=== PATIENT | male | born 1945 | race Caucasian/White ===

== ENCOUNTER 2023-08-23 06:59 | Day surgery (SDC) | payer OTHER, SELFPAY ==
[2023-08-23 07:48] LABS: INR 1.31; PT 16.6 Sec (11.4-14.6)
== END 2023-08-23 10:01 | disposition home or self-care (01) ==
LOC: CATH 06:59
PROVIDERS: ATTENDING PHYSICIAN Internal Medicine; FAMILY PHYSICIAN Family Medicine
DX: I08.3 Combined rheumatic disorders of mitral, aortic and tricuspid valves (principal); I48.0 Paroxysmal atrial fibrillation; R06.02 Shortness of breath; I25.10 Atherosclerotic heart disease of native coronary artery without angina pectoris; Z95.1 Presence of aortocoronary bypass graft; E78.00 Pure hypercholesterolemia, unspecified; Z79.01 Long term (current) use of anticoagulants
CPT/HCPCS: 93312; 93320; 93325; 85610

== ENCOUNTER → 2023-09-27 08:59 | Outpatient (REF) | payer OTHER, SELFPAY | LOC: HWRAD 08:59 | PROVIDERS: ATTENDING PHYSICIAN Thoracic Surgery (Cardiothoracic Vascular Surgery); FAMILY PHYSICIAN Family Medicine | DX: I05.0 Rheumatic mitral stenosis (principal); I34.0 Nonrheumatic mitral (valve) insufficiency; I35.0 Nonrheumatic aortic (valve) stenosis | CPT/HCPCS: 71275; 74174; 94060; Q9967 ==

== ENCOUNTER 2023-10-04 07:54 | Inpatient (IN) | payer OTHER, SELFPAY ==
[2023-09-27 12:14] VITALS: BMI 26.8
[2023-09-27 12:58] LABS: % Basophils 0.6 % (0-2); % Eosinophils 1.7 % (0-6); % Immature Granulocytes 0.3 % (0-0.5); % Lymphocytes 14.1 % (20.5-51.1); % Monocytes 8.3 % (1.7-9.3); Absolute Eosinophils 0.1 10^3/uL (0-0.7); Absolute Monocytes 0.6 10^3/uL (0.1-0.6); Absolute Neutrophils 5.2 10^3/uL (1.4-6.5); Hematocrit 32.4 % (39.0-52.0); Hemoglobin 10.9 g/dL (13.0-18.0); Mean Corp Hgb Conc. 33.6 g/dL (33.0-37.0); Mean Corpuscular Hgb 30.9 pg (27.0-31.0); Mean Corpuscular Volume 91.8 fL (80.0-94.0); Mean Platelet Volume 10.1 fL (7.4-10.4); Nucleated Red Blood Cells % 0 % (-); Platelet Count 184 10^3/uL (130-400); Red Blood Cell Count 3.53 10^6/uL (4.70-6.10); Red Cell Dist. Width 15.1 % (11.5-14.5); White Blood Cell Count 6.9 10^3/uL (4.8-10.8)
[2023-09-27 13:16] LABS: ALT (SGPT) 19 U/L (0-50); AST (SGOT) 33 U/L (17-59); Albumin 4.1 g/dl (3.5-5.0); Alkaline Phosphatase 121 U/L (38-126); Blood Urea Nitrogen 38 mg/dl (9-20); Calcium 8.9 mg/dl (8.4-10.2); Carbon Dioxide 22 mmol/L (22-30); Chloride 112 mmol/L (98-107); Direct Bilirubin 0.1 mg/dl (0.0-0.4); Estimated Creatinine Clearance 37 ml/min; Glucose 91 mg/dl (70-99); Potassium 4.4 mmol/L (3.5-5.1); Sodium 137 mmol/L (135-145); Total Bilirubin 0.8 mg/dl (0.2-1.3); Total Protein 6.9 g/dl (6.3-8.2); eGFR 47.06
[2023-09-27 13:20] LABS: INR 1.46; PT 17.8 Sec (11.4-14.6)
[2023-09-27 14:09] LABS: Urine Albumin Negative (Neg - Trace); Urine Bilirubin Negative (Negative); Urine Character Clear (Clear); Urine Color Yellow; Urine Glucose Negative (Negative); Urine Ketone Negative (Negative); Urine Leukocyte Negative (Negative); Urine Nitrite Negative (Negative); Urine Occult Blood Negative (Negative); Urine Specific Gravity 1.015 (<1.030); Urine Urobilinogen Negative (Neg - 1+)
--- NOTE | 2023-09-27 14:36 | CM ---
Chart reviewed. Met with the patient in PAT. Patient is coming in for on 10/03 for Heparin Bridge with AVR/MVR on 10/07. Patient is independent of ADLS, lives with his in a 2 STH, 8 VIRI, 0 DME. Reviewed preoperative and postoperative
instructions, along with showering guidelines. Gave patient 2 soaps, although the prep will be done here in the hospital. Patient is agreeable to a home visit by CT Transitional RN. Plan is for the patient to return home with CT Transitional RN.
[2023-09-28 11:15] LABS: Glycohemoglobin (HgbA1c) 5.8 % (4.0-5.6)
[2023-10-04] VITALS (17 sets, daily range): BP systolic 102–137; BP diastolic 51–76; BMI 23.7
--- NOTE | 2023-10-04 08:30 | PTCARENOTE ---
Pt admitted into 2267 @ 0800; Pt AAOx3 and resting comfortably in bed; A-fib on monitor and VSS; murmur; Lungs diminished throughout; positive bowel sounds; voiding clear yellow urine; weak lower extremities pulses; no edema noted; all admission
questions answered.
[2023-10-04 08:46] LABS: Hematocrit 31.7 % (39.0-52.0); Hemoglobin 11.1 g/dL (13.0-18.0); Mean Corpuscular Hgb 31.7 pg (27.0-31.0); Mean Corpuscular Volume 90.6 fL (80.0-94.0); Mean Platelet Volume 9.8 fL (7.4-10.4); Platelet Count 202 10^3/uL (130-400); Red Cell Dist. Width 14.5 % (11.5-14.5)
[2023-10-04 08:58] LABS: APTT 38.2 Sec (23.4-35.0); INR 1.42; PT 17.5 Sec (11.4-14.6)
[2023-10-04 09:08] LABS: NT-proBNP 3960 pg/ml
[2023-10-04 09:11] LABS: Blood Urea Nitrogen 35 mg/dl (9-20); Calcium 8.9 mg/dl (8.4-10.2); Carbon Dioxide 22 mmol/L (22-30); Chloride 110 mmol/L (98-107); Estimated Creatinine Clearance 40 ml/min; Glucose 96 mg/dl (70-99); Potassium 4.3 mmol/L (3.5-5.1); Sodium 138 mmol/L (135-145); eGFR 47.06
[2023-10-04] MEDS: LIPITOR 40 MG PO (09:39)
[2023-10-04] MEDS: SYNTHROID 50 MCG PO (09:39)
[2023-10-04] MEDS: TOPROL XL 50 MG PO (09:39)
[2023-10-04] MEDS: TIKOSYN 125 MCG PO ×2 (09:39→20:46)
[2023-10-04 10:24] LABS: HDL Cholesterol 42 mg/dl; LDL Cholesterol, Calculated 234 mg/dl; Total Cholesterol 312 mg/dl (50-199); Triglyceride 183 mg/dl (10-149); Very Low Density Lipoprotein 36 mg/dl (0-30)
--- NOTE | 2023-10-04 11:05 | CON.CAR ---
Addendum entered and electronically signed by Adelita Lundberg MD 10/04/23 13:43:
I saw and examined the patient.
The LIGHT RAIL TRANSIT OPERATOR's note was reviewed and I agree with the note.
Comment: 77 y/o male with CAD s/p CABG, bio AVR, severe MR s/p MitraClip 09/2020 (redo procedure 11/2020 [facility]), HFrEF EF 35-40%, PAF on warfarin and Tikosyn, hypertension, thyroid disease, and EDA who is here for optimization pre-operatively for
AVR/MVR Sunday. He is feeling well at rest. On exam, lungs cta, rrr, s1 s2, systolic murmur in all areas, jvp flat, extremitites warm. TTE today largely unchanged. Recently RHC was done at 71kg with relatively good filling pressures, svr was up
and CI low. Difficult to know how much he will be able to be optimized medically given multiple valvulopathies present and is the indication of surgery. We will attempt diuresis and further optimization cautiously with the aid of a [place]. Will need
medication compliance and OMT resumed post op to deal will CAD.
Will follow
Original Note:
Consultation
Consultation Request
Date/Time Consultation Requested: 10/04/23 0915
Date/Time Consultation Performed: 10/04/23 1050
Requesting Provider: Vidhya Araya
Performing Provider: Toshia MONTES DE OCA for Dr. Lundberg
Reason for Consultation: Pre-op AVR/MVR
Medical History
-
Chief Complaint: valvular heart disease
History of Present Illness:
77 y/o male with CAD s/p CABG, bio AVR, severe MR s/p MitraClip 09/2020 ([facility] HFrEF EF 35-40%, PAF on warfarin and Tikosyn, hypertension, thyroid disease, and EDA who is here for optimization pre-operatively for AVR/MVR
Sunday. I discussed with CT surgery team and he is having a swan placed to eval volume status and diuresis and valve surgery on Sunday.
Past Medical History
Past Medical History: Arrhythmias, CAD, CHF and Valvular Disease
Social History
Personal:
Living: With Family
Family History
Family History: Reviewed & Not Pertinent
Allergies / Home Medications
Allergy/AdvReac Type Severity Reaction Status Date / Time
No Known Drug Allergies Allergy Unknown Verified 09/25/23 11:43
Medication Instructions Recorded Confirmed Type
levothyroxine 50 mcg tablet 50 mcg PO DAILY Thyroid 05/05/23 10/04/23 History
torsemide 20 mg tablet 20 mg PO .M/W/F Fluid 05/05/23 10/04/23 History
Retention/Swelling
dofetilide 125 mcg capsule 125 mcg PO BID anti arrhythimia 08/06/23 10/04/23 History
atorvastatin 40 mg tablet 40 mg PO DAILY High Cholesterol 08/23/23 10/04/23 History
metoprolol succinate 50 mg 50 mg PO DAILY Blood Pressure 08/23/23 10/04/23 History
tablet,extended release 24 hr
warfarin 2 mg tablet 2 mg PO DAILY blood thinner 08/23/23 10/04/23 History
sacubitril 49 mg-valsartan 51 mg 2 tab PO BID Heart Failure 10/04/23 10/04/23 History
tablet (Entresto)
Review of Systems
-
History Source: Patient
All other systems: Negative unless noted
Constitutional: Fatigue
Respiratory: Trouble Breathing
Physical Exam
Vital Signs
Temp Pulse Resp BP Pulse Ox
97.9 F 55 20 122/64 95
10/04/23 10:00 10/04/23 11:00 10/04/23 11:00 10/04/23 11:00 10/04/23 10:00
Lab Results
10/04/23 08:35
10/04/23 08:35
Rqs-X-Qxivzvmnuuw Pept 3960 pg/ml 10/04/23 08:35
Impression / Plan
-
Valvular heart disease:
-YUNIEL 08/23/23: EF 35-40%.�s/p MitraClip x2. Appear well seated. Mild/moderate mitral valve stenosis. Mean gradient is 7 mmHg. MVA by planimetry 1.8 cm2. Moderate/severe eccentric mitral valve regurgitation. 2 jets visualized. s/p bio-AVR. The ADELINA by
planimetry is 1.2 cm2. Gradients were not measured on current study, but prior AV gradients on TTE 05/2023 were 48/27 mmHg. 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 ASD with left to right flow visualized. (Likely post procedural s/p
MitraClip.)�Area by planimetry 0.12-0.18 cm2.
-plan is for AVR/MVR Sunday (per OP notes +/- MAZE, LAAE/ascending aorta replacement/impella). Surgery considered very high risk and he is admitted for optimization prior. Patient to get swan today for further info with plans for diuresis per CT
surgery.
PAF:
-stable in SR
-On Tikosyn with stable QTc-he reports compliance- monitor tele/EKG's
-on warfarin for OAC
HFrEF: chronic
-volume management pending as above. Patient dry weight seems to be around 156 lbs. He is 160 lbs.
-patient was apparently extra Entresto by accident as OP- should go back on his typical dosing
-updated echo is pending
-continue metoprolol
-on torsemide as OP
CAD with history of stenting and CABG:
-recent cath as below
-on warfarin/atorvastatin as OP
-stable without CP
HTN:
-stable
-follow
Dyslipidemia:
-LDL 234
-increase atorvastatin, though not clear that he has been compliant with it
Thyroid disease:
-follows with endocrine as OP
Data:
-Echo 06/04/23:�EF 35-40% Dilated right ventricle with reduced systolic function. Severe left atrial dilation. s/p MitraClip x 2. The mean gradient across the valve is elevated at 8 mmHg. Moderate, eccentric mitral regurgitation (2 jets are
seen).�Bioprosthetic aortic valve replacement. The peak/mean gradients across the valve are 48/27 mmHg. No aortic regurgitation is seen. Mild to moderate tricuspid regurgitation. Estimated pulmonary artery pressure of 50 mmHg. Mildly dilated
ascending aorta (3.8 cm).
Cath 08/06/23: 1.�Right dominant circulation with a 60% proximal RCA lesion, patent mid RCA stent with 10% ISR and a diffusely diseased distal RCA with a APPLICATIONS PROGRAMMER of the RPDA, severely diseased left main coronary artery with a 60-70% stenosis of the entire
shaft with a 70-80% lesion at the distal margin leading into the left circumflex, a 60-70% lesion at the origin of the first obtuse marginal and a chronic total occlusion of the ostial LAD, status post bypass (patent SMITH to LAD, patent SVG to RPDA
to RPL).�The coronary anatomy is essentially unchanged from prior cardiac catheterization in 2020. Moderately elevated filling pressures (LVEDP = 20 mmHg, PCWP = 20 mmHg at 71.0 kg). Depressed systolic function (cardiac index 1.69 L/min/m�, AV O2
difference 6.93 volume%). Significant residual intra-atrial shunt (likely due to persistent atrial septostomy from AIDAN), Qp/Qs = 1.58. Status post bioprosthetic aortic valve replacement with probably moderate stenosis (mean gradient 15 mmHg on
cath, 27 mmHg on echocardiogram). Status post AIDAN.�There are total of 3 Mitra[address] devices in place.�There is equalization of PCWP and LVEDP pressures.
Data Reviewed
-
EKG: Tracing Personally Visualized and interpreted
Radiology: Report Reviewed by me (CXR: Pulmonary vascularity at least top normal)
Medical Tests (Nuc Med, Echo etc): Report Reviewed by me (as noted above)
Labs: Labs Reviewed by me
[2023-10-04 11:32] LABS: TSH 5.07 uIU/ml (0.47-4.68)
--- NOTE | 2023-10-04 11:34 | PTCARENOTE ---
Assessment unchanged; NSR with PACs on monitor and VSS; family at bedside and awaiting anesthesia for [place] Yolanda placement.
--- NOTE | 2023-10-04 11:59 | CM ---
CM following for DC planning needs.
Met w/ patient and spouse, Beverly at bedside.
Plan for CT Surgery on 10/07.
Reviewed CM role and anticipated DC plan.
Will remain available.
[2023-10-04] MEDS: VERSED 2 MG IV (12:40)
--- NOTE | 2023-10-04 13:10 | W.PN.UPDATE ---
Update Note
Progress Note Update
I had a edmar discussion with Mr. Bentley, he understands that his surgery is considered to be very high risk given his previous reoperative status as well as multiple clips and patent SMITH graft. We discussed the potential complications and setbacks
associate with reoperation in his particular case double valve replacement. Plan is to medically optimize him prior to surgery and possibly use Impella support postoperatively to bridge him and decompress his left ventricle. I quoted him a
estimated mortality risk of approximately 20 to 30%, however this is not based on any sort of calculator as it was not designed to consider his current situation. He understands and wishes to move forward. Tentative plan is for continued medical
optimization and surgery on Sunday. Will have a small insert in order to obtain cardiac output and index, and also plan to hold his Entresto (which she was taking double doses), until the day of surgery.
Thank you for involving me in the care of this patient. Please feel free to contact me with any questions or concerns.
Freeman Barlow MD, MS
Cardiothoracic Surgeon
[facility]
This dictation was created using the WIDIP dictation system. Please excuse any grammatical, typographical, or 'sound alike' errors.
[2023-10-04 13:13] LABS: Mixed Venous O2 Saturation 82.9 %
--- NOTE | 2023-10-04 13:18 | W.PN.UPDATE ---
Update Note
Progress Note Update
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 Please see scanned H&P
from 09/20/23. Pharmacist noted patient was inadvertently taking double his Entresto prior to admission.
PMH: s/p AVR #21mm Trifecta (tissue) and CABG x 3 SMITH-LAD; SVG- RPD & RPL 02/18/13; moderate MS/severe MR 2017 s/p Veronica Clip x 2 09/2020; AFib; hypothyroidism
NEURO: AAO x 3. KUMAR +5/5 B/L. PERRLA. Speech clear and appropriate
LUNGS: clear B/L. Prior median sternotomy well healed
CV: RRR S1, S2, III/ HSM LSB 5th ICS>radiates to axillae
GI: abdomen soft, round, nontender, normal active bowel sounds, no abdominal bruit
: voids without difficulty
EXT: no lower extremity edema, +2/4 DP pulses B/L
Assessment/Plan:
prosthetic aortic stenosis, moderate mitral stenosis and severe mitral regurgitation, ASD with left to right shunt
RIJ cordis and [place] placed by anesthesia: PA 38/18; CVP 6; CI 3.2
TTE: EF 35-40%. Aortic stenosis with gradients 40/20mmHg, trace AI.Moderate to severe MR with moderate MS. Moderate TR. 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
Dental clearance form scanned in chart
Currently SR>Warfarin and Entresto on hold for surgery. Continue Dofetilide and Metoprolol
--- NOTE | 2023-10-04 13:31 | PTCARENOTE ---
Dr Duvall at bedside; RIGian Ramos and Manish floated to 45 per anesthesia; CI 3.6, CO 6.7 and SVR 918; SVO2 78 on Hemosphere monitor.
--- NOTE | 2023-10-04 14:06 | PTCARENOTE ---
SVO2 79 on Hemosphere.
--- NOTE | 2023-10-04 16:11 | PTCARENOTE ---
SVO2 81 on Hemosphere.
--- NOTE | 2023-10-04 17:11 | W.PN.UPDATE ---
Update Note
Progress Note Update
T&S from with AntiFyA antibody. Spoke with Ana from Blood bank>recommends repeat T&S on 10/05 (ordered) to allow time to obtain blood (5PRBC & 4PPlts). Impella cordage sales representative notified of request for Impella 5.5 on 10/[address] Barlow
--- NOTE | 2023-10-04 18:26 | PTCARENOTE ---
SVO2 83 on Hemosphere monitor.
--- NOTE | 2023-10-04 20:00 | PTCARENOTE ---
Assumed care of patient. NSR. VSS. RA. MARY reyes and annette locked @48. Assessment per nursing flowsheet. SVO2 83. CO/CI 5.5/2.9 SVR 1126. Pt resting in bed, denies any complaints.
[2023-10-04 20:59] LABS: Urine Albumin Negative (Neg - Trace); Urine Bilirubin Negative (Negative); Urine Character Clear (Clear); Urine Color Yellow; Urine Glucose Negative (Negative); Urine Ketone Negative (Negative); Urine Leukocyte Negative (Negative); Urine Nitrite Negative (Negative); Urine Occult Blood Negative (Negative); Urine Urobilinogen Negative (Neg - 1+)
--- NOTE | 2023-10-04 21:10 | PTCARENOTE ---
Addendum entered by Faye Jessica RN 10/04/23 22:59:
Loyal leveled/zeroed/flushed prior to calibration. Loyal remains at 48cm
Original Note:
Pt oob to BS for BM. Upon returning to bed SVO2 90-91. DAMIEN Wright notified. Hemosphere device recalibrated. MV per lab is 75.2.
[2023-10-04 21:40] LABS: Mixed Venous O2 Saturation 75.4 %
--- NOTE | 2023-10-04 22:00 | PTCARENOTE ---
SVO2 74% on hemosphere monitor.
[2023-10-05] VITALS (25 sets, daily range): BP systolic 84–125; BP diastolic 32–89; BMI 23.8
--- NOTE | 2023-10-05 00:05 | PTCARENOTE ---
NSR with PACs. VSS remains on RA. Assessment unchanged. Pt resting at this time. SVO2 78%.
--- NOTE | 2023-10-05 02:13 | PTCARENOTE ---
SVO2 79 per hemosphere monitor
--- NOTE | 2023-10-05 03:00 | W.PN.CT ---
Today's Communication / Plan
-
-no issues overnight
-hemodynamically stable. No drips
-s/p swan placement on 10/03. CI 2.6, CO 4.8, SVR 1273
-remains in nsr with PACs
Assessment / Plan
-
Impression:
-admitted 10/03 for hemodynamic optimization prior to scheduled AVR/MVR, Maze/LAAE/ ASD closure with possible Impella support on 10/07
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
-RIJ cordis and [place] placed by anesthesia on 10/03: PA 38/18; CVP 6; CI 3.2
-TTE: EF 35-40%. Aortic stenosis with gradients 40/20mmHg, trace AI.Moderate to severe MR with moderate MS. Moderate TR. 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
-s/p AVR, CABG x3
-Paroxysmal a-fib - currently in SR>Warfarin and Entresto on hold for surgery. Continue Dofetilide and Metoprolol
-HTN/HLD
-CAD- hx stents
-MV clips 2020
-CKD 3
-Pulmonary HTN
-Anemia
-Mediastinal adenopathy
-Chronic systolic CHF
-Hx bronchitis
-Gastritis
-hx neck tingling
-Thyroid dz
-R TKR
�Echo 10/04/23:
�-Moderately reduced left ventricular systolic function. � LV ejection fraction�is 35-40% by visual assessment.
�-Dilated right ventricle with preserved function. Stage II diastolic dysfunction suggestive of increased filling pressures.
-Status post mitral valve clipping x 2 with moderate to severe mitral regurgitation� (may be underestimated due to acoustic shadowing).� Moderate mitral stenosis.
-Well-seated bioprosthetic aortic valve with significant stenosis.
�-Moderate tricuspid regurgitation with moderate pulmonary hypertension.
�-Color flow pattern suggestive of ASD with evidence of left to right shunting on color flow Doppler.
�-Compared to TTE from 06/04/2023, right ventricular systolic function appears preserved on today's study and was mildly reduced on the prior.� The mitral regurgitation is slightly increased and from moderate on the prior study
Discussed patient care with: Nursing and Care Team
Subjective
-
Date of Service: October 05, 2023
Objective Data
-
Lab Results
10/04/23 08:35
PT 17.5 Sec (11.4-14.6) H 10/04/23 08:35
INR 1.42 10/04/23 08:35
APTT 38.2 Sec (23.4-35.0) H 10/04/23 08:35
Vital Signs
Vital Signs
Temp Pulse Resp BP Pulse Ox
98.5 F 73 23 120/65 95
10/05/23 02:00 10/05/23 02:00 10/05/23 02:00 10/05/23 02:00 10/05/23 02:00
CT Intake/Output/Weight
10/04/23 10/04/23 10/05/23
06:59 18:59 06:59
Intake Total 600 / 760 160 / 760
Output Total 300 / 500 200 / 500
Balance 300 / 260 -40 / 260
SaO2: 95
Physical Exam
-
General: Awake and AOx3
Cardiovascular: Regular rate & rhythm, Murmur (2/6 systolic @ lsb) and No Rub
Respiratory: Decreased Breath Sounds
Extremities: No Edema (2+ DP b/l)
Abdomen: soft, nondistended, + bowel sounds
Data Reviewed
-
Lab Results: Results Reviewed
Medications: Active Meds Reviewed
Chest X-Ray: Report Reviewed and Image Reviewed
ECG: Report Reviewed and Image Reviewed
--- NOTE | 2023-10-05 04:01 | PTCARENOTE ---
NSR with PACs. SVO2 77% on hemosphere. Pt resting. Labs obtained from cordis, blood return was sluggish. Pt repositioned himself, educated on restrictions with swan in place.
[2023-10-05 04:27] LABS: Blood Urea Nitrogen 28 mg/dl (9-20); Calcium 8.5 mg/dl (8.4-10.2); Carbon Dioxide 24 mmol/L (22-30); Chloride 110 mmol/L (98-107); Estimated Creatinine Clearance 50 ml/min; Glucose 80 mg/dl (70-99); Potassium 4.5 mmol/L (3.5-5.1); Sodium 136 mmol/L (135-145); eGFR > 60.00
--- NOTE | 2023-10-05 04:31 | PTCARENOTE ---
Addendum entered by Faye Jessica RN 10/05/23 04:33:
PA notified at 0130
Original Note:
[place] remains at 48 cm, Reported to be at 45mm from previous nurse. DAMIEN Eaton aware. CXR ordered for AM for baseline per Angelito PA
[2023-10-05] MEDS: SYNTHROID 50 MCG PO (06:16)
[2023-10-05 08:14] LABS: Free T4 1.05 ng/dl (0.78-2.19)
--- NOTE | 2023-10-05 08:50 | W.PN.CD ---
Today's Communication / Plan
-
resume entresto
cvp 6 will hold torsemide
heparin gtt while await surgery
Impression / Plan
-
Valvular heart disease:
-YUNIEL 08/23/23: EF 35-40%.�s/p MitraClip x2. Appear well seated. Mild/moderate mitral valve stenosis. Mean gradient is 7 mmHg. MVA by planimetry 1.8 cm2. Moderate/severe eccentric mitral valve regurgitation. 2 jets visualized. s/p bio-AVR. The ADELINA by
planimetry is 1.2 cm2. Gradients were not measured on current study, but prior AV gradients on TTE 05/2023 were 48/27 mmHg. 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 ASD with left to right flow visualized. (Likely post procedural s/p
MitraClip.)�Area by planimetry 0.12-0.18 cm2.
-plan is for AVR/MVR Sunday (per OP notes +/- MAZE, LAAE/ascending aorta replacement/impella). Surgery considered very high risk and he is admitted for optimization prior. Patient to get annette today for further info with plans for diuresis per CT
surgery.
PAF:
-stable in SR
-On Tikosyn with stable QTc-he reports compliance- monitor tele/EKG's
-on warfarin for OAC--on hold for surgery
-will start heparin gtt with intensive monitoring of lab
HFrEF: chronic
--MARY Velez placed by anesthesia on 10/03: PA 38/18; CVP 6; CI 3.2
-Will give torsemide prn
-presents compensated, would not Hold Entresto, would resume until surgery
-continue metoprolol
-on torsemide as OP
CAD with history of stenting and CABG:
-recent cath as below
-on warfarin/atorvastatin as OP
-stable without CP
HTN:
-stable
-follow
Dyslipidemia:
-LDL 234
-increase atorvastatin, though not clear that he has been compliant with it
Thyroid disease:
-follows with endocrine as OP
Subjective:
-he is feeling well, no complaints of cp or sob.
Data:
-TTE 10/04/23
CONCLUSIONS
�Moderately reduced left ventricular systolic function. � LV ejection fraction
�is 35-40% by visual assessment.
�Dilated right ventricle with preserved function.
�Stage II diastolic dysfunction suggestive of increased filling pressures.
�Status post mitral valve clipping x 2 with moderate to severe mitral
�regurgitation� (may be underestimated due to acoustic shadowing).� Moderate
�mitral stenosis.
�Well-seated bioprosthetic aortic valve with significant stenosis.
�Moderate tricuspid regurgitation with moderate pulmonary hypertension.
�Color flow pattern suggestive of ASD with evidence of left to right shunting on
�color flow Doppler.
�Compared to TTE from 06/04/2023, right ventricular systolic function appears
�preserved on today's study and was mildly reduced on the prior.� The mitral
�regurgitation is slightly increased and from moderate on the prior study.
-Echo 06/04/23:�EF 35-40% Dilated right ventricle with reduced systolic function. Severe left atrial dilation. s/p MitraClip x 2. The mean gradient across the valve is elevated at 8 mmHg. Moderate, eccentric mitral regurgitation (2 jets are
seen).�Bioprosthetic aortic valve replacement. The peak/mean gradients across the valve are 48/27 mmHg. No aortic regurgitation is seen. Mild to moderate tricuspid regurgitation. Estimated pulmonary artery pressure of 50 mmHg. Mildly dilated
ascending aorta (3.8 cm).
Cath 08/06/23: 1.�Right dominant circulation with a 60% proximal RCA lesion, patent mid RCA stent with 10% ISR and a diffusely diseased distal RCA with a GLOBAL SALES EXECUTIVE of the RPDA, severely diseased left main coronary artery with a 60-70% stenosis of the entire
shaft with a 70-80% lesion at the distal margin leading into the left circumflex, a 60-70% lesion at the origin of the first obtuse marginal and a chronic total occlusion of the ostial LAD, status post bypass (patent SMITH to LAD, patent SVG to RPDA
to RPL).�The coronary anatomy is essentially unchanged from prior cardiac catheterization in 2020. Moderately elevated filling pressures (LVEDP = 20 mmHg, PCWP = 20 mmHg at 71.0 kg). Depressed systolic function (cardiac index 1.69 L/min/m�, AV O2
difference 6.93 volume%). Significant residual intra-atrial shunt (likely due to persistent atrial septostomy from AIDAN), Qp/Qs = 1.58. Status post bioprosthetic aortic valve replacement with probably moderate stenosis (mean gradient 15 mmHg on
cath, 27 mmHg on echocardiogram). Status post AIDAN.�There are total of 3 MitraClip devices in place.�There is equalization of PCWP and LVEDP pressures.
Physical Exam
Vital Signs/Labs
Vital Signs
Temp Pulse Resp BP Pulse Ox
98.4 F 80 16 125/78 92
10/05/23 06:00 10/05/23 06:00 10/05/23 06:00 10/05/23 06:00 10/05/23 06:00
10/04/23 10/05/23 10/06/23
06:59 06:59 06:59
Actual Weight 73.1 kg
10/04/23 08:35
10/05/23 03:56
PT 17.5 Sec (11.4-14.6) H 10/04/23 08:35
INR 1.42 10/04/23 08:35
APTT 38.2 Sec (23.4-35.0) H 10/04/23 08:35
Triglycerides 183 mg/dl (10-149) H 10/04/23 08:35
LDL Cholesterol, Calc 234 mg/dl 10/04/23 08:35
VLDL Cholesterol, Calc 36 mg/dl (0-30) H 10/04/23 08:35
HDL Cholesterol 42 mg/dl 10/04/23 08:35
TSH 5.07 uIU/ml (0.47-4.68) H 10/04/23 08:35
Free T4 1.05 ng/dl (0.78-2.19) 10/05/23 03:56
10/04/23
08:35
Djw-B-Tgjodhdpxyn Pept 3960
Physical Exam
Constitutional: No acute distress
Cardiovascular: Rhythm & rate is regular, Pedal edema is absent and Systolic murmur present
Respiratory: Respiratory effort normal, Lungs clear to auscul., Wheeze Absent, Crackles Absent and Rhonchi Absent
Neuro/Psych: AO x 3
Data Reviewed
-
Date of Service: October 05, 2023
EKG: Other (tele sinus)
--- NOTE | 2023-10-05 09:18 | W.PN.UPDATE ---
Update Note
Progress Note Update
Radial arterial line placement
A time-out was completed verifying correct patient, procedure, site, patient positioning, and special equipment. Patient was monitored with continuous bedside EKG, blood pressure, pulse ox readings.
Tyrone's test was performed to ensure adequate perfusion. The patient's left wrist was prepped and draped in sterile fashion.
1% Lidocaine was used to anesthetize the area. Ultrasound was used in real time to localize the radial artery and guide introducer needle into the arterial lumen. The catheter was threaded over the guide wire and the needle was removed with
appropriate pulsatile blood return. The catheter was then secured in place to the skin and a biopatch and sterile dressing applied.
Perfusion to the extremity distal to the point of catheter insertion was checked and found to be unchanged.
Estimated Blood Loss: 0 mL
The patient tolerated the procedure well and there were no complications.
[2023-10-05] MEDS: LIPITOR 80 MG PO (09:47)
[2023-10-05] MEDS: PEPCID 20 MG PO (09:47)
[2023-10-05] MEDS: TOPROL XL 50 MG PO (09:47)
[2023-10-05] MEDS: ENTRESTO 49 MG/51 MG 1 TAB PO (09:47)
[2023-10-05] MEDS: TIKOSYN 125 MCG PO ×2 (09:48→21:43)
[2023-10-05] MEDS: HEPARIN 25000 UNITS/250 ML IV (09:55)
[2023-10-05] MEDS: DEMADEX 20 MG PO (09:55)
[2023-10-05 09:59] LABS: Hemoglobin 10.7 g/dL (13.0-18.0); Mean Corp Hgb Conc. 35.7 g/dL (33.0-37.0); Mean Corpuscular Hgb 31.9 pg (27.0-31.0); Mean Corpuscular Volume 89.6 fL (80.0-94.0); Mean Platelet Volume 10.4 fL (7.4-10.4); Platelet Count 192 10^3/uL (130-400); Red Blood Cell Count 3.35 10^6/uL (4.70-6.10); Red Cell Dist. Width 14.5 % (11.5-14.5); White Blood Cell Count 5.2 10^3/uL (4.8-10.8)
--- NOTE | 2023-10-05 10:12 | PTCARENOTE ---
assumed care of pt from previous shift RN, sinus rhythm on tele w occasional sinus arrhythmia w HR 50-60. BP 108-112/50-60 via left arterial line, Right IJ swan leveled and zeroed, CVP 3-8, PAP 35/20, hemosphere monitor in use CO 3.6/ CI 1.9-2.5,
SVR 1400, SV 70. +peripheral pulses, trace edema to bilateral lower extremities. Lungs diminished, pox 97% on RA. +bs, tolerating PO intake, voids spontaneously. PIV flush easily. plan of care reviewed w the pt and CV team, questions encouraged.
DRIPS:
Heparin 900 units/hr initiated at 10am as ordered.
[2023-10-05 10:13] LABS: APTT 35.4 Sec (23.4-35.0)
--- NOTE | 2023-10-05 11:45 | PTCARENOTE ---
assisted OOB to chair, VSS, sinus rhythm maintained on tele. pt without complaint.
--- NOTE | 2023-10-05 15:46 | CM ---
CM following for DC planning needs.
Met w/ patient at bedside. He feels well, is prepared for surgery next week. Emotional support offered.
Plan for CT Surgery 10/07.
DC plan anticipated for home w/ CT Transitional Care RN.
Cm to cont. to follow.
--- NOTE | 2023-10-05 17:00 | PTCARENOTE ---
PTT 76, heparin gtt remains at 900 units/hr. Repeat PTT ordered for 22:00.
--- NOTE | 2023-10-05 20:00 | PTCARENOTE ---
Assumed care of patient. NSR with PACs infrequent PVCs. VSS. Room air. No complaints of pain. [place] @ 48cm with RIJ cordis. Left radial ramone. Assessment per nursing flowsheet. OOB to BSC x1 d/t lines.
--- NOTE | 2023-10-05 20:40 | PTCARENOTE ---
SBP 80-90 correlating both ramone and cuff pressure. Angelito QUEZADA aware - per conversation hold entresto tonight and give tikosyn as ordered.
[2023-10-05] MEDS: ENTRESTO 49 MG/51 MG PO (21:38)
[2023-10-05 22:08] LABS: APTT 80.4 Sec (23.4-35.0)
--- NOTE | 2023-10-05 22:22 | PTCARENOTE ---
BP consistently 70-80s/40s. MAP 50. DAMIEN Eaton aware - 250 ml NSS bolus ordered.
[2023-10-05] MEDS: NSS 250 IV (22:39)
[2023-10-06] VITALS (18 sets, daily range): BP systolic 96–128; BP diastolic 54–94; BMI 23.7
--- NOTE | 2023-10-06 00:12 | PTCARENOTE ---
HR fluctuating 40s-70s. SB, NSR with PACs and PVCs. BP labile with fluctuating HR. Pt asymptomatic. BP slightly increased after bolus completed. CO/CI stable 4/2.1. DAMIEN Eaton aware - no new orders at this time.
Assessment unchanged. Denies pain. Pt resting
--- NOTE | 2023-10-06 04:31 | W.PN.CT ---
Addendum entered and electronically signed by Rosales Durham MD 10/06/23 09:26:
I saw and examined the patient.
The PA's note was reviewed and I agree with the note.
Comment:
PREOP for OR Sunday
Original Note:
Today's Communication / Plan
-
-denies any complaints
-hypotensive overnight with sbp high 80s-low 90s (asymptomatic) - improved with 250 nss bolus, held Entresto
-in nsr with frequent PACs, occasional PVCs
-follow Cr (BMP pending)
-on iv Heparin for PAF (renewed)
Assessment / Plan
-
Impression:
-admitted 10/03 for hemodynamic optimization prior to scheduled AVR/MVR, Maze/LAAE/ ASD closure with possible Impella support on 10/07
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
-RIJ cordis and [place] placed by anesthesia on 10/03: PA 38/18; CVP 6; CI 3.2
-TTE: EF 35-40%. Aortic stenosis with gradients 40/20mmHg, trace AI.Moderate to severe MR with moderate MS. Moderate TR. 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
-s/p AVR, CABG x3
-Paroxysmal a-fib - currently in SR>Warfarin and Entresto on hold for surgery. Continue Dofetilide and Metoprolol
-HTN/HLD
-CAD- hx stents
-MV clips 2020
-CKD 3
-Pulmonary HTN
-Anemia
-Mediastinal adenopathy
-Chronic systolic CHF
-Hx bronchitis
-Gastritis
-hx neck tingling
-Thyroid dz
-R TKR
�Echo 10/04/23:
�-Moderately reduced left ventricular systolic function. � LV ejection fraction�is 35-40% by visual assessment.
�-Dilated right ventricle with preserved function. Stage II diastolic dysfunction suggestive of increased filling pressures.
-Status post mitral valve clipping x 2 with moderate to severe mitral regurgitation� (may be underestimated due to acoustic shadowing).� Moderate mitral stenosis.
-Well-seated bioprosthetic aortic valve with significant stenosis.
�-Moderate tricuspid regurgitation with moderate pulmonary hypertension.
�-Color flow pattern suggestive of ASD with evidence of left to right shunting on color flow Doppler.
�-Compared to TTE from 06/04/2023, right ventricular systolic function appears preserved on today's study and was mildly reduced on the prior.� The mitral regurgitation is slightly increased and from moderate on the prior study
Discussed patient care with: Nursing and Care Team
Subjective
-
Date of Service: October 06, 2023
Objective Data
-
Lab Results
10/05/23 09:46
PT 17.5 Sec (11.4-14.6) H 10/04/23 08:35
INR 1.42 10/04/23 08:35
APTT 80.4 Sec (23.4-35.0) H 10/05/23 21:50
Vital Signs
Vital Signs
Temp Pulse Resp BP Pulse Ox
97.9 F 75 20 126/81 97
10/06/23 02:00 10/06/23 02:00 10/06/23 02:00 10/06/23 02:00 10/06/23 02:00
CT Intake/Output/Weight
10/05/23 10/05/23 10/06/23
06:59 18:59 06:59
Intake Total 240 / 860 563 / 1035 472 / 1035
Output Total 200 / 500 1500 / 1600 100 / 1600
Balance 40 / 360 -937 / -565 372 / -565
SaO2: 97
Physical Exam
-
General: Awake and AOx3
Cardiovascular: Regular rate & rhythm, Murmur (2/6 systolic @ lsb) and No Rub
Respiratory: Decreased Breath Sounds
Abdomen: soft, nondistended, + bowel sounds
Extremities: No Edema (2+ DP b/l)
Data Reviewed
-
Lab Results: Results Reviewed
Medications: Active Meds Reviewed
Chest X-Ray: Report Reviewed and Image Reviewed
ECG: Report Reviewed and Image Reviewed
--- NOTE | 2023-10-06 04:56 | PTCARENOTE ---
NSR/SB with PACs/PVCs. SBP >90 after IVF bolus. Heparin gtt remains per protocol. Labs obtained. CO/CI 4.4/2.36. Assessment unchanged. Pt resting.
[2023-10-06 05:09] LABS: APTT 111.3 Sec (23.4-35.0)
[2023-10-06 05:23] LABS: Blood Urea Nitrogen 28 mg/dl (9-20); Calcium 8.4 mg/dl (8.4-10.2); Carbon Dioxide 23 mmol/L (22-30); Chloride 109 mmol/L (98-107); Estimated Creatinine Clearance 40 ml/min; Glucose 87 mg/dl (70-99); Sodium 136 mmol/L (135-145); eGFR 47.06
[2023-10-06] MEDS: SYNTHROID 75 MCG PO (06:28)
[2023-10-06] MEDS: LIPITOR 80 MG PO (07:54)
[2023-10-06] MEDS: PEPCID 20 MG PO (07:54)
[2023-10-06] MEDS: TOPROL XL 50 MG PO (07:54)
[2023-10-06] MEDS: TIKOSYN 125 MCG PO ×2 (07:54→20:09)
--- NOTE | 2023-10-06 10:26 | PTCARENOTE ---
assumed care of pt from previous shift RN, sinus rhythm on tele, VSS, + peripheral pulses, no edema. Lungs diminished, pox 97% on RA. Right IJ cordis w swan floated to 48, left radial ramone leveled and zeroed. PIV flush easily. +bs, tolerating PO
intake, voids spontaneously. plan of care reviewed w pt and questions encouraged.
DRIPS:
Heparin 800 units/hr
--- NOTE | 2023-10-06 11:49 | W.PN.CD ---
Today's Communication / Plan
-
- plan for mitral valve surgery with AVR/MVR, Maze/LAAE/ ASD closure with possible Impella support on 10/07
Impression / Plan
-
Valvular heart disease:
-YUNIEL 08/23/23: EF 35-40%.�s/p MitraClip x2. Appear well seated. Mild/moderate mitral valve stenosis. Mean gradient is 7 mmHg. MVA by planimetry 1.8 cm2. Moderate/severe eccentric mitral valve regurgitation. 2 jets visualized. s/p bio-AVR. The ADELINA by
planimetry is 1.2 cm2. Gradients were not measured on current study, but prior AV gradients on TTE 05/2023 were 48/27 mmHg. 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 ASD with left to right flow visualized. (Likely post procedural s/p
MitraClip.)�Area by planimetry 0.12-0.18 cm2.
-plan is for AVR/MVR Sunday (per OP notes +/- MAZE, LAAE/ascending aorta replacement/impella). Surgery considered very high risk and he is admitted for optimization prior. Patient to get manish today for further info with plans for diuresis per CT
surgery.
-Arterial line placement - LiDCO - similar with manish.
PAF:
-stable in SR
-On Tikosyn with stable QTc-he reports compliance- monitor tele/EKG's
-on warfarin for OAC--on hold for surgery
-On heparin gtt with intensive monitoring of lab
HFrEF: chronic
-MARY reyes and [place] placed by anesthesia on 10/03: PA 38/18; CVP 6; CI 3.2
-Will give torsemide prn
-presents compensated, would not Hold Entresto, would resume until surgery
-continue metoprolol
-on torsemide as OP
CAD with history of stenting and CABG:
-recent cath as below
-on warfarin/atorvastatin as OP
-stable without CP
HTN:
-stable
-follow
Dyslipidemia:
-LDL 234
-increase atorvastatin, though not clear that he has been compliant with it
Thyroid disease:
-follows with endocrine as OP
Subjective:
-he is feeling well, no complaints of cp or sob.
Data:
-TTE 10/04/23
CONCLUSIONS
�Moderately reduced left ventricular systolic function. � LV ejection fraction
�is 35-40% by visual assessment.
�Dilated right ventricle with preserved function.
�Stage II diastolic dysfunction suggestive of increased filling pressures.
�Status post mitral valve clipping x 2 with moderate to severe mitral
�regurgitation� (may be underestimated due to acoustic shadowing).� Moderate
�mitral stenosis.
�Well-seated bioprosthetic aortic valve with significant stenosis.
�Moderate tricuspid regurgitation with moderate pulmonary hypertension.
�Color flow pattern suggestive of ASD with evidence of left to right shunting on
�color flow Doppler.
�Compared to TTE from 06/04/2023, right ventricular systolic function appears
�preserved on today's study and was mildly reduced on the prior.� The mitral
�regurgitation is slightly increased and from moderate on the prior study.
-Echo 06/04/23:�EF 35-40% Dilated right ventricle with reduced systolic function. Severe left atrial dilation. s/p MitraClip x 2. The mean gradient across the valve is elevated at 8 mmHg. Moderate, eccentric mitral regurgitation (2 jets are
seen).�Bioprosthetic aortic valve replacement. The peak/mean gradients across the valve are 48/27 mmHg. No aortic regurgitation is seen. Mild to moderate tricuspid regurgitation. Estimated pulmonary artery pressure of 50 mmHg. Mildly dilated
ascending aorta (3.8 cm).
Cath 08/06/23: 1.�Right dominant circulation with a 60% proximal RCA lesion, patent mid RCA stent with 10% ISR and a diffusely diseased distal RCA with a [employer] DISP[employer]ER of the RPDA, severely diseased left main coronary artery with a 60-70% stenosis of the entire
shaft with a 70-80% lesion at the distal margin leading into the left circumflex, a 60-70% lesion at the origin of the first obtuse marginal and a chronic total occlusion of the ostial LAD, status post bypass (patent SMITH to LAD, patent SVG to RPDA
to RPL).�The coronary anatomy is essentially unchanged from prior cardiac catheterization in 2020. Moderately elevated filling pressures (LVEDP = 20 mmHg, PCWP = 20 mmHg at 71.0 kg). Depressed systolic function (cardiac index 1.69 L/min/m�, AV O2
difference 6.93 volume%). Significant residual intra-atrial shunt (likely due to persistent atrial septostomy from AIDAN), Qp/Qs = 1.58. Status post bioprosthetic aortic valve replacement with probably moderate stenosis (mean gradient 15 mmHg on
cath, 27 mmHg on echocardiogram). Status post AIDAN.�There are total of 3 Mit[address] devices in [address].�There is equalization of PCWP and LVEDP pressures.
Physical Exam
Vital Signs/Labs
Vital Signs
Temp Pulse Resp BP Pulse Ox
98.2 F 68 26 106/68 98
10/06/23 10:00 10/06/23 11:00 10/06/23 11:00 10/06/23 11:00 10/06/23 11:00
10/05/23 10/06/23 10/07/23
06:59 06:59 07:59
Actual Weight 73.1 kg 72.6 kg
10/05/23 09:46
10/06/23 04:41
PT 17.5 Sec (11.4-14.6) H 10/04/23 08:35
INR 1.42 10/04/23 08:35
APTT 111.3 Sec (23.4-35.0) H 10/06/23 04:41
Magnesium 2.0 mg/dl (1.6-2.3) 10/06/23 04:41
Triglycerides 183 mg/dl (10-149) H 10/04/23 08:35
LDL Cholesterol, Calc 234 mg/dl 10/04/23 08:35
VLDL Cholesterol, Calc 36 mg/dl (0-30) H 10/04/23 08:35
HDL Cholesterol 42 mg/dl 10/04/23 08:35
TSH 5.07 uIU/ml (0.47-4.68) H 10/04/23 08:35
Free T4 1.05 ng/dl (0.78-2.19) 10/05/23 03:56
10/04/23
08:35
Qtn-O-Dhbdeesgace Pept 3960
Physical Exam
Constitutional: No acute distress and Comfortable
EENT: Anicteric and Moist mucous membranes
Cardiovascular: Rhythm & rate is regular and JVD pressure is normal
Respiratory: Respiratory effort normal, Lungs clear to auscul. and Crackles Absent
GI: Soft, Distention absent and Non tender
Neuro/Psych: Alert, Oriented, AO x 3 and Motor deficits absent
Data Reviewed
-
Date of Service: October 06, 2023
Medical Decision Making: Reviewed Test Results, Independent Historian Assessment and Test Interpretation
EKG: Tracing Personally Visualized and interpreted
Echo: Report Reviewed by me
Labs: Labs Reviewed by me
Old Records: Reviewed
Critical Care Time (in minutes): 31
--- NOTE | 2023-10-06 12:30 | PTCARENOTE ---
ptt within therapeutic parameters. heparin gtt to remain at 800 units/hr.
[2023-10-06 12:32] LABS: APTT 76.2 Sec (23.4-35.0)
[2023-10-06] MEDS: HEPARIN 25000 UNITS/250 ML IV (13:30)
[2023-10-06 18:06] LABS: APTT 83.9 Sec (23.4-35.0)
--- NOTE | 2023-10-06 20:00 | PTCARENOTE ---
Assumed care of patient. SB/NSR with PACs/PVCs. VSS. Room air. Heparin gtt per protocol. [place] intact locked @48. Leveled and zeroed. Assessment per nursing flowsheet. Encouraged IS use. Denies pain. OOB to BSC.
[2023-10-07] VITALS (21 sets, daily range): BP systolic 102–132; BP diastolic 44–91; BMI 24.0
--- NOTE | 2023-10-07 00:07 | PTCARENOTE ---
SB/NSR with PACs/PVCS. VSS. Room air. Assessment unchanged.
[2023-10-07 05:00] LABS: Hemoglobin 10.2 g/dL (13.0-18.0); Mean Corp Hgb Conc. 35.2 g/dL (33.0-37.0); Mean Corpuscular Hgb 31.1 pg (27.0-31.0); Mean Corpuscular Volume 88.4 fL (80.0-94.0); Mean Platelet Volume 9.8 fL (7.4-10.4); Platelet Count 158 10^3/uL (130-400); Red Blood Cell Count 3.28 10^6/uL (4.70-6.10); Red Cell Dist. Width 14.3 % (11.5-14.5)
[2023-10-07 05:22] LABS: Blood Urea Nitrogen 24 mg/dl (9-20); Calcium 8.4 mg/dl (8.4-10.2); Carbon Dioxide 22 mmol/L (22-30); Chloride 109 mmol/L (98-107); Estimated Creatinine Clearance 46 ml/min; Glucose 86 mg/dl (70-99); Sodium 135 mmol/L (135-145); eGFR 55.88
[2023-10-07 05:26] LABS: APTT 92.5 Sec (23.4-35.0)
--- NOTE | 2023-10-07 05:26 | W.PN.CT ---
Addendum entered and electronically signed by Rosales Durham MD 10/07/23 10:34:
I saw and examined the patient.
The PA's note was reviewed and I agree with the note.
Comment:
OR tomorrow
Heparin OFF OCT
T&C 5U PRBC/4pk PLTs
Original Note:
Today's Communication / Plan
-
-Preop planning, tentative plan for OR on Sunday
-denies any complaints
-in and out NSR/afib, controlled rate. Dofetilide and Metoprolol per cardiology.
-on iv Heparin for PAF
Assessment / Plan
-
Impression:
-admitted 10/03 for hemodynamic optimization prior to scheduled AVR/MVR, Maze/LAAE/ ASD closure with possible Impella support on 10/07
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
-RIJ cordis and [place] placed by anesthesia on 10/03: PA 38/18; CVP 6; CI 3.2
-TTE: EF 35-40%. Aortic stenosis with gradients 40/20mmHg, trace AI.Moderate to severe MR with moderate MS. Moderate TR. 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
-s/p AVR, CABG x3
-Paroxysmal a-fib - currently in SR>Warfarin and Entresto on hold for surgery. Continue Dofetilide and Metoprolol
-HTN/HLD
-CAD- hx stents
-MV clips 2020
-CKD 3
-Pulmonary HTN
-Anemia
-Mediastinal adenopathy
-Chronic systolic CHF
-Hx bronchitis
-Gastritis
-hx neck tingling
-Thyroid dz
-R TKR
�Echo 10/04/23:
�-Moderately reduced left ventricular systolic function. � LV ejection fraction�is 35-40% by visual assessment.
�-Dilated right ventricle with preserved function. Stage II diastolic dysfunction suggestive of increased filling pressures.
-Status post mitral valve clipping x 2 with moderate to severe mitral regurgitation� (may be underestimated due to acoustic shadowing).� Moderate mitral stenosis.
-Well-seated bioprosthetic aortic valve with significant stenosis.
�-Moderate tricuspid regurgitation with moderate pulmonary hypertension.
�-Color flow pattern suggestive of ASD with evidence of left to right shunting on color flow Doppler.
�-Compared to TTE from 06/04/2023, right ventricular systolic function appears preserved on today's study and was mildly reduced on the prior.� The mitral regurgitation is slightly increased and from moderate on the prior study
Subjective
-
Date of Service: October 07, 2023
No overnight events. Hr 60, SR/afib. BP 110/58 (76) PA 28/18 RAP 7. Last CO 5.11 CI 2.72 SVR 1174.
Objective Data
-
Lab Results
10/07/23 04:44
10/07/23 04:44
PT 17.5 Sec (11.4-14.6) H 10/04/23 08:35
INR 1.42 10/04/23 08:35
APTT 83.9 Sec (23.4-35.0) H 10/06/23 17:49
Vital Signs
Vital Signs
Temp Pulse Resp BP Pulse Ox
97.7 F 73 17 119/61 96
10/07/23 04:00 10/07/23 04:30 10/07/23 04:30 10/07/23 04:00 10/07/23 04:30
CT Intake/Output/Weight
10/06/23 10/06/23 10/07/23
06:59 18:59 07:59
Intake Total 587 / 1150 296 / 548 252 / 548
Output Total 100 / 1600 400 / 400
Balance 487 / -450 -104 / 148 252 / 148
SaO2: 96
Physical Exam
-
General: Awake, Oriented and AOx3
Cardiovascular: Regular rate & rhythm and Murmur
Respiratory: Clear and Decreased Breath Sounds
Extremities: Edema +2
Data Reviewed
-
Lab Results: Results Reviewed
Medications: Active Meds Reviewed
Chest X-Ray: Report Reviewed
ECG: Report Reviewed
--- NOTE | 2023-10-07 05:49 | PTCARENOTE ---
Ptt within therapeutic range. Heparin gtt to remain at 800 units/hr.
[2023-10-07] MEDS: SYNTHROID 75 MCG PO (06:13)
--- NOTE | 2023-10-07 07:25 | PTCARENOTE ---
Pt received from outgoing RN, pt oob in a chair, aaox4, VSS, [place]/Rt IJ swan/cordis, continous monitoring, heparin gtt @ 800 units/hr, NSR, RA, no c/o pain, [place] locked at 48, Lt radial [place], continue to have loose stools, holding senna and
colace.
[2023-10-07] MEDS: TOPROL XL 50 MG PO (08:34)
[2023-10-07] MEDS: PEPCID 20 MG PO (08:34)
[2023-10-07] MEDS: LIPITOR 80 MG PO (08:34)
[2023-10-07] MEDS: TIKOSYN 125 MCG PO ×2 (08:35→21:31)
--- NOTE | 2023-10-07 09:53 | W.PN.CD ---
Today's Communication / Plan
-
- AVR/MVR Sunday
- NPO after midnight.
Impression / Plan
-
Valvular heart disease:
-YUNIEL 08/23/23: EF 35-40%.�s/p MitraClip x2. Appear well seated. Mild/moderate mitral valve stenosis. Mean gradient is 7 mmHg. MVA by planimetry 1.8 cm2. Moderate/severe eccentric mitral valve regurgitation. 2 jets visualized. s/p bio-AVR. The ADELINA by
planimetry is 1.2 cm2. Gradients were not measured on current study, but prior AV gradients on TTE 05/2023 were 48/27 mmHg. 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 ASD with left to right flow visualized. (Likely post procedural s/p
MitraClip.)�Area by planimetry 0.12-0.18 cm2.
-plan is for AVR/MVR Sunday (per OP notes +/- MAZE, LAAE/ascending aorta replacement/impella). Surgery considered very high risk and he is admitted for optimization prior. Patient to get annette today for further info with plans for diuresis per CT
surgery.
-Arterial line placement - LiDCO - similar with annette.
PAF:
-stable in SR
-On Tikosyn with stable QTc-he reports compliance- monitor tele/EKG's
-on warfarin for OAC--on hold for surgery
-On heparin gtt with intensive monitoring of lab
HFrEF: chronic
-MARY Velez placed by anesthesia on 10/03: PA 38/18; CVP 6; CI 3.2
-Will give torsemide prn
-presents compensated, would not Hold Entresto, would resume until surgery
-continue metoprolol
-on torsemide as OP
CAD with history of stenting and CABG:
-recent cath as below
-on warfarin/atorvastatin as OP
-stable without CP
HTN:
-stable
-follow
Dyslipidemia:
-LDL 234
-increase atorvastatin, though not clear that he has been compliant with it
Thyroid disease:
-follows with endocrine as OP
Subjective:
-he is feeling well, no complaints of cp or sob.
Data:
-TTE 10/04/23
CONCLUSIONS
�Moderately reduced left ventricular systolic function. � LV ejection fraction
�is 35-40% by visual assessment.
�Dilated right ventricle with preserved function.
�Stage II diastolic dysfunction suggestive of increased filling pressures.
�Status post mitral valve clipping x 2 with moderate to severe mitral
�regurgitation� (may be underestimated due to acoustic shadowing).� Moderate
�mitral stenosis.
�Well-seated bioprosthetic aortic valve with significant stenosis.
�Moderate tricuspid regurgitation with moderate pulmonary hypertension.
�Color flow pattern suggestive of ASD with evidence of left to right shunting on
�color flow Doppler.
�Compared to TTE from 06/04/2023, right ventricular systolic function appears
�preserved on today's study and was mildly reduced on the prior.� The mitral
�regurgitation is slightly increased and from moderate on the prior study.
-Echo 06/04/23:�EF 35-40% Dilated right ventricle with reduced systolic function. Severe left atrial dilation. s/p MitraClip x 2. The mean gradient across the valve is elevated at 8 mmHg. Moderate, eccentric mitral regurgitation (2 jets are
seen).�Bioprosthetic aortic valve replacement. The peak/mean gradients across the valve are 48/27 mmHg. No aortic regurgitation is seen. Mild to moderate tricuspid regurgitation. Estimated pulmonary artery pressure of 50 mmHg. Mildly dilated
ascending aorta (3.8 cm).
Cath 08/06/23: 1.�Right dominant circulation with a 60% proximal RCA lesion, patent mid RCA stent with 10% ISR and a diffusely diseased distal RCA with a PANTS MAKER of the RPDA, severely diseased left main coronary artery with a 60-70% stenosis of the entire
shaft with a 70-80% lesion at the distal margin leading into the left circumflex, a 60-70% lesion at the origin of the first obtuse marginal and a chronic total occlusion of the ostial LAD, status post bypass (patent SMITH to LAD, patent SVG to RPDA
to RPL).�The coronary anatomy is essentially unchanged from prior cardiac catheterization in 2020. Moderately elevated filling pressures (LVEDP = 20 mmHg, PCWP = 20 mmHg at 71.0 kg). Depressed systolic function (cardiac index 1.69 L/min/m�, AV O2
difference 6.93 volume%). Significant residual intra-atrial shunt (likely due to persistent atrial septostomy from AIDAN), Qp/Qs = 1.58. Status post bioprosthetic aortic valve replacement with probably moderate stenosis (mean gradient 15 mmHg on
cath, 27 mmHg on echocardiogram). Status post AIDAN.�There are total of 3 Mitra[address] devices in place.�There is equalization of PCWP and LVEDP pressures.
Physical Exam
Vital Signs/Labs
Vital Signs
Temp Pulse Resp BP Pulse Ox
98.2 F 78 27 102/44 94
10/07/23 07:00 10/07/23 09:30 10/07/23 09:30 10/07/23 09:00 10/07/23 09:30
10/06/23 10/07/23 10/08/23
05:59 06:59 06:59
Actual Weight
10/07/23 04:44
10/07/23 04:44
PT 17.5 Sec (11.4-14.6) H 10/04/23 08:35
INR 1.42 10/04/23 08:35
APTT 92.5 Sec (23.4-35.0) H 10/07/23 04:44
Magnesium 2.0 mg/dl (1.6-2.3) 10/06/23 04:41
Triglycerides 183 mg/dl (10-149) H 10/04/23 08:35
LDL Cholesterol, Calc 234 mg/dl 10/04/23 08:35
VLDL Cholesterol, Calc 36 mg/dl (0-30) H 10/04/23 08:35
HDL Cholesterol 42 mg/dl 10/04/23 08:35
TSH 5.07 uIU/ml (0.47-4.68) H 10/04/23 08:35
Free T4 1.05 ng/dl (0.78-2.19) 10/05/23 03:56
10/04/23
08:35
Lyg-Q-Jsetvvyadao Pept 3960
Physical Exam
Constitutional: No acute distress and Comfortable
EENT: Anicteric and Moist mucous membranes
Cardiovascular: Rhythm & rate is regular, Pedal edema is absent and JVD pressure is normal
Respiratory: Respiratory effort normal, Lungs clear to auscul., Wheeze Absent and Crackles Absent
GI: Soft, Non tender and Normal bowel sounds
Neuro/Psych: Alert, Oriented, AO x 3 and Motor deficits absent
Data Reviewed
-
Date of Service: October 07, 2023
Medical Decision Making: Reviewed Test Results, Independent Historian Assessment, Test Interpretation and Review of Case with other Provider
EKG: Tracing Personally Visualized and interpreted
Echo: Report Reviewed by me
Labs: Labs Reviewed by me
Old Records: Reviewed
--- NOTE | 2023-10-07 12:00 | PTCARENOTE ---
reassessment unchanged from previous, few episode of bradycardia in the 40's, vss otherwise, Rt IJ swan/cordis, lt radial ramone, heparin gtt, RA, stable, no c/o pain, planned for CVOR tomorrow morning.
--- NOTE | 2023-10-07 16:00 | PTCARENOTE ---
pt reassessment unchanged from previous, vss, nsr, RA, heparin gtt 800units/hr, In and out of bed, rt IJ cordis/swan @ 48, lt radial ramone, no c/o sob, cp. Pt will be npo at midnight and prep for surgery for tomorrow morning, heparin will be on hold
prior to going into OR.
--- NOTE | 2023-10-07 18:43 | PTCARENOTE ---
ramone dced, occluded,
[2023-10-08] VITALS (21 sets, daily range): BP systolic 88–137; BP diastolic 55–99; BMI 24.1
--- NOTE | 2023-10-08 02:26 | W.PN.CT ---
Today's Communication / Plan
-
OR for today (AVR/MVR, Maze/LAAE/ ASD closure) �
Denies any complaints�
[place] DC, poor reading�
NSR/afib (controlled rate). Period of Bradycardia on dayshift (Metoprolol placed on hold)�
IV Heparin for PAF; off OCTOR�
5 of RBC and 4 PLT ordered for OR�
Assessment / Plan
-
Impression:
-admitted 10/03 for hemodynamic optimization prior to scheduled AVR/MVR, Maze/LAAE/ ASD closure with possible Impella support on 10/07
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
-RIJ cordis and [place] placed by anesthesia on 10/03: PA 38/18; CVP 6; CI 3.2
-TTE: EF 35-40%. Aortic stenosis with gradients 40/20mmHg, trace AI.Moderate to severe MR with moderate MS. Moderate TR. 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
-s/p AVR, CABG x3
-Paroxysmal a-fib - currently in SR>Warfarin and Entresto on hold for surgery. Continue Dofetilide and Metoprolol
-HTN/HLD
-CAD- hx stents
-MV clips 2020
-CKD 3
-Pulmonary HTN
-Anemia
-Mediastinal adenopathy
-Chronic systolic CHF
-Hx bronchitis
-Gastritis
-hx neck tingling
-Thyroid dz
-R TKR
�Echo 10/04/23:
�-Moderately reduced left ventricular systolic function. � LV ejection fraction�is 35-40% by visual assessment.
�-Dilated right ventricle with preserved function. Stage II diastolic dysfunction suggestive of increased filling pressures.
-Status post mitral valve clipping x 2 with moderate to severe mitral regurgitation� (may be underestimated due to acoustic shadowing).� Moderate mitral stenosis.
-Well-seated bioprosthetic aortic valve with significant stenosis.
�-Moderate tricuspid regurgitation with moderate pulmonary hypertension.
�-Color flow pattern suggestive of ASD with evidence of left to right shunting on color flow Doppler.
�-Compared to TTE from 06/04/2023, right ventricular systolic function appears preserved on today's study and was mildly reduced on the prior.� The mitral regurgitation is slightly increased and from moderate on the prior study
Subjective
-
Date of Service: October 08, 2023
Objective Data
-
Lab Results
10/07/23 04:44
PT 17.5 Sec (11.4-14.6) H 10/04/23 08:35
INR 1.42 10/04/23 08:35
APTT 92.5 Sec (23.4-35.0) H 10/07/23 04:44
Vital Signs
Vital Signs
Temp Pulse Resp BP Pulse Ox
98 F 71 12 127/71 98
10/07/23 23:00 10/08/23 01:00 10/08/23 01:00 10/08/23 01:00 10/08/23 01:00
CT Intake/Output/Weight
10/07/23 10/07/23 10/08/23
06:59 18:59 06:59
Intake Total 696 / 1492 796 / 1492
Output Total 300 / 1100 800 / 1100
Balance 396 / 392 -4 / 392
SaO2: 98
[2023-10-08] MEDS: BACTROBAN 2% OINTMENT 1 APPLIC NASAL ×2 (05:54→19:52)
[2023-10-08] MEDS: LOPRESSOR 25 MG PO (05:55)
[2023-10-08] MEDS: MAGNESIUM OXIDE 500 MG PO (05:55)
[2023-10-08] MEDS: PROTONIX 40 MG PO (05:57)
--- NOTE | 2023-10-08 06:00 | W.CVOR.SURPR ---
CVOR Surgeon Immed Pre Op
-
I have examined this patient prior to performance of the scheduled procedure.
The patient's condition is unchanged from the time of the dictated/written History and
Physical and the patient is able to undergo the scheduled procedure.
High risk Redo sternotomy AVR/MVR/+/- MAZE BRANDON E
--- NOTE | 2023-10-08 06:42 | PTCARENOTE ---
PT prepped & shaved for surgery, all meds taken and bed bath x2. CVOR rn at bedside for help with transfer
[2023-10-08 06:47] LABS: Blood Urea Nitrogen 22 mg/dl (9-20); Calcium 8.6 mg/dl (8.4-10.2); Carbon Dioxide 23 mmol/L (22-30); Chloride 110 mmol/L (98-107); Estimated Creatinine Clearance 46 ml/min; Glucose 83 mg/dl (70-99); Sodium 136 mmol/L (135-145); eGFR 55.88
[2023-10-08 07:23] LABS: ACT+ - POC 90 Seconds (82-134)
[2023-10-08 07:25] LABS: B.E. - POC -4.6 mmol/L; Glucose - POC 81 mg/dl (65-99); HCO3 - POC 21 mmol/L (21-29); Hematocrit - POC 30 % PCV (42-52); Hemodilution- POC Yes; Hemoglobin Calculated - POC 10.2; Ionized Calcium - POC 1.24 mmol/L (1.12-1.27); O2 Saturation %Calculated-POC 99.9 5 (92-96); PCO2 - POC 40 mmHg (35-45); PO2 - POC 352 mmHg (80-100); Potassium - POC 3.8 mmol/L (3.6-5.0); Sodium - POC 140 mmol/L (135-145); pH - POC 7.33 (7.35-7.45)
[2023-10-08 07:26] LABS: Urine Albumin Negative (Neg - Trace); Urine Bilirubin Negative (Negative); Urine Character Clear (Clear); Urine Color Yellow; Urine Glucose Negative (Negative); Urine Ketone Negative (Negative); Urine Leukocyte Negative (Negative); Urine Nitrite Negative (Negative); Urine Occult Blood 3+ (Negative); Urine Specific Gravity 1.015 (<1.030); Urine Urobilinogen Negative (Neg - 1+)
[2023-10-08 07:32] LABS: Urine Squamous Cell 0-2 /LPF (Few)
[2023-10-08 07:33] LABS: Urine Bacteria Few (Negative); Urine Red Blood Cell 21-25 /HPF (0-2); Urine White Cell 0-2 /HPF (0-5)
[2023-10-08] MEDS: STERILE WATER FOR INJECTION 16 ML IV ×2 (07:39→13:24)
[2023-10-08] MEDS: ZINACEF 1500 MG IV ×2 (07:39→13:24)
[2023-10-08 09:22] LABS: ACT+ - POC 675 Seconds (82-134)
[2023-10-08 10:03] LABS: Glucose - POC 117 mg/dl (65-99); HCO3 - POC 23 mmol/L (21-29); Hematocrit - POC 20 % PCV (42-52); Hemodilution- POC Yes; Hemoglobin Calculated - POC 6.8; Ionized Calcium - POC 0.96 mmol/L (1.12-1.27); PCO2 - POC 31 mmHg (35-45); PO2 - POC 365 mmHg (80-100); Potassium - POC 7.3 mmol/L (3.6-5.0); Sodium - POC 136 mmol/L (135-145); pH - POC 7.46 (7.35-7.45)
[2023-10-08 10:11] LABS: ACT+ - POC 746 Seconds (82-134)
[2023-10-08 10:37] LABS: B.E. - POC -3.1 mmol/L; Glucose - POC 171 mg/dl (65-99); HCO3 - POC 24 mmol/L (21-29); Hematocrit - POC 27 % PCV (42-52); Hemodilution- POC Yes; Hemoglobin Calculated - POC 9.1; Ionized Calcium - POC 1.08 mmol/L (1.12-1.27); O2 Saturation %Calculated-POC 99.7 5 (92-96); PCO2 - POC 51 mmHg (35-45); PO2 - POC 224 mmHg (80-100); Potassium - POC 6.4 mmol/L (3.6-5.0); Sodium - POC 136 mmol/L (135-145); pH - POC 7.28 (7.35-7.45)
[2023-10-08 10:41] LABS: ACT+ - POC 631 Seconds (82-134)
[2023-10-08 11:11] LABS: B.E. - POC -5.1 mmol/L; Glucose - POC 158 mg/dl (65-99); HCO3 - POC 21 mmol/L (21-29); Hematocrit - POC 28 % PCV (42-52); Hemodilution- POC Yes; Hemoglobin Calculated - POC 9.6; Ionized Calcium - POC 1.02 mmol/L (1.12-1.27); O2 Saturation %Calculated-POC 99.6 5 (92-96); PCO2 - POC 41 mmHg (35-45); PO2 - POC 196 mmHg (80-100); Potassium - POC 6.9 mmol/L (3.6-5.0); Sodium - POC 136 mmol/L (135-145); pH - POC 7.32 (7.35-7.45)
[2023-10-08 11:13] LABS: ACT+ - POC 603 Seconds (82-134)
[2023-10-08 11:36] LABS: B.E. - POC -1.8 mmol/L; Glucose - POC 128 mg/dl (65-99); HCO3 - POC 24 mmol/L (21-29); Hematocrit - POC 25 % PCV (42-52); Hemodilution- POC Yes; Hemoglobin Calculated - POC 8.6; Ionized Calcium - POC 1.01 mmol/L (1.12-1.27); O2 Saturation %Calculated-POC 99.9 5 (92-96); PCO2 - POC 47 mmHg (35-45); PO2 - POC 338 mmHg (80-100); Potassium - POC 7.6 mmol/L (3.6-5.0); Sodium - POC 139 mmol/L (135-145); pH - POC 7.32 (7.35-7.45)
[2023-10-08 11:40] LABS: ACT+ - POC 666 Seconds (82-134)
--- NOTE | 2023-10-08 12:04 | CM ---
pt in OR today, cm to follow.
[2023-10-08 12:11] LABS: B.E. - POC -2.1 mmol/L; Glucose - POC 104 mg/dl (65-99); HCO3 - POC 23 mmol/L (21-29); Hematocrit - POC 23 % PCV (42-52); Hemodilution- POC Yes; Hemoglobin Calculated - POC 7.9; Ionized Calcium - POC 0.98 mmol/L (1.12-1.27); PCO2 - POC 37 mmHg (35-45); PO2 - POC 388 mmHg (80-100); Potassium - POC 8.7 mmol/L (3.6-5.0); Sodium - POC 139 mmol/L (135-145)
[2023-10-08 12:14] LABS: ACT+ - POC 611 Seconds (82-134)
[2023-10-08 12:30] LABS: B.E. - POC -2.7 mmol/L; Glucose - POC 96 mg/dl (65-99); HCO3 - POC 22 mmol/L (21-29); Hematocrit - POC 24 % PCV (42-52); Hemodilution- POC Yes; Hemoglobin Calculated - POC 8.2; Ionized Calcium - POC 1.01 mmol/L (1.12-1.27); PCO2 - POC 36 mmHg (35-45); PO2 - POC 387 mmHg (80-100); Potassium - POC 6.1 mmol/L (3.6-5.0); Sodium - POC 143 mmol/L (135-145); pH - POC 7.39 (7.35-7.45)
[2023-10-08 12:34] LABS: ACT+ - POC 563 Seconds (82-134)
[2023-10-08 12:55] LABS: B.E. - POC -1.8 mmol/L; Glucose - POC 119 mg/dl (65-99); HCO3 - POC 24 mmol/L (21-29); Hematocrit - POC 29 % PCV (42-52); Hemodilution- POC Yes; Hemoglobin Calculated - POC 9.9; PCO2 - POC 47 mmHg (35-45); PO2 - POC 403 mmHg (80-100); Potassium - POC 6.3 mmol/L (3.6-5.0); Sodium - POC 144 mmol/L (135-145); pH - POC 7.32 (7.35-7.45)
[2023-10-08 12:57] LABS: ACT+ - POC 539 Seconds (82-134)
[2023-10-08 13:28] LABS: ACT+ - POC 156 Seconds (82-134)
[2023-10-08 13:29] LABS: Glucose - POC 107 mg/dl (65-99); HCO3 - POC 21 mmol/L (21-29); Hematocrit - POC 29 % PCV (42-52); Hemodilution- POC Yes; Ionized Calcium - POC 1.25 mmol/L (1.12-1.27); O2 Saturation %Calculated-POC 99.3 5 (92-96); PCO2 - POC 40 mmHg (35-45); PO2 - POC 160 mmHg (80-100); Potassium - POC 4.4 mmol/L (3.6-5.0); Sodium - POC 146 mmol/L (135-145); pH - POC 7.32 (7.35-7.45)
--- NOTE | 2023-10-08 14:43 | CON.INTV ---
Consultation
Consultation Request
Date/Time Consultation Requested: 10/08/2023
Date/Time Consultation Performed: 10/08/2023
Requesting Provider: Dr. Barlow
Performing Provider: Dr. Vicente Tristan
Reason for Consultation: Postoperative ICU care
Medical History
-
History of Present Illness:
This is a 77-year-old man with history of coronary Tory disease status post coronary artery bypass, bioprosthetic AVR, severe MR status post MitraClip 09/2020, redo procedure again in 11/2020, heart failure with reduced ejection fraction 35 to 40%,
atrial fibrillation on anticoagulation, Tikosyn, hypertension, admitted for medical optimization prior redo AVR/MVR. High risk procedure per cardio thoracic nodes.
Patient was taken to the operating room 10/08/2023.
Patient to critical care unit, intubated on mechanical ventilation.
On multiple vasoactive drugs. Impella in place.
Chest tube in place without significant drainage or air leak.
Past Medical History
Past Medical History: Other (See assessment and plan section)
Social History
Personal:
Living: With Family
Family History
Family History: Unable to Obtain
Allergies / Home Medications
Allergies
Allergy/AdvReac Type Severity Reaction Status Date / Time
No Known Drug Allergies Allergy Unknown Verified 09/25/23 11:43
Home Medications
Medication Instructions Recorded Confirmed Last Taken Type
levothyroxine 50 mcg tablet 50 mcg PO DAILY Thyroid 05/05/23 10/04/23 10/03/23 07:00 History
torsemide 20 mg tablet 20 mg PO .M/W/F Fluid 05/05/23 10/04/23 10/03/23 08:00 History
Retention/Swelling
dofetilide 125 mcg capsule 125 mcg PO BID anti arrhythimia 08/06/23 10/04/23 10/03/23 20:00 History
atorvastatin 40 mg tablet 40 mg PO DAILY High Cholesterol 08/23/23 10/04/23 10/01/23 20:00 History
metoprolol succinate 50 mg 50 mg PO DAILY Blood Pressure 08/23/23 10/04/23 10/03/23 08:00 History
tablet,extended release 24 hr
warfarin 2 mg tablet 2 mg PO DAILY blood thinner 08/23/23 10/04/23 10/03/23 20:00 History
sacubitril 49 mg-valsartan 51 mg 2 tab PO BID Heart Failure 10/04/23 10/04/23 10/03/23 20:00 History
tablet (Entresto)
Review of Systems
-
Unable to Obtain full review of systems at this time due to: Acuity and Patient Intubation
Vitals / Labs / Diagnostic Testing
Vital Signs
Temp Pulse Resp BP Pulse Ox
98.7 F 75 18 134/81 96
10/08/23 06:00 10/08/23 06:04 10/08/23 06:04 10/08/23 06:04 10/08/23 06:04
Diagnostic Testing:
Physical Exam
-
HEENT: Normocephalic
Cardiovascular: Murmur
Respiratory: Clear, Non-Labored Respirations and Other (Chest tube in place. No air leak. No excessive drainage.)
GI: Soft and Non Distended
Neurology: Other (Sedated, on mechanical ventilation.)
Skin: Warm
General: Comfortable (sedated.)
Assessment
-
Status post High risk redo sternotomy AVR/MVR 10/08/2023-Dr. Barlow
Postoperative mechanical ventilation
Postoperative anemia
Condition present prior admission:
Paroxysmal atrial fibrillation on anticoagulation
Heart failure with reduced ejection fraction
History of MitraClip X2 in 2020
Moderate to severe eccentric mitral valve regurgitation, moderate/severe prosthetic valve stenosis.
Coronary artery disease with prior stents and coronary artery bypass
Hypertension
Dyslipidemia
Thyroid disease
Prior right total knee replacement
Chronic kidney disease
Assessment and plan:
Postoperative day 0
Mechanical ventilation, appears comfortable. Sedated.
ABG reviewed: Mild mixed acidosis.
Continue SIMV mode with no change
Spontaneous breathing trial per protocol once sedation wears off.
Anemia noted-no evidence of acute bleeding
Status post transfusion of 2 units of packed RBCs/2 units of fresh frozen plasma
Follow H&H serially
Hemodynamics -on multiple vasopressors
Impella device in place
Cardiology following the patient
Arterial line and PA catheter in place. Will follow hemodynamics closely and titrate vasopressors as necessary.
Chest tube with no excessive drainage-no air leak.
Chest x-ray reviewed: With no pneumothorax or fluid collections.
Remain nothing by mouth
Head of the bed elevation
Glycemic control per protocol-insulin drip
DVT prophylaxis when safe from the surgical perspective.
Critical care statement: A total of 32 minutes of critical care time was provided for this patient today. This includes management of unstable vital signs, evaluation of the patient at bedside, reviewing the patient's pertinent medical records
including ventilator settings, arterial blood gases, radiographs, microbiology, laboratory evaluations and discussion with primary team, critical care nursing, and respiratory therapy.
[2023-10-08] MEDS: SYNTHROID PO (14:44)
[2023-10-08] MEDS: LIPITOR PO (14:44)
[2023-10-08] MEDS: TYLENOL PO ×3 (14:45→19:54)
[2023-10-08] MEDS: TIKOSYN PO (14:45)
--- NOTE | 2023-10-08 15:01 | W.PN.CT.SURG ---
CT Surgery Operative Note
-
CARDIAC SURGERY OPERATIVE REPORT
Preoperative Diagnosis: Acute on chronic congestive heart failure secondary to mitral valve stenosis/mitral valve insufficiency, bioprosthetic aortic valve stenosis
Postoperative Diagnosis: Same
Procedure(s) Performed:
1. Ultrasound-guided Seldinger access to the right common femoral artery and vein
2. Redo sternotomy with central mid arch cannulation, SVC cannulation and right common femoral vein cannulation
3. Explant of prior bioprosthetic aortic valve and implant of a 21 mm Alan Inspiris biological valve
4. Chordal sparing mitral valve replacement with explant of previous 3 mitral clips, resuspension of papillary muscle heads with CV 4 [place]Micheal
5. Left atrial maze using cryo
6. Left atrial appendage ligation
7. ASD closure
8. Placement of temporary atrial ventricular pacing wires
9. Extensive adhesiolysis
10. 5.5 ventricular assist device support [Impella] via direct aortic 10 mm graft (CPT 36592)
11. Transesophageal echocardiography
12. Management and positioning of Impella (CPT 96183)
Date of Surgery: 10/08/2023
Comorbidities:
1. Acute on chronic congestive heart failure with preoperative cardiac index diagnosis in Sea Shell Gatherer at 1.6, depressed left ventricular ejection fraction approximately 35 to 40% biatrial dilatation, evidence of endorgan malperfusion with elevated
creatinine preoperatively
2. Severe bioprosthetic aortic valve stenosis
3. Moderately severe mitral valve stenosis secondary to multiple TEERs
4. Severe mitral valve insufficiency
5. Hypertension
6. Hyperlipidemia
7. Paroxysmal atrial fibrillation
8. Coronary artery disease status post CABG x 3 with significant chitina vessel disease
9. Chronic anemia
10. Prior open heart cardiac surgery with patent grafts
Attending Surgeon: Freeman Barlow MD, MS
Assistants: Freeman Mansfield PA-C (present and necessary to rehabilitation assistant, retraction, suction, exposure, suture management, and wound closure under my direction)
Anesthesiology: Surjit Wiseman MD and Nii Klesch, LEGAL MEDIATOR
Scrub and Circulating RNs: Arun Bryan, RN, Linda Powell/Christin Stauffer RN
Fishing Worker: Kiana Landeros CCP
Anesthesia: GETA
EBL: per perfusion records
Products: 3 prbcs and 2 plts (more to be given in unit)
CPB Time: 225 minutes
Aortic Cross Clamp Time: 182 minutes
Indication(s) for Procedures: This is a 77-year-old male who had previous aortic valve and CABG x 3 back in 2013. He did relatively well following that surgery then developed degenerative mitral valve insufficiency and was deemed to be inoperable
given the level of calcification of his root and prior heart surgeons evaluation. He was subsequently sent to an outside facility in 2020/2021 where he had MitraClip x 3. Since those procedures, he has had significant quality of life limiting
shortness of breath and inability to perform even light activity such as walking to his mailbox. He has severe mitral valve insufficiency as well as moderate degree of stenosis from the [id number] procedure. He came to my office with severe
shortness of breath and inability to perform simple activities. After much deliberation we went over the risks associated reoperative surgery given his relatively poor cardiac function. He understood the risks and accepted them and so we proceeded
with preoperative optimization prior to surgery and plan for double valve replacement. Preoperatively, he had evidence of end-organ malperfusion in the form of MARTHA. His [place] Gatherer index was poor approximately 1.6 with elevation of his LVEDP. There
is also evidence of dilation of his IVC without respiratory variation secondary to significant left to right atrial shunt from the previous procedure and mild RV dysfunction. His left ventricular ejection fraction was approximate 35 to 40% with
biatrial dilatation.
Aortic Valve Description: Heavily calcified trifecta valve and heavily calcified root. Calcified ostium of both left and right coronary arteries. A total of 17 Ethibond sutures with core knots were removed.
Mitral Valve Description: Abnormally thickened with pannus overgrowth of 3 mitral clips, access via transseptal approach
Tricuspid Valve Description: Normal with minimal annular dilatation and mild insufficiency.
Findings: His left ventricular ejection fraction preoperatively was approximately 35 to 40%. His cardiac index starting off was approximately 1.8-1.9 and PA pressures were in the 50s to 60s. Following surgery had no new regional wall motion
abnormalities and his EF was approximate 25 to 30%. A 5.5 Impella was implanted via a direct aortic approach through a 10 mm graft across the aortic valve and directed towards the apex. Overall support was set at P7. He was pulsatile above the
Impella support with an index of 1.9 and PA pressures in the 40s, CVP in the 9-10 range. He did receive a bolus of normal but did not have any other inotropic support and was coming off of Levophed. RV function appeared to be normal although
mildly dilated. There is no obvious paravalvular leak and both his bioprosthetic aortic and mitral valves and the Impella was well-positioned in the root. Of note, his aortic root was heavily calcified as specified by the previous surgeon. His
aortic valve was replaced with a 21 mm bioprosthesis similar to his previous bioprosthetic valve and secured to place with 13 nonpledgeted 2 Ethibond sutures secured with core knots. His mitral valve was accessed through the anteroseptal approach
using the ASD as a guide for longitudinal septotomy. His mitral valve was replaced with pledgeted 2-0 Ethibond sutures in an inverted fashion from LV through annulus through sewing cuff. A total of 14 sutures were placed and secured with core
knots. I also placed 2 pairs of CV 4 [place]al along the anterior lateral and posterior medial papillary muscle heads to support the ventricle as most of the chordae had to be resected as it was not scarred in with the mitral clips. Before closing
the aortotomy and after implanting the aortic valve, a 10 mm graft was sewn onto the distal ascending aorta and tunneled out towards the right supraclavicular fossa. A 5.5 Impella device was then inserted across the graft and positioned directly
across the aortic valve towards the apex. Following removal of the cross-clamp, the Impella device was turned on at a low setting and slowly ramped up. The graft was used as a de-airing conduit. Upon closure of the chest the first time, there was
an unsatisfactory amount of oozing from the chest tubes and so I opted to reopen his chest tube, there was some sternal wire site bleeding was ligated. A total of 3 units of blood were given and 2 platelets were given.
Ablation Lines:
1. Box lesion to posterior LA wall
2. BRANDON lesion + BRANDON Exclusion
3. Coronary sinus lesion
4. Posterior mitral annular line toward P2/P3
Specimen(s): Bioprosthetic aortic valve / Mitral valve leaflets.
Prosthesis:
1. 31mm ALAN Mitris MVR, SN [id number]
2. 21mm ALAN Inspiris AVR, SN [id number]
3. 10mm Hemashield [place] Tube Graft, SN [id number]
4. 5.5 Impella VAD, SN [id number]
Description of Procedure: The patient was taken to the operating room. Their identity and procedure to be performed were verified and they were positioned supine on the operating table. Induction via general anesthesia with endotracheal intubation
was performed and central venous access and arterial monitoring were inserted. A preoperative transesophageal echocardiogram was performed to assess cardiac function and valvular function. The patient was then prepped and draped from chin to feet in
a sterile fashion. A preoperative time-out was performed with all members of the team present. Ultrasound was used to access his right common femoral artery and vein using Seldinger technique with micropuncture. A 5 [place] sheath was inserted into
each 1 and had saline was used to flush the lines. A midline chest incision was performed along with redo median sternotomy using an oscillating saw after extracting 8 sternal wires. The left hemisternum was then elevated and care was taken to
mobilize the heart off of the posterior table and to avoid injury to the patent SMITH graft. The right hemisternum was then elevated and the same was performed in order to free the heart. Sternal retractor was then placed and I started off by
dissecting the base of the heart of the diaphragm. I then traced the saphenous vein graft does feeding his RPL and R PDA branches back towards the ascending aorta. The pericardium was then identified and from the right atrium and aorta.
At this point I traced leftward towards his pulmonary artery and was able to identify his patent NATALIO graft using a Doppler. The innominate vein was isolated. Full heparinization was given (a total of 42,000 units units). The aortic cannulation site
was chosen where it was soft, pliable, and free of calcium at the level of the mid arch after the innominate artery. Cannulation was performed with an arterial cannula in the mid arch, angled metal tip cannular in the superior vena cava and a 24 mm
percutaneous right common femoral vein into inferior vena cava cannula was placed under YUNIEL guidance and Seldinger technique. The arterial cannula line had an appropriate bounce and correlating pressures. Next a retrograde coronary sinus catheter
was placed via the right atrium into the coronary sinus verified by transesophageal echocardiography. The ACT was confirmed to be over 400 before commencing cardiopulmonary bypass. The pulmonary artery was away from the aorta to facilitate
a clamp site. Additional adhesiolysis was performed and the heart was decompressed. The aortic cross-clamp was placed after decreasing the flow on the bypass and mean arterial pressure followed by 2 bulldogs on the left internal mammary artery
graft. A total of 1.5L initial dose of antegrade/retrograde Del-Nido cardioplegia solution was given and planned for re-dosing every 25 minutes as necessary via retrograde if evidence of ventricular activity was seen. There was electro-mechanical
arrest of the heart at 800 cc of cardioplegia. Cold slush was placed into a lap on the RV and we systemically cooled to 32 degrees centigrade. The aortotomy was performed above the prior vein vein.
Carbon dioxide was used to flood the field. The location of both left and right coronary vessels were visualized in the root and found to be heavily calcified.using patient clamp, the trifecta valve was then grasped and sequentially the core knots
were grafts and a 15 blade was used to cut the stitch and remove it from the field. Once all core knots were removed, a freer elevator was used to elevate the bioprosthetic sewing cuff freeing the annulus. A significant amount of pannus was
excised. The annulus was debrided of any calcium being mindful of the annulus and membranous septum. The root and left ventricular outflow tract were thoroughly irrigated to remove any debris. Next, the mitral valve was accessed via the right
atrium via transseptal approach after scaring the SVC and IVC with Vesseloops. Identified the atrial septal defect from the previous mitral clips and used this before my longitudinal septotomy. Using cryo, I performed a posterior wall ablation
encompassing the pulmonary veins and left atrial posterior wall. I then performed a coronary sinus lesion followed by a mitral annular line followed by a left atrial appendage lesion set. The mitral valve was replaced as described above. Left
atrial appendage was then sewn shut in 2 layers. I used 3-0 Prolene with an SH needle in order to close the septotomy.
I turned my attention back toward the root. A total of 13 Non-pledgeted 2-0 ethibond inverted annular sutures were placed [id number] circumferentially. These were brought through the sewing cuff of the prosthetic valve which as then parachuted
into place. The left and right coronary ostia were visualized and were unobstructed by the valve. A Cor-Knot device was used to secure the annular sutures. The valve was inspected and was well seated. Next I reposition my cross-clamp more distally
onto the proximal arch. 11 blade was used to create aortotomy followed by a 5.0 mm punch to enlarge the aortotomy. A 10 mm graft was then beveled and sewn onto the distal ascending aorta with 5-0 Prolene. This was then tunneled out to the right
supraclavicular fossa. A 5.5 Impella ventricular assist device was inserted under direct vision and placed across the aortic valve into the apex. The aortotomy was approximated with 4-0 prolene in two layers.
Flows in the pump were lowered the head was then dropped. De-airing maneuvers were performed with the patient in Trendelenburg position and an 18-gauge needle was used to de-air the 10 mm graft. I then manually replaced the [place] into the RV and
remove the cross-clamp. The RA suture line was closed in two layers with 5-0 prolene in a running fashion while the heart was being reperfused. Once close, remove the snares allowed to de-air the right side.
Additional de-airing maneuvers were performed and temporary atrial and ventricular pacing wires were placed at the SVC/RA junction and base of the right ventricle, respectively. Transesophageal echocardiography revealed no evidence of systolic
anterior motion and ventricular function was normal. The AV prosthesis was well seated without PVL or AI. After verifying acceptable parameters, we initiated weaning from cardiopulmonary bypass while increasing Impella support. Once we were off
cardiopulmonary bypass, the venous cannulas was clamped and removed sequentially. A test dose of protamine was administered and the patient was monitored for any adverse reaction before resuming protamine. Once half of the protamine dose was
delivered, pump suckers were turned off and the systolic blood pressure was lowered for aortic decannulation. The aortic cannula was removed and purse strings were tied down. All cannulation sites were oversewn with a 4-0 prolene. The left atrial
suture line was inspected and hemostasis was confirmed. Mediastinal hemostasis was obtained. Two #24 Aleksey drains were placed within the pericardium. The sternum was approximated stainless steel wires. There was a notable amount of dark venous
oozing in the chest drains after initial chest closure. I opted to reopen the chest in search of any bleeding. Several sites along the pacing wire internal table were identified and ligated. I closed sternum with 4 #7 single stainless steel wires
and 3 #8 double. Fascia was approximated with #1 vicryl suture. The subcutaneous, dermis and epidermis were closed in layers in a running fashion. The skin wound was cleansed and dressed. A Biopatch was placed around the exposed graft at the right
supraclavicular fossa and multiple sutures were used to secure the Impella device to the anterior chest wall.
All instrument, sponge, and needle counts were confirmed to be correct x 2 at the end of the operation. The patient was transferred to the cardiac intensive care unit in critical but stable condition.
I, Dr. Freeman Barlow, was present, scrubbed for, and performed all critical elements of this procedure.
Freeman Barlow MD, MS
Cardiothoracic Surgeon
[facility]
This dictation was created using the [employer] dictation system. Please excuse any grammatical, typographical, or 'sound alike' errors
--- NOTE | 2023-10-08 15:12 | W.PN.CD ---
Addendum entered and electronically signed by Wicho Sierra MD 10/08/23 16:41:
I saw and examined the patient.
The DIETITIAN ASSISTANT's note was reviewed and I agree with the note.
Comment: 77M with CAD s/p CABG, bio AVR, severe MR s/p MitraClip 09/2020 (redo procedure 11/2020 [place]), HFrEF EF 35-40%, PAF on warfarin and Tikosyn, hypertension, thyroid disease, and EDA who is here for optimization pre-operatively for AVR/MVR;
he is now s/p AVR MVR and 10mm Hemashield tube graft
- monitor hemodynamics
- hopefully wean Impella and d/c in next day or two
- currently in sinus
Original Note:
Today's Communication / Plan
-
Follow telemetry
Impression / Plan
-
Background: 77M with CAD s/p CABG, bio AVR, severe MR s/p MitraClip 09/2020 (redo procedure 11/2020 [place]), HFrEF EF 35-40%, PAF on warfarin and Tikosyn, hypertension, thyroid disease, and EDA who is here for optimization pre-operatively for AVR/MVR
Valvular heart disease S/P AVR (Alan 21mm), MVR (Alan 31mm), & 10mm Hemashield [place] tube graft on 10/08/[address] Barlow
-Impella in place (P7)
-Pre LVEF 35 to 40%, post 25-30%
-EKG in sinus with prolonged QTc, EKG in am
-Follow telemetry
Paroxysmal atrial fibrillation
-Stable in SR
-BRANDON clip
-On Tikosyn with stable QTc, continue
-Pre-op on warfarin for OAC, now on hold
HFrEF: chronic
-Entresto on hold
-Resume metoprolol when able
-On torsemide as OP
CAD with history of stenting and CABG, stable
-Recent cath as below
-on warfarin/atorvastatin as OP
HTN, stable
Dyslipidemia:
-LDL 234
-Increase atorvastatin, though not clear that he has been compliant with it
Thyroid disease, follows with endocrine
Subjective:
Intubated and sedated on mechanical ventilation.
Data:
TTE 10/04/23:
CONCLUSIONS
�Moderately reduced left ventricular systolic function. � LV ejection fraction
�is 35-40% by visual assessment.
�Dilated right ventricle with preserved function.
�Stage II diastolic dysfunction suggestive of increased filling pressures.
�Status post mitral valve clipping x 2 with moderate to severe mitral
�regurgitation� (may be underestimated due to acoustic shadowing).� Moderate
�mitral stenosis.
�Well-seated bioprosthetic aortic valve with significant stenosis.
�Moderate tricuspid regurgitation with moderate pulmonary hypertension.
�Color flow pattern suggestive of ASD with evidence of left to right shunting on
�color flow Doppler.
�Compared to TTE from 06/04/2023, right ventricular systolic function appears
�preserved on today's study and was mildly reduced on the prior.� The mitral
�regurgitation is slightly increased and from moderate on the prior study.
-Echo 06/04/23:�EF 35-40% Dilated right ventricle with reduced systolic function. Severe left atrial dilation. s/p MitraClip x 2. The mean gradient across the valve is elevated at 8 mmHg. Moderate, eccentric mitral regurgitation (2 jets are
seen).�Bioprosthetic aortic valve replacement. The peak/mean gradients across the valve are 48/27 mmHg. No aortic regurgitation is seen. Mild to moderate tricuspid regurgitation. Estimated pulmonary artery pressure of 50 mmHg. Mildly dilated
ascending aorta (3.8 cm).
Cath 08/06/23: 1.�Right dominant circulation with a 60% proximal RCA lesion, patent mid RCA stent with 10% ISR and a diffusely diseased distal RCA with a [employer]ILDR[employer]'S ENTER[employer] of the RPDA, severely diseased left main coronary artery with a 60-70% stenosis of the entire
shaft with a 70-80% lesion at the distal margin leading into the left circumflex, a 60-70% lesion at the origin of the first obtuse marginal and a chronic total occlusion of the ostial LAD, status post bypass (patent SMITH to LAD, patent SVG to RPDA
to RPL).�The coronary anatomy is essentially unchanged from prior cardiac catheterization in 2020. Moderately elevated filling pressures (LVEDP = 20 mmHg, PCWP = 20 mmHg at 71.0 kg). Depressed systolic function (cardiac index 1.69 L/min/m�, AV O2
difference 6.93 volume%). Significant residual intra-atrial shunt (likely due to persistent atrial septostomy from AIDAN), Qp/Qs = 1.58. Status post bioprosthetic aortic valve replacement with probably moderate stenosis (mean gradient 15 mmHg on
cath, 27 mmHg on echocardiogram). Status post AIDAN.�There are total of [address] in [address].�There is equalization of PCWP and LVEDP pressures.
Physical Exam
Vital Signs/Labs
Vital Signs
Temp Pulse Resp BP Pulse Ox
98.7 F 75 18 134/81 96
10/08/23 06:00 10/08/23 06:04 10/08/23 06:04 10/08/23 06:04 10/08/23 06:04
10/07/23 10/08/23 10/09/23
06:59 06:59 06:59
Actual Weight 74 kg
PT 17.5 Sec (11.4-14.6) H 10/04/23 08:35
INR 1.42 10/04/23 08:35
APTT 92.5 Sec (23.4-35.0) H 10/07/23 04:44
Magnesium 2.0 mg/dl (1.6-2.3) 10/06/23 04:41
Triglycerides 183 mg/dl (10-149) H 10/04/23 08:35
LDL Cholesterol, Calc 234 mg/dl 10/04/23 08:35
VLDL Cholesterol, Calc 36 mg/dl (0-30) H 10/04/23 08:35
HDL Cholesterol 42 mg/dl 10/04/23 08:35
TSH 5.07 uIU/ml (0.47-4.68) H 10/04/23 08:35
Free T4 1.05 ng/dl (0.78-2.19) 10/05/23 03:56
10/04/23
08:35
Cqj-T-Tffzufcrfin Pept 3960
Physical Exam
Constitutional: No acute distress and Comfortable
EENT: Anicteric and Moist mucous membranes
Cardiovascular: Rhythm & rate is regular, S1S2 is normal and Murmur/rub/gallop absent
Respiratory: Lungs clear to auscul.
GI: Soft, Distention absent, Flat, Non tender and Normal bowel sounds
Neuro/Psych: Other (sedated)
Other: Skin (warm and dry)
Data Reviewed
-
Date of Service: October 08, 2023
Labs: Labs Reviewed by me
Old Records: Reviewed
[2023-10-08 15:21] LABS: Glucose - Point of Care 136 mg/dl (70-99)
[2023-10-08 15:23] LABS: Mixed Venous O2 Saturation 75.7 %
[2023-10-08 15:24] LABS: Hematocrit 28.6 % (39.0-52.0); Hemoglobin 9.9 g/dL (13.0-18.0); Platelet Count 155 10^3/uL (130-400)
[2023-10-08 15:26] LABS: B.E. -6.8 mmol/L; HCO3 19.7 mmol/L (21-28); Ionized Calcium 1.07 mMOL/L (1.15-1.33); O2 Saturation % 99.1 % (94-98); PCO2 43 mmHg (35-48); PO2 196 mmHg (83-108); Potassium 4.2 mMOL/L (3.5-5.1); Sodium 143 mMOL/L (136-145); pH 7.27 (7.35-7.45)
[2023-10-08 15:32] LABS: INR 2.16; PT 23.9 Sec (11.4-14.6)
[2023-10-08 15:33] LABS: APTT 43.5 Sec (23.4-35.0)
[2023-10-08] MEDS: NSS 500 IV (15:35)
--- NOTE | 2023-10-08 15:36 | W.PN.UPDATE ---
Update Note
Progress Note Update
77M with CAD s/p CABG, bio AVR, severe MR s/p MitraClip 09/2020 ([place]o procedure 11/2020 [place]), HFrEF EF 35-40%, PAF on warfarin and Tikosyn, hypertension, thyroid disease, and EDA who is here for optimization pre-operatively for AVR/MVR
IV fluids: 2100
U.O.:� 500
UF:� 6500
Blood:� 3PRUBCS, 2plts, 2FFP
Wires:� A+V
Inotropes:� Epi
Pressors:� Levophed
Sedatives:� Precedex
�
NEURO: sedated on Precedex, pupils +1mm B/L
RESP: #8OT @22cm> 16/500/60/5 Lungs clear B/L. 2 mediastinal chest tubes to -20cm suction. Sanguineous drainage
CV: RRR +S1, S2, no S3, no�rub, no murmur. Dermabond to median sternotomy. Impella 5.5 locked at 35cm, RIJ w/[place] locked @ 48cm. PA 44/19; CVP 9; C.O 4.6/ C.I 2.5
ABD: round, soft, no BS
EXT: no edema, +2/4 DP pulses B/L, no femoral bruit, left radial A-line intact
: Velazquez with clear yellow urine
�
A/P: POD #0 s/p redo-sternotomy Avr with #21mm Implant of eugene inspiris valve, MVR with #31mm Mitris with explant of mitral clips, MAZE, BRANDON Clip, and Impella 5.5 placement
YUNIEL: EF�20% with moderate global hypokinesis.�The MVR and AVR are well seated with normal leaflet motion.
- wean and extubate as able
- Currently on Epi infusion; CI 2.6 and SVR 1300; would transition to milrinone infusion
- Continue levophed for MAPs >65
- Monitor CVP and PA pressures
>>Miguel 2.55
- Monitor CT output; if no significant bleeding will start ASA pod #0
- Monitor EKG
- Cardiology consulted
- will need instruction regarding antibiotic prophylaxis for dental and invasive procedures
�
#cardiogenic shock
#Acute on chronic CHF
- Continue impella 5.5 support; start Sodium bicarb thru purge; no heparin solution thru purge for now
>>monitor UOP; if urine becomes hemolyzed would check impella placement via TTE and urinalysis
>>plan for explant on
# acute surgical blood loss anemia-expected
- trend CBC
- s/p 3PRUBCS, 2plts, 2FFP
#hx of Atrial Fibrillation s/p MAZE
- Previously on Tikosyn; continue to monitor QTC with EKG
- he received a dose of Amio 150mg in the OR, so will continue Amio post-op
- post-op EKG now shows patient in SR
�
# Hyperglycemia
- insulin infusion x 24h
�
# Hyperlipidemia
- resume�lipitor when tolerating PO
#Hypothyroidism
- Continue Synthroid when tolerating PO
[2023-10-08 15:42] LABS: Blood Urea Nitrogen 19 mg/dl (9-20); Estimated Creatinine Clearance 50 ml/min; Glucose 125 mg/dl (70-99); Magnesium 3.3 mg/dl (1.6-2.3)
[2023-10-08 15:45] LABS: Fibrinogen 265 MG/DL (199-459)
[2023-10-08 15:49] LABS: ALT (SGPT) 17 U/L (0-50); AST (SGOT) 101 U/L (17-59); Albumin 3.2 g/dl (3.5-5.0); Alkaline Phosphatase 71 U/L (38-126); Direct Bilirubin 0.6 mg/dl (0.0-0.4); Total Bilirubin 1.6 mg/dl (0.2-1.3); Total Protein 5.1 g/dl (6.3-8.2)
[2023-10-08 16:03] LABS: Glucose - Point of Care 171 mg/dl (70-99)
--- NOTE | 2023-10-08 16:36 | PTCARENOTE ---
Patient received from CVOR. Patient is unresponsive s/p anesthesia. Unable to assess orientation and muscle strength grading. RASS -4. Pupils 2mm sluggish bilaterally. NSR with prolonged QT, EKG confirmed. HR 70s. A & V wires maintained. Checked for
thresholds - A wire has a hard time sensing the p wave, it seems. Wires connected to pacer box with the settings: VVI. HR 40, mA 10, sensitivity 2. Audible heart tones, hum from Impella 5.5 auscultated. L radial a-line maintained with BP
110s-120s/70s and MAPs 80s-90s. RIJ cordis and swan maintained at 45cm. PA pressures 40s/10s. CVP 8-10. CO 5.06, CI 2.69, SVR 1312. Lines leveled/zeroed. Levo gtt received at 6mcgs/min. Epi gtt received at 3mcgs/min. Precedex gtt received at
0.5mcgs/kg/hr. Insulin gtt received at 0.5 units/hr. Nitro gtt received on standby. VIP and Cordis KVOs adjusted. PIV maintained. 8.0 ETT, 23 at the lip. Ventilator settings: SIMV. RR 14, TV 500, PEEP 5, FiO2 60%. Oxygen saturation 95%. Upon
auscultation, bilateral anterior breath sounds are diminished. Mouth care provided. MS CTx2 maintained to -20cm wall suction. No air leak noted. Scant red drainage noted. Abdomen round. Hypoactive BS. Velazquez maintained with adequate yellow UOP. Velazquez
care provided. Complete bedrest s/p CVOR. Assist x2 to turn/reposition. Sternal aquacell is clean, dry, intact. CT dressing clean, dry, intact. RFA sheath site is clean, dry, intact. Will continue to monitor.
[2023-10-08] MEDS: CALCIUM CHLORIDE 10% SYRINGE 50 MG IV (16:37)
[2023-10-08] MEDS: CALCIUM CHLORIDE 10% SYRINGE 50 ML IV (16:37)
[2023-10-08] MEDS: PEPCID PO (16:41)
[2023-10-08] MEDS: PRIMACOR 20 MG 100 IV (17:01)
[2023-10-08] MEDS: PROTONIX IV 40 MG IV (17:05)
[2023-10-08] MEDS: NSS (PRESERVATIVE FREE) 10 ML IV (17:05)
[2023-10-08 17:21] LABS: Glucose - Point of Care 197 mg/dl (70-99)
[2023-10-08 17:50] LABS: HCO3 17.7 mmol/L (21-28); Ionized Calcium 1.29 mMOL/L (1.15-1.33); O2 Saturation % 96.6 % (94-98); PCO2 36 mmHg (35-48); PO2 73 mmHg (83-108); Potassium 4.4 mMOL/L (3.5-5.1); Sodium 143 mMOL/L (136-145)
[2023-10-08] MEDS: VALIUM INJECTION 2 MG IV (17:51)
[2023-10-08] MEDS: SODIUM BICARBONATE 50 MEQ IV (17:59)
[2023-10-08] MEDS: VENTOLIN NEBULES 2.5 MG INH (18:05)
[2023-10-08 18:07] LABS: Glucose - Point of Care 173 mg/dl (70-99)
--- NOTE | 2023-10-08 18:09 | PTCARENOTE ---
Dr. Barlow wanted to assess the patient's neuro status so precedex gtt turned off. IV Valium administered for pectoralis muscle spasms. Patient woke up. He was able to follow commands and move all extremities - wiggle toes bilaterally and squeeze
hands bilaterally. Meño his son called and RN updated him.
[2023-10-08 18:58] LABS: Glucose - Point of Care 199 mg/dl (70-99)
[2023-10-08 19:08] LABS: ACT-LR - POC 136 Seconds (116-155)
[2023-10-08] MEDS: LEVOPHED 250 IV (19:52)
[2023-10-08] MEDS: ASPIRIN 300 MG RECTAL (19:52)
[2023-10-08] MEDS: SENOKOT-S PO (19:54)
[2023-10-08 20:00] LABS: Glucose - Point of Care 191 mg/dl (70-99)
[2023-10-08] MEDS: ALBUMIN 5% 250 IV (20:00)
[2023-10-08 20:04] LABS: B.E. -5.5 mmol/L; HCO3 19.1 mmol/L (21-28); Ionized Calcium 1.22 mMOL/L (1.15-1.33); O2 Saturation % 98.1 % (94-98); PCO2 33 mmHg (35-48); PO2 94 mmHg (83-108); Potassium 4.7 mMOL/L (3.5-5.1); Sodium 143 mMOL/L (136-145); pH 7.37 (7.35-7.45)
[2023-10-08 20:05] LABS: Hematocrit 23.7 % (39.0-52.0); Hemoglobin 8.2 g/dL (13.0-18.0); O2 Therapy Air vent
--- NOTE | 2023-10-08 21:00 | PTCARENOTE ---
Patient received Intubated/Ventilator. Dr. Barlow initially at bedside with PA and SLATE ROOFER HELPER. #8.0 ETT 23cm Right lip. SIMV Ventilator Setting: Rate 16 TV 500 PS 5 PEEP 5 FiO2 40%. Rate decreased to 14. No s/s of respiratory distress. Patient drowsy.
Patient will open eyes to verbal commands and follow simple verbal commends. Pupils size 2 with sluggish reaction. Patient able to move all extremities. Chest tube dressing intact. Two mediastinal chest tubes - Intact and patent - 25 ml red
drainage - No air leak, tidaling or crepitus. Sinus Rhythm. Heart rate 80's. AV Wires. VVI Rate 40, Output 10, Sensitivity 2.0. Impella 5.5 - Centrally placed in Aorta in CVOR by Dr. Barlow - Dressing intact. q1hr hemodynamics. C.O. 4.28 C.I.
2.28. CVP 8. SVR 1270. 5% Albumin x1 administered per Dr. Barlow. Patient continues on Epi gtt, Levophed gtt, Milrinone gtt and Insulin gtt. Patient with no c/o chest pain, pressure or discomfort. Hypoactive bowel sounds. No BM. No c/o
nausea. No vomiting. Velazquez catheter - Temperature sensing - Intact and patent - Hourly output recorded. Trace generalized edema. Positive, palpable pulses. Right and Left Anterior Chest Wall with minimal swelling noted - Areas marked. Sternal
incision with surgical adhesive - Intact and open to air. Right groin with Femoral Arterial line - Intact. Patient with Right [place] Cordis/[place] Yolanda catheter. A-Line, PAP, CVP to pressure bag/saline flush - Flush without difficulty - Zeroed and
calibrated - Waveforms within normal limits. Assessment as documented.
[2023-10-08] MEDS: SODIUM BICARBONATE 100 MEQ IV (21:10)
[2023-10-08 21:18] LABS: Glucose - Point of Care 172 mg/dl (70-99)
[2023-10-08 21:25] LABS: B.E. -4.5 mmol/L; HCO3 20.1 mmol/L (21-28); O2 Saturation % 98.4 % (94-98); PCO2 34 mmHg (35-48); PO2 91 mmHg (83-108); pH 7.38 (7.35-7.45)
[2023-10-08 21:34] LABS: INR 1.65; PT 19.3 Sec (11.4-14.6)
[2023-10-08 21:35] LABS: APTT 37.4 Sec (23.4-35.0)
[2023-10-08] MEDS: PACERONE PO (22:00)
[2023-10-08] MEDS: STERILE WATER FOR INJECTION 8.30000000000000071 ML IV (22:04)
[2023-10-08] MEDS: ZINACEF 750 MG IV (22:04)
[2023-10-08 22:23] LABS: B.E. -1.4 mmol/L; HCO3 22.6 mmol/L (21-28); O2 Saturation % 98.1 % (94-98); PCO2 34 mmHg (35-48); PO2 93 mmHg (83-108); pH 7.43 (7.35-7.45)
--- NOTE | 2023-10-08 22:52 | W.PN.CARD.SR ---
Sheath/IABP Sheath Removal
Sheath Removal
Right Arterial Femoral:
Site appearance prior to sheath removal: Intact
Size of hematoma in cm: 0
Sheath removed by:: Physician housekeeper/laundry assistant
Name of associate removing sheath: Norman Eaton
Time of sheath removal: 22:20
Time hemostasis achieved: 22:40
Site appearance post sheath removal: Intact
Size of hematoma in cm: 0
Method of Hemostasis Post Sheath Removal: Manual Pressure
Dressing dry and intact?: Yes
Comments: incision is soft, dry, intact, no hematoma. Innoseal pad placed and dressed with gauze and tegaderm.
[2023-10-08 23:11] LABS: Glucose - Point of Care 175 mg/dl (70-99)
--- NOTE | 2023-10-08 23:15 | PTCARENOTE ---
Patient given 2 AMP Bicarb for base excess -5.5. Hgb 8.2 One unit PRBC's infused without difficulty - No transfusional reaction noted. CPAP Wean started. Patient extubated at 2255 without difficulty. O2 6L via NC with humidification. Mouth
care provided. Patient A+A+Ox3. No neurological deficits noted. Patient able to talk without difficulty. C.O. 5.73 C.I. 3.05 CVP 9 SVR 1061. Impella functioning without difficulty. Right femoral arterial line removed by PA - Manual pressure
applied - Dressing intact. Palpable pulses. Patient able to move extremities without difficulty. No c/o pain or discomfort. Assessment as documented.
[2023-10-08 23:33] LABS: Hematocrit 23.2 % (39.0-52.0); Hemoglobin 8.3 g/dL (13.0-18.0)
[2023-10-08 23:47] LABS: Estimated Creatinine Clearance 43 ml/min; LDH 496 U/L (120-246); Magnesium 2.7 mg/dl (1.6-2.3); Potassium 4.4 mmol/L (3.5-5.1)
[2023-10-09] VITALS (23 sets, daily range): BP systolic 100–129; BP diastolic 51–91; BMI 25.4
[2023-10-09] MEDS: OFIRMEV 100 IV (00:20)
[2023-10-09] MEDS: TYLENOL PO ×4 (00:20→12:38)
[2023-10-09 00:31] LABS: Lactic Acid 5.6 mmol/L (0.7-2.0)
[2023-10-09] MEDS: CALCIUM CHLORIDE 10% SYRINGE 50 ML IV (00:35)
[2023-10-09] MEDS: CALCIUM CHLORIDE 10% SYRINGE 50 MG IV (00:35)
[2023-10-09 00:50] LABS: B.E. -2.1 mmol/L; HCO3 21.9 mmol/L (21-28); O2 Saturation % 98.7 % (94-98); PCO2 33 mmHg (35-48); PO2 116 mmHg (83-108); pH 7.43 (7.35-7.45)
[2023-10-09] MEDS: ALBUMIN 5% 250 IV (01:05)
[2023-10-09 01:22] LABS: Glucose - Point of Care 196 mg/dl (70-99)
--- NOTE | 2023-10-09 01:45 | PTCARENOTE ---
IV Ofirmev 1000mg/100ml administered for pain management. Ionized Calcium 1.10. Calcium chloride 1000mg/60ml over 1hr administered. C.O. 5.73 C.I. 3.05 CVP 7 SVR 1005. 5% Albumin 250 ml x1 administered per PA. Patient continues on Milrinone,
Epi, Levophed and Insulin. Assessment/Interventions as documented.
[2023-10-09 02:04] LABS: Glucose - Point of Care 174 mg/dl (70-99)
[2023-10-09 03:03] LABS: Glucose - Point of Care 169 mg/dl (70-99)
[2023-10-09] MEDS: NOVOLIN R INSULIN INFUSION 100 IV (03:15)
[2023-10-09 04:17] LABS: Glucose - Point of Care 152 mg/dl (70-99)
[2023-10-09 04:24] LABS: Mixed Venous O2 Saturation 72.6 %
[2023-10-09 04:28] LABS: Ionized Calcium 1.25 mMOL/L (1.15-1.33)
[2023-10-09 04:31] LABS: Hematocrit 21.8 % (39.0-52.0); Hemoglobin 7.7 g/dL (13.0-18.0); Mean Corp Hgb Conc. 35.3 g/dL (33.0-37.0); Mean Corpuscular Hgb 29.7 pg (27.0-31.0); Mean Corpuscular Volume 84.2 fL (80.0-94.0); Mean Platelet Volume 11.1 fL (7.4-10.4); Platelet Count 107 10^3/uL (130-400); Red Blood Cell Count 2.59 10^6/uL (4.70-6.10); Red Cell Dist. Width 16.7 % (11.5-14.5); White Blood Cell Count 8.5 10^3/uL (4.8-10.8)
[2023-10-09] MEDS: STERILE WATER FOR INJECTION 8.30000000000000071 ML IV ×3 (04:36→21:21)
[2023-10-09] MEDS: ZINACEF 750 MG IV ×3 (04:36→21:21)
[2023-10-09] MEDS: ADRENALIN 250 IV (04:37)
[2023-10-09 04:49] LABS: Lactic Acid 4.9 mmol/L (0.7-2.0)
[2023-10-09 04:52] LABS: ALT (SGPT) 20 U/L (0-50); AST (SGOT) 134 U/L (17-59); Alkaline Phosphatase 59 U/L (38-126); Blood Urea Nitrogen 24 mg/dl (9-20); Calcium 9.1 mg/dl (8.4-10.2); Carbon Dioxide 24 mmol/L (22-30); Chloride 113 mmol/L (98-107); Direct Bilirubin 0.3 mg/dl (0.0-0.4); Estimated Creatinine Clearance 37 ml/min; Glucose 135 mg/dl (70-99); LDH 502 U/L (120-246); Magnesium 2.7 mg/dl (1.6-2.3); Potassium 4.5 mmol/L (3.5-5.1); Sodium 143 mmol/L (135-145); Total Bilirubin 1.1 mg/dl (0.2-1.3); Total Protein 4.9 g/dl (6.3-8.2); eGFR 43.56
[2023-10-09 05:05] LABS: D-Dimer 1.52 ug/mlFEU (0.00-0.50)
[2023-10-09 05:20] LABS: Glucose - Point of Care 145 mg/dl (70-99)
[2023-10-09 05:34] LABS: Fibrinogen 288 MG/DL (199-459)
--- NOTE | 2023-10-09 06:15 | W.PN.CT ---
Today's Communication / Plan
-
-pod #1
-no significant issues overnight
-dcd R femoral arterial sheat @ 10:20 pm, extubated uneventfully @ 10:55pm
-tele: nsr with occasional PVCs, 15 beat SVT
-discussed with Dr. Barlow and decreased Impella flow to P3 this am
-gave 1 pRBC last night for Hg 8.2 and another 1 pRBC this am for Hg 7.7 (total blood products 5 pRBCs, 2 FFPs, 2 platelets)
-per Dr Barlow, asked blood bank to hold another 4 antibody-specific pRBCs and 2 platelets (will order from [facility])
-CI 2.97, CO 5.58, sVO2 72.6. Drips: Epi 2, Milrinone 0.25, Levo 3, Insulin 5
-LA 4.9 (5.6) and LDH 502(496)
-Cr 1.6 (1.3-1.5 preop)
-CT output: 2 meds 105/160
-wean drips as tolerated
-maintain Velazquez for critical I&O
-maintain swan/Cordis, pw
-encourage IS
Assessment / Plan
-
Impression:
-S/p Explant of prior bioprosthetic aortic valve and implant of a 21 mm Alan Inspiris biological valve; Chordal sparing mitral valve replacement with 31mm ALAN Mitris MVR with explant of previous 3 mitral clips, resuspension of papillary
muscle heads with CV 4 Bennet-Micheal ; Left atrial maze using cryo; Left atrial appendage ligation; ASD closure; placement of 5.5 ventricular assist device support [Impella] via direct aortic 10 mm graft; Extensive adhesiolysis by Dr. Barlow on 10/08/23,
pod #1
-Intraop YUNIEL: His left ventricular ejection fraction preoperatively was approximately 35 to 40%.� His cardiac index starting off was approximately 1.8-1.9 and PA pressures were in the 50s to 60s.� Following surgery had no new regional wall motion
abnormalities and his EF was approximate 25 to 30%. RV function appeared to be normal although mildly dilated.� There is no obvious paravalvular leak and both his bioprosthetic aortic and mitral valves and the Impella was well-positioned in the root.
-admitted 10/03 for hemodynamic optimization prior to scheduled open-heart surgery
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
-RIJ cordis and [place] placed by anesthesia on 10/03: PA 38/18; CVP 6; CI 3.2
-TTE 10/04/23: EF 35-40%. Aortic stenosis with gradients 40/20mmHg, trace AI.Moderate to severe MR with moderate MS. Moderate TR. 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
-s/p bio AVR, CABG x3 with patent grafts
-s/p MV clips 09/2020(redo procedure 11/2020 [place])
-Paroxysmal a-fib - currently in SR>Warfarin and Tikosyn preop
-HTN/HLD
-CAD- hx stents
-CKD 3
-Pulmonary HTN
-Anemia
-Mediastinal adenopathy
-Chronic systolic CHF
-Hx bronchitis
-Gastritis
-hx neck tingling
-Hypothyroidism
-R TKR
-Cardiogenic shock- requires Impella 5.5 support and pressors/inotrops
-Acute postop blood loss on chronic anemia- s/p 5 pRBCs
-Acute postop thrombocytopenia/ coagulopathy - s/p 2 unit platelets and 2 FFPs
-Acute postop metabolic acidosis
-Acute postop atelectasis
-MARTHA on CKD
�
Discussed patient care with: Nursing and Care Team
Subjective
-
Date of Service: October 08, 2023
Objective Data
-
PT 19.3 Sec (11.4-14.6) H 10/08/23 21:14
INR 1.65 10/08/23 21:14
APTT 37.4 Sec (23.4-35.0) H 10/08/23 21:14
Vital Signs
Vital Signs
Temp Pulse Resp BP Pulse Ox
98.2 F 68 12 119/82 97
10/08/23 23:00 10/08/23 23:01 10/08/23 23:00 10/08/23 23:00 10/08/23 23:01
CT Intake/Output/Weight
10/08/23 10/08/23 10/09/23
06:59 18:59 06:59
Intake Total 1036 / 1732 817.9 / 1615.7 797.8 / 1615.7
Output Total 1300 / 1600 465 / 860 395 / 860
Balance -264 / 132 352.9 / 755.7 402.8 / 755.7
SaO2: 97
Physical Exam
-
General: Awake and AOx3
Cardiovascular: Regular rate & rhythm, No Murmurs and No Rub
Respiratory: Decreased Breath Sounds
Sternum: Stable
Incision: Clean, Dry and Dressing Intact
Extremities: No Edema
Abdome: soft, nondistended, nontender, decreased bowel sounds
Data Reviewed
-
Lab Results: Results Reviewed
Medications: Active Meds Reviewed
Chest X-Ray: Report Reviewed and Image Reviewed
ECG: Report Reviewed and Image Reviewed
[2023-10-09] MEDS: PRIMACOR 20 MG 100 IV (06:45)
[2023-10-09] MEDS: SYNTHROID PO (06:52)
[2023-10-09] MEDS: FERRLECIT 110 MG IV (07:30)
--- NOTE | 2023-10-09 07:34 | W.PN.CD ---
Today's Communication / Plan
-
Agree with removing Impella JANESSA due to low level hemolysis, possible emboli (unexplained, disproportionate lactic acidosis).
Favor gentle diuresis (bumetanide 0.5).
Hold further transfusion until we assess hemodilution.
Trend LDH, lactate.
Impression / Plan
-
Impression/Plan: 77M with CAD s/p CABG, bio AVR, severe MR s/p MitraClip 09/2020 (redo procedure 11/2020 at [facility]), HFrEF (LVEF 35-40%), PAF on warfarin and dofetilide, hypertension, thyroid disease, and EDA admitted for preoperative optimization,
now s/p AVR/MVR.
-Mixed Valvular heart disease
-S/P AVR (#21 Alan Inspiris, SN [id number]), MVR (#31 Alan Mitris, SN [id number]).
-Pre LVEF 35 to 40%, post 25-30%.
-EKG in sinus with prolonged QTc.
-Impella 5.[address] subclavian tube graft (P4). D-Dimer = 1.52 (how do we interpret this in the context of surgery?). Renal function stable, UA shows some RBC's but clear on gross inspection. No obvious hemolysis.
-Current gtts:
-Milrinone:
-Epinephrine:
-Norepinephrine:
-Insulin:
-Check LDH and continue to trend lactate.
-Would favor removing Impella today, starting gentle diuresis (bumetanide 0.5 x1).
#Anemia
-Acute, post op.
-Hbg down to 7.7. EKG is accelerated junctional, T wave abnormality in the high lateral leads.
-Transfusions:
-PRBC's: 5
-Platelets: 2
-FFP: 2
-There may be a dilutional component given volume overload.
-Not currently ischemic, would favor monitoring with diuresis.
#Lactic acidosis
-Acute.
-CI and MAP are WNL, suggesting this is not a global perfusion issue.
-Minor evidence of hemolysis (impella?) but lactate is out of proportion.
-Embolic? Abdomen is soft.
-Continue to trend and remove Impella when prudent (but JANESSA).
#Paroxysmal atrial fibrillation
-Currently in NSR.
-S/P MAZE during surgery, incomplete LAAL.
-Rate/Rhythm control with amiodarone/dofetilide.
-Monitor QTc given use of class III anti-arrhythmics.
-CHADS2-Vasc = 5 (CHF, HTN, Age x2, Vascular Disease).
-Anticoagulation with warfarin when he is ready.
#HFrEF
-Chronic.
-Restart home medications as hemodynamics will permit.
-Given his rise in weight, filling pressures, he may be ready for some gentle diuresis.
-Consider bumetanide gtt at 0.5 x1. If more is needed, would consider gtt to avoid peaks/valleys.
#CAD
-History of PCI and CABG, stable on recent catheterization.
-Secondary prevention with high dose, high potency statin.
-Antithrombotic therapy with warfarin when possible.
#HTN
-Chronic, stable.
-Restart home medications as hemodynamics will permit.
#CKD3
-Chronic.
-BUN/Cr 24/1.6 (within range - baseline 1.4-1.5).
#Dyslipidemia:
-LDL 234
-Increase atorvastatin, though not clear that he has been compliant with it
#Thyroid disease, follows with endocrine
Critical Care Time = 42 minutes.
Subjective/Interval History:
Surgery yesterday.
LVEF dropped to 20% post op, prompting placement of an Impella 5.5 via aortotomy tube graft to right supraclavicular fossa.
Several suction events with Impella.
Impella turned down to P4.
Weight is up 5.1 kg from admission.
MAP consistently > 75 mmHg.
CI > 2.2 since yesterday.
SVR 900-1100.
CVP 7-12.
Hbg down to 7.7 <-- 8.3 <-- 8.2 <-- 9.9.
S/P PRBC x5, Platelets x2, FFP x 2.
Data:
Intraprocedural YUNIEL, 10/08/2023:
CONCLUSIONS
�Overall LVEF is 30-35% with moderate global hypokinesis.
�Mild concentric left ventricular hypertrophy.
�Stage III Diastolic dysfunction.
�Mildly dilated left atrium.
�A large (0.9 cm) iatrogenic mid septal ASD noted with left to right flow.
�Moderate pulmonary hypertension (PAs=53 mmHg).
�Mild tricuspid regurgitation.
�Severe aortic stenosis.
�ADELINA calculates to 0.6 cm2 by continuity equation.
�Mild mitral stenosis.
�Severe mitral regurgitation.
�MVA calculates to 1.2 cm2.
�The MV is a double barrel valve with mitral clips fixing A2 to P2.
�Mild sessile atheroma seen in the descending aorta and distal arch.
�Proximal ascending aorta is calcified from the AV to above the ST junction.
POST OPERATIVE FINDINGS
�The patient underwent a redo sternotomy, AVR with a size 21 bioprosthetic
�valve, MVR with a size 31 bioprosthetic valve,� LA appendage internal ligation,
�MAZE, closure of an ASD, and placement of an Impella device.� Mild RV
�dysfunction noted.� Overall LVEF is now 20% with moderate global hypokinesis.
�The MVR and AVR are well seated with normal leaflet motion.� No AI or
�perivalvular leaks noted.� No MR or perivalvular leaks.� Max MV gradient
�measures 3 mmHg, mean is 1 mmHg.� Max AV gradient measures 12 mmHg, mean is 6
�mmHg.� Trace TR.� PV appears normal.� The LA appendage is not totally occluded
�with a very small orifice with flow seen on color flow Doppler.� The Impella is
�in good position aimed at the LV apex.� The ASD is now closed with no color
�flow seen across the septum.� No change in the aortic scan noted.
TTE 10/04/23:
CONCLUSIONS
�Moderately reduced left ventricular systolic function. � LV ejection fraction
�is 35-40% by visual assessment.
�Dilated right ventricle with preserved function.
�Stage II diastolic dysfunction suggestive of increased filling pressures.
�Status post mitral valve clipping x 2 with moderate to severe mitral
�regurgitation� (may be underestimated due to acoustic shadowing).� Moderate
�mitral stenosis.
�Well-seated bioprosthetic aortic valve with significant stenosis.
�Moderate tricuspid regurgitation with moderate pulmonary hypertension.
�Color flow pattern suggestive of ASD with evidence of left to right shunting on
�color flow Doppler.
�Compared to TTE from 06/04/2023, right ventricular systolic function appears
�preserved on today's study and was mildly reduced on the prior.� The mitral
�regurgitation is slightly increased and from moderate on the prior study.
YUNIEL, 08/23/2023:
CONCLUSIONS
�Moderately reduced left ventricular systolic function. Left ventricular
�ejection fraction is 35-40%.
�s/p MitraClip x2. Appear well seated. Mild/moderate mitral valve stenosis. Mean
�gradient is 7 mmHg. MVA by planimetry 1.8 cm2. Moderate/severe eccentric mitral
�valve regurgitation. 2 jets visualized.
�s/p bio-AVR. The ADELINA by planimetry is 1.2 cm2. Gradients were not measured on
�current study, but prior AV gradients on TTE 05/2023 were 48/27 mmHg. Likely
�moderate prosthetic valve stenosis. Trace aortic regurgitation.
�ASD with left to right flow visualized. (Likely post procedural s/p MitraClip.)�
�Area by planimetry 0.12-0.18 cm2.
�
�Compared to TTE 06/04/23: MR looks moderate/severe compared to moderate on
�prior.� Other findings similar.
TTE, 06/04/23:
CONCLUSIONS
�Normal LV size with moderately reduced left ventricular systolic function.
�Global hypokinesis.
�Estimated left ventricular ejection fraction is 35-40% by Urban's method of
�discs.
�No LVH.
�Dilated right ventricle with reduced systolic function.
�Severe left atrial dilation.
�s/p MitraClip x 2. The mean gradient across the valve is elevated at 8 mmHg.
�Moderate, eccentric mitral regurgitation (2 jets are seen).
�Bioprosthetic aortic valve replacement. The peak/mean gradients across the
�valve are 48/27 mmHg. No aortic regurgitation is seen.
�Mild to moderate tricuspid regurgitation.
�Estimated pulmonary artery pressure of 50 mmHg assuming a right atrial pressure
�of 3 mmHg.
�Mildly dilated ascending aorta (3.8 cm).
�Compared to report from January 23, 2023, LV ejection fraction is moderately
�reduced at 35-40%, mean gradient across MV is now 8 mmHg from 4 mmHg, gradients
�through the bioprosthetic AV have increased from 14 mmHg, to 27 mmHg, and there
�is mild to moderate TR with estimated PASP of 51 mmHg.
Cath 08/06/23:
CONCLUSIONS:
1.� Right dominant circulation with a 60% proximal RCA lesion, patent mid RCA stent with 10% ISR and a diffusely diseased distal RCA with a FRENCH POLISHER of the RPDA, severely diseased left main coronary artery with a 60-70% stenosis of the entire shaft with
a 70-80% lesion at the distal margin leading into the left circumflex, a 60-70% lesion at the origin of the first obtuse marginal and a chronic total occlusion of the ostial LAD, status post bypass (patent SMITH to LAD, patent SVG to RPDA to RPL).�
The coronary anatomy is essentially unchanged from prior cardiac catheterization in 2020.
2.� Moderately elevated filling pressures (LVEDP = 20 mmHg, PCWP = 20 mmHg at 71.0 kg).
3.� Depressed systolic function (cardiac index 1.69 L/min/m�, AV O2 difference 6.93 volume%).
4.� Significant residual intra-atrial shunt (likely due to persistent atrial septostomy from AIDAN), Qp/Qs = 1.58.
5.� Status post bioprosthetic aortic valve replacement with probably moderate stenosis (mean gradient 15 mmHg on cath, 27 mmHg on echocardiogram).
6.� Status post AIDAN.� There are total of [address]� There is equalization of PCWP and LVEDP pressures.
Physical Exam
Vital Signs/Labs
Vital Signs
Temp Pulse Resp BP Pulse Ox
36.2 C 73 0 129/63 97
10/09/23 07:00 10/09/23 07:15 10/09/23 07:15 10/09/23 07:00 10/09/23 07:15
10/07/23 10/08/23 10/09/23
11:59 11:59 11:59
Actual Weight 74 kg 77.9 kg
10/09/23 04:12
PT 19.3 Sec (11.4-14.6) H 10/08/23 21:14
INR 1.65 10/08/23 21:14
APTT 37.4 Sec (23.4-35.0) H 10/08/23 21:14
Magnesium 2.7 mg/dl (1.6-2.3) H 10/09/23 04:12
Triglycerides 183 mg/dl (10-149) H 10/04/23 08:35
LDL Cholesterol, Calc 234 mg/dl 10/04/23 08:35
VLDL Cholesterol, Calc 36 mg/dl (0-30) H 10/04/23 08:35
HDL Cholesterol 42 mg/dl 10/04/23 08:35
TSH 5.07 uIU/ml (0.47-4.68) H 10/04/23 08:35
Free T4 1.05 ng/dl (0.78-2.19) 10/05/23 03:56
10/04/23
08:35
Sla-O-Ajznewfnzqe Pept 3960
Physical Exam
Constitutional: No acute distress
EENT: Anicteric and Moist mucous membranes
Cardiovascular: Rhythm & rate is regular, S1S2 is normal and Murmur/rub/gallop absent
Respiratory: Respiratory effort normal
GI: Soft, Distention absent, Flat, Non tender and Normal bowel sounds
Other: Other (Impella in place at the upper sternum.)
Data Reviewed
-
Date of Service: October 09, 2023
Medical Decision Making: Reviewed Test Results, Test Interpretation and Review of Case with other Provider
EKG: Tracing Personally Visualized and interpreted and Report Reviewed by me
Echo: Tracing Personally Visualized and interpreted and Report Reviewed by me
X-Ray/CT/US/MRI/NUC/PET: Image Personally Visualized and interpreted and Report Reviewed by me
Medical Tests (PFT, Pathology etc): Image Personally Visualized and interpreted and Report Reviewed by me
Labs: Labs Reviewed by me
Old Records: Reviewed
[2023-10-09] MEDS: MAGNESIUM OXIDE PO ×2 (07:38→21:21)
[2023-10-09] MEDS: LIPITOR PO (07:38)
[2023-10-09] MEDS: PACERONE PO (07:38)
[2023-10-09] MEDS: SENOKOT-S PO (07:39)
[2023-10-09] MEDS: BACTROBAN 2% OINTMENT 1 APPLIC NASAL ×2 (07:40→21:21)
--- NOTE | 2023-10-09 07:42 | PTCARENOTE ---
Received pt from account underwriter RN; pt AAOX3 and resting comfortably in bed; NSR on monitor and VSS; Epicardial A/V wires set to back up VVI 40/10/2 and no pacing noted; Impella 5.5 Centrally placed in Aorta in CVOR by Dr Barlow dressing C/D/I; Q1H
Hemodynamics CO 5.40, CI 2.87, CVP 10, SVR 933; RIJ Cordis, [place] floated to 45, Right A-line and PIV x1, all lines leveled and zeroed; Levo, Epi, Insulin and Milrinone infusing see flow sheet for details; Lungs diminished; IS to 750; CT x2 to -20
wall suction, no air leak and no crepitus noted; hypoactive bowel sounds; Velazquez Catheter draining clear yellow urine; palpable radial pulses and weak lower extremity pulses; no edema noted; surgical sites C/D/I; Right and Left Anterior Chest Wall
with minimal swelling noted- Areas marked; Dr Barlow in to see pt, pt made NPO for possible Impella removal today; Awaiting bedside echo; see nursing documentation for further details.
--- NOTE | 2023-10-09 07:47 | W.PN.ANS.POP ---
Anesthesia Post Operative
- Anesthesia Post Op Note
Vital Signs Stable-See Nursing Note: Yes
Airway Patent: Yes
Adequate Pain Control: Yes
Change in Mental Status: No
Current Postoperative Nausea & Vomiting: No
Anesthesia Complications: No
General Anesthetic Recall: No
Unplanned Admission: No
Post Op Hydration Adequate: Yes
[2023-10-09 08:00] LABS: Glucose - Point of Care 133 mg/dl (70-99)
[2023-10-09 08:00] LABS: Glucose - Point of Care 129 mg/dl (70-99)
[2023-10-09 08:14] LABS: Lactic Acid 3.6 mmol/L (0.7-2.0)
[2023-10-09 08:45] LABS: LDH 504 U/L (120-246)
[2023-10-09] MEDS: LOW STRENGTH ASPIRIN PO (08:46)
--- NOTE | 2023-10-09 09:19 | PTCARENOTE ---
Echo team at bedside with pt, CV METAL FURNITURE REPAIRER and RN.
[2023-10-09] MEDS: VITAMIN C PO (09:46)
[2023-10-09] MEDS: PROTONIX IV 40 MG IV (09:49)
[2023-10-09] MEDS: NSS (PRESERVATIVE FREE) 10 ML IV (09:49)
[2023-10-09 10:09] LABS: Glucose - Point of Care 111 mg/dl (70-99)
--- NOTE | 2023-10-09 10:31 | PTCARENOTE ---
Pt prepped with CHG wipes for COVR and brushed teeth.
[2023-10-09 10:34] LABS: Hematocrit 22.2 % (39.0-52.0); Hemoglobin 8.1 g/dL (13.0-18.0); Mean Corp Hgb Conc. 36.5 g/dL (33.0-37.0); Mean Corpuscular Hgb 30.6 pg (27.0-31.0); Mean Corpuscular Volume 83.8 fL (80.0-94.0); Mean Platelet Volume 11.3 fL (7.4-10.4); Platelet Count 91 10^3/uL (130-400); Red Blood Cell Count 2.65 10^6/uL (4.70-6.10); Red Cell Dist. Width 16.7 % (11.5-14.5); White Blood Cell Count 7.4 10^3/uL (4.8-10.8)
[2023-10-09] MEDS: DILAUDID 0.25 MG IV (10:34)
[2023-10-09 10:46] LABS: Lactic Acid 2.5 mmol/L (0.7-2.0)
[2023-10-09 11:02] LABS: Glucose - Point of Care 119 mg/dl (70-99)
--- NOTE | 2023-10-09 11:04 | W.PN.INTV ---
Today's Communication / Plan
Recommendations
Continue hemodynamic support, wean down vasoactive drugs as able
Impella device in place, to be discontinued later today.
Follow H&H, continue to transfuse as able
Follow-up thrombocytopenia and renal function.
Assessment
-
Status post High risk redo sternotomy AVR/MVR/MAZE/LAAE� 10/08/2023-Dr. Barlow
Postoperative mechanical ventilation
Postoperative anemia
Condition present prior admission:
Paroxysmal atrial fibrillation on anticoagulation
Heart failure with reduced ejection fraction
History of MitraClip X2 in 2020
Moderate to severe eccentric mitral valve regurgitation, moderate/severe prosthetic valve stenosis.
Coronary artery disease with prior stents and coronary artery bypass
Hypertension
Dyslipidemia
Thyroid disease
Prior right total knee replacement
Chronic kidney disease
Assessment and plan:
Postoperative day 1
Extubated, on low rate supplemental oxygen.
Incentive spirometry as able
Currently mostly bedrest due to Impella in place.
Patient feels uncomfortable due to position.
Analgesia with narcotics, follow respiratory status closely.
Anemia noted-no evidence of acute bleeding
Status post transfusion of 5 units of packed RBCs/2 units of fresh frozen plasma/2 units of platelets
Thrombocytopenia noted. Doubt DIC.
D-dimer increased. LDH trending lower.
Follow serial CBC.
If platelet count continues to decrease out of proportion of other counts will need to consider HIT.(Less likely)
Hemodynamics -
Impella device to be discontinued later today.
Currently on low-dose epinephrine/milrinone and Levophed. Being titrated based on hemodynamics.
Arterial line and PA catheter in place. Will follow hemodynamics closely and titrate vasopressors as necessary.
Acute kidney injury noted, continue hemodynamic support.
Lactic acidosis improving.
Chest tube with no excessive drainage-no air leak.
Chest x-ray reviewed: With no pneumothorax or fluid collections.
Remain nothing by mouth
Head of the bed elevation
Glycemic control per protocol-insulin drip
DVT prophylaxis when safe from the surgical perspective.
Critical care statement: A total of 31 minutes of critical care time was provided for this patient today. This includes management of unstable vital signs, evaluation of the patient at bedside, reviewing the patient's pertinent medical records
including ventilator settings, arterial blood gases, radiographs, microbiology, laboratory evaluations and discussion with primary team, critical care nursing, and respiratory therapy.
Subjective Dataa
Subjective Data
Date of Service:
Date of Service: October 09, 2023
Chief Complaint: Veneer Jointer Helper Follow Up (Status post redo sternotomy with valve replacement.)
Subjective:
Patient extubated
Impella device is in place, mostly in the supine position.
Reports some discomfort on incision
Denies any significant cough or phlegm production.
Review of Systems
General: Fever (n)
Cardiopulmonary: Dyspnea (none at rest)
GI: Abdominal Pain (n) and Nausea (n)
Objective Data
Data Reviewed
Vital Signs / I&O / Oxygen:
Vital Signs
Temp Pulse Resp BP Pulse Ox
97.5 F 69 18 106/66 95
10/09/23 11:00 10/09/23 10:00 10/09/23 11:00 10/09/23 10:00 10/09/23 11:00
Intake and Output
10/08/23 10/09/23 10/10/23
06:59 06:59 06:59
Intake Total 1732 / 1732 2708.1 / 2782.6 445.8 / 445.8
Output Total 1600 / 1600 1215 / 1250 190 / 190
Balance 132 / 132 1493.1 / 1532.6 255.8 / 255.8
SaO2 [CPAP] 98
SaO2 [SIMV] 95
SaO2 95
Nasal Cannula flow liters per 3
minute
Physical Exam
General: Respiratory Distress (n) and Comfortable
HEENT: Normocephalic
Cardiovascular: S1-S2
Respiratory: Clear, Non-Labored Respirations and Chest Tube (No excessive drainage or air leak)
GI: Soft and Non Distended
Neurology: Awake
Labs/Micro/Reports
Lab Data
10/09/23 10:18
10/09/23 04:12
Laboratory Results
10/08/23 10/08/23 10/08/23
15:11 17:42 19:57
PT 23.9 H
INR 2.16
APTT 43.5 H
pH 7.27 L 7.30 L 7.37
pCO2 43 36 33 L
pO2 196 H 73 L 94
HCO3 19.7 L 17.7 L 19.1 L
O2 Delivery Level Not Reportable Air vent
10/08/23 10/08/23 10/09/23
21:14 22:20 00:44
PT 19.3 H
INR 1.65
APTT 37.4 H
pH 7.38 7.43 7.43
pCO2 34 L 34 L 33 L
pO2 91 93 116 H
HCO3 20.1 L 22.6 21.9
O2 Delivery Level
[2023-10-09] MEDS: LASIX 20 MG IV ×2 (11:51→18:17)
[2023-10-09 11:55] LABS: Glucose - Point of Care 128 mg/dl (70-99)
--- NOTE | 2023-10-09 12:25 | PTCARENOTE ---
Pt sent to CVOR with team.
[2023-10-09] MEDS: ZINACEF IV (12:35)
[2023-10-09] MEDS: STERILE WATER FOR INJECTION IV (12:35)
[2023-10-09] MEDS: NSS IV (12:39)
--- NOTE | 2023-10-09 13:37 | W.PN.CT.SURG ---
CT Surgery Operative Note
-
CARDIAC SURGERY OPERATIVE REPORT
Preoperative Diagnosis: 5.5 Impella Ventricular Assist Device Explant
Postoperative Diagnosis: Same
Procedure(s) Performed:
1. Monitoring / Management / Interrogation of Impella (CPT 89522 and 55717)
2. Surgical Impella Removal / Explant CPT (02754)
3. Transthoracic Echocardiogram
Date of Surgery: 10/09/2023
Comorbidities:
1.� Acute on chronic congestive heart failure with preoperative cardiac index diagnosis in Magento Developer at 1.6, depressed left ventricular ejection fraction approximately 35 to 40% biatrial dilatation, evidence of endorgan malperfusion with elevated
creatinine preoperatively
2.� Severe bioprosthetic aortic valve stenosis
3.� Moderately severe mitral valve stenosis secondary to multiple TEERs
4.� Severe mitral valve insufficiency
5.� Hypertension
6.� Hyperlipidemia
7.� Paroxysmal atrial fibrillation
8.� Coronary artery disease status post CABG x 3 with significant [place] vessel disease
9.� Chronic anemia
10.� Prior open heart cardiac surgery with patent grafts
Attending Surgeon: Freeman Barlow MD, MS
Assistants: Deanne Erwin PA-C (present and necessary to home health assistant, retraction, suction, exposure, suture management, and wound closure under my direction)
Anesthesiology: Surjit Wiseman MD and Stephanie Navas CRNA
Scrub and Circulating RNs: Arun Bryan RN, Christin Stauffer RN
Education Trainer: Kiana Landeros CCP
Anesthesia: Moderate sedation with local anesthetic
EBL: 50cc
Products: None
Indication(s) for Procedures: This is a 77-year-old male who had an Impella/ventricular assist device placement intraoperatively following a double valve replacement/redo sternotomy yesterday. Plan today was to wean his Impella support and for or
removal as he was found to have some evidence of hemolysis and his heart function has improved significantly overnight no longer requiring significant support.
Findings: The 5.5 Impella support was then weaned down from P3 to P2, then P1 and P0 and a cardiac index was shot with a limited transthoracic echocardiogram was performed intraoperatively. His cardiac index was noted to be above 2 he had no
significant change in hemodynamics or increasing pressor/inotropic support. Impella device was then retracted back into the graft and the retention sutures were cut at the level of the cuff. The Impella was removed and the graft was clamped. The
graft was allowed to bleed back and then reclamped after being gently pulled outward on tension. The Impella was inspected and found to be intact. The graft was then clipped x 4 with large orange clips and a gold load staple fired across it
allowing it to retract back into the supraclavicular fossa through the small 1.5cm skin incision. The wound was closed in layers approximating the strap muscles with the superficial layer being closed with 4-0 Prolene in a vertical mattress stitch.
Specimen(s): None
Description of Procedure: The patient was taken to the operating room. Their identity and procedure to be performed were verified and they were positioned supine on the operating table. Induction via general anesthesia with endotracheal intubation
was performed and central venous access and arterial monitoring were inserted. A preoperative transesophageal echocardiogram was performed to assess cardiac function and valvular function. The patient was then prepped and draped from chin to feet in
a sterile fashion. A preoperative time-out was performed with all members of the team present. The Impella support was then weaned down until it was off and a cardiac index was shot to interrogate hemodynamics. A limited trans thoracic
echocardiogram was performed by nd with Dr. Bowen key. The Impella was removed as described above and the graft was allowed to backbleed before formally ligating it. The wound was closed as Above and the skin wound was cleansed and dressed.
Additional local was injected into the wound.
All instrument, sponge, and needle counts were confirmed to be correct x 2 at the end of the operation. The patient was transferred to the cardiac intensive care unit in critical but stable condition.
I, Dr. Freeman Barlow, was present, scrubbed for, and performed all critical elements of this procedure.
Freeman Barlow MD, MS
Cardiothoracic Surgeon
[facility]
This operative dictation was created using the [employer] dictation system. Please excuse any grammatical, typographical, or 'sound alike' errors
--- NOTE | 2023-10-09 14:00 | PTCARENOTE ---
Pt returned from CVOR; Impella removed in OR by Dr Barlow; Pt AAOx3 and drowsy; NSR on monitor and VSS; Levo, Epi, Milrinone and Insulin all infusing see flow sheet for details; Dr Barlow at bedside new CI 2.67, CO 5.02 and SVR 956, Per Dr Barlow Epi drip
turned off and Levo at 1mcg/min; RIJ Cordis, [place] floated to 45, right A-line and PIV x1 all leveled and zeroed; Right Anterior neck dressing C/D/I; see nursing documentation for further details.
--- NOTE | 2023-10-09 14:08 | W.PN.UPDATE ---
Update Note
Progress Note Update
Patient is now s/p Impella 5.5 explant. He returns to the CVICU levophed @2, Milrinone @ 0.25, and Epi @ 1. CI was 2.6 and patient was weaned off epi. Per Dr. amin maintain inotropes until later this week.
Plan:
- Continue Milrinone at 0.25mcg/kg/min
- Monitor post-op labs
- OOB later today
- Advance diet as tolerated
- Will start ASA/Plavix tomorrow
- Will c/s case management about pricing of Eliquis; if patient is not amendable to costs will resume coumadin
- Monitor UOP
[2023-10-09 14:11] LABS: Glucose - Point of Care 94 mg/dl (70-99)
[2023-10-09 14:19] LABS: B.E. 1.8 mmol/L; HCO3 26.6 mmol/L (21-28); Ionized Calcium 1.23 mMOL/L (1.15-1.33); O2 Saturation % 97.7 % (94-98); PCO2 42 mmHg (35-48); PO2 82 mmHg (83-108); Potassium 4.8 mMOL/L (3.5-5.1); Sodium 144 mMOL/L (136-145); pH 7.41 (7.35-7.45)
[2023-10-09 14:20] LABS: Hematocrit 22.4 % (39.0-52.0); Hemoglobin 8.1 g/dL (13.0-18.0); Mean Corp Hgb Conc. 36.2 g/dL (33.0-37.0); Mean Corpuscular Hgb 30.7 pg (27.0-31.0); Mean Corpuscular Volume 84.8 fL (80.0-94.0); Mean Platelet Volume 10.7 fL (7.4-10.4); O2 Therapy nasal cannula; Platelet Count 84 10^3/uL (130-400); Red Blood Cell Count 2.64 10^6/uL (4.70-6.10); Red Cell Dist. Width 17.1 % (11.5-14.5); White Blood Cell Count 6.9 10^3/uL (4.8-10.8)
[2023-10-09 14:28] LABS: Mixed Venous O2 Saturation 67.2 %; PT 19.8 Sec (11.4-14.6)
[2023-10-09 14:30] LABS: APTT 41.9 Sec (23.4-35.0)
[2023-10-09 14:31] LABS: Lactic Acid 1.7 mmol/L (0.7-2.0)
[2023-10-09 14:32] LABS: Blood Urea Nitrogen 24 mg/dl (9-20); Calcium 8.4 mg/dl (8.4-10.2); Carbon Dioxide 28 mmol/L (22-30); Chloride 111 mmol/L (98-107); Estimated Creatinine Clearance 37 ml/min; Glucose 88 mg/dl (70-99); Potassium 4.5 mmol/L (3.5-5.1); Sodium 141 mmol/L (135-145); eGFR 43.56
[2023-10-09 14:33] LABS: Magnesium 2.4 mg/dl (1.6-2.3)
[2023-10-09] MEDS: DEXTROSE 50% SYRINGE 12.5 GRAMS IV (15:06)
[2023-10-09 15:08] LABS: Glucose - Point of Care 69 mg/dl (70-99)
[2023-10-09 15:25] LABS: Glucose - Point of Care 115 mg/dl (70-99)
[2023-10-09] MEDS: FLEXERIL 5 MG PO ×2 (15:36→21:19)
[2023-10-09] MEDS: NEURONTIN 100 MG PO ×2 (15:36→21:20)
[2023-10-09] MEDS: PACERONE 200 MG PO ×2 (15:36→21:20)
[2023-10-09] MEDS: TYLENOL 650 MG PO ×2 (15:36→21:19)
[2023-10-09] MEDS: LOW STRENGTH ASPIRIN 81 MG PO (16:00)
[2023-10-09 16:03] LABS: Glucose - Point of Care 99 mg/dl (70-99)
--- NOTE | 2023-10-09 16:38 | PTCARENOTE ---
Assessment unchanged; NSR on monitor and VSS; pt OOB to chair with 2 RNs; family at bedside and pt having clear liquids.
[2023-10-09 17:12] LABS: Glucose - Point of Care 125 mg/dl (70-99)
--- NOTE | 2023-10-09 19:00 | PTCARENOTE ---
assumed care of patient @ 1900. recieved pt laying in bed, AOx3. NSR on monitor, ocasional pac and PVC. AV wires insulated. + radials weak pedals, trace anasarca noted. Impella out, site is WNL. BP 120s/50s map 70s on A line, cuff corelating. Lungs
diminished on 4L satting mid 90s. non productive moist cough present, mucinex ordered by ctpa. 2 mediastinal chest tubes with very scant amount of dark red drainage, tubes stripped by CTPA. Belly hypoactive, round, tolerated CLD earlier. Velazquez
present draining clear yellow urine. 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 [place] @ 45 with R IJ cordis, R radial arterial line and L wrist PIV. central lines zeroed and
flushed. milronone at .25. pt resting comfortably with call zapien within reach
[2023-10-09] MEDS: MUCINEX 600 MG PO (21:19)
[2023-10-09] MEDS: SENOKOT-S 1 TABLET PO (21:20)
--- NOTE | 2023-10-09 23:00 | PTCARENOTE ---
no change in assessment, pt resting comfortably with call zapien within reach.
[2023-10-09 23:50] LABS: Glucose - Point of Care 129 mg/dl (70-99)
[2023-10-10] VITALS (40 sets, daily range): BP systolic 91–140; BP diastolic 39–91; PULSE 72; O2SAT 91–100; BMI 25.8
[2023-10-10] MEDS: TYLENOL PO
[2023-10-10] MEDS: PRIMACOR 20 MG 100 IV (00:30)
[2023-10-10 03:50] LABS: Blood Urea Nitrogen 29 mg/dl (9-20); Calcium 8.2 mg/dl (8.4-10.2); Carbon Dioxide 27 mmol/L (22-30); Chloride 109 mmol/L (98-107); Estimated Creatinine Clearance 33 ml/min; Glucose 112 mg/dl (70-99); Magnesium 2.3 mg/dl (1.6-2.3); Sodium 139 mmol/L (135-145); eGFR 37.82
[2023-10-10 03:52] LABS: Hemoglobin 7.7 g/dL (13.0-18.0); Mean Corpuscular Hgb 30.2 pg (27.0-31.0); Mean Corpuscular Volume 86.3 fL (80.0-94.0); Mean Platelet Volume 12.8 fL (7.4-10.4); Platelet Count 69 10^3/uL (130-400); Red Blood Cell Count 2.55 10^6/uL (4.70-6.10); Red Cell Dist. Width 17.3 % (11.5-14.5); White Blood Cell Count 6.4 10^3/uL (4.8-10.8)
[2023-10-10] MEDS: SYNTHROID 75 MCG PO (04:29)
[2023-10-10] MEDS: TYLENOL 650 MG PO ×5 (04:29→20:26)
[2023-10-10] MEDS: ZINACEF 750 MG IV ×2 (04:30→12:32)
[2023-10-10] MEDS: STERILE WATER FOR INJECTION 8.30000000000000071 ML IV ×2 (04:30→12:32)
--- NOTE | 2023-10-10 05:31 | W.PN.CT ---
Today's Communication / Plan
-
-pod #2
-drips: Milrinone decreased to 0.125 mcg/kg/min last night per AT- continue till
-Levo and Epi were weaned off and Impella explanted 10/08
-holding BB while on Milrinone. Currently, on Amio (preop on Tikosyn) for paf
-Echo 10/08: EF 35-40% (same as preop)
-s/p multiple blood products
-wt is up 8 lbs from preop - diuresed well with Lasix 20 iv bid on 10/08- continue
-Cr trending up - 1.8 today (1.6 on 10/08, 1.3-1.5 preop)
-med CT output: 0/50 in 12/24 hrs- consider d/c
-h/h 7.7/22.0 today
-platelets are trending down - 69K today (84-107 on 10/08 and 155 preop). Ordered HIT and CK per AT
-follow CXR
-current meds (iv Milrinone, ASA, Lipitor, Amio, Lasix, Gabapentin, Flexeril, Protonix, Mucinex, vit C, iv iron)
-consider continuing Velazquez another 24 hrs for critical I/O
-encourage IS, OOB
Assessment / Plan
-
Impression:
-S/p Explant of prior bioprosthetic aortic valve and implant of a 21 mm Wu Inspiris biological valve; Chordal sparing mitral valve replacement with 31mm WU Mitris MVR with explant of previous 3 mitral clips, resuspension of papillary
muscle heads with CV 4 [place]-Micheal ; Left atrial maze using cryo; Left atrial appendage ligation; ASD closure; placement of 5.5 ventricular assist device support [Impella] via direct aortic 10 mm graft; Extensive adhesiolysis by Dr. Barlow on 10/08/23,
pod #2
-s/p explant of Impella on 10/09/23
-admitted 10/03 for hemodynamic optimization prior to scheduled open-heart surgery
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
-RIGian cordis and [place] placed by anesthesia on 10/03: PA 38/18; CVP 6; CI 3.2
-TTE 10/04/23: EF 35-40%. Aortic stenosis with gradients 40/20mmHg, trace AI. Moderate to severe MR with moderate MS. Moderate TR. 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
-s/p bio AVR, CABG x3 with patent grafts
-s/p MV clips 09/2020(redo procedure 11/2020 [facility])
-Paroxysmal a-fib - currently in SR>Warfarin and Tikosyn preop
-HTN/HLD
-CAD- hx stents
-CKD 3
-Pulmonary HTN
-Anemia
-Mediastinal adenopathy
-Chronic systolic CHF
-Hx bronchitis
-Gastritis
-hx neck tingling
-Hypothyroidism
-R TKR
-Cardiogenic shock- requires Impella 5.5 support and pressors/inotrops
-Acute postop blood loss on chronic anemia- s/p 5 pRBCs
-Acute postop thrombocytopenia/ coagulopathy - s/p 2 unit platelets and 2 FFPs
-Acute postop metabolic acidosis
-Acute postop atelectasis
-MARTHA on CKD
-15 beat SVT on 10/07 (asymptomatic)
-Intraop YUNIEL 10/07: His left ventricular ejection fraction preoperatively was approximately 35 to 40%.� His cardiac index starting off was approximately 1.8-1.9 and PA pressures were in the 50s to 60s.� Following surgery had no new regional wall
motion abnormalities and his EF was approximate 25 to 30%. RV function appeared to be normal although mildly dilated.� There is no obvious paravalvular leak and both his bioprosthetic aortic and mitral valves and the Impella was well-positioned in
the root.
Follow-up Echo 10/08 (prior to Impella explant): Normal LV chamber size with moderately reduced systolic function.�LV ejection fraction is approximately 35-40%.
Poor endocardial definition with no definitive wall motion abnormality.
RV not well-visualized but appears normal size with normal function.
Compared to YUNIEL from October 08, 2023, overall LV function is slightly more�vigorous
�
Discussed patient care with: Nursing and Care Team
Subjective
-
Date of Service: October 10, 2023
Objective Data
-
PT 19.8 Sec (11.4-14.6) H 10/09/23 14:10
INR 1.70 10/09/23 14:10
APTT 41.9 Sec (23.4-35.0) H 10/09/23 14:10
Vital Signs
Vital Signs
Temp Pulse Resp BP Pulse Ox
97.5 F 80 16 117/60 96
10/10/23 00:00 10/10/23 00:00 10/10/23 00:00 10/10/23 00:00 10/10/23 00:00
CT Intake/Output/Weight
10/09/23 10/09/23 10/10/23
06:59 18:59 06:59
Intake Total 1890.2 / 2782.6 753.7 / 976.3 222.6 / 976.3
Output Total 750 / 1250 985 / 1735 750 / 1735
Balance 1140.2 / 1532.6 -231.3 / -758.7 -527.4 / -758.7
SaO2: 96
Physical Exam
-
General: Awake and AOx3, pleasant, conversant, no neuro deficits
Cardiovascular: Regular rate & rhythm, No Murmurs and No Rub
Respiratory: Decreased Breath Sounds
Sternum: Stable
Incision: Clean, Dry and Dressing IntactAbdomen: soft, nondistended, nontender, decreased bowel sounds
Extremities: No Edema
Data Reviewed
-
Lab Results: Results Reviewed
Medications: Active Meds Reviewed
Chest X-Ray: Report Reviewed and Image Reviewed
ECG: Report Reviewed and Image Reviewed
[2023-10-10 06:09] LABS: Creatine Phosphokinase 1008 U/L (55-170)
--- NOTE | 2023-10-10 07:45 | PTCARENOTE ---
Patient received from nightshift nurse. Patient is drowsy, very fatigued and sleepy. Oriented x4, easily arousable to verbal stimulation. NSR with first degree heart block. HR 70s-80s. Audible heart tones. A&V wires insulated. R radial a-line
maintained with BP 122/49. RIJ cordis and swan maintained at 45cm. PA pressures 40s/10s. CVP 4-6. CO 4.92, CI 2.62, SVR 1056. Lines leveled/zeroed. Milrinone gtt received at 0.125 mcgs/kg/hr. Cordis and VIP KVOs maintained. PIV maintained. Palpable
pulses, weakly palpable dorsalis pedal pulses. Trace LE edema. 4L NC maintained. Oxygen saturation 96%. Upon auscultation, lung sounds diminished throughout. MS CT x2 maintained to -20cm wall suction with minimal serosanguineous drainage. No air
leaks noted. Abdomen round, distended. Patient unsure if he has been passing gas. Velazquez maintained with adequate dark yellow UOP. Sternal aquacell is clean, dry, intact. CT dressing is clean, dry, intact. R groin puncture site dressing is clean,
dry, intact. Assist x2 OOB into the chair with all the lines. Patient turns/repositions self. Will continue to monitor.
[2023-10-10] MEDS: NEURONTIN 100 MG PO ×3 (07:58→22:29)
[2023-10-10] MEDS: LASIX 20 MG IV (07:58)
[2023-10-10] MEDS: LIPITOR 80 MG PO (07:58)
[2023-10-10] MEDS: PACERONE 200 MG PO ×3 (07:59→22:30)
[2023-10-10] MEDS: SENOKOT-S 1 TABLET PO ×2 (07:59→20:26)
[2023-10-10] MEDS: PROTONIX IV 40 MG IV (07:59)
[2023-10-10] MEDS: FLEXERIL 5 MG PO ×3 (07:59→22:30)
[2023-10-10] MEDS: LOW STRENGTH ASPIRIN 81 MG PO (07:59)
[2023-10-10] MEDS: MUCINEX 600 MG PO ×2 (07:59→20:26)
[2023-10-10] MEDS: VITAMIN C 1000 MG PO (07:59)
[2023-10-10] MEDS: NSS (PRESERVATIVE FREE) 10 ML IV (07:59)
[2023-10-10] MEDS: BACTROBAN 2% OINTMENT 1 APPLIC NASAL ×2 (08:00→20:26)
[2023-10-10] MEDS: FERRLECIT 110 MG IV (08:28)
[2023-10-10 08:39] LABS: Mixed Venous O2 Saturation 65.1 %
[2023-10-10] MEDS: LIDOCAINE 4% PATCH TOPICAL (08:49)
--- NOTE | 2023-10-10 08:57 | W.PN.CD ---
Today's Communication / Plan
-
Inadequate diuresis with furosemide.
Bumetanide gtt at 0.5-1 mg/hour.
Monitor H/H with diuresis.
HIT panel pending.
Maintain milrinone.
Impression / Plan
-
Impression/Plan: 77M with CAD s/p CABG, bio AVR, severe MR s/p MitraClip 09/2020 (redo procedure 11/2020 at [facility]), HFrEF (LVEF 35-40%), PAF on warfarin and dofetilide, hypertension, thyroid disease, and EDA admitted for preoperative optimization,
now s/p AVR/MVR.
-Mixed Valvular heart disease
-S/P AVR (#21 Alan Inspiris, SN [id number]), MVR (#31 Alan Mitris, SN [id number]).
-Pre LVEF 35 to 40%, post 25-30%.
-EKG in sinus with prolonged QTc.
-Impella 5.5 explanted yesterday.
-Current gtts:
-Milrinone: 0.125
-Epinephrine: off
-Norepinephrine: off
-Insulin: off
-Check LDH and continue to trend lactate.
-Diuresis inadequate with furosemide 20 mg IV. Start bumetanide gtt at 0.5-1 mg/hour.
#Anemia/Thrombocytopenia
-Acute, post op.
-Hbg down to 7.7.
-Transfusions:
-PRBC's: 5
-Platelets: 2
-FFP: 2
-HIT panel ordered.
-Monitor H/H with diuresis.
#Lactic acidosis
-Acute.
-CI and MAP are WNL, suggesting this is not a global perfusion issue.
-Minor evidence of hemolysis (impella?) but lactate is out of proportion.
-Embolic? Abdomen is soft.
-Continue to trend and remove Impella when prudent (but JANESSA).
#Paroxysmal atrial fibrillation
-Currently in NSR.
-S/P MAZE during surgery, incomplete LAAL.
-Rate/Rhythm control with amiodarone/dofetilide.
-Monitor QTc given use of class III anti-arrhythmics.
-CHADS2-Vasc = 5 (CHF, HTN, Age x2, Vascular Disease).
-Anticoagulation with warfarin when he is ready.
#HFrEF
-Chronic.
-Restart home medications as hemodynamics will permit.
-He needs diuresis. Bumex gtt as above.
#CAD
-History of PCI and CABG, stable on recent catheterization.
-Secondary prevention with high dose, high potency statin.
-Antithrombotic therapy with warfarin when possible.
#HTN
-Chronic, stable.
-Restart home medications as hemodynamics will permit.
#CKD3
-Chronic.
-BUN/Cr 24/1.6 (within range - baseline 1.4-1.5).
#Dyslipidemia:
-LDL 234
-Increase atorvastatin, though not clear that he has been compliant with it
#Thyroid disease, follows with endocrine
Critical Care Time = 40 minutes.
Subjective/Interval History:
Impella explanted yesterday after bedside echo showed stable LV function.
Epinephrine weaned.
Remains on milrinone at 0.125.
Weight up an additional 1.3 kg. (79.3 kg <-- 77.9 kg, 72.6 kg after optimization).
BP stable.
CI consistently > 2.2.
Remains on 4LNC.
Given low dose furosemide with minimal effect.
Hbg down to 7.7, platelets 69k. HIT panel ordered.
Creatinine up to 1.8.
Lactate has normalized.
PRBC's ordered.
DATA:
TTE, 10/09/2023:
CONCLUSIONS
�TDS.
�Normal LV chamber size with moderately reduced systolic function.
�LV ejection fraction is approximately 35-40%.
�Poor endocardial definition with no definitive wall motion abnormality.
�RV not well-visualized but appears normal size with normal function.
�Compared to YUNIEL from October 08, 2023, overall LV function is slightly more
�vigorous.
Intraprocedural YUNIEL, 10/08/2023:
CONCLUSIONS
�Overall LVEF is 30-35% with moderate global hypokinesis.
�Mild concentric left ventricular hypertrophy.
�Stage III Diastolic dysfunction.
�Mildly dilated left atrium.
�A large (0.9 cm) iatrogenic mid septal ASD noted with left to right flow.
�Moderate pulmonary hypertension (PAs=53 mmHg).
�Mild tricuspid regurgitation.
�Severe aortic stenosis.
�ADELINA calculates to 0.6 cm2 by continuity equation.
�Mild mitral stenosis.
�Severe mitral regurgitation.
�MVA calculates to 1.2 cm2.
�The MV is a double barrel valve with mitral clips fixing A2 to P2.
�Mild sessile atheroma seen in the descending aorta and distal arch.
�Proximal ascending aorta is calcified from the AV to above the ST junction.
POST OPERATIVE FINDINGS
�The patient underwent a redo sternotomy, AVR with a size 21 bioprosthetic
�valve, MVR with a size 31 bioprosthetic valve,� LA appendage internal ligation,
�MAZE, closure of an ASD, and placement of an Impella device.� Mild RV
�dysfunction noted.� Overall LVEF is now 20% with moderate global hypokinesis.
�The MVR and AVR are well seated with normal leaflet motion.� No AI or
�perivalvular leaks noted.� No MR or perivalvular leaks.� Max MV gradient
�measures 3 mmHg, mean is 1 mmHg.� Max AV gradient measures 12 mmHg, mean is 6
�mmHg.� Trace TR.� PV appears normal.� The LA appendage is not totally occluded
�with a very small orifice with flow seen on color flow Doppler.� The Impella is
�in good position aimed at the LV apex.� The ASD is now closed with no color
�flow seen across the septum.� No change in the aortic scan noted.
TTE 10/04/23:
CONCLUSIONS
�Moderately reduced left ventricular systolic function. � LV ejection fraction
�is 35-40% by visual assessment.
�Dilated right ventricle with preserved function.
�Stage II diastolic dysfunction suggestive of increased filling pressures.
�Status post mitral valve clipping x 2 with moderate to severe mitral
�regurgitation� (may be underestimated due to acoustic shadowing).� Moderate
�mitral stenosis.
�Well-seated bioprosthetic aortic valve with significant stenosis.
�Moderate tricuspid regurgitation with moderate pulmonary hypertension.
�Color flow pattern suggestive of ASD with evidence of left to right shunting on
�color flow Doppler.
�Compared to TTE from 06/04/2023, right ventricular systolic function appears
�preserved on today's study and was mildly reduced on the prior.� The mitral
�regurgitation is slightly increased and from moderate on the prior study.
YUNIEL, 08/23/2023:
CONCLUSIONS
�Moderately reduced left ventricular systolic function. Left ventricular
�ejection fraction is 35-40%.
�s/p MitraClip x2. Appear well seated. Mild/moderate mitral valve stenosis. Mean
�gradient is 7 mmHg. MVA by planimetry 1.8 cm2. Moderate/severe eccentric mitral
�valve regurgitation. 2 jets visualized.
�s/p bio-AVR. The ADELINA by planimetry is 1.2 cm2. Gradients were not measured on
�current study, but prior AV gradients on TTE 05/2023 were 48/27 mmHg. Likely
�moderate prosthetic valve stenosis. Trace aortic regurgitation.
�ASD with left to right flow visualized. (Likely post procedural s/p MitraClip.)�
�Area by planimetry 0.12-0.18 cm2.
�
�Compared to TTE 06/04/23: MR looks moderate/severe compared to moderate on
�prior.� Other findings similar.
TTE, 06/04/23:
CONCLUSIONS
�Normal LV size with moderately reduced left ventricular systolic function.
�Global hypokinesis.
�Estimated left ventricular ejection fraction is 35-40% by Urban's method of
�discs.
�No LVH.
�Dilated right ventricle with reduced systolic function.
�Severe left atrial dilation.
�s/p MitraClip x 2. The mean gradient across the valve is elevated at 8 mmHg.
�Moderate, eccentric mitral regurgitation (2 jets are seen).
�Bioprosthetic aortic valve replacement. The peak/mean gradients across the
�valve are 48/27 mmHg. No aortic regurgitation is seen.
�Mild to moderate tricuspid regurgitation.
�Estimated pulmonary artery pressure of 50 mmHg assuming a right atrial pressure
�of 3 mmHg.
�Mildly dilated ascending aorta (3.8 cm).
�Compared to report from January 23, 2023, LV ejection fraction is moderately
�reduced at 35-40%, mean gradient across MV is now 8 mmHg from 4 mmHg, gradients
�through the bioprosthetic AV have increased from 14 mmHg, to 27 mmHg, and there
�is mild to moderate TR with estimated PASP of 51 mmHg.
Cath 08/06/23:
CONCLUSIONS:
1.� Right dominant circulation with a 60% proximal RCA lesion, patent mid RCA stent with 10% ISR and a diffusely diseased distal RCA with a MAINTENANCE REPAIRMAN of the RPDA, severely diseased left main coronary artery with a 60-70% stenosis of the entire shaft with
a 70-80% lesion at the distal margin leading into the left circumflex, a 60-70% lesion at the origin of the first obtuse marginal and a chronic total occlusion of the ostial LAD, status post bypass (patent SMITH to LAD, patent SVG to RPDA to RPL).�
The coronary anatomy is essentially unchanged from prior cardiac catheterization in 2020.
2.� Moderately elevated filling pressures (LVEDP = 20 mmHg, PCWP = 20 mmHg at 71.0 kg).
3.� Depressed systolic function (cardiac index 1.69 L/min/m�, AV O2 difference 6.93 volume%).
4.� Significant residual intra-atrial shunt (likely due to persistent atrial septostomy from AIDAN), Qp/Qs = 1.58.
5.� Status post bioprosthetic aortic valve replacement with probably moderate stenosis (mean gradient 15 mmHg on cath, 27 mmHg on echocardiogram).
6.� Status post AIDAN.� There are total of [address]� There is equalization of PCWP and LVEDP pressures.
Physical Exam
Vital Signs/Labs
Vital Signs
Temp Pulse Resp BP Pulse Ox
36.8 C 80 18 116/58 96
10/10/23 08:00 10/10/23 08:44 10/10/23 08:00 10/10/23 08:00 10/10/23 08:00
10/08/23 10/09/23 10/10/23
11:59 11:59 11:59
Actual Weight 74 kg 77.9 kg 79.3 kg
10/10/23 03:08
PT 19.8 Sec (11.4-14.6) H 10/09/23 14:10
INR 1.70 10/09/23 14:10
APTT 41.9 Sec (23.4-35.0) H 10/09/23 14:10
Magnesium 2.3 mg/dl (1.6-2.3) 10/10/23 03:08
Triglycerides 183 mg/dl (10-149) H 10/04/23 08:35
LDL Cholesterol, Calc 234 mg/dl 10/04/23 08:35
VLDL Cholesterol, Calc 36 mg/dl (0-30) H 10/04/23 08:35
HDL Cholesterol 42 mg/dl 10/04/23 08:35
TSH 5.07 uIU/ml (0.47-4.68) H 10/04/23 08:35
Free T4 1.05 ng/dl (0.78-2.19) 10/05/23 03:56
10/04/23
08:35
[id number] Pept 3960
Physical Exam
Constitutional: No acute distress and Comfortable
EENT: Anicteric and Moist mucous membranes
Cardiovascular: Rhythm & rate is regular, Pedal edema is absent, S1S2 is normal and Murmur/rub/gallop absent
Respiratory: Respiratory effort normal and Other (Decreased throughout.)
GI: Soft, Distention absent, Flat, Non tender and Normal bowel sounds
Neuro/Psych: AO x 3
Data Reviewed
-
Date of Service: October 10, 2023
Medical Decision Making: Reviewed Test Results, Independent Historian Assessment and Test Interpretation
EKG: Tracing Personally Visualized and interpreted and Report Reviewed by me
Echo: Tracing Personally Visualized and interpreted and Report Reviewed by me
X-Ray/CT/US/MRI/NUC/PET: Image Personally Visualized and interpreted and Report Reviewed by me
Medical Tests (PFT, Pathology etc): Image Personally Visualized and interpreted and Report Reviewed by me
Old Records: Reviewed
--- NOTE | 2023-10-10 09:17 | PTCARENOTE ---
Placed patient back into bed with assist x2 for the lines. SVO2 65.1. CO 4.26, CI 2.27, SVR 1183. CT TELEPHONE SUPERVISOR notified. Patient de-lined per order and per protocol. Patient tolerated. New dressing applied to RIJ cordis. New dressing placed on R radial
a-line site.
--- NOTE | 2023-10-10 10:44 | W.PN.INTV ---
Today's Communication / Plan
Recommendations
Continue postoperative care
Follow chest tube output.
Lines been discontinued
Milrinone being weaned off, this could cause thrombocytopenia as well.
Follow daily CBC
Transfusion today
Sign off
Assessment
-
Status post High risk redo sternotomy AVR/MVR/MAZE/LAAE� 10/08/2023-Dr. Barlow
Postoperative mechanical ventilation
Postoperative anemia/thrombocytopenia
acute kidney injury
Condition present prior admission:
Paroxysmal atrial fibrillation on anticoagulation
Heart failure with reduced ejection fraction
History of MitraClip X2 in 2020
Moderate to severe eccentric mitral valve regurgitation, moderate/severe prosthetic valve stenosis.
Coronary artery disease with prior stents and coronary artery bypass
Hypertension
Dyslipidemia
Thyroid disease
Prior right total knee replacement
Chronic kidney disease
Assessment and plan:
Postoperative day 2-doing well, as suspected.
Not requiring supplemental oxygen
Lungs are relatively clear
Continue to increase activity as able.
Incentive spirometry encourage.
-
Analgesia with narcotics, follow respiratory status closely.
Anemia/thrombocytopenia noted-no evidence of acute bleeding
Status post transfusion of 5 units of packed RBCs/2 units of fresh frozen plasma/2 units of platelets.
Additional unit of packed red blood cells will give be given today.
Thrombocytopenia noted. Doubt DIC.
D-dimer increased. LDH trending lower.
HIT has been obtained.
Total CK slightly elevated. Suspected postsurgically.
Hemodynamics -
Impella device has been discontinued 10/09/2023. Tolerating well.
Only on low-dose milrinone. To be weaned off later today.
Lines have been discontinued.
Lactic acidosis has cleared.
Acute kidney injury noted, continue hemodynamic support.
Monitor daily BMPs.
Chest tube with no excessive drainage-no air leak.
Chest x-ray reviewed: With no pneumothorax or fluid collections.
Advance diet as tolerated
Head of the bed elevation
Glycemic control per protocol-insulin drip
DVT prophylaxis when safe from the surgical perspective.
No additional recommendations from the critical care perspective. At this point I will sign off.
Subjective Dataa
Subjective Data
Date of Service:
Date of Service: October 10, 2023
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
Subjective:
Denies any new complaints
His pain is relatively controlled
Denies shortness of breath at rest
Denies any cough or phlegm production
Review of Systems
General: Fever (n)
Cardiopulmonary: Dyspnea (none at rest)
GI: Abdominal Pain (n) and Vomiting (n)
Neuro: Headache (n)
Objective Data
Data Reviewed
Vital Signs / I&O / Oxygen:
Vital Signs
Temp Pulse Resp BP Pulse Ox
98.2 F 76 16 91/52 100
10/10/23 08:00 10/10/23 10:00 10/10/23 10:00 10/10/23 10:00 10/10/23 10:00
Intake and Output
10/09/23 10/10/23 10/11/23
06:59 06:59 06:59
Intake Total 2708.1 / 2782.6 1193.7 / 1216.6 581.6 / 581.6
Output Total 1215 / 1250 2034 / 2069 185 / 185
Balance 1493.1 / 1532.6 -841.3 / -853.4 396.6 / 396.6
SaO2 [CPAP] 98
SaO2 [SIMV] 95
SaO2 100
Nasal Cannula flow liters per 2
minute
Physical Exam
General: Respiratory Distress (n) and Comfortable
HEENT: Normocephalic
Cardiovascular: S1-S2
Respiratory: Clear, Non-Labored Respirations and Chest Tube (No excessive drainage or air leak)
GI: Soft and Non Distended
Neurology: Awake
Labs/Micro/Reports
Lab Data
10/10/23 03:08
Laboratory Results
10/09/23
14:10
PT 19.8 H
INR 1.70
APTT 41.9 H
pH 7.41
pCO2 42
pO2 82 L
HCO3 26.6
O2 Delivery Level nasal cannula
--- NOTE | 2023-10-10 11:07 | PTCARENOTE ---
Awaiting blood bank to cross match the blood since the patient has antibodies. Called to check on the status of the blood and they said it will take another hour or two - was ordered around 0740. CT DIRECTOR ERP notified.
[2023-10-10] MEDS: NSS 500 IV (12:33)
--- NOTE | 2023-10-10 13:16 | PTCARENOTE ---
Dr. Barlow on the floor and wanted CT BRAND LEAD to call the blood bank for the blood. Finally received 1 unit PRBCs @1306. Utilized the TAR with another RN. Patient tolerating.
[2023-10-10] MEDS: BUMEX 1 MG IV (15:23)
--- NOTE | 2023-10-10 15:28 | PTCARENOTE ---
Vital signs stable. NSR with first degree heart block. A&V wires insulated. HR 70s. BP 107/47. 2L NC maintained. Oxygen saturation 93%. RIJ cordis maintained. PIV maintained. Milrinone gtt maintained at 0.125mcgs/kg/hr. Patient ambulated with
rolling walker and 2 RNs to the BR - had a BM. An additional dose of IV Bumex administered. BMP drawn. Will continue to monitor.
--- NOTE | 2023-10-10 15:45 | CM ---
CM following for DC planning needs.
Attempted to meet w/ patient at bedside. Patient sleeping soundly. Patient POD#2 from re-do AVR/MVR/Impella.
DC plan is anticipated for home w/ CT Transitional Care RN.
CM to cont. to follow.
[2023-10-10 16:13] LABS: Blood Urea Nitrogen 33 mg/dl (9-20); Calcium 7.9 mg/dl (8.4-10.2); Carbon Dioxide 26 mmol/L (22-30); Chloride 106 mmol/L (98-107); Estimated Creatinine Clearance 32 ml/min; Glucose 192 mg/dl (70-99); Potassium 4.7 mmol/L (3.5-5.1); Sodium 136 mmol/L (135-145); eGFR 35.44
[2023-10-10 16:24] LABS: Hematocrit 24.9 % (39.0-52.0); Hemoglobin 8.7 g/dL (13.0-18.0); Mean Corp Hgb Conc. 34.9 g/dL (33.0-37.0); Mean Corpuscular Hgb 30.2 pg (27.0-31.0); Mean Corpuscular Volume 86.5 fL (80.0-94.0); Mean Platelet Volume 11.9 fL (7.4-10.4); Platelet Count 70 10^3/uL (130-400); Red Blood Cell Count 2.88 10^6/uL (4.70-6.10); Red Cell Dist. Width 17.1 % (11.5-14.5); White Blood Cell Count 6.8 10^3/uL (4.8-10.8)
--- NOTE | 2023-10-10 20:00 | PTCARENOTE ---
Received Pt from [facility]; Pt resting comfortable in chair; pt is AAOx3, denies pains; VSS, NSR on monitor; heart sounds audible, radial and DP pulses palpable, no edema noted, temp epicardial AV wire insulated; lung sounds diminished at b/l bases,
productive cough, spo2 93% on 2 LNC; hypoactive BS x4 quadrants, abdomen soft non tender; pt due to void since rodriguez catheter removal, on going bladder scans, see worklist; right IJ cordis and left PIV maintained; milrinone gtt infusing. surgical
sites and dressings maintained; pt assisted to restroom with walker and then assisted back to bed; call zapien within reach; will continue to monitor.
[2023-10-11] VITALS (19 sets, daily range): BP systolic 98–127; BP diastolic 51–87; BMI 26.2
--- NOTE | 2023-10-11 | PTCARENOTE ---
Pt assessment unchanged; VSS, NSR on monitor; Pt's first void after d/c of rodriguez catheter was 350ml of dark yellow urine @ 2300, see worklist for details; call zapien within reach; will continue to monitor.
[2023-10-11] MEDS: TYLENOL 650 MG PO ×3 (00:08→20:23)
[2023-10-11] MEDS: TYLENOL PO (04:00)
--- NOTE | 2023-10-11 04:00 | PTCARENOTE ---
Pt assessment unchanged; Pt resting comfortably in bed; NSR on monitor, VSS; Labs drawn and sent; Milrinone gtt placed on stand by @ 0400 per CVPA; call zapien within reach; will continue to monitor.
--- NOTE | 2023-10-11 04:08 | W.PN.CT ---
Today's Communication / Plan
-
-pod #3
-no issues overnight
-drips: none. Milrinone stopped at 4 am 10/10 per AT
-s/p 1 pRBC on 10/09 for symptomatic anemia, Hg 7.7
-got 20 iv Lasix without significant response, followed by 1 mg Bumex on 10/09 (UO 350/775 in 12/24 hrs)
-follow platelets, HIT pending
-follow h/h- 7.9/23.2 today
-follow Cr- 1.8 (1.9 on 10/09)
-follow CXR- increasing R pleural effusion - will ask IR to eval for thoracentesis
-Laura Velazquez, annette dcd 10/09
-encourage IS, OOB
-appreciate everyone's input
Assessment / Plan
-
Impression:
-S/p Explant of prior bioprosthetic aortic valve and implant of a 21 mm Alan Inspiris biological valve; Chordal sparing mitral valve replacement with 31mm ALAN Mitris MVR with explant of previous 3 mitral clips, resuspension of papillary
muscle heads with CV 4 [place]-M[place]al ; Left atrial maze using cryo; Left atrial appendage ligation; ASD closure; placement of 5.5 ventricular assist device support [Impella] via direct aortic 10 mm graft; Extensive adhesiolysis by Dr. Barlow on 10/08/23,
pod #3
-s/p explant of Impella on 10/09/23
-admitted 10/03 for hemodynamic optimization prior to scheduled open-heart surgery
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
-MARY Velez placed by anesthesia on 10/03: PA 38/18; CVP 6; CI 3.2
-TTE 10/04/23: EF 35-40%. Aortic stenosis with gradients 40/20mmHg, trace AI. Moderate to severe MR with moderate MS. Moderate TR. 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
-s/p bio AVR, CABG x3 with patent grafts
-s/p MV clips 09/2020(redo procedure 11/2020 [facility])
-Paroxysmal a-fib - currently in SR>Warfarin and Tikosyn preop
-HTN/HLD
-CAD- hx stents
-CKD 3
-Pulmonary HTN
-Anemia
-Mediastinal adenopathy
-Chronic systolic CHF
-Hx bronchitis
-Gastritis
-hx neck tingling
-Hypothyroidism
-R TKR
-Cardiogenic shock- required Impella 5.5 support and pressors/inotrops
-Acute postop blood loss on chronic anemia- s/p 6 pRBCs
-Acute postop thrombocytopenia/ coagulopathy - s/p 2 unit platelets and 2 FFPs
-Acute postop metabolic acidosis
-Acute postop atelectasis
-MARTHA on CKD
-15 beat SVT on 10/07 (asymptomatic)
-Acute postop increased moderate R pleur effusion, small L pleur effusion on 10/09
-Intraop YUNIEL 10/07: His left ventricular ejection fraction preoperatively was approximately 35 to 40%.� His cardiac index starting off was approximately 1.8-1.9 and PA pressures were in the 50s to 60s.� Following surgery had no new regional wall
motion abnormalities and his EF was approximate 25 to 30%. RV function appeared to be normal although mildly dilated.� There is no obvious paravalvular leak and both his bioprosthetic aortic and mitral valves and the Impella was well-positioned in
the root.
Follow-up Echo 10/08 (prior to Impella explant): Normal LV chamber size with moderately reduced systolic function.�LV ejection fraction is approximately 35-40%.
Poor endocardial definition with no definitive wall motion abnormality.
RV not well-visualized but appears normal size with normal function.
Compared to YUNIEL from October 08, 2023, overall LV function is slightly more�vigorous
�
Discussed patient care with: Nursing and Care Team
Subjective
-
Date of Service: October 11, 2023
Objective Data
-
PT 19.8 Sec (11.4-14.6) H 10/09/23 14:10
INR 1.70 10/09/23 14:10
APTT 41.9 Sec (23.4-35.0) H 10/09/23 14:10
Vital Signs
Vital Signs
Temp Pulse Resp BP Pulse Ox
97.8 F 73 18 102/53 91
10/11/23 04:00 10/11/23 04:01 10/10/23 15:28 10/11/23 04:01 10/11/23 04:01
CT Intake/Output/Weight
10/10/23 10/10/23 10/11/23
06:59 18:59 06:59
Intake Total 440.0 / 1216.6 1904.8 / 2384.8 480 / 2384.8
Output Total 1050 / 2070 435 / 785 350 / 785
Balance -610.0 / -853.4 1469.8 / 1599.8 130 / 1599.8
SaO2: 91
Physical Exam
-
General: Awake and AOx3, pleasant, conversant, no neuro deficits
Cardiovascular: Regular rate & rhythm, No Murmurs and No Rub
Respiratory: Decreased Breath Sounds
Sternum: Stable
Incision: Clean, Dry and Dressing IntactAbdomen: soft, mildly distended, nontender, increased bowel sounds, had BM, denies pain
Extremities: trace Edema b/l lower extremities. No edema of upper extremities b/l, both arms warm with intact sensation and equal 2+ radial pulses. R hand fingers slightly cooler than L with brisk capil. refill and intact sensation b/l. No
paresthesia b/l.
Data Reviewed
-
Lab Results: Results Reviewed
Medications: Active Meds Reviewed
Chest X-Ray: Report Reviewed and Image Reviewed
ECG: Report Reviewed and Image Reviewed
[2023-10-11 04:27] LABS: Hematocrit 23.2 % (39.0-52.0); Hemoglobin 7.9 g/dL (13.0-18.0); Mean Corp Hgb Conc. 34.1 g/dL (33.0-37.0); Mean Corpuscular Hgb 29.7 pg (27.0-31.0); Mean Corpuscular Volume 87.2 fL (80.0-94.0); Mean Platelet Volume 11.2 fL (7.4-10.4); Platelet Count 76 10^3/uL (130-400); Red Blood Cell Count 2.66 10^6/uL (4.70-6.10); White Blood Cell Count 6.9 10^3/uL (4.8-10.8)
[2023-10-11 04:50] LABS: ALT (SGPT) 24 U/L (0-50); AST (SGOT) 73 U/L (17-59); Albumin 2.7 g/dl (3.5-5.0); Alkaline Phosphatase 97 U/L (38-126); Blood Urea Nitrogen 39 mg/dl (9-20); Calcium 7.9 mg/dl (8.4-10.2); Carbon Dioxide 28 mmol/L (22-30); Chloride 103 mmol/L (98-107); Estimated Creatinine Clearance 33 ml/min; Glucose 96 mg/dl (70-99); Potassium 4.2 mmol/L (3.5-5.1); Sodium 136 mmol/L (135-145); Total Bilirubin 1.1 mg/dl (0.2-1.3); Total Protein 4.8 g/dl (6.3-8.2); eGFR 37.82
[2023-10-11] MEDS: SYNTHROID 75 MCG PO (06:37)
[2023-10-11] MEDS: FERRLECIT 110 MG IV (07:49)
[2023-10-11] MEDS: LOW STRENGTH ASPIRIN 81 MG PO (07:50)
[2023-10-11] MEDS: FLEXERIL 5 MG PO ×3 (07:50→22:52)
[2023-10-11] MEDS: MUCINEX 600 MG PO ×2 (07:50→20:23)
[2023-10-11] MEDS: NEURONTIN 100 MG PO ×3 (07:50→22:53)
[2023-10-11] MEDS: LIPITOR 80 MG PO (07:50)
[2023-10-11] MEDS: SENOKOT-S 1 TABLET PO ×2 (07:50→20:23)
[2023-10-11] MEDS: VITAMIN C 1000 MG PO (07:50)
[2023-10-11] MEDS: PACERONE 200 MG PO ×3 (07:50→22:52)
[2023-10-11] MEDS: BACTROBAN 2% OINTMENT 1 APPLIC NASAL ×2 (07:51→20:22)
[2023-10-11] MEDS: PROTONIX 40 MG PO (07:51)
[2023-10-11] MEDS: LIDOCAINE 4% PATCH TOPICAL (07:51)
--- NOTE | 2023-10-11 08:01 | PTCARENOTE ---
Received pt from night clerk auditor RN; NSR on monitor and VSS; Epicardial A/V wires insulated; RIJ Cordis and PIV x1 patent; Lungs diminished throughout; 2L NC 93%; positive bowel sounds; pt voiding clear yellow urine; weak pulses; trace generalized
edema; surgical sites C/D/I; see nursing documentation for further details.
[2023-10-11] MEDS: XYLOCAINE 2% MDV 20 ML INFIL (09:16)
--- NOTE | 2023-10-11 09:46 | W.PN.UPDATE ---
Update Note
Progress Note Update
Cardiothoracic Surgery Procedure Note:
Pre Procedure Diagnosis:
Right pleural effusion s/p redo sternotomy, aortic valve replacement, mitral valve replacement, modified cryo maze, left atrial appendage oversew, atrial septal defect closure, and Impella placement followed by subsequent removal
Post Procedure Diagnosis:
Same as above
Procedure:
Right thoracentesis
Supervising Physician:
Dr. Freeman Barlow MD.
Shingle Packer/Assistants:
Guadalupe Anguiano PA-C
TAVON Cervantes
Deanne Erwin PA-C
Anesthesia:
10 cc local lidocaine
Specimen:
None
Indication:
Patient is postoperative day #3 from the surgery described above. Patient is recovering well. Morning chest x-ray was obtained revealing an increasing right pleural effusion. Patient was seen by attending physician and case discussed on morning
rounds. Decision was made to undergo bedside thoracentesis to drain right-sided pleural effusion.
Description of Procedure:
Consent was obtained with the patient at the bedside. Patient was prepped and draped in sterile fashion. Proper timeout was performed. Using ultrasound guidance, landmarks via the diaphragm, lung, and pleural effusion were visualized. 10 cc of
local lidocaine was drawn up via syringe. Next using a 25-gauge needle, small wheal was made in the patient's subcutaneous skin. Again under ultrasound guidance thoracentesis catheter was advanced forward into the right pleural space until
serosanguineous fluid was visualized. Catheter was advanced and needle was removed. Catheter was connected to three-way stopcock as well as a 60 mL syringe. 1300 cc of serosanguineous pleural fluid was withdrawn from the patient's right pleural
space. Catheter was left in place for preparation to undergo chest tube insertion. This will be described in additional procedure note. All sharps were disposed of in the proper container.
Estimated blood loss:
5 cc
Complications:
None, post procedure chest x-ray to my interpretation reveals no pneumothorax.
--- NOTE | 2023-10-11 09:51 | PTCARENOTE ---
Dr Barlow at bedside with CVPAs and CV GRINDER SET UP OPERATOR EXTERNAL; bedside right thoracentesis preformed by Dr Barlow; 1300mls of bloody drainage removed; Right Pleural Chest tube placed at bedside by Dr Barlow; 315mls of bloody drainage drained into pleura-vac; NSR on monitor
and VSS; 2L NC 98% sat; pt states 'My breathing feels much better'; PT/OT consulted.
--- NOTE | 2023-10-11 10:13 | W.PN.UPDATE ---
Update Note
Progress Note Update
Cardiothoracic Surgery Procedure Note:
Pre Procedure Diagnosis:
1.Right pleural effusion s/p redo sternotomy, aortic valve replacement, mitral valve replacement, modified cryo maze, left atrial appendage oversew, atrial septal defect closure, and Impella placement followed by subsequent removal
Post Procedure Diagnosis:
1. Right pleural effusion s/p redo sternotomy, aortic valve replacement, mitral valve replacement, modified cryo maze, left atrial appendage oversew, atrial septal defect closure, and Impella placement followed by subsequent removal
2. S/p right thoracentesis
Procedure:
Right Enoch Pneumothorax Pigtail Chest Tube Insertion
Supervising Physician:
Dr. Freeman Barlow MD.
[employer] Chair/Assistants:
Guadalupe Anguiaon PA-C
TAVON Cervantes
Deanne Erwin PA-C
Anesthesia:
10 cc local lidocaine
Specimen:
None
Indication:
Patient is postoperative day #3 from the surgery described above.� Patient is recovering well.� Morning chest x-ray was obtained revealing an increasing right pleural effusion.� Patient was seen by attending physician and case discussed on morning
rounds.� Decision was made to undergo bedside thoracentesis to drain right-sided pleural effusion. In order to completely drain the patient's right-sided pleural effusion and to prevent reaccumulation decision was made to place a right pigtail
chest tube at the bedside.
Description of Procedure:
As discussed in prior note patient underwent right-sided thoracentesis. Catheter was left in place. A Enoch pneumothorax pigtail chest tube kit was obtained and opened. Three-way stopcock on catheter was opened, and needle guidewire was advanced
forward. Next using a scalpel, small incision was made in the patient's subcuticular skin. Catheter and three-way stopcock were then removed. Next dilator was advanced over needle guidewire, dilator was then removed. A 14 [place] Enoch pigtail
catheter chest tube was advanced over needle guidewire. Needle guidewire and obturator were then removed. Catheter was hooked up to chest tube tubing and connected to -20 cm of low wall suction. Tube was opened and serosanguineous pleural fluid
was withdrawn. Chest tube was secured in place using a 2-0 silk suture. Site was then cleaned, proper dressing was applied, all sharps were disposed in the proper container.
Estimated blood loss:
5 mL.
Complications:
None, post procedure chest x-ray to my interpretation reveals no pneumothorax
--- NOTE | 2023-10-11 10:16 | W.PN.CD ---
Today's Communication / Plan
-
- Diuresis
- Thoracentesis
- Check Hgb this afternoon
Impression / Plan
-
Impression/Plan: 77M with CAD s/p CABG, bio AVR, severe MR s/p MitraClip 09/2020 (redo procedure 11/2020 at [facility]), HFrEF (LVEF 35-40%), PAF on warfarin and dofetilide, hypertension, thyroid disease, and EDA admitted for preoperative optimization,
now s/p AVR/MVR.
-Mixed Valvular heart disease
-S/P AVR (#21 Alan Inspiris, SN [id number]), MVR (#31 Alan Mitris, SN [id number]).
-Pre LVEF 35 to 40%, post 25-30%.
-EKG in sinus with prolonged QTc.
-Impella 5.5 explanted 10/09/23.
-Current gtts:
-Off Milrinone, Epinephrine and Norepinephrine.
-Insulin: off
- AT noted while on Milrinne and stopped.
-Diuresis with IV lasix
-Thoracentesis today with increase R pleural effusion.
#Anemia/Thrombocytopenia
-Acute, post op.
- s/p Transfusions. went upt o 8.7 and 7.9 today
- trend.
-Hbg down to 7.7.
-HIT panel ordered.
-Monitor H/H with diuresis.
#Lactic acidosis
-Resolved now.
-s/p Impella removed.
#Paroxysmal atrial fibrillation
-Currently in NSR.
-S/P MAZE during surgery, incomplete LAAL.
-Rate/Rhythm control with amiodarone. Discontinued dofetilide for now.
-Monitor QTc given use of class III anti-arrhythmics.
-CHADS2-Vasc = 5 (CHF, HTN, Age x2, Vascular Disease).
-Anticoagulation with warfarin when he is ready.
#HFrEF
-Chronic.
-Restart home medications as hemodynamics will permit.
-He needs diuresis. Bumex gtt as above.
#CAD
-History of PCI and CABG, stable on recent catheterization.
-Secondary prevention with high dose, high potency statin.
-Antithrombotic therapy with warfarin when possible.
#HTN
-Chronic, stable.
-Restart home medications as hemodynamics will permit.
#CKD3
-Chronic.
-BUN/Cr 39/1.8 (within range - baseline 1.4-1.5).
#Dyslipidemia:
-LDL 234
-Increase atorvastatin, though not clear that he has been compliant with it
#Thyroid disease, follows with endocrine
Critical Care Time = 35 minutes.
Subjective/Interval History:
s/p transfusion, Impella removed, R Pleural effusion - going for thoracetesis.
DATA:
TTE, 10/09/2023:
CONCLUSIONS
�TDS.
�Normal LV chamber size with moderately reduced systolic function.
�LV ejection fraction is approximately 35-40%.
�Poor endocardial definition with no definitive wall motion abnormality.
�RV not well-visualized but appears normal size with normal function.
�Compared to YUNIEL from October 08, 2023, overall LV function is slightly more
�vigorous.
Intraprocedural YUNIEL, 10/08/2023:
CONCLUSIONS
�Overall LVEF is 30-35% with moderate global hypokinesis.
�Mild concentric left ventricular hypertrophy.
�Stage III Diastolic dysfunction.
�Mildly dilated left atrium.
�A large (0.9 cm) iatrogenic mid septal ASD noted with left to right flow.
�Moderate pulmonary hypertension (PAs=53 mmHg).
�Mild tricuspid regurgitation.
�Severe aortic stenosis.
�ADELINA calculates to 0.6 cm2 by continuity equation.
�Mild mitral stenosis.
�Severe mitral regurgitation.
�MVA calculates to 1.2 cm2.
�The MV is a double barrel valve with mitral clips fixing A2 to P2.
�Mild sessile atheroma seen in the descending aorta and distal arch.
�Proximal ascending aorta is calcified from the AV to above the ST junction.
POST OPERATIVE FINDINGS
�The patient underwent a redo sternotomy, AVR with a size 21 bioprosthetic
�valve, MVR with a size 31 bioprosthetic valve,� LA appendage internal ligation,
�MAZE, closure of an ASD, and placement of an Impella device.� Mild RV
�dysfunction noted.� Overall LVEF is now 20% with moderate global hypokinesis.
�The MVR and AVR are well seated with normal leaflet motion.� No AI or
�perivalvular leaks noted.� No MR or perivalvular leaks.� Max MV gradient
�measures 3 mmHg, mean is 1 mmHg.� Max AV gradient measures 12 mmHg, mean is 6
�mmHg.� Trace TR.� PV appears normal.� The LA appendage is not totally occluded
�with a very small orifice with flow seen on color flow Doppler.� The Impella is
�in good position aimed at the LV apex.� The ASD is now closed with no color
�flow seen across the septum.� No change in the aortic scan noted.
TTE 10/04/23:
CONCLUSIONS
�Moderately reduced left ventricular systolic function. � LV ejection fraction
�is 35-40% by visual assessment.
�Dilated right ventricle with preserved function.
�Stage II diastolic dysfunction suggestive of increased filling pressures.
�Status post mitral valve clipping x 2 with moderate to severe mitral
�regurgitation� (may be underestimated due to acoustic shadowing).� Moderate
�mitral stenosis.
�Well-seated bioprosthetic aortic valve with significant stenosis.
�Moderate tricuspid regurgitation with moderate pulmonary hypertension.
�Color flow pattern suggestive of ASD with evidence of left to right shunting on
�color flow Doppler.
�Compared to TTE from 06/04/2023, right ventricular systolic function appears
�preserved on today's study and was mildly reduced on the prior.� The mitral
�regurgitation is slightly increased and from moderate on the prior study.
YUNIEL, 08/23/2023:
CONCLUSIONS
�Moderately reduced left ventricular systolic function. Left ventricular
�ejection fraction is 35-40%.
�s/p MitraClip x2. Appear well seated. Mild/moderate mitral valve stenosis. Mean
�gradient is 7 mmHg. MVA by planimetry 1.8 cm2. Moderate/severe eccentric mitral
�valve regurgitation. 2 jets visualized.
�s/p bio-AVR. The ADELINA by planimetry is 1.2 cm2. Gradients were not measured on
�current study, but prior AV gradients on TTE 05/2023 were 48/27 mmHg. Likely
�moderate prosthetic valve stenosis. Trace aortic regurgitation.
�ASD with left to right flow visualized. (Likely post procedural s/p MitraClip.)�
�Area by planimetry 0.12-0.18 cm2.
�
�Compared to TTE 06/04/23: MR looks moderate/severe compared to moderate on
�prior.� Other findings similar.
TTE, 06/04/23:
CONCLUSIONS
�Normal LV size with moderately reduced left ventricular systolic function.
�Global hypokinesis.
�Estimated left ventricular ejection fraction is 35-40% by Urban's method of
�discs.
�No LVH.
�Dilated right ventricle with reduced systolic function.
�Severe left atrial dilation.
�s/p MitraClip x 2. The mean gradient across the valve is elevated at 8 mmHg.
�Moderate, eccentric mitral regurgitation (2 jets are seen).
�Bioprosthetic aortic valve replacement. The peak/mean gradients across the
�valve are 48/27 mmHg. No aortic regurgitation is seen.
�Mild to moderate tricuspid regurgitation.
�Estimated pulmonary artery pressure of 50 mmHg assuming a right atrial pressure
�of 3 mmHg.
�Mildly dilated ascending aorta (3.8 cm).
�Compared to report from January 23, 2023, LV ejection fraction is moderately
�reduced at 35-40%, mean gradient across MV is now 8 mmHg from 4 mmHg, gradients
�through the bioprosthetic AV have increased from 14 mmHg, to 27 mmHg, and there
�is mild to moderate TR with estimated PASP of 51 mmHg.
Cath 08/06/23:
CONCLUSIONS:
1.� Right dominant circulation with a 60% proximal RCA lesion, patent mid RCA stent with 10% ISR and a diffusely diseased distal RCA with a POOL LIFEGUARD of the RPDA, severely diseased left main coronary artery with a 60-70% stenosis of the entire shaft with
a 70-80% lesion at the distal margin leading into the left circumflex, a 60-70% lesion at the origin of the first obtuse marginal and a chronic total occlusion of the ostial LAD, status post bypass (patent SMITH to LAD, patent SVG to RPDA to RPL).�
The coronary anatomy is essentially unchanged from prior cardiac catheterization in 2020.
2.� Moderately elevated filling pressures (LVEDP = 20 mmHg, PCWP = 20 mmHg at 71.0 kg).
3.� Depressed systolic function (cardiac index 1.69 L/min/m�, AV O2 difference 6.93 volume%).
4.� Significant residual intra-atrial shunt (likely due to persistent atrial septostomy from AIDAN), Qp/Qs = 1.58.
5.� Status post bioprosthetic aortic valve replacement with probably moderate stenosis (mean gradient 15 mmHg on cath, 27 mmHg on echocardiogram).
6.� Status post AIDAN.� There are total of [address].� There is equalization of PCWP and LVEDP pressures.
Physical Exam
Vital Signs/Labs
Vital Signs
Temp Pulse Resp BP Pulse Ox
98.0 F 75 18 99/54 98
10/11/23 08:00 10/11/23 10:00 10/11/23 08:00 10/11/23 09:36 10/11/23 09:19
10/10/23 10/11/23 10/12/23
06:59 06:59 06:59
Actual Weight 79.3 kg 80.5 kg
10/11/23 03:57
10/11/23 03:57
PT 19.8 Sec (11.4-14.6) H 10/09/23 14:10
INR 1.70 10/09/23 14:10
APTT 41.9 Sec (23.4-35.0) H 10/09/23 14:10
Magnesium 2.3 mg/dl (1.6-2.3) 10/10/23 03:08
Triglycerides 183 mg/dl (10-149) H 10/04/23 08:35
LDL Cholesterol, Calc 234 mg/dl 10/04/23 08:35
VLDL Cholesterol, Calc 36 mg/dl (0-30) H 10/04/23 08:35
HDL Cholesterol 42 mg/dl 10/04/23 08:35
TSH 5.07 uIU/ml (0.47-4.68) H 10/04/23 08:35
Free T4 1.05 ng/dl (0.78-2.19) 10/05/23 03:56
10/04/23
08:35
Fef-W-[id number] Pept 3960
Physical Exam
Constitutional: No acute distress and Comfortable
EENT: Anicteric and Moist mucous membranes
Cardiovascular: Rhythm & rate is regular, Systolic murmur absent and JVD present
Respiratory: Rhonchi Present and Other (basal cracakles and decreased breaths)
GI: Soft and Normal bowel sounds
Neuro/Psych: Alert and Oriented
Data Reviewed
-
Date of Service: October 11, 2023
Medical Decision Making: Reviewed Test Results, Independent Historian Assessment and Test Interpretation
EKG: Tracing Personally Visualized and interpreted
Echo: Report Reviewed by me
X-Ray/CT/US/MRI/NUC/PET: Image Personally Visualized and interpreted
Labs: Labs Reviewed by me
Old Records: Reviewed
Critical Care Time (in minutes): 35
--- NOTE | 2023-10-11 12:41 | PTCARENOTE ---
1 units of Platelets infusing per order.
[2023-10-11] MEDS: NSS IV (12:58)
--- NOTE | 2023-10-11 13:53 | CON.MD ---
Consultation - Medical
-
patient seen chart reviewed. spoke with several nursing staff members. the patient is a 77 year old male who has undergone several serious cardiac surgeries. most recently this past sunday he underwent surgery to repair damaged aortic and mitral
valve not for the first time. it is described in the record that this was a procedure w not insignificant risk. nursing reports that the procedure went well and he is doing well in the post op period but they have seen him become quieter and more
withdrawn. the patient has NO hx of depression,anxiety or any psych illness. he sees himself as more frustrated than anything else given how sick he has been and now many procedures he has had to endure. he is tired of being in a bed or chair unable
to do the things he used to do. he has no suicidal thoughts. sleep is not great given hospitalized; appetite is also so/so. he is not enjoying much at this point. he has NO suicidal thoughts. he opted for the surgery bc he wanted to continue with
his life.
past psych hx none
medical hx multiple cardiac valvulopathies for which he has had several surgeries most recently sunday. patient w hx cabg, htn hypothryoid a fib hld ckd stage three anemia noted tsh borderline at 5.07 hgb 7.8 qtc 470
substance abuse occasional beer or wine when out w
fh 'i don't know'
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 supportive one son two grandsons patient liked doing projects around his house. he and his son put a new roof on his house!
mse alert but rather tired appearing man speech and though process nl patient was cooperative no psychosis mood is tired and unhappy affect constricted no si aver intelligence insght judgment ok
dx adjustment disorder
recommendations patient struck me as very tired and lacking in energy. this could of course be depression but it could also be related to anemia which is significant and thyroid dysfunction. It is of course also part and parcel of what he has been
through in the last few days. tsh is borderline. would recheck tsh w reflex to t4 . He does say he is tired of sitting around but has not much energy to do more. ?transfuse? i would not treat him with antidepressants at this stage nor does he
want 'more medicine'. in any case, antidep take weeks to be effective and would not help in the short term. mood should continue to be monitored . he is only three days post op and i don't find his demeanor to be that unexpected given what he
has been through. i did discuss w him whether anxiety was an issue but he said no and declined a prn of ativan. psych will sign off. please call us if you need us to return.
--- NOTE | 2023-10-11 14:02 | PTCARENOTE ---
Assessment unchanged; NSR with 1st AVB on monitor and VSS; pt ambulated to bathroom with 2 RNs.
[2023-10-11] MEDS: BUMEX 1 MG IV (15:03)
--- NOTE | 2023-10-11 15:12 | CM ---
CM following for DC planning needs.
Attempted x2 to meet w/ patient on this date. Pt. was sleeping soundly. I did not disturb as I am aware that patient has had little sleep.
Per RN, patient has required much assistance w/ getting OOB. PT/OT has been consulted and recommendation is for Acute Rehab (v SNF). PMR also consulted.
Did initiate prelim. referral to [facility] for consideration. Awaiting response.
Will need to see how patient progress in therapy.
Will need PMR consult.
Will need to review with patient/ spouse.
Will need insurance authorization for rehab placement.
Will follow.
--- NOTE | 2023-10-11 16:35 | CM ---
Priced Eliquis thru [facility]- [phone].
Estimated cost of Eliquis is 47/mo.
TT to [facility] to update.
Can provide a coupon for a free 30 d supply.
[2023-10-11] MEDS: ELIQUIS 5 MG PO (20:23)
--- NOTE | 2023-10-11 21:00 | PTCARENOTE ---
Patient received OOB in chair watching television. Patient A+A+Ox3. No neurological deficits noted. Patient assisted x2 with use of rolling walker to bathroom. Patient voided. CHILDS. Patient then assisted to bed. O2 at 2L via NC. SaO2 98%.
Right Pleural chest tube intact and patent - No air leak, tidaling or crepitus noted - Dressing intact. Chest tube dressing s/p Mediastinal CT x2 intact. Sinus Rhythm. Heart rate 60-70's. AV Wires insulated. No c/o chest pain, pressure or
discomfort. Normoactive bowel sounds. No BM. Positive flatus. No c/o nausea. No vomiting. Post-Void residual - Bladder scan 257 ml. Right I.J. Cordis - Saline flush 10 ml/hr. Sternal incision - Surgical adhesive - Intact and open to air.
Right groin dressing intact. Generalized edema/Pedal edema. Positive, palpable pulses. Assessment as documented.
[2023-10-12] VITALS (20 sets, daily range): BP systolic 90–132; BP diastolic 37–74; PULSE 68–69; O2SAT 98; BMI 25.9
--- NOTE | 2023-10-12 00:30 | PTCARENOTE ---
Patient sleeping without difficulty. Assessment as documented.
[2023-10-12] MEDS: NSS 500 IV (04:30)
[2023-10-12 04:47] LABS: Hematocrit 23.6 % (39.0-52.0); Hemoglobin 7.9 g/dL (13.0-18.0); Mean Corp Hgb Conc. 33.5 g/dL (33.0-37.0); Mean Corpuscular Hgb 29.7 pg (27.0-31.0); Mean Corpuscular Volume 88.7 fL (80.0-94.0); Mean Platelet Volume 11.5 fL (7.4-10.4); Platelet Count 98 10^3/uL (130-400); Red Blood Cell Count 2.66 10^6/uL (4.70-6.10); Red Cell Dist. Width 17.1 % (11.5-14.5); White Blood Cell Count 5.4 10^3/uL (4.8-10.8)
--- NOTE | 2023-10-12 04:49 | W.PN.CT ---
Today's Communication / Plan
-
-pod #4
-no issues overnight
-s/p 1 pRBC on 10/09 for symptomatic anemia, Hg 7.7
-follow platelets (up to 98k today), HIT 0.065 (negative)
-follow h/h - stable
-follow Cr- 1.5 this AM (1.9 on 10/09)
-s/p R thoracentesis/CT placement 10/10, 150/820 out in 07/22 hrs, 1300 cc out initially
-encourage IS, OOB
-appreciate everyone's input
Assessment / Plan
-
Impression:
-S/p Explant of prior bioprosthetic aortic valve and implant of a 21 mm Wu Inspiris biological valve; Chordal sparing mitral valve replacement with 31mm WU Mitris MVR with explant of previous 3 mitral clips, resuspension of papillary
muscle heads with CV 4 Glennallen-Micheal ; Left atrial maze using cryo; Left atrial appendage ligation; ASD closure; placement of 5.5 ventricular assist device support [Impella] via direct aortic 10 mm graft; Extensive adhesiolysis by Dr. Barlow on 10/08/23,
pod #4
-s/p explant of Impella on 10/09/23
-admitted 10/03 for hemodynamic optimization prior to scheduled open-heart surgery
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
-RIGian cordoliver and Cuddy placed by anesthesia on 10/03: PA 38/18; CVP 6; CI 3.2
-TTE 10/04/23: EF 35-40%. Aortic stenosis with gradients 40/20mmHg, trace AI. Moderate to severe MR with moderate MS. Moderate TR. 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
-s/p bio AVR, CABG x3 with patent grafts
-s/p MV clips 09/2020(redo procedure 11/2020 [facility])
-Paroxysmal a-fib - currently in SR>Warfarin and Tikosyn preop
-HTN/HLD
-CAD- hx stents
-CKD 3
-Pulmonary HTN
-Anemia
-Mediastinal adenopathy
-Chronic systolic CHF
-Hx bronchitis
-Gastritis
-hx neck tingling
-Hypothyroidism
-R TKR
-Cardiogenic shock- required Impella 5.5 support and pressors/inotrops
-Acute postop blood loss on chronic anemia- s/p 6 pRBCs
-Acute postop thrombocytopenia/ coagulopathy - s/p 2 unit platelets and 2 FFPs
-Acute postop metabolic acidosis
-Acute postop atelectasis
-MARTHA on CKD
-15 beat SVT on 10/07 (asymptomatic)
-Acute postop increased moderate R pleur effusion, small L pleur effusion on 10/09
-Intraop YUNIEL 10/07: His left ventricular ejection fraction preoperatively was approximately 35 to 40%.� His cardiac index starting off was approximately 1.8-1.9 and PA pressures were in the 50s to 60s.� Following surgery had no new regional wall
motion abnormalities and his EF was approximate 25 to 30%. RV function appeared to be normal although mildly dilated.� There is no obvious paravalvular leak and both his bioprosthetic aortic and mitral valves and the Impella was well-positioned in
the root.
Follow-up Echo 10/08 (prior to Impella explant): Normal LV chamber size with moderately reduced systolic function.�LV ejection fraction is approximately 35-40%.
Poor endocardial definition with no definitive wall motion abnormality.
RV not well-visualized but appears normal size with normal function.
Compared to YUNIEL from October 08, 2023, overall LV function is slightly more�vigorous
�
Subjective
-
Date of Service: October 12, 2023
No overnight events. Unsteady with ambulation, 2 person assist
Objective Data
-
PT 19.8 Sec (11.4-14.6) H 10/09/23 14:10
INR 1.70 10/09/23 14:10
APTT 41.9 Sec (23.4-35.0) H 10/09/23 14:10
Vital Signs
Vital Signs
Temp Pulse Resp BP Pulse Ox
98.5 F 72 18 104/51 97
10/11/23 22:50 10/12/23 04:19 10/11/23 22:50 10/12/23 04:19 10/11/23 22:50
CT Intake/Output/Weight
10/11/23 10/11/23 10/12/23
06:59 18:59 06:59
Intake Total 506.1 / 2410.9 789 / 989 200 / 989
Output Total 350 / 785 1970 / 2345 375 / 2345
Balance 156.1 / 1625.9 -1181 / -1356 -175 / -1356
SaO2: 97
Physical Exam
-
General: Awake and Oriented
Cardiovascular: Regular rate & rhythm, No Murmurs and No Rub
Respiratory: Clear and Equal
Sternum: Stable
Incision: Clean, Dry and Intact
Extremities: No Edema
Data Reviewed
-
Lab Results: Results Reviewed
Medications: Active Meds Reviewed
Chest X-Ray: Report Reviewed
ECG: Report Reviewed
[2023-10-12 05:16] LABS: Blood Urea Nitrogen 43 mg/dl (9-20); Calcium 7.8 mg/dl (8.4-10.2); Carbon Dioxide 29 mmol/L (22-30); Chloride 101 mmol/L (98-107); Estimated Creatinine Clearance 40 ml/min; Glucose 92 mg/dl (70-99); Potassium 4.1 mmol/L (3.5-5.1); Sodium 135 mmol/L (135-145); eGFR 47.06
[2023-10-12 05:46] LABS: TSH Reflex To Free T4 4.07 uIU/ml (0.47-4.68)
--- NOTE | 2023-10-12 06:30 | PTCARENOTE ---
Patient A+A+Ox3. No neurological deficits noted. Patient given CHG bath, linens changed and chest tube dressing changed. OOB to chair in AM. Assessment/Interventions as documented.
[2023-10-12] MEDS: SYNTHROID 75 MCG PO (06:52)
--- NOTE | 2023-10-12 08:31 | PTCARENOTE ---
assumed care of pt from previous shift RN, pt is AOOX4, KUMAR, pupils equally reactive to light. sinus rhythm on tele, + peripheral pulses, denies CP or SOB, epicardial pacing wires insulated, lungs diminished. POX 84% on RA, pt placed on 2l nc w POX
improved to 95%. Coughing and deep breathing encouraged. +bs, tolerating PO intake, voiding spontaneously. post op sites are stable, cordis w kvo infusing, piv flushing easily. plan of care reviewed w the pt and questions encouraged.
[2023-10-12] MEDS: SENOKOT-S 1 TABLET PO ×2 (08:48→20:25)
[2023-10-12] MEDS: MUCINEX 600 MG PO ×2 (08:48→20:25)
[2023-10-12] MEDS: LIPITOR 80 MG PO (08:48)
[2023-10-12] MEDS: ELIQUIS 5 MG PO ×2 (08:49→20:25)
[2023-10-12] MEDS: BACTROBAN 2% OINTMENT 1 APPLIC NASAL (08:49)
[2023-10-12] MEDS: PROTONIX 40 MG PO (08:49)
[2023-10-12] MEDS: LASIX 40 MG IV ×2 (08:49→16:18)
[2023-10-12] MEDS: LOW STRENGTH ASPIRIN 81 MG PO (08:49)
[2023-10-12] MEDS: PACERONE 200 MG PO ×2 (08:49→16:18)
[2023-10-12] MEDS: NEURONTIN 100 MG PO (08:49)
[2023-10-12] MEDS: VITAMIN C 500 MG PO (08:49)
[2023-10-12] MEDS: LIDOCAINE 4% PATCH 1 PATCH TOPICAL (08:50)
--- NOTE | 2023-10-12 09:18 | PTCARENOTE ---
pt assisted back to bed for echo
--- NOTE | 2023-10-12 09:44 | W.PN.CD ---
Today's Communication / Plan
-
OOB as able, continue supportive care, IS
Impression / Plan
-
Impression/Plan: 77M with CAD s/p CABG, bio AVR, severe MR s/p MitraClip 09/2020 (redo procedure 11/2020 at [facility]), HFrEF (LVEF 35-40%), PAF on warfarin and dofetilide, hypertension, thyroid disease, and EDA admitted for preoperative optimization,
now s/p AVR/MVR.
-Mixed Valvular heart disease
-S/P AVR (#21 Alan Inspiris, SN [id number]), MVR (#31 Alan Mitris, SN [id number]).
-Pre LVEF 35 to 40%, post 25-30%.
-EKG in sinus with prolonged QTc.
-Impella 5.5 explanted 10/09/23.
-Current gtts:
-Off Milrinone, Epinephrine and Norepinephrine.
-Insulin: off
- AT noted while on Milrinone and stopped.
- appears relatively euvolemic
-s/p Thoracentesis 10/10
#Anemia/Thrombocytopenia
-Acute, post op.
- s/p Transfusions. stable
- trend.
-Hbg down to 7.9
-HIT panel ordered.
-Monitor H/H with diuresis.
#Lactic acidosis
-Resolved now.
-s/p Impella removed.
#Paroxysmal atrial fibrillation
-Currently in NSR.
-S/P MAZE during surgery, incomplete LAAL.
-Rate/Rhythm control with amiodarone. Discontinued dofetilide for now.
-Monitor QTc given use of class III anti-arrhythmics.
-CHADS2-Vasc = 5 (CHF, HTN, Age x2, Vascular Disease).
-Anticoagulation with warfarin when he is ready.
#HFrEF
-Chronic.
-Restart home medications as hemodynamics will permit.
-He needs diuresis. Bumex gtt as above.
#CAD
-History of PCI and CABG, stable on recent catheterization.
-Secondary prevention with high dose, high potency statin.
-Antithrombotic therapy with warfarin when possible.
#HTN
-Chronic, stable.
-Restart home medications as hemodynamics will permit.
#CKD3
-Chronic.
-Cr 1.5 today
#Dyslipidemia:
-LDL 234
-Increase atorvastatin, though not clear that he has been compliant with it
#Thyroid disease, follows with endocrine
Subjective/Interval History:
OOB in chair feels weak
DATA:
TTE, 10/09/2023:
CONCLUSIONS
�TDS.
�Normal LV chamber size with moderately reduced systolic function.
�LV ejection fraction is approximately 35-40%.
�Poor endocardial definition with no definitive wall motion abnormality.
�RV not well-visualized but appears normal size with normal function.
�Compared to YUNIEL from October 08, 2023, overall LV function is slightly more
�vigorous.
Intraprocedural YUNIEL, 10/08/2023:
CONCLUSIONS
�Overall LVEF is 30-35% with moderate global hypokinesis.
�Mild concentric left ventricular hypertrophy.
�Stage III Diastolic dysfunction.
�Mildly dilated left atrium.
�A large (0.9 cm) iatrogenic mid septal ASD noted with left to right flow.
�Moderate pulmonary hypertension (PAs=53 mmHg).
�Mild tricuspid regurgitation.
�Severe aortic stenosis.
�ADELINA calculates to 0.6 cm2 by continuity equation.
�Mild mitral stenosis.
�Severe mitral regurgitation.
�MVA calculates to 1.2 cm2.
�The MV is a double barrel valve with mitral clips fixing A2 to P2.
�Mild sessile atheroma seen in the descending aorta and distal arch.
�Proximal ascending aorta is calcified from the AV to above the ST junction.
POST OPERATIVE FINDINGS
�The patient underwent a redo sternotomy, AVR with a size 21 bioprosthetic
�valve, MVR with a size 31 bioprosthetic valve,� LA appendage internal ligation,
�MAZE, closure of an ASD, and placement of an Impella device.� Mild RV
�dysfunction noted.� Overall LVEF is now 20% with moderate global hypokinesis.
�The MVR and AVR are well seated with normal leaflet motion.� No AI or
�perivalvular leaks noted.� No MR or perivalvular leaks.� Max MV gradient
�measures 3 mmHg, mean is 1 mmHg.� Max AV gradient measures 12 mmHg, mean is 6
�mmHg.� Trace TR.� PV appears normal.� The LA appendage is not totally occluded
�with a very small orifice with flow seen on color flow Doppler.� The Impella is
�in good position aimed at the LV apex.� The ASD is now closed with no color
�flow seen across the septum.� No change in the aortic scan noted.
TTE 10/04/23:
CONCLUSIONS
�Moderately reduced left ventricular systolic function. � LV ejection fraction
�is 35-40% by visual assessment.
�Dilated right ventricle with preserved function.
�Stage II diastolic dysfunction suggestive of increased filling pressures.
�Status post mitral valve clipping x 2 with moderate to severe mitral
�regurgitation� (may be underestimated due to acoustic shadowing).� Moderate
�mitral stenosis.
�Well-seated bioprosthetic aortic valve with significant stenosis.
�Moderate tricuspid regurgitation with moderate pulmonary hypertension.
�Color flow pattern suggestive of ASD with evidence of left to right shunting on
�color flow Doppler.
�Compared to TTE from 06/04/2023, right ventricular systolic function appears
�preserved on today's study and was mildly reduced on the prior.� The mitral
�regurgitation is slightly increased and from moderate on the prior study.
YUNIEL, 08/23/2023:
CONCLUSIONS
�Moderately reduced left ventricular systolic function. Left ventricular
�ejection fraction is 35-40%.
�s/p MitraClip x2. Appear well seated. Mild/moderate mitral valve stenosis. Mean
�gradient is 7 mmHg. MVA by planimetry 1.8 cm2. Moderate/severe eccentric mitral
�valve regurgitation. 2 jets visualized.
�s/p bio-AVR. The ADELINA by planimetry is 1.2 cm2. Gradients were not measured on
�current study, but prior AV gradients on TTE 05/2023 were 48/27 mmHg. Likely
�moderate prosthetic valve stenosis. Trace aortic regurgitation.
�ASD with left to right flow visualized. (Likely post procedural s/p MitraClip.)�
�Area by planimetry 0.12-0.18 cm2.
�
�Compared to TTE 06/04/23: MR looks moderate/severe compared to moderate on
�prior.� Other findings similar.
TTE, 06/04/23:
CONCLUSIONS
�Normal LV size with moderately reduced left ventricular systolic function.
�Global hypokinesis.
�Estimated left ventricular ejection fraction is 35-40% by Urban's method of
�discs.
�No LVH.
�Dilated right ventricle with reduced systolic function.
�Severe left atrial dilation.
�s/p MitraClip x 2. The mean gradient across the valve is elevated at 8 mmHg.
�Moderate, eccentric mitral regurgitation (2 jets are seen).
�Bioprosthetic aortic valve replacement. The peak/mean gradients across the
�valve are 48/27 mmHg. No aortic regurgitation is seen.
�Mild to moderate tricuspid regurgitation.
�Estimated pulmonary artery pressure of 50 mmHg assuming a right atrial pressure
�of 3 mmHg.
�Mildly dilated ascending aorta (3.8 cm).
�Compared to report from January 23, 2023, LV ejection fraction is moderately
�reduced at 35-40%, mean gradient across MV is now 8 mmHg from 4 mmHg, gradients
�through the bioprosthetic AV have increased from 14 mmHg, to 27 mmHg, and there
�is mild to moderate TR with estimated PASP of 51 mmHg.
Cath 08/06/23:
CONCLUSIONS:
1.� Right dominant circulation with a 60% proximal RCA lesion, patent mid RCA stent with 10% ISR and a diffusely diseased distal RCA with a INSTALL TECHNICIAN of the RPDA, severely diseased left main coronary artery with a 60-70% stenosis of the entire shaft with
a 70-80% lesion at the distal margin leading into the left circumflex, a 60-70% lesion at the origin of the first obtuse marginal and a chronic total occlusion of the ostial LAD, status post bypass (patent SMITH to LAD, patent SVG to RPDA to RPL).�
The coronary anatomy is essentially unchanged from prior cardiac catheterization in 2020.
2.� Moderately elevated filling pressures (LVEDP = 20 mmHg, PCWP = 20 mmHg at 71.0 kg).
3.� Depressed systolic function (cardiac index 1.69 L/min/m�, AV O2 difference 6.93 volume%).
4.� Significant residual intra-atrial shunt (likely due to persistent atrial septostomy from AIDAN), Qp/Qs = 1.58.
5.� Status post bioprosthetic aortic valve replacement with probably moderate stenosis (mean gradient 15 mmHg on cath, 27 mmHg on echocardiogram).
6.� Status post AIDAN.� There are total of [address]� There is equalization of PCWP and LVEDP pressures.
Physical Exam
Vital Signs/Labs
Vital Signs
Temp Pulse Resp BP Pulse Ox
97.8 F 75 16 112/66 99
10/12/23 08:00 10/12/23 08:00 10/12/23 08:00 10/12/23 08:00 10/12/23 09:33
10/11/23 10/12/23 10/13/23
06:59 06:59 06:59
Actual Weight 177 lb 7.554 oz 175 lb 4.28 oz
10/12/23 04:27
10/12/23 04:27
PT 19.8 Sec (11.4-14.6) H 10/09/23 14:10
INR 1.70 10/09/23 14:10
APTT 41.9 Sec (23.4-35.0) H 10/09/23 14:10
Magnesium 2.3 mg/dl (1.6-2.3) 10/10/23 03:08
Triglycerides 183 mg/dl (10-149) H 10/04/23 08:35
LDL Cholesterol, Calc 234 mg/dl 10/04/23 08:35
VLDL Cholesterol, Calc 36 mg/dl (0-30) H 10/04/23 08:35
HDL Cholesterol 42 mg/dl 10/04/23 08:35
TSH 5.07 uIU/ml (0.47-4.68) H 10/04/23 08:35
Free T4 1.05 ng/dl (0.78-2.19) 10/05/23 03:56
10/04/23
08:35
[id number] Pept 3960
Physical Exam
Constitutional: No acute distress
EENT: Anicteric
Cardiovascular: Rhythm & rate is regular and Pedal edema present (trace)
Respiratory: Respiratory effort normal and Lungs clear to auscul.
GI: Soft
Neuro/Psych: Alert and Oriented
Data Reviewed
-
Date of Service: October 12, 2023
EKG: Tracing Personally Visualized and interpreted
Labs: Labs Reviewed by me
[2023-10-12] MEDS: FLEXERIL PO (10:10)
--- NOTE | 2023-10-12 12:09 | PTCARENOTE ---
pt worked w PT/OT, tolerated well. VSS, sinus rhythm maintained on tele, CT remains to suction
--- NOTE | 2023-10-12 14:27 | CON.MD ---
Addendum entered and electronically signed by Irvin Singh MD 10/15/23 14:54:
Correction.
Memory: Intact for immediate medical concerns. <del>Can</del> <del>ask</del> <del>for</del> <del>tomorrow</del>
<del>That</del> <del>is</del> <del>good</del> <del>to</del> <del>go</del> <del>play</del> <del>for</del> <del>the</del> <del>daughter</del> <del>to</del> <del>set</del> <del>a</del> <del>goal</del> <del>to</del> <del>get</del> <del>off</del>
<del>of</del> <del>the</del> <del>sling</del> <del>at</del> <del>the</del> <del>doctors</del> <del>yet</del> <del>he</del> <del>saw</del> <del>the</del> <del>a</del> <del>tiny</del> <del>alexis</del> <del>morning</del> <del>this</del>
<del>is</del> <del>why</del> <del>he</del> <del>should</del> <del>not</del> <del>be</del> <del>the</del> <del>consensus</del> <del>#1</del> <del>we</del> <del>will</del> <del>have</del> <del>this</del> <del>kind</del> <del>of</del>
<del>baggage</del> <del>no</del> <del>use</del> <del>at</del> <del>the</del> <del>baggage</del> <del>blank</del> <del>due</del> <del>to</del> <del>competition</del> <del>because</del> <del>her</del> <del>conference</del> <del>next</del>
<del>stable</del> <del>it</del> <del>was</del> <del>good</del> <del>while</del> <del>I</del> <del>get</del> <del>to</del> <del>people</del> <del>not</del> <del>realize</del> <del>the</del> <del>leak</del> <del>is</del> <del>trending</del>
<del>toward</del> <del>my</del> <del>placed</del> <del>I</del> <del>will</del> <del>be</del> <del>replaced</del> <del>I</del> <del>will</del> <del>be</del> <del>taken</del> <del>to</del> <del>snaps</del> <del>out</del> <del>of</del> <del>the</del>
<del>hospital</del> <del>because</del> <del>gaultherin</del> <del>Gary</del> <del>regarding</del> <del>Freeman</del> <del>Caba</del> <del>but</del> <del>that</del> <del>works</del> <del>to</del> <del>get</del> <del>her</del>
<del>and</del> <del>everyone</del> <del>says</del> <del>that</del> <del>until</del> <del>I</del> <del>get</del> <del>her</del> <del>you</del> <del>are</del> <del>on</del> <del>the</del> <del>recklessly</del> <del>then</del> <del>out</del>
<del>of</del> <del>the</del> <del>room</del> <del>Flovent</del> <del>HFA</del> <del>you</del> <del>guys</del> <del>I</del> <del>got</del> <del>ago</del> <del>I</del> <del>did</del> <del>just</del> <del>the</del> <del>best</del> <del>of</del>
<del>my</del> <del>entire</del> <del>repeat</del> <del>salary</del> <del>discomfort</del> <del>does</del> <del>sound</del> <del>like</del> <del>a</del> <del>real</del> <del>problem</del> <del>overall</del> <del>works</del> <del>out</del>
<del>clearly</del> <del>blame</del> <del>together</del> <del>living</del> <del>what</del> <del>would</del> <del>you</del> <del>for</del> <del>all</del> <del>your</del> <del>money</del> <del>to</del> <del>something</del> <del>of</del>
<del>promising</del> <del>is</del> <del>JJ</del> <del>going</del> <del>to</del> <del>with</del> <del>your</del> <del>KryptoScan</del> <del>he</del> <del>was</del> <del>using</del> <del>Narcanh</del>
Extremities:�Edema: bilaterally, cool to touch, hammertoes�Cyanosis: None�Trophic�changes: None
Original Note:
Documented by User: Jennifer Dominguez PA-C 10/12/23 16:20
Consultation - Medical
-
Referring Provider: Freeman amin
Chief Complaint: Debility
History of Present Illness: 77 y/o male with CAD s/p CABG, bio AVR, severe MR s/p MitraClip 09/2020 ([facility] procedure 11/2020 [facility]), HFrEF EF 35-40%, PAF on warfarin and Tikosyn, hypertension, thyroid disease, and EDA who is here for optimization
pre-operatively for AVR/MVR Sunday. He is -S/P AVR and MVR on 10/07/2023.-Pre LVEF 35 to 40%, post 25-30%. -Impella 5.5 explanted 10/09/23.-s/p Thoracentesis 10/10. -EKG in sinus with prolonged QTc.
Past Medical History: CAD s/p CABG, bio AVR, severe MR s/p MitraClip 09/2020 ([facility] procedure 11/2020 [facility]), HFrEF EF 35-40%, PAF on warfarin and Tikosyn, hypertension, thyroid disease,
Procedure History: PCI and CABG,S/P MAZE during surgery, incomplete LAAL.
Family History:
Social History:
Functional Level Premorbidly: Independent with all activities
Functional Level Currently:�transfer-Max assist, sit to supine�max assist, 45 feet with rolling walker, Grooming min assist, lower extremity self-care�dependent, toileting transfer�moderate assistance, bed mobility�max assist.
Tobacco: Denies
Alcohol: Denies
Drug use: Denies
Lives with: Spouse
24-hour assistance available:
Number of floors: 2
# steps to enter: 8
# steps to second floor: FF
Potential First floor set up: couch, bathroom
Driving: yes
Occupation: retired
�
Allergies:
Allergy/AdvReac Type Severity Reaction Status Date / Time
No Known Drug Allergies Allergy Unknown Verified 09/25/23 11:43
Review of Systems:
Constitutional: (x) tired
Eye: (x) Normal _
Ear/Nose/Throat: (x) Normal _
Respiratory: (x) Normal _
Cardiovascular: (x AVR, MVR
Gastrointestinal: (x) Normal _
Genitourinary: (x) Normal _
Musculoskeletal: (x) Normal _
Integumentary: (x) Normal _
Neurologic: (x) Normal _
Psychiatric: (x) Normal _
Endocrine: (x) Normal _
Hematologic/Lymphatic: (x) Normal _
Allergic/Immunologic: (x) Normal _
Medications:
Active Current Visit Medication List
Category Date Time Status
0.9% Sodium Chloride 500 ml [Nss] 500 ml Med 10/08/23 13:56 Active
IV CORDIS
0.9% Sodium Chloride 500 ml [Nss] 500 ml Med 10/08/23 16:00 Active
IV [id number]
Acetaminophen [Tylenol] Med 10/08/23 13:56 Active
650 mg PO Q4HPRN PRN
Albumin Human 5% 250 ml [Albumin 5%] Med 10/08/23 15:10 Active
12.5 grams in 250 ml IV [id number]
Albuterol Nebs [Ventolin Nebules] Med 10/08/23 13:56 Active
2.5 mg INH R Q4HPRN PRN
Albuterol [ProAIR HFA INHALER] Med 10/08/23 13:56 Active
2 puff INH R Q4HPRN PRN
Amiodarone [Pacerone] Med 10/08/23 22:00 Active
200 mg PO TID
Apixaban [Eliquis] Med 10/11/23 20:00 Active
5 mg PO BID
Ascorbic Acid [Vitamin C] Med 10/12/23 08:00 Active
500 mg PO DAILY
Aspirin Chewable [Low Strength Aspirin] Med 10/09/23 08:00 Active
81 mg PO DAILY
Atorvastatin [Lipitor] Med 10/05/23 08:00 Active
80 mg PO DAILY
Bisacodyl [Dulcolax] Med 10/08/23 13:56 Active
10 mg RECTAL DAILYPRN PRN
Cyclobenzaprine HCl [Flexeril] Med 10/12/23 09:53 Active
5 mg PO TIDPRN PRN
Docusate W/Senna [Senokot-S] Med 10/08/23 20:00 Active
1 tablet PO Q12
Flush (0.9% Sodium Chloride) [Flush (Nss)] Med 10/08/23 16:00 Active
See Dose Instructions IV PER PROTOCOL
Gabapentin [Neurontin] Med 10/09/23 16:00 Active
100 mg PO TID
Guaifenesin [Mucinex] Med 10/10/23 08:00 Active
600 mg PO Q12
HYDROmorphone [Dilaudid] Med 10/09/23 10:17 Active
0.25 mg IV Q4HPRN PRN
HYDROmorphone [Dilaudid] Med 10/09/23 10:17 Active
0.5 mg IV Q4HPRN PRN
Levothyroxine [Synthroid] Med 10/06/23 07:00 Active
75 mcg PO DAILY@0700
Lidocaine [Lidocaine 4% Patch] Med 10/10/23 08:00 Active
1 patch TOPICAL DAILY
Magnesium Hydroxide [Milk of Magnesia] Med 10/08/23 13:56 Active
30 ml PO BIDPRN PRN
Magnesium Oxide Med 10/09/23 08:00 Hold
500 mg PO BID
Metoprolol [Lopressor] Med 10/08/23 20:00 Hold
12.5 mg PO Q12
Ondansetron Injectable [Zofran] Med 10/08/23 13:56 Active
4 mg IV Q8HPRN PRN
Oxycodone [Roxicodone] Med 10/08/23 13:56 Active
10 mg PO Q4HPRN PRN
Oxycodone [Roxicodone] Med 10/08/23 13:56 Active
5 mg PO Q4HPRN PRN
Pantoprazole [Protonix] Med 10/11/23 08:00 Active
40 mg PO DAILY
Remove Patch [Remove Lidocaine Patch] Med 10/10/23 20:00 Active
See Dose Instructions REMOVE DAILY@1999
Vitals:
Temp Pulse Resp BP Pulse Ox
98.1 F 66 16 109/60 97
10/12/23 12:08 10/12/23 14:00 10/12/23 12:08 10/12/23 14:00 10/12/23 14:00
Height 5 ft 9 in
Actual Weight 79.5 kg
Body Mass Index (BMI) 25.9
Physical Exam:
General Appearance/Observation: Well-developed, well-nourished individual in no apparent distress.
Pain/Comfort Assessment: Denies
Mood/Affect: tired, flat
Integumentary/Operative Site:
�� Pressure Ulcer Evaluation: absent over heels.
��
�� Other Type of Wound: sternum
��
��
Eyes: Conjunctiva/Lids: normal ��� Pupils: pupils equal round
Ears/Nose/Throat: oral mucosa moist,� throat clear.������������ Lips/Teeth/Gums: normal
Neck: No muscle spasm or tenderness
Cardiovascular: Heart: regular, no murmur
Pulses: dorsalis pedis:
Respiratory: Respiratory Effort/Chest Expansion: normal ������ Auscultation: Clear to auscultation bilaterally
Gastrointestinal: abdomen not tender, no distension, normal abdominal bowel sounds
Genitourinary: No Velazquez
Extremities: Edema: bilaterally, cool to touch, hammertoes Cyanosis: None Trophic changes: None
Neurology Exam:
Orientation: Alert, Oriented to self, Time, Place
Memory: Intact for immediate medical concerns
Higher cortical function
Comprehension: Intact
Two step command: Intact
Naming: Intact
Cranial Nerves:
�� CNII: Pupillary light reflex: Intact��� Visual Field: Intact
�� CN III, IV, : Extraocular muscles: Intact
�� CN V: Facial Sensation at Forehead: Intact, Maxilla: Intact, Mandible: Intact
�� CN VII: Facial movement: Symmetric
�� CN VIII: Hearing: Normal
�� CN IX/X: Speech & swallow: Normal, Position of Uvula: Midline
�� CN XI: Shoulder shrug: Symmetric
�� CN XII: Tongue protrusion: Midline
Sensory:
�� Light touch: Intact in bilateral upper and lower extremities
��
�� Clonus: None
�� Leticia: Negative bilaterally
Musculoskeletal:
Motor: (Manual muscle scale 0-5)
Muscle SA EF WE EE FF FA HF KE DF EHL PF
Right� 4 4 5 5 5 5 5
Left 4 4 5 5 5 5 5
Tone: Normal in all extremities
Range of Motion: deferred
Lab Results
Labs
WBC 5.4 10^3/uL (4.8-10.8) 10/12/23 04:27
RBC 2.66 10^6/uL (4.70-6.10) L 10/12/23 04:27
Hgb 7.9 g/dL (13.0-18.0) L 10/12/23 04:27
Hct 23.6 % (39.0-52.0) L 10/12/23 04:27
MCV 88.7 fL (80.0-94.0) 10/12/23 04:27
MCH 29.7 pg (27.0-31.0) 10/12/23 04:27
MCHC 33.5 g/dL (33.0-37.0) 10/12/23 04:27
RDW 17.1 % (11.5-14.5) H 10/12/23 04:27
Plt Count 98 10^3/uL (130-400) L D 10/12/23 04:27
MPV 11.5 fL (7.4-10.4) H 10/12/23 04:27
Abs Immat Gran (auto) 0.0 10^3/uL (0-0.05) 09/27/23 12:43
Absolute Neuts (auto) 5.2 10^3/uL (1.4-6.5) 09/27/23 12:43
Absolute Lymphs (auto) 1.0 10^3/uL (1.2-3.4) L 09/27/23 12:43
Absolute Monos (auto) 0.6 10^3/uL (0.1-0.6) 09/27/23 12:43
Absolute Eos (auto) 0.1 10^3/uL (0-0.7) 09/27/23 12:43
Absolute Basos (auto) 0.0 10^3/uL (0-0.2) 09/27/23 12:43
CBC Comment Cancelled 10/10/23 11:00
Immature Gran % 0.3 % (0-0.5) 09/27/23 12:43
Neutrophils % 75.0 % (42.2-75.2) 09/27/23 12:43
Lymphocytes % 14.1 % (20.5-51.1) L 09/27/23 12:43
Monocytes % 8.3 % (1.7-9.3) 09/27/23 12:43
Eosinophils % 1.7 % (0-6) 09/27/23 12:43
Basophils % 0.6 % (0-2) 09/27/23 12:43
Nucleated RBC % 0 % (-) 09/27/23 12:43
PT 19.8 Sec (11.4-14.6) H 10/09/23 14:10
INR 1.70 10/09/23 14:10
APTT 41.9 Sec (23.4-35.0) H 10/09/23 14:10
Fibrinogen 288 MG/DL (199-459) 10/09/23 04:12
D-Dimer 1.52 ug/mlFEU (0.00-0.50) H 10/09/23 04:12
pH 7.41 (7.35-7.45) 10/09/23 14:10
pCO2 42 mmHg (35-48) 10/09/23 14:10
pO2 82 mmHg (83-108) L 10/09/23 14:10
HCO3 26.6 mmol/L (21-28) 10/09/23 14:10
Base Excess 1.8 mmol/L 10/09/23 14:10
ABG O2 Sat (Measured) 97.7 % (94-98) 10/09/23 14:10
POC ABG O2 Sat (Calc) 99.3 5 (92-96) H 10/08/23 13:26
Mixed VBG O2 Saturation 65.1 % 10/10/23 08:20
Sodium 144 mMOL/L (136-145) 10/09/23 14:10
Potassium 4.8 mMOL/L (3.5-5.1) 10/09/23 14:10
O2 Delivery Level nasal cannula 10/09/23 14:10
Sodium 135 mmol/L (135-145) 10/12/23 04:27
Potassium 4.1 mmol/L (3.5-5.1) 10/12/23 04:27
Chloride 101 mmol/L (98-107) 10/12/23 04:27
Carbon Dioxide 29 mmol/L (22-30) 10/12/23 04:27
BUN 43 mg/dl (9-20) H 10/12/23 04:27
Creatinine 1.5 mg/dL (0.7-1.3) H 10/12/23 04:27
Estimated Creat Clear 40 ml/min 10/12/23 04:27
eGFR 47.06 10/12/23 04:27
Glucose 92 mg/dl (70-99) 10/12/23 04:27
Hemoglobin A1c 5.8 % (4.0-5.6) H 09/27/23 12:43
Lactic Acid Cancelled 10/09/23 15:30
Calcium 7.8 mg/dl (8.4-10.2) L 10/12/23 04:27
Ionized Calcium 1.23 mMOL/L (1.15-1.33) 10/09/23 14:10
Magnesium 2.3 mg/dl (1.6-2.3) 10/10/23 03:08
Total Bilirubin 1.1 mg/dl (0.2-1.3) 10/11/23 03:57
Direct Bilirubin 0.3 mg/dl (0.0-0.4) 10/09/23 04:12
AST 73 U/L (17-59) H 10/11/23 03:57
ALT 24 U/L (0-50) 10/11/23 03:57
Alkaline Phosphatase 97 U/L (38-126) 10/11/23 03:57
Lactate Dehydrogenase Cancelled 10/09/23 15:30
Creatine Kinase 1008 U/L (55-170) H 10/10/23 05:48
Pws-R-Dsrjsycmzos Pept 3960 pg/ml 10/04/23 08:35
Total Protein 4.8 g/dl (6.3-8.2) L 10/11/23 03:57
Albumin 2.7 g/dl (3.5-5.0) L 10/11/23 03:57
Triglycerides 183 mg/dl (10-149) H 10/04/23 08:35
Total Cholesterol 312 mg/dl (50-199) H 10/04/23 08:35
LDL Cholesterol, Calc 234 mg/dl 10/04/23 08:35
VLDL Cholesterol, Calc 36 mg/dl (0-30) H 10/04/23 08:35
HDL Cholesterol 42 mg/dl 10/04/23 08:35
TSH 5.07 uIU/ml (0.47-4.68) H 10/04/23 08:35
TSH (Reflex) 4.07 uIU/ml (0.47-4.68) 10/12/23 04:27
Free T4 1.05 ng/dl (0.78-2.19) 10/05/23 03:56
Urine Color Yellow 10/08/23 07:15
Urine Clarity Clear (Clear) 10/08/23 07:15
Urine pH 5.0 (5.0-9.0) 10/08/23 07:15
Ur Specific [place] 1.015 (<1.030) 10/08/23 07:15
Urine Ketones Negative (Negative) 10/08/23 07:15
Urine Occult Blood Negative (Negative) 10/04/23 20:47
Ur Occult Blood Reflex 3+ (Negative) A 10/08/23 07:15
Urine Nitrite Negative (Negative) 10/04/23 20:47
Urine Nitrite (Reflex) Negative (Negative) 10/08/23 07:15
Urine Bilirubin Negative (Negative) 10/08/23 07:15
Urine Urobilinogen Negative (Neg - 1+) 10/08/23 07:15
Ur Leukocyte Esterase Negative (Negative) 10/04/23 20:47
Leukocyte Esterase Rfl Negative (Negative) 10/08/23 07:15
Urine RBC 21-25 /HPF (0-2) A 10/08/23 07:15
Urine WBC (Reflex) 0-2 /HPF (0-5) 10/08/23 07:15
Ur Squamous Epith Cells 0-2 /LPF (Few) 10/08/23 07:15
Urine Bacteria (Reflex) Few (Negative) A 10/08/23 07:15
Urine Glucose Negative (Negative) 10/08/23 07:15
Urine Albumin Negative (Neg - Trace) 10/04/23 20:47
Urine Albumin (Reflex) Negative (Neg - Trace) 10/08/23 07:15
Hep-Induced Plt Ab Ignacia 10/10/23 05:48
POC pH 7.32 (7.35-7.45) L 10/08/23 13:26
POC Base Excess -5.0 mmol/L 10/08/23 13:26
POC pO2 160 mmHg (80-100) H 10/08/23 13:26
POC pCO2 40 mmHg (35-45) 10/08/23 13:26
POC HCO3 21 mmol/L (21-29) 10/08/23 13:26
POC Glucose 129 mg/dl (70-99) H 10/09/23 23:48
POC Glucose 107 mg/dl (65-99) H 10/08/23 13:26
POC Sodium 146 mmol/L (135-145) H 10/08/23 13:26
POC Potassium 4.4 mmol/L (3.6-5.0) 10/08/23 13:26
POC Ionized Calcium 1.25 mmol/L (1.12-1.27) 10/08/23 13:26
POC ACT+ 156 Seconds (82-134) H 10/08/23 13:23
POC ACT Low Range 136 Seconds (116-155) 10/08/23 19:02
POC Hemoglobin Calc 10.0 10/08/23 13:26
POC Hematocrit 29 % PCV (42-52) L 10/08/23 13:26
POC Hemodilution Yes 10/08/23 13:26
Blood Type B POS 10/10/23 08:20
Antibody Screen Positive (Negative) A 10/10/23 08:20
Antibody Identification See Comments 10/10/23 08:20
Antigen Identification FyA(GREGORY A) - NEGATIVE 09/27/23 12:43
Crossmatch IS Only See Detail 10/10/23 08:20
MTS Gel Crossmatch See Detail 10/10/23 08:20
�
Diagnostic Results: as per HPI
Assessment 77 y/o male with CAD s/p CABG, bio AVR, severe MR s/p MitraClip 09/2020 ([facility] procedure 11/2020 [facility]), HFrEF EF 35-40%, PAF on warfarin and Tikosyn, hypertension, thyroid disease, and EDA who is here for optimization pre-operatively
for AVR/MVR on 10/08/23. He is -S/P AVR and MVR on 10/08/2023.-Pre LVEF 35 to 40%, post 25-30%. -Impella 5.5 explanted 10/09/23.-s/p Thoracentesis 10/10. -EKG in sinus with prolonged QTc.
Plan
PT/OT to increase independence with ADLs, improve balance, coordination, endurance, strength, mobility, community reintegration, decreased burden of care on others and family education.
Mixed Valvular heart disease:AVR (#21 Alan Inspiris, SN [id number]), MVR (#31 Alan Mitris, SN [id number]).
HTN: continue medications, monitor closely
HLD: Statin
Coronary artery disease : Aspirin, statin, beta-nelida
Paroxismal Atrial fibrillation:� ��-S/P MAZE during surgery, incomplete LAAL.-Rate/Rhythm control with amiodarone. Eliquis 5 mg twice daily���������
CHF: Chronic- Pre LVEF 35 to 40%, post 25-30%, beta nelida, Bumex, monitor fluid status
Mixed Valvular heart disease:AVR (#21 Alan Inspiris, SN [id number]), MVR (#31 Alan Mitris, SN [id number]).
HTN: continue medications, monitor closely
HLD: Statin
Coronary artery disease : Aspirin, statin, beta-nelida
Paroxismal Atrial fibrillation:� ��-S/P MAZE during surgery, incomplete LAAL.-Rate/Rhythm control with amiodarone. Eliquis 5 mg twice daily���������
CHF: Chronic- Pre LVEF 35 to 40%, post 25-30%, beta nelida, Bumex, monitor fluid status
Hypothyroidism: levothyroxine 75mcg
Bilateral lower extremity edema: Consider TEDS as able. Increased fluid will cause more force requirement to move lower extremities which requires more strength and increases fatigue.
Anemia: Likely multifactorial.� -s/p 1 pRBC on 10/09 for symptomatic anemia, Hg 7.7. follow platelets (up to 98k today)
Thrombocytopenia: Continue to monitor. With platelets less than 50,000 recommend keeping therapies to bedside. If platelets less than 20,000 will use further caution with activity levels and hold therapy for platelets less than 10,000.
Psych: Psychology consult.� Monitor mood, adjust medications as needed.
Skin: monitor for pressure sores/rashes/lesions.
Pain: acetaminophen or oxycodone as needed.
Bowel: Colace and Senna, PRN bisacodyl.
Bladder: Time void, PVRs, PRN straight cath.
GI Prophylaxis: Pantoprazole
DVT Prophylaxis: Eliquis 5 twice daily
Pulmonary: Incentive spirometry
Safety: Continue to reinforce assistance with all transfers.
Code Status:� Full code
Dispo (date/plan/equipment needs): Home with family care.� Social history reviewed.
Functional and Medical Goals: Modified Independent with ADL�s, ambulation, transfers
Summary of recommendations:
- Discharge Destination: Patient would benefit from inpatient acute rehabilitation once medically ready for PT/OT to increase independence with ADLs, improve balance, coordination, endurance, strength, mobility as he is currently with transfer-Max
assist, sit to supine�max assist, 45 feet with rolling walker, Grooming min assist, lower extremity self-care�dependent, toileting transfer�moderate assistance, bed mobility�max assist.
Debility/Ambulatory Dysfunction: s/P AVR/MVR
Mixed Valvular heart disease:AVR (#21 Alan Inspiris, SN [id number]), MVR (#31 Alan Mitris, SN [id number]).
HTN: continue medications, monitor closely
HLD: Statin
Coronary artery disease : Aspirin, statin, beta-nelida
Paroxismal Atrial fibrillation:� ��-S/P MAZE during surgery, incomplete LAAL.-Rate/Rhythm control with amiodarone. Eliquis 5 mg twice daily���������
CHF: Chronic- Pre LVEF 35 to 40%, post 25-30%, beta nelida, Bumex, monitor fluid status
Anemia: Likely multifactorial.� -s/p 1 pRBC on 10/09 for symptomatic anemia, Hg 7.7. follow platelets (up to 98k today)
Pain: acetaminophen or oxycodone as needed.
Bowel: Colace and Senna, PRN bisacodyl.
Bladder: Time void, PVRs, PRN straight cath.
GI Prophylaxis: Pantoprazole
DVT Prophylaxis: Eliquis 5 twice daily
Pulmonary: Incentive spirometry
Safety: Continue to reinforce assistance with all transfers.
Thank you for allowing me to care for your patient. Please contact me with any questions or concerns.
This note was dictated using a voice recognition system. Please excuse any typographical errors from dial equipment engineer. If you believe there are any discrepancies, please notify our office.

Documented by User: Irvin Singh MD 10/12/23 17:36
Consultation - Medical
-
Referring Provider: Freeman amin
Chief Complaint: Debility
History of Present Illness: 77 y/o male with CAD s/p CABG, bio AVR, severe MR s/p MitraClip 09/2020 (redo procedure 11/2020 [facility]), HFrEF EF 35-40%, PAF on warfarin and Tikosyn, hypertension, thyroid disease, and EDA who is here for optimization
pre-operatively for AVR/MVR Sunday. He is -S/P AVR and MVR on 10/07/2023.-Pre LVEF 35 to 40%, post 25-30%. -Impella 5.5 explanted 10/09/23.-s/p Thoracentesis 10/10. -EKG in sinus with prolonged QTc.
Past Medical History: CAD s/p CABG, bio AVR, severe MR s/p MitraClip 09/2020 ([facility]o procedure 11/2020 [facility]), HFrEF EF 35-40%, PAF on warfarin and Tikosyn, hypertension, thyroid disease,
Procedure History: PCI and CABG,S/P MAZE during surgery, incomplete LAAL.
Family History: Sister with CAD, brother with heart problems.
Social History:
Functional Level Premorbidly: Independent with all activities
Functional Level Currently:�transfer-Max assist, sit to supine�max assist, 45 feet with rolling walker, Grooming min assist, lower extremity self-care�dependent, toileting transfer�moderate assistance, bed mobility�max assist.
Tobacco: Denies
Alcohol: Denies
Drug use: Denies
Lives with: Spouse
24-hour assistance available: Possibly
Number of floors: 2
# steps to enter: 8
# steps to second floor: FF
Potential First floor set up: couch, bathroom
Driving: yes
Occupation: retired
�
Allergies:
Allergy/AdvReac Type Severity Reaction Status Date / Time
No Known Drug Allergies Allergy Unknown Verified 09/25/23 11:43
Review of Systems:
Constitutional: (x) tired
Eye: (x) Normal _
Ear/Nose/Throat: (x) Normal _
Respiratory: (x) Normal _
Cardiovascular: (x AVR, MVR
Gastrointestinal: (x) Normal _
Genitourinary: (x) Normal _
Musculoskeletal: (x) Normal _
Integumentary: (x) Normal _
Neurologic: (x) Normal _
Psychiatric: (x) Normal _
Endocrine: (x) Normal _
Hematologic/Lymphatic: (x) Normal _
Allergic/Immunologic: (x) Normal _
Medications:
Active Current Visit Medication List
Category Date Time Status
0.9% Sodium Chloride 500 ml [Nss] 500 ml Med 10/08/23 13:56 Active
IV CORDIS
0.9% Sodium Chloride 500 ml [Nss] 500 ml Med 10/08/23 16:00 Active
IV [id number]
Acetaminophen [Tylenol] Med 10/08/23 13:56 Active
650 mg PO Q4HPRN PRN
Albumin Human 5% 250 ml [Albumin 5%] Med 10/08/23 15:10 Active
12.5 grams in 250 ml IV [id number]
Albuterol Nebs [Ventolin Nebules] Med 10/08/23 13:56 Active
2.5 mg INH R Q4HPRN PRN
Albuterol [ProAIR HFA INHALER] Med 10/08/23 13:56 Active
2 puff INH R Q4HPRN PRN
Amiodarone [Pacerone] Med 10/08/23 22:00 Active
200 mg PO TID
Apixaban [Eliquis] Med 10/11/23 20:00 Active
5 mg PO BID
Ascorbic Acid [Vitamin C] Med 10/12/23 08:00 Active
500 mg PO DAILY
Aspirin Chewable [Low Strength Aspirin] Med 10/09/23 08:00 Active
81 mg PO DAILY
Atorvastatin [Lipitor] Med 10/05/23 08:00 Active
80 mg PO DAILY
Bisacodyl [Dulcolax] Med 10/08/23 13:56 Active
10 mg RECTAL DAILYPRN PRN
Cyclobenzaprine HCl [Flexeril] Med 10/12/23 09:53 Active
5 mg PO TIDPRN PRN
Docusate W/Senna [Senokot-S] Med 10/08/23 20:00 Active
1 tablet PO Q12
Flush (0.9% Sodium Chloride) [Flush (Nss)] Med 10/08/23 16:00 Active
See Dose Instructions IV PER PROTOCOL
Gabapentin [Neurontin] Med 10/09/23 16:00 Active
100 mg PO TID
Guaifenesin [Mucinex] Med 10/10/23 08:00 Active
600 mg PO Q12
HYDROmorphone [Dilaudid] Med 10/09/23 10:17 Active
0.25 mg IV Q4HPRN PRN
HYDROmorphone [Dilaudid] Med 10/09/23 10:17 Active
0.5 mg IV Q4HPRN PRN
Levothyroxine [Synthroid] Med 10/06/23 07:00 Active
75 mcg PO DAILY@0700
Lidocaine [Lidocaine 4% Patch] Med 10/10/23 08:00 Active
1 patch TOPICAL DAILY
Magnesium Hydroxide [Milk of Magnesia] Med 10/08/23 13:56 Active
30 ml PO BIDPRN PRN
Magnesium Oxide Med 10/09/23 08:00 Hold
500 mg PO BID
Metoprolol [Lopressor] Med 10/08/23 20:00 Hold
12.5 mg PO Q12
Ondansetron Injectable [Zofran] Med 10/08/23 13:56 Active
4 mg IV Q8HPRN PRN
Oxycodone [Roxicodone] Med 10/08/23 13:56 Active
10 mg PO Q4HPRN PRN
Oxycodone [Roxicodone] Med 10/08/23 13:56 Active
5 mg PO Q4HPRN PRN
Pantoprazole [Protonix] Med 10/11/23 08:00 Active
40 mg PO DAILY
Remove Patch [Remove Lidocaine Patch] Med 10/10/23 20:00 Active
See Dose Instructions REMOVE DAILY@1999
Vitals:
Temp Pulse Resp BP Pulse Ox
98.1 F 66 16 109/60 97
10/12/23 12:08 10/12/23 14:00 10/12/23 12:08 10/12/23 14:00 10/12/23 14:00
Height 5 ft 9 in
Actual Weight 79.5 kg
Body Mass Index (BMI) 25.9
Physical Exam:
General Appearance/Observation: Well-developed, well-nourished male in no apparent distress.
Pain/Comfort Assessment: Denies
Mood/Affect: tired, flat
Integumentary/Operative Site: Sternal incision healing well, drain sites healing.
- Left chest tube with serosanguineous drainage.
�� Pressure Ulcer Evaluation: absent over heels.
Eyes: Conjunctiva/Lids: normal ��� Pupils: pupils equal round
Ears/Nose/Throat: oral mucosa moist,� throat clear.������������ Lips/Teeth/Gums: normal
Neck: No muscle spasm or tenderness
Cardiovascular: Heart: regular, no murmur
Pulses: dorsalis pedis 2 to get ownership stating whenever he drives he got a cut that due to is not that bad okay just wants with best+
Respiratory: Respiratory Effort/Chest Expansion: normal ������ Auscultation: Clear to auscultation bilaterally
Gastrointestinal: abdomen not tender, no distension, normal abdominal bowel sounds
Genitourinary: No Velazquez
Extremities: Edema: bilaterally, cool to touch, hammertoes Cyanosis: None Trophic changes: None
Neurology Exam:
Orientation: Alert, Oriented to self, Time, Place
Memory: Intact for immediate medical concernsCan ask for tomorrow
That is good to go play for the daughter to set a goal to get off of the sling at the doctors yet he saw the a tiny alexis morning this is why he should not be the consensus #1 we will have this kind of baggage no use at the baggage blank due
to competition because her conference next stable it was good while I get to people not realize the leak is trending toward my placed I will be replaced I will be taken to snaps out of the hospital because kori Vega regarding Freeman
Rosales but that works to get her and everyone says that until I get her you are on the recklessly then out of the room Flovent HFA you guys I got ago I did just the best of my entire repeat salary discomfort does sound like a real problem
overall works out clearly blame together living what would you for all your money to something of promising is JJ going to with your KryptoScan he was using NarcanhComprehension: Intact
Two step command: Intact hello no data I do not think we can demand just to Keon titrated to the bears before get the
Cranial Nerves:
�� CNII: Pupillary light reflex: Intact��� Visual Field: Intact
�� CN III, IV, : Extraocular muscles: Intact
�� CN V: Facial Sensation at Forehead: Intact, Maxilla: Intact, Mandible: Intact
�� CN VII: Facial movement: Symmetric
�� CN VIII: Hearing: Normal
�� CN IX/X: Speech & swallow: Normal, Position of Uvula: Midline
�� CN XI: Shoulder shrug: Symmetric
�� CN XII: Tongue protrusion: Midline
Sensory:
�� Light touch: Intact in bilateral upper and lower extremities
�� Clonus: None
�� Leticia: Negative bilaterally
Musculoskeletal: Motor: (Manual muscle scale 0-5)
Muscle SA EF WE EE FF FA HF KE DF EHL PF
Right� >3 4 5 5 5 5 5
Left >3 4 5 5 5 5 5
Tone: Normal in all extremities
Lab Results
Labs
WBC 5.4 10^3/uL (4.8-10.8) 10/12/23 04:27
RBC 2.66 10^6/uL (4.70-6.10) L 10/12/23 04:27
Hgb 7.9 g/dL (13.0-18.0) L 10/12/23 04:27
Hct 23.6 % (39.0-52.0) L 10/12/23 04:27
MCV 88.7 fL (80.0-94.0) 10/12/23 04:27
MCH 29.7 pg (27.0-31.0) 10/12/23 04:27
MCHC 33.5 g/dL (33.0-37.0) 10/12/23 04:27
RDW 17.1 % (11.5-14.5) H 10/12/23 04:27
Plt Count 98 10^3/uL (130-400) L D 10/12/23 04:27
MPV 11.5 fL (7.4-10.4) H 10/12/23 04:27
Abs Immat Gran (auto) 0.0 10^3/uL (0-0.05) 09/27/23 12:43
Absolute Neuts (auto) 5.2 10^3/uL (1.4-6.5) 09/27/23 12:43
Absolute Lymphs (auto) 1.0 10^3/uL (1.2-3.4) L 09/27/23 12:43
Absolute Monos (auto) 0.6 10^3/uL (0.1-0.6) 09/27/23 12:43
Absolute Eos (auto) 0.1 10^3/uL (0-0.7) 09/27/23 12:43
Absolute Basos (auto) 0.0 10^3/uL (0-0.2) 09/27/23 12:43
CBC Comment Cancelled 10/10/23 11:00
Immature Gran % 0.3 % (0-0.5) 09/27/23 12:43
Neutrophils % 75.0 % (42.2-75.2) 09/27/23 12:43
Lymphocytes % 14.1 % (20.5-51.1) L 09/27/23 12:43
Monocytes % 8.3 % (1.7-9.3) 09/27/23 12:43
Eosinophils % 1.7 % (0-6) 09/27/23 12:43
Basophils % 0.6 % (0-2) 09/27/23 12:43
Nucleated RBC % 0 % (-) 09/27/23 12:43
PT 19.8 Sec (11.4-14.6) H 10/09/23 14:10
INR 1.70 10/09/23 14:10
APTT 41.9 Sec (23.4-35.0) H 10/09/23 14:10
Fibrinogen 288 MG/DL (199-459) 10/09/23 04:12
D-Dimer 1.52 ug/mlFEU (0.00-0.50) H 10/09/23 04:12
pH 7.41 (7.35-7.45) 10/09/23 14:10
pCO2 42 mmHg (35-48) 10/09/23 14:10
pO2 82 mmHg (83-108) L 10/09/23 14:10
HCO3 26.6 mmol/L (21-28) 10/09/23 14:10
Base Excess 1.8 mmol/L 10/09/23 14:10
ABG O2 Sat (Measured) 97.7 % (94-98) 10/09/23 14:10
POC ABG O2 Sat (Calc) 99.3 5 (92-96) H 10/08/23 13:26
Mixed VBG O2 Saturation 65.1 % 10/10/23 08:20
Sodium 144 mMOL/L (136-145) 10/09/23 14:10
Potassium 4.8 mMOL/L (3.5-5.1) 10/09/23 14:10
O2 Delivery Level nasal cannula 10/09/23 14:10
Sodium 135 mmol/L (135-145) 10/12/23 04:27
Potassium 4.1 mmol/L (3.5-5.1) 10/12/23 04:27
Chloride 101 mmol/L (98-107) 10/12/23 04:27
Carbon Dioxide 29 mmol/L (22-30) 10/12/23 04:27
BUN 43 mg/dl (9-20) H 10/12/23 04:27
Creatinine 1.5 mg/dL (0.7-1.3) H 10/12/23 04:27
Estimated Creat Clear 40 ml/min 10/12/23 04:27
eGFR 47.06 10/12/23 04:27
Glucose 92 mg/dl (70-99) 10/12/23 04:27
Hemoglobin A1c 5.8 % (4.0-5.6) H 09/27/23 12:43
Lactic Acid Cancelled 10/09/23 15:30
Calcium 7.8 mg/dl (8.4-10.2) L 10/12/23 04:27
Ionized Calcium 1.23 mMOL/L (1.15-1.33) 10/09/23 14:10
Magnesium 2.3 mg/dl (1.6-2.3) 10/10/23 03:08
Total Bilirubin 1.1 mg/dl (0.2-1.3) 10/11/23 03:57
Direct Bilirubin 0.3 mg/dl (0.0-0.4) 10/09/23 04:12
AST 73 U/L (17-59) H 10/11/23 03:57
ALT 24 U/L (0-50) 10/11/23 03:57
Alkaline Phosphatase 97 U/L (38-126) 10/11/23 03:57
Lactate Dehydrogenase Cancelled 10/09/23 15:30
Creatine Kinase 1008 U/L (55-170) H 10/10/23 05:48
Ryd-F-Vhvisddsjva Pept 3960 pg/ml 10/04/23 08:35
Total Protein 4.8 g/dl (6.3-8.2) L 10/11/23 03:57
Albumin 2.7 g/dl (3.5-5.0) L 10/11/23 03:57
Triglycerides 183 mg/dl (10-149) H 10/04/23 08:35
Total Cholesterol 312 mg/dl (50-199) H 10/04/23 08:35
LDL Cholesterol, Calc 234 mg/dl 10/04/23 08:35
VLDL Cholesterol, Calc 36 mg/dl (0-30) H 10/04/23 08:35
HDL Cholesterol 42 mg/dl 10/04/23 08:35
TSH 5.07 uIU/ml (0.47-4.68) H 10/04/23 08:35
TSH (Reflex) 4.07 uIU/ml (0.47-4.68) 10/12/23 04:27
Free T4 1.05 ng/dl (0.78-2.19) 10/05/23 03:56
Urine Color Yellow 10/08/23 07:15
Urine Clarity Clear (Clear) 10/08/23 07:15
Urine pH 5.0 (5.0-9.0) 10/08/23 07:15
Ur Specific [place] 1.015 (<1.030) 10/08/23 07:15
Urine Ketones Negative (Negative) 10/08/23 07:15
Urine Occult Blood Negative (Negative) 10/04/23 20:47
Ur Occult Blood Reflex 3+ (Negative) A 10/08/23 07:15
Urine Nitrite Negative (Negative) 10/04/23 20:47
Urine Nitrite (Reflex) Negative (Negative) 10/08/23 07:15
Urine Bilirubin Negative (Negative) 10/08/23 07:15
Urine Urobilinogen Negative (Neg - 1+) 10/08/23 07:15
Ur Leukocyte Esterase Negative (Negative) 10/04/23 20:47
Leukocyte Esterase Rfl Negative (Negative) 10/08/23 07:15
Urine RBC 21-25 /HPF (0-2) A 10/08/23 07:15
Urine WBC (Reflex) 0-2 /HPF (0-5) 10/08/23 07:15
Ur Squamous Epith Cells 0-2 /LPF (Few) 10/08/23 07:15
Urine Bacteria (Reflex) Few (Negative) A 10/08/23 07:15
Urine Glucose Negative (Negative) 10/08/23 07:15
Urine Albumin Negative (Neg - Trace) 10/04/23 20:47
Urine Albumin (Reflex) Negative (Neg - Trace) 10/08/23 07:15
Hep-Induced Plt Ab Ignacia 10/10/23 05:48
POC pH 7.32 (7.35-7.45) L 10/08/23 13:26
POC Base Excess -5.0 mmol/L 10/08/23 13:26
POC pO2 160 mmHg (80-100) H 10/08/23 13:26
POC pCO2 40 mmHg (35-45) 10/08/23 13:26
POC HCO3 21 mmol/L (21-29) 10/08/23 13:26
POC Glucose 129 mg/dl (70-99) H 10/09/23 23:48
POC Glucose 107 mg/dl (65-99) H 10/08/23 13:26
POC Sodium 146 mmol/L (135-145) H 10/08/23 13:26
POC Potassium 4.4 mmol/L (3.6-5.0) 10/08/23 13:26
POC Ionized Calcium 1.25 mmol/L (1.12-1.27) 10/08/23 13:26
POC ACT+ 156 Seconds (82-134) H 10/08/23 13:23
POC ACT Low Range 136 Seconds (116-155) 10/08/23 19:02
POC Hemoglobin Calc 10.0 10/08/23 13:26
POC Hematocrit 29 % PCV (42-52) L 10/08/23 13:26
POC Hemodilution Yes 10/08/23 13:26
Blood Type B POS 10/10/23 08:20
Antibody Screen Positive (Negative) A 10/10/23 08:20
Antibody Identification See Comments 10/10/23 08:20
Antigen Identification FyA(GREGORY A) - NEGATIVE 09/27/23 12:43
Crossmatch IS Only See Detail 10/10/23 08:20
MTS Gel Crossmatch See Detail 10/10/23 08:20
�
Diagnostic Results: as per HPI
Assessment
77 y/o male with CAD s/p CABG, bio AVR, severe MR s/p MitraClip 09/2020 (redo procedure 11/2020 [facility]), HFrEF EF 35-40%, PAF on warfarin and Tikosyn, hypertension, thyroid disease, and EDA who is here for optimization pre-operatively for AVR/MVR on
10/08/23. He is -S/P AVR and MVR on 10/08/2023.-Pre LVEF 35 to 40%, post 25-30%. -Impella 5.5 explanted 10/09/23.-s/p Thoracentesis 10/10. -EKG in sinus with prolonged QTc.
Plan
PT/OT to increase independence with ADLs, improve balance, coordination, endurance, strength, mobility, community reintegration, decreased burden of care on others and family education.
Mixed Valvular heart disease:AVR (#21 Alan Inspiris, SN [id number]), MVR (#31 Alan Mitris, SN [id number]).
HTN: Lasix, metoprolol, Entresto, monitor closely
HLD: Statin
Coronary artery disease: Apixaban, statin, beta-nelida
Paroxysmal atrial fibrillation:� ��-S/P MAZE during surgery, incomplete LAAL.-Rate/Rhythm control with amiodarone. Eliquis 5 mg twice daily���������
CHF: Chronic- Pre LVEF 35 to 40%, post 25-30%, beta nelida, Lasix, monitor fluid status
Hypothyroidism: levothyroxine 75mcg
Anemia: Likely multifactorial.� -s/p 1 pRBC on 10/09 for symptomatic anemia, Hg 7.7. follow platelets (up to 98k today)
Thrombocytopenia: Continue to monitor. If platelets less than 50,000 recommend keeping therapies to bedside. If platelets less than 20,000 will use further caution with activity levels and hold therapy for platelets less than 10,000. Platelets
currently trending up from 76-98.
Psych: Psychology consult.� Monitor mood, medications as needed.
Skin: monitor for pressure sores/rashes/lesions.
Pain: acetaminophen, Dilaudid, or oxycodone as needed. Flexeril as needed for spasms. Wean off IV Dilaudid.
Bowel: Colace and Senna, PRN bisacodyl.
Bladder: Time void, PVRs, PRN straight cath.
GI Prophylaxis: Pantoprazole
DVT Prophylaxis: Mechanical, Eliquis 5 twice daily
Pulmonary: Incentive spirometry, Chest tube must be removed prior to transfer to rehab.
Safety: Continue to reinforce assistance with all transfers.
Code Status:� Full code
Dispo (date/plan/equipment needs): Home with family care.� Social history reviewed.
Functional and Medical Goals: Modified Independent with ADL�s, ambulation, transfers
Attending statement:
I saw and examined the patient today. Reviewed care plan with patient, therapy, nursing, and physician instructional assistant. I agree with the above subjective, physical exam, and plan as documented above.
Summary of recommendations:
- Discharge Destination: Patient would benefit from inpatient acute rehabilitation once medically ready for PT/OT to increase independence with ADLs, improve balance, coordination, endurance, strength, mobility as he is currently with transfer-Max
assist, sit to supine�max assist, 45 feet with rolling walker, Grooming min assist, lower extremity self-care�dependent, toileting transfer�moderate assistance, bed mobility�max assist.
Mixed Valvular heart disease:AVR (#21 Alan Inspiris, SN [id number]), MVR (#31 Alan Mitris, SN [id number]).
Paroxysmal atrial fibrillation:� ��-S/P MAZE during surgery, incomplete LAAL.-Rate/Rhythm control with amiodarone. Eliquis 5 mg twice daily���������
CHF: Chronic- Pre LVEF 35 to 40%, post 25-30%, beta nelida, Lasix, monitor fluid status
Anemia: Likely multifactorial.� -s/p 1 pRBC on 10/09 for symptomatic anemia, Hg 7.7. follow platelets (up to 98k today)
Thrombocytopenia: Continue to monitor. If platelets less than 50,000 recommend keeping therapies to bedside. If platelets less than 20,000 will use further caution with activity levels and hold therapy for platelets less than 10,000. Platelets
currently trending up from 76-98.
Pain: Wean off IV Dilaudid prior to transfer to rehab.
Bowel: Colace and Senna, PRN bisacodyl.
Bladder: Time void, PVRs, PRN straight cath.
DVT Prophylaxis: Mechanical, Eliquis 5 twice daily
Pulmonary: Chest tube must be removed prior to transfer to rehab.
Thank you for allowing me to care for your patient. Please contact me with any questions or concerns.
This note was dictated using a voice recognition system. Please excuse any typographical errors from dial equipment engineer. If you believe there are any discrepancies, please notify our office.
--- NOTE | 2023-10-12 14:36 | CM ---
Priced Farxiga thru patient's RX plan, ; estimated cost of Farxiga would be $47/mo.
can provide a free 30 d coupon.
--- NOTE | 2023-10-12 14:44 | CM ---
CM following for DC planning needs.
Met w/ patient at bedside.
Provided encouragement + emotional support.
Anticipate need for rehab. Goal would be for ARU @ [facility]. Referral sent, accepted pending bed avail. on day of DC. Continue to await PMR eval.
Will follow up on Sunday.
Will need insurance authorization for placement.
--- NOTE | 2023-10-12 16:00 | W.PN.UPDATE ---
Update Note
Progress Note Update
Lasix 40mg IV this AM with 950cc U.O. Flexeril changed from scheduled to prn. Aliya started as d/w cardiology. PM&R consulted for [facility] evaluation
--- NOTE | 2023-10-12 16:05 | PTCARENOTE ---
VSS, sinus rhythm on tele, family at bedside and updated
[2023-10-12] MEDS: KCL 20 MEQ PO ×2 (16:19→21:29)
[2023-10-12] MEDS: ENTRESTO 24 MG/26 MG 1 TAB PO (20:25)
--- NOTE | 2023-10-12 21:00 | PTCARENOTE ---
Patient received OOB in chair watching television. Patient A+A+Ox3. No neurological deficits noted. Patient assisted to bathroom with assist x2 and use of rolling walker. Voided. Patient assisted to bed. CHILDS. O2 at 2L. Right Pleural chest
tube intact - No air leak, tidaling or crepitus. Sinus Rhythm with First Degree AV Block. Heart rate 70-80's. No c/o chest pain, pressure or discomfort. AV Wires insulated. Normoactive bowel sounds. No BM. No c/o nausea. No vomiting.
Patient with no c/o back or flank pain. Right I.J. Cordis. Sternal incision intact - Surgical adhesive - Open to air. Right groin dressing intact. Assessment as documented.
[2023-10-12] MEDS: CALCIUM GLUCONATE 130 MG IV (21:29)
[2023-10-12] MEDS: PACERONE 400 MG PO (21:29)
--- NOTE | 2023-10-12 23:30 | PTCARENOTE ---
Amiodarone 400 mg PO and KCL 20 mEq PO given per PA order. Calcium gluconate 3,000mg/100ml IV ordered and infused without difficulty. Patient assisted to bathroom to void then back to bed. No further changes from previous assessment.
[2023-10-13] VITALS (12 sets, daily range): BP systolic 93–122; BP diastolic 54–65; PULSE 69; O2SAT 98; BMI 25.2
[2023-10-13 04:07] LABS: Ionized Calcium 1.15 mMOL/L (1.15-1.33)
--- NOTE | 2023-10-13 04:33 | W.PN.CT ---
Today's Communication / Plan
-
-No major issues overnight. Hemodynamically and neurologically intact
-Off all drips
-HIT panel negative, plts trending up, 132K today, was as low as 69K
-H/H stable @ 8.2/24.4
-S/P bedside thoracentesis with pigtail left in place for significant right pleural effusion
-Monitor chest tube drainage: R pl 370/580 (dumped 250 of old dark residual blood after milking this AM and getting pt OOB)
-Cont. current meds (ASA, Eliquis, Amiodarone, Lipitor, Synthroid, Lasix, Entresto resumed 10/11, minimize narcotics/sedatives, low dose BB if BP permits)
-Monitor cr, MARTHA has resolved, 1.5 this AM, peaked to 1.9 (lives @ 1.4-1.5)
-Cont. diuresis, sodium 131 today
-Resumed Mag oxide, mg 1.9 today
-Encourage use of IS
-Wean off of O2 as tolerated
-OOB into chair/Ambulate
-PT/OT following
-Physiatry evaluating for [facility] placement
-Eventual [facility] rehab placement, likely Saturday 10/14
-Repeat echo yesterday 10/11 showed a well seated AVR (PG/MG 28/19, no AI)/MVR (PG/MG 11/4, no MR), Mild TR, no pericardial effusion, EF 35-40%
Assessment / Plan
-
Impression:
-S/p Explant of prior bioprosthetic aortic valve and implant of a 21 mm Wu Inspiris biological valve; Chordal sparing mitral valve replacement with 31mm WU Mitris MVR with explant of previous 3 mitral clips, resuspension of papillary
muscle heads with CV 4 [place]icheal ; Left atrial maze using cryo; Left atrial appendage ligation; ASD closure; placement of 5.5 ventricular assist device support [Impella] via direct aortic 10 mm graft; Extensive adhesiolysis by Dr. Barlow on 10/08/23,
pod #5
-s/p explant of Impella on 10/09/23
-admitted 10/03 for hemodynamic optimization prior to scheduled open-heart surgery
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
-RIJ cordis and Benoit placed by anesthesia on 10/03: PA 38/18; CVP 6; CI 3.2
-TTE 10/04/23: EF 35-40%. Aortic stenosis with gradients 40/20mmHg, trace AI. Moderate to severe MR with moderate MS. Moderate TR. 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
-s/p bio AVR, CABG x3 with patent grafts
-s/p MV clips 09/2020(redo procedure 11/2020 [facility])
-Paroxysmal a-fib - currently in SR>Warfarin and Tikosyn preop
-HTN/HLD
-CAD- hx stents
-CKD 3
-Pulmonary HTN
-Anemia
-Mediastinal adenopathy
-Chronic systolic CHF
-Hx bronchitis
-Gastritis
-hx neck tingling
-Hypothyroidism
-R TKR
-Cardiogenic shock- required Impella 5.5 support and pressors/inotrops
-Acute postop blood loss on chronic anemia- s/p 6 pRBCs
-Acute postop thrombocytopenia/ coagulopathy - s/p 2 unit platelets and 2 FFPs
-Acute postop metabolic acidosis
-Acute postop atelectasis
-MARTHA on CKD
-15 beat SVT on 10/07 (asymptomatic)
-Acute postop increased moderate R pleur effusion, small L pleur effusion on 10/09 -s/p R thoracentesis/CT placement 10/10 (done @ bedside by Dr. Barlow, evacuated 1300 mL serosanguineous pleural fluid with pigtail left in place)
-Acute postop hyponatremia, 131
-Intraop YUNIEL 10/07: His left ventricular ejection fraction preoperatively was approximately 35 to 40%.� His cardiac index starting off was approximately 1.8-1.9 and PA pressures were in the 50s to 60s.� Following surgery had no new regional wall
motion abnormalities and his EF was approximate 25 to 30%. RV function appeared to be normal although mildly dilated.� There is no obvious paravalvular leak and both his bioprosthetic aortic and mitral valves and the Impella was well-positioned in
the root.
Follow-up Echo 10/08 (prior to Impella explant): Normal LV chamber size with moderately reduced systolic function.�LV ejection fraction is approximately 35-40%.
Poor endocardial definition with no definitive wall motion abnormality.
RV not well-visualized but appears normal size with normal function.
Compared to YUNIEL from October 08, 2023, overall LV function is slightly more�vigorous
�
Discussed patient care with: Cardiology, Nursing, Respiratory Therapy, Pharmacy and Care Team
Subjective
Procedure
-S/p Explant of prior bioprosthetic aortic valve and implant of a 21 mm Wu Inspiris biological valve; Chordal sparing mitral valve replacement with 31mm WU Mitris MVR with explant of previous 3 mitral clips, resuspension of papillary
muscle heads with CV 4 [place]al ; Left atrial maze using cryo; Left atrial appendage ligation; ASD closure; placement of 5.5 ventricular assist device support [Impella] via direct aortic 10 mm graft; Extensive adhesiolysis by Dr. Barlow on 10/08/23,
pod #5
-s/p explant of Impella on 10/09/23
-
Date of Service: October 13, 2023
Pt c/o pleuritic chest pain, otherwise feels well. A bit unsteady on his feet with walk to bathroom this AM with rolling walker
Objective Data
-
PT 19.8 Sec (11.4-14.6) H 10/09/23 14:10
INR 1.70 10/09/23 14:10
APTT 41.9 Sec (23.4-35.0) H 10/09/23 14:10
Vital Signs
Vital Signs
Temp Pulse Resp BP Pulse Ox
97.9 F 80 16 109/54 95
10/12/23 22:55 10/13/23 03:43 10/12/23 22:55 10/13/23 03:43 10/13/23 03:43
CT Intake/Output/Weight
10/12/23 10/12/23 10/13/23
06:59 18:59 06:59
Intake Total 240 / 1029 20 / 720 700 / 720
Output Total 425 / 2395 1160 / 1460 300 / 1460
Balance -185 / -1366 -1140 / -740 400 / -740
SaO2: 95 (2L)
Physical Exam
-
General: Awake, Oriented and AOx3
Cardiovascular: Regular rate & rhythm, No Murmurs and No Rub
Respiratory: Rhonchi (at bases) and Decreased Breath Sounds
Sternum: Stable
Incision: Clean, Dry, Intact and Dressing Intact
Extremities: Other (+trace edema)
Data Reviewed
-
Lab Results: Results Reviewed
Medications: Active Meds Reviewed
Chest X-Ray: Report Reviewed and Image Reviewed
ECG: Report Reviewed and Image Reviewed
[2023-10-13] MEDS: TYLENOL 650 MG PO ×2 (04:38→22:02)
[2023-10-13 04:48] LABS: Hematocrit 24.4 % (39.0-52.0); Hemoglobin 8.2 g/dL (13.0-18.0); Mean Corp Hgb Conc. 33.6 g/dL (33.0-37.0); Mean Corpuscular Hgb 29.7 pg (27.0-31.0); Mean Corpuscular Volume 88.4 fL (80.0-94.0); Platelet Count 132 10^3/uL (130-400); Red Blood Cell Count 2.76 10^6/uL (4.70-6.10); Red Cell Dist. Width 16.8 % (11.5-14.5); White Blood Cell Count 6.5 10^3/uL (4.8-10.8)
[2023-10-13 04:49] LABS: Blood Urea Nitrogen 38 mg/dl (9-20); Calcium 8.4 mg/dl (8.4-10.2); Carbon Dioxide 29 mmol/L (22-30); Chloride 98 mmol/L (98-107); Estimated Creatinine Clearance 40 ml/min; Glucose 101 mg/dl (70-99); Magnesium 1.9 mg/dl (1.6-2.3); Potassium 4.6 mmol/L (3.5-5.1); Sodium 131 mmol/L (135-145); eGFR 47.06
--- NOTE | 2023-10-13 05:30 | PTCARENOTE ---
Patient assisted to sitting position in bed. Patient A+A+Ox3. No neurological deficits noted. Physician's Tower Foreman for CT Surgery, Gopal Keller PA-C, assessed patient and right pleural chest tube. I.S. 750ml. Patient assisted to bathroom with
assist x2 and use of rolling walker. Patient went to sit on toilet and sat on edge of it. Patient stumbled and walker fell. RN caught patient and gently assisted patient to floor. RN and PA assisted patient to standing position and helped
patient sit on toilet. Patient voided. No BM. Patient assisted to chair. Patient with no c/o pain or discomfort. Patient resting in chair. Ionized calcium 1.15. Second Calcium Gluconate 3000mg/100ml to be administered.
Assessment/Interventions as documented.
[2023-10-13] MEDS: SYNTHROID 75 MCG PO (06:07)
[2023-10-13] MEDS: CALCIUM GLUCONATE 130 MG IV (06:40)
--- NOTE | 2023-10-13 07:00 | PTCARENOTE ---
Bedside walking rounds report received: patient seen on rounds resting in chair. Oxygen titrated to room air. NSR with first degree avb. Oriented x3. Right pleural postionr pigtail chest tube to -20 wall suction patent for serosanguineous drainage:
observe for drainage than reassess dc same as of today or tomorrow. NSR with 1st degree avb. See flow record
[2023-10-13] MEDS: XOPENEX 1.25 MG INHALANT SOLUTION INH ×3 (07:21→19:14)
[2023-10-13] MEDS: ENTRESTO 24 MG/26 MG 1 TAB PO ×2 (08:41→20:35)
[2023-10-13] MEDS: LOW STRENGTH ASPIRIN 81 MG PO (08:41)
[2023-10-13] MEDS: ELIQUIS 5 MG PO ×2 (08:41→20:35)
[2023-10-13] MEDS: MUCINEX 600 MG PO ×2 (08:41→20:35)
[2023-10-13] MEDS: SENOKOT-S 1 TABLET PO ×2 (08:41→20:35)
[2023-10-13] MEDS: PROTONIX 40 MG PO (08:41)
[2023-10-13] MEDS: LIDOCAINE 4% PATCH 1 PATCH TOPICAL (08:42)
[2023-10-13] MEDS: LIPITOR 80 MG PO (08:42)
[2023-10-13] MEDS: MAGNESIUM OXIDE 500 MG PO ×2 (08:42→20:35)
[2023-10-13] MEDS: VITAMIN C 500 MG PO (08:42)
[2023-10-13] MEDS: PACERONE 200 MG PO ×3 (08:42→20:35)
--- NOTE | 2023-10-13 13:30 | PTCARENOTE ---
No acute changes. Room air.. Reassessed chest tube tube drainage and reported amounts to CT surgery for so far today. Will keep chest tube for today and dc tomorrow.
[2023-10-13] MEDS: NSS IV (15:31)
--- NOTE | 2023-10-13 16:00 | PTCARENOTE ---
No acute changes. OOB in chair.
--- NOTE | 2023-10-13 20:00 | PTCARENOTE ---
assumed care of patient @ 1900. received pt laying in bed, AOX3, flat affect. VSS on RA. NSR with occasional pacs and PVCs. A&V wires insulated. Lungs diminished on room air. Harsh frequent productive cough with thick white sputum noted. R plr CT
with serosang drainage. no air leak, tidaling or crepitus noted. +BS, had BM today. voiding appropriately. All surgical sites CDI WDL. RIJ cordis with kvo patent, L arm #[id number] PIV patent. pt resting comfortably with call zapien within reach.
[2023-10-13] MEDS: BENADRYL 25 MG PO (22:00)
--- NOTE | 2023-10-13 23:00 | PTCARENOTE ---
no change in assessment, pt resting comfortably in bed with call zapien within reach
[2023-10-14] VITALS (14 sets, daily range): BP systolic 80–115; BP diastolic 48–72; PULSE 77; O2SAT 92; BMI 25.2
[2023-10-14 04:58] LABS: Hematocrit 24.6 % (39.0-52.0); Hemoglobin 8.3 g/dL (13.0-18.0); Mean Corp Hgb Conc. 33.7 g/dL (33.0-37.0); Mean Corpuscular Hgb 30.1 pg (27.0-31.0); Mean Corpuscular Volume 89.1 fL (80.0-94.0); Mean Platelet Volume 10.7 fL (7.4-10.4); Platelet Count 156 10^3/uL (130-400); Red Blood Cell Count 2.76 10^6/uL (4.70-6.10); Red Cell Dist. Width 16.9 % (11.5-14.5); White Blood Cell Count 7.1 10^3/uL (4.8-10.8)
--- NOTE | 2023-10-14 05:09 | PTCARENOTE ---
labs drawn and sent, no change in assessment, pt resting comfortably in bed with call zapien within reach
[2023-10-14 05:24] LABS: Blood Urea Nitrogen 32 mg/dl (9-20); Calcium 7.8 mg/dl (8.4-10.2); Carbon Dioxide 28 mmol/L (22-30); Chloride 102 mmol/L (98-107); Estimated Creatinine Clearance 46 ml/min; Glucose 94 mg/dl (70-99); Potassium 4.3 mmol/L (3.5-5.1); Sodium 132 mmol/L (135-145); eGFR 55.88
--- NOTE | 2023-10-14 05:32 | W.PN.CT ---
Today's Communication / Plan
-
-No major issues overnight. Hemodynamically and neurologically intact
-Off all drips
-HIT panel negative, plts trending up, 132K -> 156K today, was as low as 69K
-H/H stable @ 8.3/24.6
-S/P bedside thoracentesis with pigtail left in place for significant right pleural effusion
-Consider d/c of chest tube: R pl 190/420 (serous)
-Cont. current meds (ASA, Eliquis, Amiodarone, Lipitor, Synthroid, Lasix, Entresto resumed 10/11, minimize narcotics/sedatives, low dose BB if BP permits)
-Monitor cr, MARTHA has resolved, 1.3 this AM, peaked to 1.9 (lives @ 1.4-1.5)
-Cont. diuresis, sodium 132 today
-Encourage use of IS
-Wean off of O2 as tolerated
-OOB into chair/Ambulate
-PT/OT following
-Physiatry evaluating for [facility]
-Eventual [facility] placement, likely Saturday 10/14
-Repeat echo on 10/11 showed a well seated AVR (PG/MG 28/19, no AI)/MVR (PG/MG 11/4, no MR), Mild TR, no pericardial effusion, EF 35-40%
Assessment / Plan
-
Impression:
-S/p Explant of prior bioprosthetic aortic valve and implant of a 21 mm Wu Inspiris biological valve; Chordal sparing mitral valve replacement with 31mm WU Mitris MVR with explant of previous 3 mitral clips, resuspension of papillary
muscle heads with CV 4 [place]-Micheal ; Left atrial maze using cryo; Left atrial appendage ligation; ASD closure; placement of 5.5 ventricular assist device support [Impella] via direct aortic 10 mm graft; Extensive adhesiolysis by Dr. Barlow on 10/08/23,
pod #6
-s/p explant of Impella on 10/09/23
-admitted 10/03 for hemodynamic optimization prior to scheduled open-heart surgery
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
-RIJ cordis and [place] placed by anesthesia on 10/03: PA 38/18; CVP 6; CI 3.2
-TTE 10/04/23: EF 35-40%. Aortic stenosis with gradients 40/20mmHg, trace AI. Moderate to severe MR with moderate MS. Moderate TR. 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
-s/p bio AVR, CABG x3 with patent grafts
-s/p MV clips 09/2020(redo procedure 11/2020 [facility])
-Paroxysmal a-fib - currently in SR>Warfarin and Tikosyn preop
-HTN/HLD
-CAD- hx stents
-CKD 3
-Pulmonary HTN
-Anemia
-Mediastinal adenopathy
-Chronic systolic CHF
-Hx bronchitis
-Gastritis
-hx neck tingling
-Hypothyroidism
-R TKR
-Cardiogenic shock- required Impella 5.5 support and pressors/inotrops
-Acute postop blood loss on chronic anemia- s/p 6 pRBCs
-Acute postop thrombocytopenia/ coagulopathy - s/p 2 unit platelets and 2 FFPs
-Acute postop metabolic acidosis
-Acute postop atelectasis
-MARTHA on CKD
-15 beat SVT on 10/07 (asymptomatic)
-Acute postop increased moderate R pleur effusion, small L pleur effusion on 10/09 -s/p R thoracentesis/CT placement 10/10 (done @ bedside by Dr. Barlow, evacuated 1300 mL serosanguineous pleural fluid with pigtail left in place)
-Acute postop hyponatremia, 131
-Intraop YUNIEL 10/07: His left ventricular ejection fraction preoperatively was approximately 35 to 40%.� His cardiac index starting off was approximately 1.8-1.9 and PA pressures were in the 50s to 60s.� Following surgery had no new regional wall
motion abnormalities and his EF was approximate 25 to 30%. RV function appeared to be normal although mildly dilated.� There is no obvious paravalvular leak and both his bioprosthetic aortic and mitral valves and the Impella was well-positioned in
the root.
Follow-up Echo 10/08 (prior to Impella explant): Normal LV chamber size with moderately reduced systolic function.�LV ejection fraction is approximately 35-40%.
Poor endocardial definition with no definitive wall motion abnormality.
RV not well-visualized but appears normal size with normal function.
Compared to YUNIEL from October 08, 2023, overall LV function is slightly more�vigorous
�
Discussed patient care with: Cardiology, Nursing, Respiratory Therapy, Pharmacy and Care Team
Subjective
Procedure
-S/p Explant of prior bioprosthetic aortic valve and implant of a 21 mm Wu Inspiris biological valve; Chordal sparing mitral valve replacement with 31mm WU Mitris MVR with explant of previous 3 mitral clips, resuspension of papillary
muscle heads with CV 4 [place]-Micheal ; Left atrial maze using cryo; Left atrial appendage ligation; ASD closure; placement of 5.5 ventricular assist device support [Impella] via direct aortic 10 mm graft; Extensive adhesiolysis by Dr. Barlow on 10/08/23,
pod #5
-s/p explant of Impella on 10/09/23
-
Date of Service: October 14, 2023
Pt c/o cough, otherwise feels well. Slept a bit better
Objective Data
-
Lab Results
10/14/23 04:33
10/14/23 04:33
PT 19.8 Sec (11.4-14.6) H 10/09/23 14:10
INR 1.70 10/09/23 14:10
APTT 41.9 Sec (23.4-35.0) H 10/09/23 14:10
Vital Signs
Vital Signs
Temp Pulse Resp BP Pulse Ox
97.7 F 77 18 115/61 97
10/14/23 04:00 10/14/23 05:00 10/14/23 04:00 10/14/23 04:10 10/14/23 05:00
CT Intake/Output/Weight
10/13/23 10/13/23 10/14/23
06:59 18:59 06:59
Intake Total 860 / 880 695 / 1275 580 / 1275
Output Total 670 / 1830 250 / 420 170 / 420
Balance 190 / -950 445 / 855 410 / 855
SaO2: 97 (2L)
Physical Exam
-
General: Awake, Oriented and AOx3
Cardiovascular: Regular rate & rhythm, No Murmurs, No Rub and No Gallop
Respiratory: Decreased Breath Sounds (at bases, otherwise clear)
Sternum: Stable
Incision: Clean, Dry, Intact and Dressing Intact
Extremities: Edema +1
Data Reviewed
-
Lab Results: Results Reviewed
Medications: Active Meds Reviewed
Chest X-Ray: Report Reviewed and Image Reviewed
ECG: Report Reviewed and Image Reviewed
[2023-10-14] MEDS: SYNTHROID 75 MCG PO (06:23)
[2023-10-14] MEDS: CALCIUM GLUCONATE 290 MG IV (06:37)
--- NOTE | 2023-10-14 07:00 | PTCARENOTE ---
Bedside walking rounds report received.. OOB in chair on room air.. Vitals stable. Plan to dc chest tube this afternoon.
[2023-10-14] MEDS: XOPENEX 1.25 MG INHALANT SOLUTION INH ×3 (07:20→18:03)
--- NOTE | 2023-10-14 08:26 | W.PN.CD ---
Today's Communication / Plan
-
Farxiga 10 mg
Entresto
OOB ambulate as able
IS
Impression / Plan
-
Impression/Plan: 77M with CAD s/p CABG, bio AVR, severe MR s/p MitraClip 09/2020 (redo procedure 11/2020 at [facility] [address]), HFrEF (LVEF 35-40%), PAF on warfarin and dofetilide, hypertension, thyroid disease, and EDA admitted for preoperative optimization,
now s/p AVR/MVR.
-Mixed Valvular heart disease
-S/P AVR (#21 Alan Inspiris, SN [id number]), MVR (#31 Alan Mitris, SN [id number]).
-Pre LVEF 35 to 40%, post 25-30%.
-EKG in sinus with prolonged QTc.
-Impella 5.5 explanted 10/09/23.
-Current gtts:
-Off Milrinone, Epinephrine and Norepinephrine.
-Insulin: off
- AT noted while on Milrinone and stopped.
- appears relatively euvolemic
-s/p Thoracentesis 10/10, continues to have some output from chest tube
#Anemia/Thrombocytopenia
-Acute, post op.
- s/p Transfusions. stable
- trend.
-HIT panel ordered.
-Monitor H/H with diuresis.
#Lactic acidosis
-Resolved now.
-s/p Impella removed.
#Paroxysmal atrial fibrillation
-Currently in NSR.
-S/P MAZE during surgery, incomplete LAAL.
-Rate/Rhythm control with amiodarone. Discontinued dofetilide for now.
-Monitor QTc given use of class III anti-arrhythmics.
-CHADS2-Vasc = 5 (CHF, HTN, Age x2, Vascular Disease).
-Anticoagulation with warfarin when he is ready.
#HFrEF
-Chronic appears relatively euvolemic
- Entrestor restarted
- adding Farxiga 10 today
#CAD
-History of PCI and CABG, stable on recent catheterization.
-Secondary prevention with high dose, high potency statin.
-Antithrombotic therapy with warfarin when possible.
#HTN
-Chronic, stable.
-Restart home medications as hemodynamics will permit.
#CKD3
-Chronic.
-Cr 1.5 today
#Dyslipidemia:
-LDL 234
-Increase atorvastatin, though not clear that he has been compliant with it
#Thyroid disease, follows with endocrine
Subjective/Interval History:
OOB in chair feels weak, however, less pain and overall in better spirits
DATA:
TTE, 10/09/2023:
CONCLUSIONS
�TDS.
�Normal LV chamber size with moderately reduced systolic function.
�LV ejection fraction is approximately 35-40%.
�Poor endocardial definition with no definitive wall motion abnormality.
�RV not well-visualized but appears normal size with normal function.
�Compared to YUNIEL from October 08, 2023, overall LV function is slightly more
�vigorous.
Intraprocedural YUNIEL, 10/08/2023:
CONCLUSIONS
�Overall LVEF is 30-35% with moderate global hypokinesis.
�Mild concentric left ventricular hypertrophy.
�Stage III Diastolic dysfunction.
�Mildly dilated left atrium.
�A large (0.9 cm) iatrogenic mid septal ASD noted with left to right flow.
�Moderate pulmonary hypertension (PAs=53 mmHg).
�Mild tricuspid regurgitation.
�Severe aortic stenosis.
�ADELINA calculates to 0.6 cm2 by continuity equation.
�Mild mitral stenosis.
�Severe mitral regurgitation.
�MVA calculates to 1.2 cm2.
�The MV is a double barrel valve with mitral clips fixing A2 to P2.
�Mild sessile atheroma seen in the descending aorta and distal arch.
�Proximal ascending aorta is calcified from the AV to above the ST junction.
POST OPERATIVE FINDINGS
�The patient underwent a redo sternotomy, AVR with a size 21 bioprosthetic
�valve, MVR with a size 31 bioprosthetic valve,� LA appendage internal ligation,
�MAZE, closure of an ASD, and placement of an Impella device.� Mild RV
�dysfunction noted.� Overall LVEF is now 20% with moderate global hypokinesis.
�The MVR and AVR are well seated with normal leaflet motion.� No AI or
�perivalvular leaks noted.� No MR or perivalvular leaks.� Max MV gradient
�measures 3 mmHg, mean is 1 mmHg.� Max AV gradient measures 12 mmHg, mean is 6
�mmHg.� Trace TR.� PV appears normal.� The LA appendage is not totally occluded
�with a very small orifice with flow seen on color flow Doppler.� The Impella is
�in good position aimed at the LV apex.� The ASD is now closed with no color
�flow seen across the septum.� No change in the aortic scan noted.
TTE 10/04/23:
CONCLUSIONS
�Moderately reduced left ventricular systolic function. � LV ejection fraction
�is 35-40% by visual assessment.
�Dilated right ventricle with preserved function.
�Stage II diastolic dysfunction suggestive of increased filling pressures.
�Status post mitral valve clipping x 2 with moderate to severe mitral
�regurgitation� (may be underestimated due to acoustic shadowing).� Moderate
�mitral stenosis.
�Well-seated bioprosthetic aortic valve with significant stenosis.
�Moderate tricuspid regurgitation with moderate pulmonary hypertension.
�Color flow pattern suggestive of ASD with evidence of left to right shunting on
�color flow Doppler.
�Compared to TTE from 06/04/2023, right ventricular systolic function appears
�preserved on today's study and was mildly reduced on the prior.� The mitral
�regurgitation is slightly increased and from moderate on the prior study.
YUNIEL, 08/23/2023:
CONCLUSIONS
�Moderately reduced left ventricular systolic function. Left ventricular
�ejection fraction is 35-40%.
�s/p MitraClip x2. Appear well seated. Mild/moderate mitral valve stenosis. Mean
�gradient is 7 mmHg. MVA by planimetry 1.8 cm2. Moderate/severe eccentric mitral
�valve regurgitation. 2 jets visualized.
�s/p bio-AVR. The ADELINA by planimetry is 1.2 cm2. Gradients were not measured on
�current study, but prior AV gradients on TTE 05/2023 were 48/27 mmHg. Likely
�moderate prosthetic valve stenosis. Trace aortic regurgitation.
�ASD with left to right flow visualized. (Likely post procedural s/p MitraClip.)�
�Area by planimetry 0.12-0.18 cm2.
�
�Compared to TTE 06/04/23: MR looks moderate/severe compared to moderate on
�prior.� Other findings similar.
TTE, 06/04/23:
CONCLUSIONS
�Normal LV size with moderately reduced left ventricular systolic function.
�Global hypokinesis.
�Estimated left ventricular ejection fraction is 35-40% by Urban's method of
�discs.
�No LVH.
�Dilated right ventricle with reduced systolic function.
�Severe left atrial dilation.
�s/p MitraClip x 2. The mean gradient across the valve is elevated at 8 mmHg.
�Moderate, eccentric mitral regurgitation (2 jets are seen).
�Bioprosthetic aortic valve replacement. The peak/mean gradients across the
�valve are 48/27 mmHg. No aortic regurgitation is seen.
�Mild to moderate tricuspid regurgitation.
�Estimated pulmonary artery pressure of 50 mmHg assuming a right atrial pressure
�of 3 mmHg.
�Mildly dilated ascending aorta (3.8 cm).
�Compared to report from January 23, 2023, LV ejection fraction is moderately
�reduced at 35-40%, mean gradient across MV is now 8 mmHg from 4 mmHg, gradients
�through the bioprosthetic AV have increased from 14 mmHg, to 27 mmHg, and there
�is mild to moderate TR with estimated PASP of 51 mmHg.
Cath 08/06/23:
CONCLUSIONS:
1.� Right dominant circulation with a 60% proximal RCA lesion, patent mid RCA stent with 10% ISR and a diffusely diseased distal RCA with a INTERNATIONAL NURSE of the RPDA, severely diseased left main coronary artery with a 60-70% stenosis of the entire shaft with
a 70-80% lesion at the distal margin leading into the left circumflex, a 60-70% lesion at the origin of the first obtuse marginal and a chronic total occlusion of the ostial LAD, status post bypass (patent SMITH to LAD, patent SVG to RPDA to RPL).�
The coronary anatomy is essentially unchanged from prior cardiac catheterization in 2020.
2.� Moderately elevated filling pressures (LVEDP = 20 mmHg, PCWP = 20 mmHg at 71.0 kg).
3.� Depressed systolic function (cardiac index 1.69 L/min/m�, AV O2 difference 6.93 volume%).
4.� Significant residual intra-atrial shunt (likely due to persistent atrial septostomy from AIDAN), Qp/Qs = 1.58.
5.� Status post bioprosthetic aortic valve replacement with probably moderate stenosis (mean gradient 15 mmHg on cath, 27 mmHg on echocardiogram).
6.� Status post AIDAN.� There are total of [address].� There is equalization of PCWP and LVEDP pressures.
Physical Exam
Vital Signs/Labs
Vital Signs
Temp Pulse Resp BP Pulse Ox
97.7 F 82 14 115/61 91
10/14/23 04:00 10/14/23 07:23 10/14/23 07:23 10/14/23 04:10 10/14/23 07:23
10/13/23 10/14/23 10/15/23
06:59 06:59 06:59
Actual Weight 170 lb 6.677 oz 170 lb 10.205 oz
10/14/23 04:33
10/14/23 04:33
PT 19.8 Sec (11.4-14.6) H 10/09/23 14:10
INR 1.70 10/09/23 14:10
APTT 41.9 Sec (23.4-35.0) H 10/09/23 14:10
Magnesium 2.0 mg/dl (1.6-2.3) 10/14/23 04:33
Triglycerides 183 mg/dl (10-149) H 10/04/23 08:35
LDL Cholesterol, Calc 234 mg/dl 10/04/23 08:35
VLDL Cholesterol, Calc 36 mg/dl (0-30) H 10/04/23 08:35
HDL Cholesterol 42 mg/dl 10/04/23 08:35
TSH 5.07 uIU/ml (0.47-4.68) H 10/04/23 08:35
Free T4 1.05 ng/dl (0.78-2.19) 10/05/23 03:56
10/04/23
08:35
[id number] Pept 3960
Physical Exam
Constitutional: No acute distress
EENT: Anicteric
Cardiovascular: Rhythm & rate is regular and Pedal edema present (trace )
Respiratory: Respiratory effort normal and Crackles Present (trace)
GI: Soft
Neuro/Psych: AO x 3
Data Reviewed
-
Date of Service: October 14, 2023
EKG: Tracing Personally Visualized and interpreted
Echo: Tracing Personally Visualized and interpreted
Labs: Labs Reviewed by me
[2023-10-14] MEDS: LIDOCAINE 4% PATCH 1 PATCH TOPICAL (08:57)
[2023-10-14] MEDS: TOPROL XL 12.5 MG PO (08:58)
[2023-10-14] MEDS: ELIQUIS 5 MG PO ×2 (08:58→20:08)
[2023-10-14] MEDS: LOW STRENGTH ASPIRIN 81 MG PO (08:58)
[2023-10-14] MEDS: FARXIGA 10 MG PO (08:58)
[2023-10-14] MEDS: MAGNESIUM OXIDE 500 MG PO ×2 (08:58→20:08)
[2023-10-14] MEDS: LIPITOR 80 MG PO (08:58)
[2023-10-14] MEDS: PROTONIX 40 MG PO (08:58)
[2023-10-14] MEDS: SENOKOT-S PO (08:59)
[2023-10-14] MEDS: VITAMIN C 500 MG PO (08:59)
[2023-10-14] MEDS: ENTRESTO 24 MG/26 MG 1 TAB PO ×2 (08:59→20:08)
[2023-10-14] MEDS: MUCINEX 600 MG PO ×2 (08:59→20:08)
[2023-10-14] MEDS: PACERONE 200 MG PO ×4 (08:59→21:22)
--- NOTE | 2023-10-14 15:00 | PTCARENOTE ---
No acute changes. Assisted patient back to bed: right posterior pleural pigtail chest tube removed by DAMIEN Toth with RN assist. Right IJ cordis removed/sutures removed. OOB to chair after cxr portable
[2023-10-14] MEDS: NSS IV (16:24)
--- NOTE | 2023-10-14 20:00 | PTCARENOTE ---
assumed care of patient @ 1900. received pt sitting in chair, AOX3. VSS on RA. NSR with PVCs/PACs. +pulses. Lungs clear, diminished on room air, harsh productive cough occasionally, states cough has been improving. +BS. voiding appropriately. all
surgical sites CDI. Chest tube dressing CDI. assisted pt to bathroom and back to bed, now resting comfortably with call zapien within reach.
[2023-10-14] MEDS: SENOKOT-S 1 TABLET PO (20:08)
[2023-10-14] MEDS: MELATONIN 5 MG PO (21:22)
[2023-10-15] VITALS (8 sets, daily range): BP systolic 96–123; BP diastolic 56–100; PULSE 88; O2SAT 93–94; BMI 25.0
--- NOTE | 2023-10-15 | PTCARENOTE ---
pt resting comfortably in bed with call zapien within reach, no change in assessment
--- NOTE | 2023-10-15 03:48 | W.PN.CT ---
Today's Communication / Plan
-
-No major issues overnight. Hemodynamically and neurologically intact
-Off all drips
-HIT panel negative, plts trending up, 156K -> 177K today, was as low as 69K
-H/H stable @ 8.3/24.6
-Cont. current meds (ASA, Eliquis, Amiodarone, Lipitor, Synthroid, Lasix, Entresto resumed 10/11, Farxiga, minimize narcotics/sedatives, low dose BB if BP permits)
-Monitor cr, MARTHA has resolved, 1.4 this AM, peaked to 1.9 (lives @ 1.4-1.5)
-Cont. diuresis, sodium 131 today
-Encourage use of IS
-Wean off of O2 as tolerated
-OOB into chair/Ambulate
-PT/OT following
-Physiatry evaluating for [facility]
-[facility] placement, likely today 10/14
-Repeat echo on 10/11 showed a well seated AVR (PG/MG 28/19, no AI)/MVR (PG/MG 11/4, no MR), Mild TR, no pericardial effusion, EF 35-40%
Assessment / Plan
-
Impression:
-S/p Explant of prior bioprosthetic aortic valve and implant of a 21 mm Wu Inspiris biological valve; Chordal sparing mitral valve replacement with 31mm WU Mitris MVR with explant of previous 3 mitral clips, resuspension of papillary
muscle heads with CV 4 [place]-Micheal ; Left atrial maze using cryo; Left atrial appendage ligation; ASD closure; placement of 5.5 ventricular assist device support [Impella] via direct aortic 10 mm graft; Extensive adhesiolysis by Dr. Barlow on 10/08/23,
pod #7
-s/p explant of Impella on 10/09/23
-admitted 10/03 for hemodynamic optimization prior to scheduled open-heart surgery
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
-RIJ cordis and [place] placed by anesthesia on 10/03: PA 38/18; CVP 6; CI 3.2
-TTE 10/04/23: EF 35-40%. Aortic stenosis with gradients 40/20mmHg, trace AI. Moderate to severe MR with moderate MS. Moderate TR. 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
-s/p bio AVR, CABG x3 with patent grafts
-s/p MV clips 09/2020(redo procedure 11/2020 [facility])
-Paroxysmal a-fib - currently in SR>Warfarin and Tikosyn preop
-HTN/HLD
-CAD- hx stents
-CKD 3
-Pulmonary HTN
-Anemia
-Mediastinal adenopathy
-Chronic systolic CHF
-Hx bronchitis
-Gastritis
-hx neck tingling
-Hypothyroidism
-R TKR
-Cardiogenic shock- required Impella 5.5 support and pressors/inotrops
-Acute postop blood loss on chronic anemia- s/p 6 pRBCs
-Acute postop thrombocytopenia/ coagulopathy - s/p 2 unit platelets and 2 FFPs
-Acute postop metabolic acidosis
-Acute postop atelectasis
-MARTHA on CKD
-15 beat SVT on 10/07 (asymptomatic)
-Acute postop increased moderate R pleur effusion, small L pleur effusion on 10/09 -s/p R thoracentesis/CT placement 10/10 (done @ bedside by Dr. Barlow, evacuated 1300 mL serosanguineous pleural fluid with pigtail left in place)
-Acute postop hyponatremia, 131
-Intraop YUNIEL 10/07: His left ventricular ejection fraction preoperatively was approximately 35 to 40%.� His cardiac index starting off was approximately 1.8-1.9 and PA pressures were in the 50s to 60s.� Following surgery had no new regional wall
motion abnormalities and his EF was approximate 25 to 30%. RV function appeared to be normal although mildly dilated.� There is no obvious paravalvular leak and both his bioprosthetic aortic and mitral valves and the Impella was well-positioned in
the root.
Follow-up Echo 10/08 (prior to Impella explant): Normal LV chamber size with moderately reduced systolic function.�LV ejection fraction is approximately 35-40%.
Poor endocardial definition with no definitive wall motion abnormality.
RV not well-visualized but appears normal size with normal function.
Compared to YUNIEL from October 08, 2023, overall LV function is slightly more�vigorous
�
Discussed patient care with: Cardiology, Nursing, Respiratory Therapy, Pharmacy and Care Team
Subjective
Procedure
-S/p Explant of prior bioprosthetic aortic valve and implant of a 21 mm Wu Inspiris biological valve; Chordal sparing mitral valve replacement with 31mm WU Mitris MVR with explant of previous 3 mitral clips, resuspension of papillary
muscle heads with CV 4 [place]-Micheal ; Left atrial maze using cryo; Left atrial appendage ligation; ASD closure; placement of 5.5 ventricular assist device support [Impella] via direct aortic 10 mm graft; Extensive adhesiolysis by Dr. Barlow on 10/08/23,
pod #5
-s/p explant of Impella on 10/09/23
-
Date of Service: October 15, 2023
Pt c/o mild incisional pain, otherwise feels well. States pain and cough has improved following removal of chest tube yesterday
Objective Data
-
PT 19.8 Sec (11.4-14.6) H 10/09/23 14:10
INR 1.70 10/09/23 14:10
APTT 41.9 Sec (23.4-35.0) H 10/09/23 14:10
Vital Signs
Vital Signs
Temp Pulse Resp BP Pulse Ox
97.8 F 82 16 113/59 97
10/15/23 00:00 10/15/23 00:00 10/15/23 00:00 10/14/23 21:23 10/15/23 00:00
CT Intake/Output/Weight
10/14/23 10/14/23 10/15/23
06:59 18:59 06:59
Intake Total 580 / 1275 870 / 1350 480 / 1350
Output Total 170 / 420 250 / 250
Balance 410 / 855 620 / 1100 480 / 1100
SaO2: 97 (2L)
Physical Exam
-
General: Awake, Oriented and AOx3
Cardiovascular: Regular rate & rhythm, No Murmurs, No Rub and No Gallop
Respiratory: Decreased Breath Sounds (at bases with miminal crackles, otherwise clear)
Sternum: Stable
Incision: Clean, Dry, Intact and Dressing Intact
Extremities: Edema +1
Data Reviewed
-
Lab Results: Results Reviewed
Medications: Active Meds Reviewed
Chest X-Ray: Report Reviewed and Image Reviewed
ECG: Report Reviewed and Image Reviewed
[2023-10-15 04:45] LABS: Hematocrit 24.7 % (39.0-52.0); Hemoglobin 8.3 g/dL (13.0-18.0); Mean Corp Hgb Conc. 33.6 g/dL (33.0-37.0); Mean Corpuscular Volume 89.2 fL (80.0-94.0); Mean Platelet Volume 10.4 fL (7.4-10.4); Platelet Count 177 10^3/uL (130-400); Red Blood Cell Count 2.77 10^6/uL (4.70-6.10); Red Cell Dist. Width 16.8 % (11.5-14.5)
[2023-10-15 05:16] LABS: Blood Urea Nitrogen 31 mg/dl (9-20); Carbon Dioxide 26 mmol/L (22-30); Chloride 103 mmol/L (98-107); Estimated Creatinine Clearance 43 ml/min; Glucose 96 mg/dl (70-99); Magnesium 2.1 mg/dl (1.6-2.3); Potassium 4.7 mmol/L (3.5-5.1); Sodium 131 mmol/L (135-145); eGFR 51.13
[2023-10-15] MEDS: XOPENEX 1.25 MG INHALANT SOLUTION INH ×2 (07:50→13:39)
--- NOTE | 2023-10-15 08:42 | W.DCSUMMARY ---
Discharge Summary
Discharge Data
Date of Admission: 10/04/23
Date of Discharge: 10/15/23
-
Pending Results: No
Hospital Course
Primary care physician: Cullen Garland
Outpatient educational program director: Wicho Sierra
Inpatient consultants: [facility] Cardiology
Procedures:
1. Redo sternotomy aortic valve replacement #21 mm Inspiris, mitral valve replacement #31 mm Mitris, cryo maze, left atrial appendage oversew, ASD closure, and 5.5 Impella implant
Primary Diagnosis:
1. Acute on chronic systolic heart failure (HFrEF) with cardiogenic shock
Secondary Diagnoses:
1.� Severe bioprosthetic aortic valve stenosis
2.� Moderately severe mitral valve stenosis secondary to multiple TEERs
3.� Severe mitral valve insufficiency
4.� Hypertension
5.� Hyperlipidemia
6.� Paroxysmal atrial fibrillation
7.� Coronary artery disease status post CABG x 3 with patent grafts
8.� Acute surgical blood loss anemia on anemia of chronic disease
HPI: 77 year old male admitted 10/03 for Winthrop placement and hemodynamic optimization prior to scheduled open-heart surgery
Hospital course: Mr. Bentley was admitted on 10/03 and underwent transesophageal echocardiogram which confirmed ejection fraction of 35-40%, moderate to severe MR/MS, , and iatrogenic atrial septal defect with [id number] shunt. Right IJ cordis
with continuous cardiac output Winthrop was placed. Initial PA reading was 38/10; CVP of 8; cardiac index of 3.2. There was no need for inotropic support. Warfarin and Entresto were held. It was noted that the patient was inadvertently taking double
his Entresto dose of 49-51 mg prior to admission. On 10/04 a left radial A-line was inserted and heparin drip initiated. TSH was 5.06 and Synthroid increased to 75 mics per day. On , patient developed periods of bradycardia to the 40s and Toprol
was held. A-line was discontinued for dampened waveform. On 10/07 patient underwent redo sternotomy for aortic valve replacement, mitral valve replacement, cryo maze, left atrial appendage oversew, atrial septal defect closure, and Impella 5.5
central placement for acute cardiogenic shock. Patient returned to CVICU on epinephrine at 3, Levophed at 6 and milrinone was added due to high systemic vascular resistance. On 3/ the Impella was explanted successfully. Epinephrine and Levophed
were weaned off. Patient received 2 packed cells for anemia. Amiodarone was initiated in the operating room therefore patient would need to be readmitted for Tikosyn reinitiation at a later date. On postoperative day #2 patient received an
additional unit of packed cells followed by 1 mg of Bumex. Milrinone was weaned to 2.125. Velazquez, chest tube, Winthrop, and A-line were discontinued. Milrinone was discontinued on 3. Patient underwent bedside right thoracentesis/pleural chest tube
placement for 1300 cc drainage and additional 300 cc in chest tube. Patient was transfused 1 full platelets for a platelet count of 76,000. HIT was negative at 0.065. Ensure supplements were added. Psychiatry was consulted for flat affect and
depression. No medications were deemed warranted. On postoperative day #4, patient continued with flat affect and Flexeril was changed to as needed status. Patient was diuresed with 40 of Lasix IV x 2 and Entresto was restarted per cardiology
Eliquis was started. PT/OT evaluation was completed for [facility]. On postoperative day #5 patient was started on Farxiga. Low-dose metoprolol was initiated and tolerated with SBP>90mmHg. Patient will be discharged on daily Lasix 40mg po wand
will need to have daily weights and accurate I&O recorded on discharge to rehab.
Home medication changes:
See below
Discharge Plan
-
Patient Disposition: Acute Rehab Facility
Discharge Diagnosis/Procedures: redo AVR/MVR/MAZE/BRANDON exclusion/ASD closure
Condition: Fair
Diet: Low Cholesterol and Low Sodium
Activity: No strenuous activity
Driving Restrictions: Not until seen by your Dr
Bathing Restrictions: OK to Shower
Blood Work: CMP/CBC on Monday 10/16
Others Tests: CXR on Wednesday 10/18
Other Services: Cardiac Rehab
Specialty Instructions: Weigh Daily- Call MD for wt gain/loss 3 lbs overnight/5 lbs in 1 week
Referrals:
CT Transitional Care Nurse [Outside] - in one to two days (The Cardiothoracic Transitional Care Nurse will call you to set up a visit in 1-2 days.)
[facility] [Outside] - 11/20/23 1:00 pm
(Cardiac Rehab Orientation appointment is on 11/20/23 at 1:00 pm
The Cardiac Rehab gym is located on the first floor of the [facility].)
Dedra Thmopson NP [Specified Professional Personl] - 11/13/23 10:20 am
Cullen Garland MD [Family Provider] -
Freeman Barlow MD [Active] - 11/07/23 1:15 pm
Prescriptions:
New
cyclobenzaprine 10 mg Tablet
5 mg PO TIDPRN PRN (Reason: muscle spasm) Qty: 0 0RF
atorvastatin 80 mg Tablet
80 mg PO DAILY Qty: 0 0RF
acetaminophen 325 mg Tablet
650 mg PO Q4HPRN PRN (Reason: mild pain,headache,temp >101F ) Qty: 30 0RF
amiodarone [Pacerone] 200 mg Tablet
200 mg PO BID Qty: 0 0RF
aspirin [Children's Aspirin] 81 mg Tablet,Chewable
81 mg PO DAILY Qty: 0 0RF
gabapentin 100 mg Capsule
100 mg PO TID Qty: 0 0RF
metoprolol succinate 25 mg Tablet Extended Release 24 Hr
12.5 mg PO DAILY Qty: 0 0RF
levalbuterol HCl 1.25 mg/3 mL Solution For Nebulization
1.25 mg inhalation R TID Qty: 0 0RF
apixaban 5 mg Tablet
5 mg PO BID Qty: 0 0RF
Entresto 24-26 mg Tablet
1 tab PO BID Qty: 0 0RF
lidocaine 4 % Adhesive Patch,Medicated
1 patch topical DAILY Qty: 0 0RF
sennosides-docusate sodium [Stool Softener-Stimulant Laxat] 8.6-50 mg Tablet
1 tab PO Q12 Qty: 0 0RF
levothyroxine 75 mcg Tablet
75 mcg PO DAILY@0700 Qty: 0 0RF
magnesium hydroxide 400 mg/5 mL Suspension
30 ml PO BIDPRN PRN (Reason: constipation) Qty: 0 0RF
ascorbic acid (vitamin C) [Vitamin C] 500 mg Tablet
500 mg PO DAILY Qty: 0 0RF
bisacodyl 10 mg Suppository
10 mg PA DAILYPRN PRN (Reason: constipation ) Qty: 0 0RF
pantoprazole 40 mg Tablet,Delayed Release (Dr/Ec)
40 mg PO DAILY Qty: 0 0RF
oxycodone 5 mg Tablet
5 mg PO Q4HPRN PRN (Reason: severe pain) Qty: 0 0RF
dapagliflozin propanediol [Farxiga] 10 mg Tablet
10 mg PO DAILY Qty: 0 0RF
furosemide 40 mg Tablet
40 mg PO DAILY Qty: 0 0RF
Continued
metoprolol succinate 50 mg tablet extended release 24 hr
50 mg PO DAILY
Discontinued
torsemide 20 mg Tablet
20 mg PO .//
levothyroxine 50 mcg Tablet
50 mcg PO DAILY
dofetilide 125 mcg Capsule
125 mcg PO BID
warfarin 2 mg Tablet
2 mg PO DAILY
atorvastatin [atorvastatin] 40 mg tablet
40 mg PO DAILY
Entresto 49-51 mg Tablet
2 tab PO BID
Discharge Orders:
Discharge Patient (As Directed); Ordered 10/15/23
Ordered By: Vidhya Araya
Care Plan Goals
Care Plan Goals:
Problem: Readiness for enhanced knowledge related to diagnosis and treatment plan
Goal: Understand your diagnosis and treatment plan needs, including medications if applicable.
Instructions: Know your diagnosis, underlying causes and treatment plan options, including medications if applicable. Consult with your health care team to learn about your diagnosis and treatment plan, including medications if applicable.
[2023-10-15] MEDS: LIDOCAINE 4% PATCH 1 PATCH TOPICAL (09:00)
[2023-10-15] MEDS: ELIQUIS 5 MG PO (09:00)
[2023-10-15] MEDS: LIPITOR 80 MG PO (09:01)
[2023-10-15] MEDS: FARXIGA 10 MG PO (09:01)
[2023-10-15] MEDS: VITAMIN C 500 MG PO (09:01)
[2023-10-15] MEDS: MUCINEX 600 MG PO (09:01)
[2023-10-15] MEDS: ENTRESTO 24 MG/26 MG 1 TAB PO (09:01)
[2023-10-15] MEDS: MAGNESIUM OXIDE 500 MG PO (09:01)
[2023-10-15] MEDS: LASIX 40 MG PO (09:01)
[2023-10-15] MEDS: SYNTHROID 75 MCG PO (09:01)
[2023-10-15] MEDS: SENOKOT-S 1 TABLET PO (09:01)
[2023-10-15] MEDS: PROTONIX 40 MG PO (09:02)
[2023-10-15] MEDS: LOW STRENGTH ASPIRIN 81 MG PO (09:02)
[2023-10-15] MEDS: PACERONE 200 MG PO (09:05)
[2023-10-15] MEDS: TOPROL XL 12.5 MG PO (09:09)
--- NOTE | 2023-10-15 10:39 | W.PN.CD ---
Today's Communication / Plan
-
40 IV lasix today
He is going to rehab today, would continue outpt torsemide
GDMT with Entresto and SGLT2i and BB
Impression / Plan
-
Impression/Plan: 77M with CAD s/p CABG, bio AVR, severe MR s/p MitraClip 09/2020 (redo procedure 11/2020 at [facility]), HFrEF (LVEF 35-40%), PAF on warfarin and dofetilide, hypertension, thyroid disease, and EDA admitted for preoperative optimization,
now s/p AVR/MVR.
-Mixed Valvular heart disease
-S/P AVR (#21 Alan Inspiris, SN [id number]), MVR (#31 Alan Mitris, SN [id number]).
-Pre LVEF 35 to 40%, post 25-30%.
-EKG in sinus with prolonged QTc.
-Impella 5.5 explanted 10/09/23.
-Current gtts:
-Off Milrinone, Epinephrine and Norepinephrine.
-Insulin: off
- AT noted while on Milrinone and stopped.
- appears relatively euvolemic
-s/p Thoracentesis 09/27
#HFrEF
- Chronic, however, has more pitting edema today at ankles
- Recommend 40 IV lasix today
- Entresto restarted
- Farxiga 10 today
#Anemia/Thrombocytopenia stable
-Acute, post op.
- s/p Transfusions. stable
- trend.
-HIT panel ordered.
-Monitor H/H with diuresis.
#Lactic acidosis
-Resolved now.
-s/p Impella removed.
#Paroxysmal atrial fibrillation
-Currently in NSR.
-S/P MAZE during surgery, incomplete LAAL.
-Rate/Rhythm control with amiodarone. Discontinued dofetilide for now.
-Monitor QTc given use of class III anti-arrhythmics.
-CHADS2-Vasc = 5 (CHF, HTN, Age x2, Vascular Disease).
-Anticoagulation with warfarin when he is ready.
#CAD
-History of PCI and CABG, stable on recent catheterization.
-Secondary prevention with high dose, high potency statin.
-Antithrombotic therapy with warfarin when possible.
#HTN
-Chronic, stable.
-Restart home medications as hemodynamics will permit.
#CKD3
-Chronic.
-Cr 1.5 today
#Dyslipidemia:
-LDL 234
-Increase atorvastatin, though not clear that he has been compliant with it
#Thyroid disease, follows with endocrine
Subjective/Interval History:
OOB in chair feels weak, however, less pain and overall in better spirits
DATA:
TTE, 10/09/2023:
CONCLUSIONS
�TDS.
�Normal LV chamber size with moderately reduced systolic function.
�LV ejection fraction is approximately 35-40%.
�Poor endocardial definition with no definitive wall motion abnormality.
�RV not well-visualized but appears normal size with normal function.
�Compared to YUNIEL from October 08, 2023, overall LV function is slightly more
�vigorous.
Intraprocedural YUNIEL, 10/08/2023:
CONCLUSIONS
�Overall LVEF is 30-35% with moderate global hypokinesis.
�Mild concentric left ventricular hypertrophy.
�Stage III Diastolic dysfunction.
�Mildly dilated left atrium.
�A large (0.9 cm) iatrogenic mid septal ASD noted with left to right flow.
�Moderate pulmonary hypertension (PAs=53 mmHg).
�Mild tricuspid regurgitation.
�Severe aortic stenosis.
�ADELINA calculates to 0.6 cm2 by continuity equation.
�Mild mitral stenosis.
�Severe mitral regurgitation.
�MVA calculates to 1.2 cm2.
�The MV is a double barrel valve with mitral clips fixing A2 to P2.
�Mild sessile atheroma seen in the descending aorta and distal arch.
�Proximal ascending aorta is calcified from the AV to above the ST junction.
POST OPERATIVE FINDINGS
�The patient underwent a redo sternotomy, AVR with a size 21 bioprosthetic
�valve, MVR with a size 31 bioprosthetic valve,� LA appendage internal ligation,
�MAZE, closure of an ASD, and placement of an Impella device.� Mild RV
�dysfunction noted.� Overall LVEF is now 20% with moderate global hypokinesis.
�The MVR and AVR are well seated with normal leaflet motion.� No AI or
�perivalvular leaks noted.� No MR or perivalvular leaks.� Max MV gradient
�measures 3 mmHg, mean is 1 mmHg.� Max AV gradient measures 12 mmHg, mean is 6
�mmHg.� Trace TR.� PV appears normal.� The LA appendage is not totally occluded
�with a very small orifice with flow seen on color flow Doppler.� The Impella is
�in good position aimed at the LV apex.� The ASD is now closed with no color
�flow seen across the septum.� No change in the aortic scan noted.
TTE 10/04/23:
CONCLUSIONS
�Moderately reduced left ventricular systolic function. � LV ejection fraction
�is 35-40% by visual assessment.
�Dilated right ventricle with preserved function.
�Stage II diastolic dysfunction suggestive of increased filling pressures.
�Status post mitral valve clipping x 2 with moderate to severe mitral
�regurgitation� (may be underestimated due to acoustic shadowing).� Moderate
�mitral stenosis.
�Well-seated bioprosthetic aortic valve with significant stenosis.
�Moderate tricuspid regurgitation with moderate pulmonary hypertension.
�Color flow pattern suggestive of ASD with evidence of left to right shunting on
�color flow Doppler.
�Compared to TTE from 06/04/2023, right ventricular systolic function appears
�preserved on today's study and was mildly reduced on the prior.� The mitral
�regurgitation is slightly increased and from moderate on the prior study.
YUNIEL, 08/23/2023:
CONCLUSIONS
�Moderately reduced left ventricular systolic function. Left ventricular
�ejection fraction is 35-40%.
�s/p MitraClip x2. Appear well seated. Mild/moderate mitral valve stenosis. Mean
�gradient is 7 mmHg. MVA by planimetry 1.8 cm2. Moderate/severe eccentric mitral
�valve regurgitation. 2 jets visualized.
�s/p bio-AVR. The ADELINA by planimetry is 1.2 cm2. Gradients were not measured on
�current study, but prior AV gradients on TTE 05/2023 were 48/27 mmHg. Likely
�moderate prosthetic valve stenosis. Trace aortic regurgitation.
�ASD with left to right flow visualized. (Likely post procedural s/p MitraClip.)�
�Area by planimetry 0.12-0.18 cm2.
�
�Compared to TTE 06/04/23: MR looks moderate/severe compared to moderate on
�prior.� Other findings similar.
TTE, 06/04/23:
CONCLUSIONS
�Normal LV size with moderately reduced left ventricular systolic function.
�Global hypokinesis.
�Estimated left ventricular ejection fraction is 35-40% by Urban's method of
�discs.
�No LVH.
�Dilated right ventricle with reduced systolic function.
�Severe left atrial dilation.
�s/p MitraClip x 2. The mean gradient across the valve is elevated at 8 mmHg.
�Moderate, eccentric mitral regurgitation (2 jets are seen).
�Bioprosthetic aortic valve replacement. The peak/mean gradients across the
�valve are 48/27 mmHg. No aortic regurgitation is seen.
�Mild to moderate tricuspid regurgitation.
�Estimated pulmonary artery pressure of 50 mmHg assuming a right atrial pressure
�of 3 mmHg.
�Mildly dilated ascending aorta (3.8 cm).
�Compared to report from January 23, 2023, LV ejection fraction is moderately
�reduced at 35-40%, mean gradient across MV is now 8 mmHg from 4 mmHg, gradients
�through the bioprosthetic AV have increased from 14 mmHg, to 27 mmHg, and there
�is mild to moderate TR with estimated PASP of 51 mmHg.
Cath 08/06/23:
CONCLUSIONS:
1.� Right dominant circulation with a 60% proximal RCA lesion, patent mid RCA stent with 10% ISR and a diffusely diseased distal RCA with a PREPARATION DEPARTMENT SUPERVISOR of the RPDA, severely diseased left main coronary artery with a 60-70% stenosis of the entire shaft with
a 70-80% lesion at the distal margin leading into the left circumflex, a 60-70% lesion at the origin of the first obtuse marginal and a chronic total occlusion of the ostial LAD, status post bypass (patent SMITH to LAD, patent SVG to RPDA to RPL).�
The coronary anatomy is essentially unchanged from prior cardiac catheterization in 2020.
2.� Moderately elevated filling pressures (LVEDP = 20 mmHg, PCWP = 20 mmHg at 71.0 kg).
3.� Depressed systolic function (cardiac index 1.69 L/min/m�, AV O2 difference 6.93 volume%).
4.� Significant residual intra-atrial shunt (likely due to persistent atrial septostomy from AIDAN), Qp/Qs = 1.58.
5.� Status post bioprosthetic aortic valve replacement with probably moderate stenosis (mean gradient 15 mmHg on cath, 27 mmHg on echocardiogram).
6.� Status post AIDAN.� There are total of [address].� There is equalization of PCWP and LVEDP pressures.
Physical Exam
Vital Signs/Labs
Vital Signs
Temp Pulse Resp BP Pulse Ox
97.7 F 80 22 104/56 91
10/15/23 08:55 10/15/23 10:00 10/15/23 08:55 10/15/23 08:55 10/15/23 09:00
10/14/23 10/15/23 10/16/23
06:59 06:59 06:59
Actual Weight 170 lb 10.205 oz 169 lb 1.513 oz
10/15/23 04:38
10/15/23 04:38
PT 19.8 Sec (11.4-14.6) H 10/09/23 14:10
INR 1.70 10/09/23 14:10
APTT 41.9 Sec (23.4-35.0) H 10/09/23 14:10
Magnesium 2.1 mg/dl (1.6-2.3) 10/15/23 04:38
Triglycerides 183 mg/dl (10-149) H 10/04/23 08:35
LDL Cholesterol, Calc 234 mg/dl 10/04/23 08:35
VLDL Cholesterol, Calc 36 mg/dl (0-30) H 10/04/23 08:35
HDL Cholesterol 42 mg/dl 10/04/23 08:35
TSH 5.07 uIU/ml (0.47-4.68) H 10/04/23 08:35
Free T4 1.05 ng/dl (0.78-2.19) 10/05/23 03:56
10/04/23
08:35
Nxo-B-Arrdxglpcfo Pept 3960
Physical Exam
Constitutional: No acute distress
EENT: Anicteric
Cardiovascular: Rhythm & rate is regular and Pedal edema present (1-2+ b/l LE)
Respiratory: Respiratory effort normal and Lungs clear to auscul.
GI: Soft
Neuro/Psych: AO x 3
Data Reviewed
-
Date of Service: October 15, 2023
EKG: Tracing Personally Visualized and interpreted
Labs: Labs Reviewed by me
--- NOTE | 2023-10-15 12:40 | CM ---
Reviewed chart. Telephone call to [facility] to check on bed availability. [facility] states they have a bed available for today. [facility] Approved [facility]. eight days from 10/15 23 to 10/22/23.
NRD 10/22/23.The auth. number is [id number]. Updated [facility]. with the auth. number. They can accept today after he has lunch. Updated medical team. Met with Mr. Bentley to review discharge plans. He is agreeable to going to [facility]. The
telephone number for report is [phone]). Medical work-up in progress. The discharge plan is to go to [facility]. when medically stable.
--- NOTE | 2023-10-15 13:30 | PTCARENOTE ---
Patient assisted back to bed. Temp A/V wire sutures removed and AV wires cut and retracted under skin by CT surg UCHE Kee with assist of furnace room supervisor. Right upper chest sutures removed by SENIOR ASIC ENGINEER and Right groin sutures removed by SENIOR ASIC ENGINEER: patient tolerated
well. All incisions and chest tube incisions anterior open to air> Right posterior old chest tube dressing changed. Report called to [facility] director.
[2023-10-15] MEDS: NSS IV (14:03)
--- NOTE | 2023-10-15 14:42 | W.PN.UPDATE ---
Update Note
Progress Note Update
Atrial and ventricular wires clipped to skin level. Right femoral sutures removed, no erythema/bleeding at site. 2 sutures removed from right IJ former Impella site. No erythema/bleeding at site.
== END 2023-10-15 15:26 | DRG 1 ==
LOC: CVICU 07:54
PROVIDERS: Anesthesiology; Clinical Nurse Specialist Acute Care; Nurse Practitioner; Physician Assistant Medical; Physician Assistant Surgical; ADMITTING PHYSICIAN Thoracic Surgery (Cardiothoracic Vascular Surgery); CONSULT PHYSICIAN Internal Medicine Cardiovascular Disease; CONSULT PHYSICIAN Internal Medicine Critical Care Medicine; CONSULT PHYSICIAN Physical Medicine & Rehabilitation; CONSULT PHYSICIAN Psychiatry & Neurology Psychiatry; FAMILY PHYSICIAN Family Medicine
PROC: 30233R1 Transfusion of Nonautologous Platelets into Peripheral Vein, Percutaneous Approach (ICD-10-PCS; 2023-10-08)
PROC: X2HX0F9 Insertion of Conduit to Short-term External Heart Assist System into Thoracic Aorta, Ascending, Open Approach, New Technology Group 9 (ICD-10-PCS; 2023-10-08)
PROC: 02RG08Z Replacement of Mitral Valve with Zooplastic Tissue, Open Approach (ICD-10-PCS; 2023-10-08)
PROC: 02Q50ZZ Repair Atrial Septum, Open Approach (ICD-10-PCS; 2023-10-08)
PROC: 30233N1 Transfusion of Nonautologous Red Blood Cells into Peripheral Vein, Percutaneous Approach (ICD-10-PCS; 2023-10-08)
PROC: 5A1221Z Performance of Cardiac Output, Continuous (ICD-10-PCS; 2023-10-08)
PROC: 02HA0RZ Insertion of Short-term External Heart Assist System into Heart, Open Approach (ICD-10-PCS; 2023-10-08)
PROC: 30233K1 Transfusion of Nonautologous Frozen Plasma into Peripheral Vein, Percutaneous Approach (ICD-10-PCS; 2023-10-08)
PROC: B24BZZ4 Ultrasonography of Heart with Aorta, Transesophageal (ICD-10-PCS; 2023-10-08)
PROC: 02RF08Z Replacement of Aortic Valve with Zooplastic Tissue, Open Approach (ICD-10-PCS; 2023-10-08)
PROC: 02NN0ZZ Release Pericardium, Open Approach (ICD-10-PCS; 2023-10-08)
PROC: 02L70CK Occlusion of Left Atrial Appendage with Extraluminal Device, Open Approach (ICD-10-PCS; 2023-10-08)
PROC: 5A0221D Assistance with Cardiac Output using Impeller Pump, Continuous (ICD-10-PCS; 2023-10-08)
PROC: 02580ZZ Destruction of Conduction Mechanism, Open Approach (ICD-10-PCS; 2023-10-08)
PROC: 02PW3RZ Removal of Short-term External Heart Assist System from Thoracic Aorta, Descending, Percutaneous Approach (ICD-10-PCS; 2023-10-09)
PROC: 0W9930Z Drainage of Right Pleural Cavity with Drainage Device, Percutaneous Approach (ICD-10-PCS; 2023-10-11)
DX: T82.857A Stenosis of other cardiac prosthetic devices, implants and grafts, initial encounter (principal); I50.23 Acute on chronic systolic (congestive) heart failure; R57.0 Cardiogenic shock; E87.4 Mixed disorder of acid-base balance; Q21.10 Atrial septal defect, unspecified; N17.9 Acute kidney failure, unspecified; I31.0 Chronic adhesive pericarditis; D62 Acute posthemorrhagic anemia; J91.8 Pleural effusion in other conditions classified elsewhere; D68.8 Other specified coagulation defects; J98.11 Atelectasis; E87.1 Hypo-osmolality and hyponatremia; I25.10 Atherosclerotic heart disease of native coronary artery without angina pectoris; Y83.2 Surgical operation with anastomosis, bypass or graft as the cause of abnormal reaction of the patient, or of later complication, without mention of misadventure at the time of the procedure; I48.0 Paroxysmal atrial fibrillation; E78.00 Pure hypercholesterolemia, unspecified; I08.3 Combined rheumatic disorders of mitral, aortic and tricuspid valves; I12.9 Hypertensive chronic kidney disease with stage 1 through stage 4 chronic kidney disease, or unspecified chronic kidney disease; E03.9 Hypothyroidism, unspecified; N18.30 Chronic kidney disease, stage 3 unspecified; R59.0 Localized enlarged lymph nodes; I27.20 Pulmonary hypertension, unspecified; F43.20 Adjustment disorder, unspecified; R73.9 Hyperglycemia, unspecified; D63.8 Anemia in other chronic diseases classified elsewhere; D69.59 Other secondary thrombocytopenia; R00.1 Bradycardia, unspecified; Z79.01 Long term (current) use of anticoagulants; Z79.899 Other long term (current) drug therapy; Z82.49 Family history of ischemic heart disease and other diseases of the circulatory system; Z95.1 Presence of aortocoronary bypass graft; Z95.5 Presence of coronary angioplasty implant and graft
CPT/HCPCS: 88300; 88305; 93308; 33259; 36415; 71045; 71046; 80048; 80053; 80061; 80076; 81003; 81015; 82248; 82330; 82550; 82565; 82805; 82810; 82947; 82962; 83036; 83605; 83615; 83735; 83880; 84132; 84302; 84439; 84443; 84520; 85014; 85018; 85025; 85027; 85049; 85347; 85379; 85384; 85576; 85610; 85730; 86022; 86850; 86870; 86900; 86901; 86902; 86905; 86920; 86922; 87070; 88341; 88342; 93005; 93306; 93312; 93320; 93321; 93325; 93880; 94002; 94010; 94060; 94640; 97116; 97163; 97167; 97530; 97535; C1768; J2260; J2916; P9016; P9045; P9047; P9059; P9073

== ENCOUNTER 2023-11-27 10:32 | Outpatient (RCR) | payer OTHER, SELFPAY | END 2023-11-27 23:59 | disposition home or self-care (01) | LOC: ROT 10:32 | PROVIDERS: ATTENDING PHYSICIAN Physical Medicine & Rehabilitation; FAMILY PHYSICIAN Family Medicine | DX: I25.810 Atherosclerosis of coronary artery bypass graft(s) without angina pectoris (principal); R54 Age-related physical debility; Z73.6 Limitation of activities due to disability | CPT/HCPCS: 97110; 97112; 97116; 97162; 97166; 97530; 97535 ==

== ENCOUNTER → 2023-12-06 08:18 | Outpatient (REF) | payer OTHER, SELFPAY | LOC: RCS 08:18 | PROVIDERS: ATTENDING PHYSICIAN Nurse Practitioner; FAMILY PHYSICIAN Family Medicine; REFERRING PHYSICIAN Thoracic Surgery (Cardiothoracic Vascular Surgery) | DX: I48.0 Paroxysmal atrial fibrillation (principal); Z95.2 Presence of prosthetic heart valve; I50.20 Unspecified systolic (congestive) heart failure | CPT/HCPCS: 93306 ==

== ENCOUNTER 2023-12-19 11:53 | Outpatient (RCR) | payer OTHER, SELFPAY | END 2023-12-25 08:22 | disposition home or self-care (01) | LOC: ROT 11:53 | PROVIDERS: ATTENDING PHYSICIAN Physical Medicine & Rehabilitation; FAMILY PHYSICIAN Family Medicine | DX: R54 Age-related physical debility (principal); Z73.6 Limitation of activities due to disability | CPT/HCPCS: 97110; 97112; 97116; 97530; 97535 ==

== ENCOUNTER 2023-12-26 14:51 | Outpatient (RCR) | payer OTHER, SELFPAY | END 2023-12-26 23:59 | disposition home or self-care (01) | LOC: CRHB 14:51 | PROVIDERS: ATTENDING PHYSICIAN Internal Medicine Cardiovascular Disease | DX: I34.0 Nonrheumatic mitral (valve) insufficiency (principal); Z95.4 Presence of other heart-valve replacement; I25.10 Atherosclerotic heart disease of native coronary artery without angina pectoris; Z95.1 Presence of aortocoronary bypass graft | CPT/HCPCS: G0422; G0423 ==

== ENCOUNTER 2024-01-25 14:20 | Outpatient (RCR) | payer OTHER, SELFPAY | END 2024-01-25 23:59 | disposition home or self-care (01) | LOC: CRHB 14:20 | PROVIDERS: ATTENDING PHYSICIAN Internal Medicine Cardiovascular Disease | DX: Z95.4 Presence of other heart-valve replacement (principal) | CPT/HCPCS: G0422; G0423 ==

== ENCOUNTER 2024-02-06 14:13 | Outpatient (RCR) | payer OTHER, SELFPAY | END 2024-02-06 23:59 | disposition home or self-care (01) | LOC: CRHB 14:13 | PROVIDERS: ATTENDING PHYSICIAN Internal Medicine Cardiovascular Disease | DX: Z95.4 Presence of other heart-valve replacement (principal) | CPT/HCPCS: G0422; G0423 ==

== ENCOUNTER 2024-02-12 21:08 | Inpatient (IN) | payer OTHER, SELFPAY ==
[2024-02-12] VITALS (8 sets, daily range): BP systolic 110–152; BP diastolic 52–72; BMI 23.2; BMI 22.0
[2024-02-12 18:03] LABS: % Basophils 0.6 % (0-2); % Eosinophils 4.2 % (0-6); % Immature Granulocytes 0.4 % (0-0.5); % Lymphocytes 17.3 % (20.5-51.1); % Monocytes 11.8 % (1.7-9.3); % Neutrophils 65.7 % (42.2-75.2); Absolute Eosinophils 0.2 10^3/uL (0-0.7); Absolute Lymphocytes 0.9 10^3/uL (1.2-3.4); Absolute Monocytes 0.6 10^3/uL (0.1-0.6); Absolute Neutrophils 3.3 10^3/uL (1.4-6.5); Hematocrit 33.1 % (39.0-52.0); Hemoglobin 11.8 g/dL (13.0-18.0); Mean Corp Hgb Conc. 35.6 g/dL (33.0-37.0); Mean Corpuscular Hgb 31.2 pg (27.0-31.0); Mean Corpuscular Volume 87.6 fL (80.0-94.0); Nucleated Red Blood Cells % 0 % (-); Platelet Count 138 10^3/uL (130-400); Red Blood Cell Count 3.78 10^6/uL (4.70-6.10); Red Cell Dist. Width 13.6 % (11.5-14.5)
[2024-02-12 18:13] LABS: INR 1.18; PT 14.8 Sec (11.4-14.6)
[2024-02-12 18:23] LABS: ALT (SGPT) 30 U/L (0-50); AST (SGOT) 37 U/L (17-59); Albumin 4.2 g/dl (3.5-5.0); Alkaline Phosphatase 159 U/L (38-126); Blood Urea Nitrogen 33 mg/dl (9-20); Carbon Dioxide 22 mmol/L (22-30); Chloride 106 mmol/L (98-107); Glucose 101 mg/dl (70-99); Potassium 4.1 mmol/L (3.5-5.1); Sodium 137 mmol/L (135-145); Total Bilirubin 0.6 mg/dl (0.2-1.3); Total Protein 6.7 g/dl (6.3-8.2); eGFR 35.22
[2024-02-12 18:25] LABS: NT-proBNP 2680 pg/ml
[2024-02-12 20:04] LABS: Troponin I 0.037 ng/ml
--- NOTE | 2024-02-12 21:06 | HPS.HSE ---
Family Physician
-
Family Physician: Cullen Garland
Chief Complaint
-
fatigue
History of Present Illness
78-year-old male past medical history of coronary artery disease status post CABG, chronic HFrEF, paroxysmal atrial fibrillation, aortic stenosis status post bioprosthetic aortic valve replacement, severe mitral regurgitation status post MitraClip
with redo, hypertension, hyperlipidemia, hypothyroidism, anemia, chronic kidney disease stage III, hyponatremia presenting with fatigue and weakness with minimal exertion associated shortness of breath ongoing for the past month. This is
significantly limited his activities of daily living. He denies any chest pain. Denies any lower extremity edema.
Patient underwent explant of prior bioprosthetic aortic valve and implant of biological valve, chordal sparing mitral valve replacement with explant of 3 mitral clips, resuspension papillary muscle heads, left atrial maze, left atrial appendage
ligation, ASD closure, in September.
Since then he has been attending cardiac rehab at critical access hospital appointments. Metoprolol dosage was decreased after the surgery. No other changes in medications recently.
Drinks alcohol very rarely. He denies smoking.
Medical History
Past Medical History
Past Medical History: Reports Other (coronary artery disease status post CABG, chronic HFrEF, paroxysmal atrial fibrillation, aortic stenosis status post bioprosthetic aortic valve replacement, severe mitral regurgitation status post MitraClip with
redo, hypertension, hyperlipidemia, hypothyroidism, anemia, chronic kidney disease stage)
Past Surgical History: Reports Other (prior bioprosthetic aortic valve and implant of biological valve, chordal sparing mitral valve replacement with explant of 3 mitral clips, resuspension papillary muscle heads, left atrial maze, left atrial
appendage ligation, ASD closure, CABG )
Social History
Tobacco: Non-smoker
Alcohol: Occasional
Drug: None
Family History
Family History: Not pertinent
Allergies / Home Medications
Allergies reflects when Allergies were last updated in [facility].
Home Medications with original date entered in [facility]
Allergy/Medication List:
Allergies
Allergy/AdvReac Type Severity Reaction Status Date / Time
No Known Drug Allergies Allergy Unknown Verified 02/12/24 17:49
Home Medications
aspirin 81 mg chewable tablet (Children's Aspirin) 81 mg PO DAILY Heart disease/condition #0 tabs 10/15/23
dapagliflozin propanediol 10 mg tablet (Farxiga) 10 mg PO DAILY Heart Failure 30 days #30 tabs 10/30/23
furosemide 40 mg tablet 40 mg PO DAILY Fluid retention/Swelling 30 days #30 tabs 10/30/23
metoprolol succinate 25 mg tablet,extended release 24 hr 12.5 mg (1/2 x 25 mg) PO DAILY Heart disease/condition 30 days #15 tabs 10/30/23
amiodarone 200 mg tablet (Pacerone) 200 mg PO DAILY Arrhythmia 02/12/24
apixaban 5 mg tablet 2.5 mg PO BID Blood clot prevention/tx 02/12/24
levothyroxine 50 mcg tablet 50 mcg PO DAILY 02/12/24
paroxetine HCl 10 mg tablet 10 mg PO DAILY 02/12/24
rosuvastatin 40 mg tablet 40 mg PO DAILY 02/12/24
sacubitril 24 mg-valsartan 26 mg tablet (Entresto) 1 tab PO BID 02/12/24
Review of Systems
-
History Source: Patient
A 12 point ROS was completed and negative except as noted: Yes
Constitutional: Reports No Symptoms
EENT: Reports No Symptoms
Respiratory: Reports See HPI
Cardiac: Reports No Symptoms
Abdomen/GI: Reports No Symptoms
: Reports No Symptoms
Musculoskeletal: Reports No Symptoms
Skin: Reports No Symptoms
Neurological: Reports No Symptoms
Endocrine: Reports No Symptoms
Hematologic/Lymphatic: Reports No Symptoms
Psych: Reports No Symptoms
Physical Exam
Vital Signs
Vital Signs
Temp Pulse Resp BP Pulse Ox
98.1 F 60 22 110/69 97
02/12/24 17:46 02/12/24 20:00 02/12/24 20:00 02/12/24 20:00 02/12/24 20:00
Physical Exam
General: Well Developed, Well Nourished and No Apparent Distress
HEENT: NormoCephalic, Moist mucous membranes and Atraumatic
Respiratory: Clear
Cardiac: S1/S2 and Regular Rhythm; No Murmur or Rub
GI: Soft, Non Tender, Non Distended and Normal Bowel Sounds; No Organomegaly
Rectal: Deferred by Provider
Musculoskeletal: No Clubbing, No Cyanosis and No Edema
Skin: No Rash
Neuro: Nonfocal/grossly intact
Laboratory Results
-
02/12/24 17:58
02/12/24 17:58
Laboratory Results
PT 14.8 Sec (11.4-14.6) H 02/12/24 17:58
INR 1.18 02/12/24 17:58
Total Bilirubin 0.6 mg/dl (0.2-1.3) 02/12/24 17:58
AST 37 U/L (17-59) 02/12/24 17:58
ALT 30 U/L (0-50) 02/12/24 17:58
Alkaline Phosphatase 159 U/L (38-126) H 02/12/24 17:58
Troponin I 0.037 ng/ml H* 02/12/24 19:17
Data Reviewed
-
Lab Data: Labs Reviewed by me
Old Records: Reviewed
Impression/Plan
-
IMPRESSION:
PLAN:
# Symptomatic bradycardia
-EKG shows sinus rhythm with sinus arrhythmia, first-degree AV block
-Patient intermittently bradycardic down to 30s for few seconds at a time with junctional escape beats
-Hold metoprolol, amiodarone
-Hold Eliquis if pacemaker recommended
-N.p.o. past midnight
-Cardiology consulted
Coronary artery disease status post CABG
-Continue aspirin
Chronic HFrEF
-Continue dapagliflozin
-Continue Entresto
-Continue Lasix
Paroxysmal atrial fibrillation status post recent left atrial appendage ligation
-hold eliquis
-hold amiodarone
Aortic stenosis status post bioprosthetic AVR with recent explant and implant of biologic valve
Severe mitral regurgitation status post MitraClips with explant of mitral clips, resuspension of papillary muscle heads
Essential hypertension
Hyperlipidemia
-Continue statin
Hypothyroidism
-Continue levothyroxine
Anemia of chronic disease
-Hemoglobin stable
CKD stage III
-Creatinine 1.9 from baseline of 1.6-1.8
Anxiety/depression
-Continue paroxetine
DNR/DNI (per patient although family wants full code)
DVT prophylaxis-heparin
Cardiac diet, NPO past midnight
--- NOTE | 2024-02-12 22:08 | ED.GENMED ---
History of Present Illness
General
Chief Complaint: Weakness
Source: patient, spouse and family
Exam Limitations: none
Time Seen by Provider: 02/12/24 18:37
Nursing documentation reviewed up to this point in time: agreed with
History of Present Illness
History of Present Illness:
78-year-old male with past medical history of heart disease paroxysmal A-fib currently on amiodarone previous coronary artery bypass graft as well as valve replacement presenting to the emergency department today with concerns of generalized
weakness fatigue worsening over the past few weeks but much more significant today. Denies specific chest pain nausea vomiting or fevers.
Past History
Past History
ED Past Medical History: Arrthythmia (Atrial fib/flutter), CAD, CHF, HTN, Hypercholesterolemia, NH, Valvular disease ( s/p AVR, MR), Hyperthyroidism (Possibly), Other (Recent mitral clip, anemia) and Other (Artery disease status post NH, status
post stenting of diagonal and LAD, hypercholesterolemia, hypertension,AVR with tissue valve)
ED Past Surgical History: None, Cardiac (CABG x 3, valve replacement, stents) and Orthopedic (right knee replacement)
Social History
Tobacco: Non-smoker
Alcohol: None
Drug: None
Personal:
Living: with family
Employment: Employed
Family History
Family History: CAD
Review of Systems
Review of Systems
Allergies reviewed?: Yes
All Other Systems: ROS reviewed and negative except as documented in HPI and ROS
Phy Exam
Physical Exam
Physical Exam:
GENERAL: Alert , in no apparent distress
EYE: pupils equal and reactive
NECK: Supple, no significant adenopathy.
ENT: o/p clr, mmm.
CARDIAC: Regular rate and rhythm .
LUNGS: Clear breath sounds bilaterally, no acute respiratory distress, no wheezes/rales/rhonchi
ABDOMEN: Soft, without focal tenderness, no r/g, no cvat
NEUROLOGICAL: Alert and oriented, no focal neuro deficits
SKIN: Warm and dry, skin intact.
MUSCULOSKELETAL: No edema, well perfused.
PSYCH: Normal and appropriate interaction.
Course
Orders/Labs/Results
Orders:
Orders
02/12/24 17:50
Electrocardiogram (*1) Urgent
Reason for Study: Chest Pain
EKG- Treatment ONCE
02/12/24 17:58
Complete Blood Count/With Diff Urgent
Comprehensive Metabolic Panel Urgent
NT-proBNP Urgent
Prothrombin Time Urgent
02/12/24 19:15
EKG [Electrocardiogram (*1)] Urgent
Reason for Study: Bradycardia / Tachycardia
EKG- Treatment ONCE
02/12/24 19:17
Troponin I Urgent
02/12/24 19:37
Chest X-ray Portable [CR Chest Portable - 1 View] Urgent
Comment:
Reason For Exam: cob weakness
Reason Study Needs to be Portable: Patient Unstable
02/12/24 21:02
Admit/Transfer Patient As Directed
Co-Sign Provider:
Level of Care: Inpatient admission
Assign to:: IVU
Physician / Group: efe
Diagnosis: symptomatic bradycardia
Reason for Hospitalization: symptomatic bradycardia
Expected length of stay greater than two midnights?: Yes
ELOS- Estimated Length of Stay in days: 2
I certify the patient meets the requirements for IP care: Yes
02/12/24 21:03
Code Status As Directed
Resuscitation Status: Do not resuscitate
Reached after discussion with pt or family/Healthcare POA: Yes
DNR Bracelet Application ONCE
Abnormal Lab Results
02/12/24 02/12/24
17:58 19:17
RBC 3.78 L 10^6/uL
(4.70-6.10)
Hgb 11.8 L g/dL
(13.0-18.0)
Hct 33.1 L %
(39.0-52.0)
MCH 31.2 H pg
(27.0-31.0)
Absolute Lymphs (auto) 0.9 L 10^3/uL
(1.2-3.4)
Lymphocytes % 17.3 L %
(20.5-51.1)
Monocytes % 11.8 H %
(1.7-9.3)
PT 14.8 H Sec
(11.4-14.6)
BUN 33 H mg/dl
(9-20)
Creatinine 1.9 H mg/dL
(0.7-1.3)
Glucose 101 H mg/dl
(70-99)
Alkaline Phosphatase 159 H U/L
(38-126)
Troponin I 0.037 H* ng/ml
02/12/24 17:58
02/12/24 17:58
Vital Signs
Initial and Last Documented VS:
Initial Vital Signs
Temp Pulse Resp BP Pulse Ox
98.1 F 65 20 122/61 98
02/12/24 17:46 02/12/24 17:46 02/12/24 17:46 02/12/24 17:46 02/12/24 17:46
Last Documented Vital Signs
Temp Pulse Resp BP Pulse Ox
98.1 F 59 16 134/55 96
02/12/24 17:46 02/12/24 22:00 02/12/24 22:00 02/12/24 22:00 02/12/24 22:00
MDM/Problems Addressed
MDM/Problems Addressed:
6-year-old male presenting to the emergency department today with concerns generalized weakness fatigue worsening over the past few weeks more prevalent today specifically. Upon arrival initial vital signs normal patient without specific symptoms
no chest pain no fevers no recent illness but does claim to feel very short of breath with any exertion. Labs are at patient's baseline but on the monitor patient having heart rate occasionally dropping to the 30s this was captured and placed in
the patient's chart and appear to be consistent with a junctional rhythm. This was discussed with cardiology that believes this was a junctional rhythm. Patient will hold Amio and metoprolol but otherwise is typically in the heart rate of 50s pads
were placed but otherwise stable throughout ER stay will be admitted for further monitoring and reassessment.
*Critical Care Note
Total Time (30-74mins, 75-104mins- exclusive of procedures): Not Applicable
ED Attending Note
-
Portions of this chart may have been created with voice recognition software.� Occasional wrong word or��sound alike� substitutions may have occurred due to the inherent limitations of voice recognition software.
Discharge Plan
Departure
Patient Disposition: Admit
Date of Disposition: 02/12/24
Time of Disposition: 22:09
Admit to: Telemetry
Admit to doctor: [facility]
Presentation/result/management discussed w/ accepting MD/DO: Hospitalist
Patient with high blood pressure during this ER visit?: No
Condition: Good
Covid-19: Not Applicable
Discharge Problem:
Bradycardia
Interventions
Interventions:
*Risk Screen - Suicide Last Done: 02/12/24 17:46
*General Assessment Last Done: 02/12/24 17:46
*Neglect/Abuse Screening Last Done: 02/12/24 17:46
ED- Fall Risk Assessment Last Done: 02/12/24 19:00
*ED COVID-19 Vaccine History Last Done: 02/12/24 19:08
ED- Cardiac Assessment Last Done: 02/12/24 19:00
ED- Neurological Assessment Last Done: 02/12/24 19:00
ED- Pulmonary Assessment Last Done: 02/12/24 19:00
[2024-02-12] MEDS: ENTRESTO 24 MG/26 MG 1 TAB PO (23:11)
--- NOTE | 2024-02-12 23:14 | PTCARENOTE ---
received patient from the ED. AAOx3. denies any pain. denies lightheadedness/dizziness at this time. HR SR 60s with a first degree AVB. bp stable. reviewed plan of care with patient and verbalized understanding. educated patient to inform RN with
any changed. patient stated not taking Entresto dose tonight. updated Evita Nam MEDICAL CARE MANAGER. order placed and given. NPO at midnight. call zapien within reach.
[2024-02-13] VITALS (7 sets, daily range): BP systolic 95–114; BP diastolic 56–81; BMI 21.8
--- NOTE | 2024-02-13 03:10 | DOWNTIME ---
There was a [employer] Client Agricultural Research Engineer Downtime on 02/13/2024 from 0100 to 02/13/2024 at 0255. Downtime documentation of patient's care, including medication administrations, has been reconciled in the electronic record per guidelines. Refer to the
patient's paper chart under the miscellaneous tab to see printed paper medication records and downtime forms.
[2024-02-13 05:14] LABS: % Basophils 0.7 % (0-2); % Eosinophils 5.4 % (0-6); % Immature Granulocytes 0.2 % (0-0.5); % Monocytes 12.4 % (1.7-9.3); % Neutrophils 61.3 % (42.2-75.2); Absolute Eosinophils 0.2 10^3/uL (0-0.7); Absolute Lymphocytes 0.8 10^3/uL (1.2-3.4); Absolute Monocytes 0.5 10^3/uL (0.1-0.6); Absolute Neutrophils 2.5 10^3/uL (1.4-6.5); Hematocrit 32.6 % (39.0-52.0); Hemoglobin 11.3 g/dL (13.0-18.0); Mean Corp Hgb Conc. 34.7 g/dL (33.0-37.0); Mean Corpuscular Hgb 31.8 pg (27.0-31.0); Mean Corpuscular Volume 91.8 fL (80.0-94.0); Mean Platelet Volume 10.6 fL (7.4-10.4); Nucleated Red Blood Cells % 0 % (-); Platelet Count 122 10^3/uL (130-400); Red Blood Cell Count 3.55 10^6/uL (4.70-6.10); Red Cell Dist. Width 13.4 % (11.5-14.5); White Blood Cell Count 4.1 10^3/uL (4.8-10.8)
[2024-02-13 05:46] LABS: ALT (SGPT) 27 U/L (0-50); AST (SGOT) 30 U/L (17-59); Albumin 3.6 g/dl (3.5-5.0); Alkaline Phosphatase 135 U/L (38-126); Blood Urea Nitrogen 32 mg/dl (9-20); Calcium 8.8 mg/dl (8.4-10.2); Carbon Dioxide 24 mmol/L (22-30); Chloride 108 mmol/L (98-107); Estimated Creatinine Clearance 27 ml/min; Glucose 98 mg/dl (70-99); Sodium 139 mmol/L (135-145); Total Bilirubin 0.5 mg/dl (0.2-1.3); eGFR 31.23
--- NOTE | 2024-02-13 06:36 | PTCARENOTE ---
no changes overnight. NPO since midnight. HR SB-SR, rates high 40s-50s. bp stable.
[2024-02-13] MEDS: SYNTHROID 50 MCG PO (08:38)
[2024-02-13] MEDS: PAXIL 10 MG PO (08:48)
[2024-02-13] MEDS: FARXIGA 10 MG PO (08:48)
[2024-02-13] MEDS: LOW STRENGTH ASPIRIN 81 MG PO (08:48)
[2024-02-13] MEDS: CRESTOR 40 MG PO (08:48)
[2024-02-13] MEDS: HEPARIN 5000 UNITS SC (08:48)
--- NOTE | 2024-02-13 09:14 | PTCARENOTE ---
Assumed care of pt from prev nsg shift; Pt drowsy this AM but easily arousable, AAOx3 w/no c/o CP or SOB. Pt's affect appears very flat; answers questions appropriately but doesn't engage in any conversation. Pt's VS stable w/HR in the 50's, BP's a
little low, 102/57 this am & then 95/59 on recheck. This RN spoke w/Dr Taveras & rec'd order to hold pt's AM PO Lasix & Entresto until seen & evaluated by Cardiology this AM. Pt w/pacer pads in place in the event of need for pacing. Discussed plan of
care w/pt. No addtl needs at this time. Plan of care ongoing.
[2024-02-13 10:17] LABS: TSH Reflex To Free T4 1.85 uIU/ml (0.47-4.68)
--- NOTE | 2024-02-13 11:10 | CARDSERVLU ---
Echocardiogram with [facility] completed after protocol screening completed. Allergies verified.
Patent IV site: __L wrist___
IV site flushed with 0.9% NaCl pre and post administration.
Diluted bolus method utilized to enhance visualization of ventricular nuñez.
Total volume given: ___1.5_ mL
Patient tolerated all procedures well without complications.
--- NOTE | 2024-02-13 11:25 | CON.CAR ---
Addendum entered and electronically signed by Vincenzo Taveras MD 02/13/24 14:27:
78 yo male with PMH of CAD, prior CABG, re-do bio-AVR and also bio-MVR (following MitraClip explant), with MAZE, BRANDON ligation, ASD closure 10/07/22, paroxysmal A fib on eliquis, cardiomyopathy EF 35-40% is admitted with fatigue, SOB, anorexia,
hypotension, bradycardia. There is no chest pain. Exam with RRR, II/ systolic murmur at RUSB, no edema. Cr 2.1.
Fatigue, SOB, anorexia, hypotension, bradycardia. I believe we need to adjust his medical regimen. Anorexia may be due to amiodarone: stop. Will also stop metoprolol given bradycardia. There is also evidence of MARTHA, hypotension. Hold entresto,
lasix; and trend Cr, weight.
Check echo.
Original Note:
Consultation
Consultation Request
Date/Time Consultation Requested: 02/12/24 22:25pm
Date/Time Consultation Performed: 02/13/24 11:26am
Requesting Provider: Clarence Grover
Performing Provider: Kenyetta Miller for Vincenzo Galindo
Reason for Consultation: Bradycardia
Medical History
-
Chief Complaint: Fatigue and exertional dyspnea.
History of Present Illness:
76-year-old male with a complex PMH significant for CAD s/p multivessel CABG, chronic HFrEF, paroxysmal A-fib, AAS s/p bioprosthetic aortic valve placement, severe MR s/p mitral clip x 3, HTN, HLD, hypothyroidism, CKD stage IIIb, anemia of chronic
disease, hyponatremia continue with fatigue and shortness of breath for 1 month.
His dyspnea on exertion and fatigue started at the same time about 1 month ago, and worsening persistently, over the last 1 and half week his fatigue and SOB on exertion were worse prompting him to cancel 3 of his cardiac rehab appointments. His
fatigue is associated with loss of appetite that progressively worsened -currently his appetite is almost nonexistent and he found himself eating too little over the last 1 and half week.
He denies having orthopnea, PND, chest pain, palpitations, lightheadedness, dizziness, syncopal or near syncopal episodes, abdominal pain, nausea, vomitings, chills.
Did not have a bowel movement in the last 2 days.
In September 2023 patient underwent prior bioprosthetic aortic valve explant and implant of biological valve, chordal sparing MVR with explant of 3 mitral clips, resuspension of papillary muscle heads, left atrial maze, left atrial appendage ligation,
ASD closure.
Past Medical History
Past Medical History: Other (CAD s/p multivessel CABG, chronic HFrEF, paroxysmal A-fib, AAS s/p bioprosthetic aortic valve placement, severe MR s/p mitral clip x 3, HTN, HLD, hypothyroidism, CKD stage IIIb, anemia of chronic disease, hyponatremia )
Past Surgical History: Other (prior bioprosthetic aortic valve and implant of biological valve, chordal sparing mitral valve replacement with explant of 3 mitral clips, resuspension papillary muscle heads, left atrial maze, left atrial appendage
ligation, ASD closure, CABG )
Social History
Tobacco: Non-Smoker
Alcohol: Occasional
Drug: None
Personal:
Living: With Family
Employment: Retired
Family History
Family History: Reviewed & Not Pertinent
Allergies / Home Medications
Allergy/AdvReac Type Severity Reaction Status Date / Time
No Known Drug Allergies Allergy Unknown Verified 02/12/24 17:49
�Medication �Instructions �Recorded �Confirmed �Type
aspirin 81 mg chewable tablet 81 mg PO DAILY Heart 10/15/23 02/12/24 Rx
(Children's Aspirin) disease/condition #0 tabs
dapagliflozin propanediol 10 mg 10 mg PO DAILY Heart Failure 30 10/30/23 02/12/24 Rx
tablet (Farxiga) days #30 tabs
furosemide 40 mg tablet 40 mg PO DAILY Fluid 10/30/23 02/12/24 Rx
retention/Swelling 30 days #30 tabs
metoprolol succinate 25 mg 12.5 mg (1/2 x 25 mg) PO DAILY 10/30/23 02/12/24 Rx
tablet,extended release 24 hr Heart disease/condition 30 days
#15 tabs
amiodarone 200 mg tablet (Pacerone) 200 mg PO DAILY Arrhythmia 02/12/24 02/12/24 History
apixaban 5 mg tablet 2.5 mg PO BID Blood clot 02/12/24 02/12/24 History
prevention/tx
levothyroxine 50 mcg tablet 50 mcg PO DAILY Thyroid 02/12/24 02/12/24 History
paroxetine HCl 10 mg tablet 10 mg PO DAILY Mental 02/12/24 02/12/24 History
Health/Anxiety
rosuvastatin 40 mg tablet 40 mg PO DAILY High Cholesterol 02/12/24 02/12/24 History
sacubitril 24 mg-valsartan 26 mg 1 tab PO BID Heart Failure 02/12/24 02/12/24 History
tablet (Entresto)
Review of Systems
-
History Source: Patient
Constitutional: Fatigue
EENT: No Symptoms
Respiratory: Trouble Breathing
Cardiac: No Symptoms
Abdomen/GI: No Symptoms
: No Symptoms
Musculoskeletal: No Symptoms
Skin: No Symptoms
Neurological: No Symptoms
Endocrine: No Symptoms
Hematologic/Lymphatic: No Symptoms
Physical Exam
Vital Signs
Temp Pulse Resp BP Pulse Ox
97.6 F 55 16 95/59 95
02/13/24 06:50 02/13/24 09:08 02/13/24 04:47 02/13/24 09:08 02/13/24 06:50
Lab Results
02/13/24 04:41
02/13/24 04:41
Troponin I 0.037 ng/ml H* 02/12/24 19:17
Fwv-B-Nwehtxbdpvf Pept 2680 pg/ml 02/12/24 17:58
Physical Exam
General: Comfortable
HEENT: Normocephalic and Moist Mucous Membranes
Respiratory: Clear; Negative Wheezes, Crackles or Rhonchi
Cardiac: S1/S2 and Regular Rhythm
GI: Soft, Non Tender, Non Distended and Normal Bowel Sounds
Musculoskeletal: No Cyanosis and No Edema
Skin: Warm
Neuro: AO x 3
Psych: Calm
Impression / Plan
-
Background-
78-year-old male known to cardiology service in the past for CAD s/p multivessel CABG, chronic HFrEF, paroxysmal A-fib, AAS s/p bioprosthetic aortic valve placement, severe MR s/p mitral clip x 3, HTN, HLD, hypothyroidism, CKD stage IIIb, anemia of
chronic disease, hyponatremia presents to the hospital with fatigue and dyspnea on exertion x 1 month. In September he underwent a procedure for prior bioprosthetic aortic valve explant and implant of biological valve, chordal sparing MVR with explant
of 3 mitral clips, resuspension of papillary muscle heads, left atrial maze, left atrial appendage ligation, ASD closure.
Impression -
Symptomatic bradycardia-
-EKG upon admission shows sinus rhythm with first-degree AV block.
-Currently patient is in sinus bradycardia. Yesterday patient had intermittent episodes of bradycardia with heart rate down to 30s for few seconds and junctional escape beats.
-Telemetry shows sinus bradycardia with Wenckebach (Mobitz type I) block. Current approaches to give a medication holiday and see for symptom improvement. Continue holding metoprolol and amiodarone.
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
-S/P AVR (#21 Alan Inspiris, SN [id number]), MVR (#31 Alan Mitris, SN [id number]).
-LVEF 35 to 40% from echo in November.
-Will reevaluate the valve functions and ejection fraction with echocardiogram.
Paroxysmal atrial fibrillation
-Currently amiodarone and metoprolol on hold due to sinus bradycardia.
-CHADS2-Vasc = 5 (CHF, HTN, Age x2, Vascular Disease).
-Resume renal dose of Eliquis at 2.5 mg twice daily and discontinue heparin.
HFrEF
-Chronic, (as of echo from 12/26/2023) currently patient is euvolemic.
-As patient's blood pressure is on the lower end, currently Entresto and Lasix are on hold.
-Restart home medications as hemodynamics will permit.
-Resume low-sodium low-cholesterol diet, with fluid restriction.
-Monitor renal function, weight.
CAD
-History of PCI and CABG, stable on recent catheterization.
-Continue secondary prevention with high-dose statin and aspirin..
HTN
-Currently low blood pressure ranges.
-Restart home medications as hemodynamics will permit.
CKD3b
-Chronic.
-BUN/Cr 32 /2.1( baseline 1.4-1.5).
Dyslipidemia on high intensity statin
Hypothyroidism on levothyroxine
Anxiety on paroxetine.
Subjective -
Feeling fatigued, still has dyspnea on exertion, constipation.
Data reviewed -
Telemetry-02/13/2024-sinus bradycardia, Wenckebach phenomenon.
EKG-02/12/2024-sinus bradycardia, first-degree AV block, PACs.
Chest x-ray-02/12/2024-no acute cardiopulmonary process.
Echocardiogram-12/26/2023-
LVEF of 35 to 40%, Global hypokinesis.
s/p #31mm Alan Mitris bioprosthetic mitral valve. Peak and mean 7/4 mmHg respectively. No mitral regurgitation.
s/p #21mm Alan bioprosthetic aortic valve. Peak and mean gradients 16/10 mm Hg respectively. No aortic regurgitation.
Postop findings -10/08/2023.
�The patient underwent a redo sternotomy, AVR with a size 21 bioprosthetic
�valve, MVR with a size 31 bioprosthetic valve,� LA appendage internal ligation,
�MAZE, closure of an ASD, and placement of an Impella device.� Mild RV
�dysfunction noted.� Overall LVEF is now 20% with moderate global hypokinesis.
�The MVR and AVR are well seated with normal leaflet motion.� No AI or
�perivalvular leaks noted.� No MR or perivalvular leaks.� Max MV gradient
�measures 3 mmHg, mean is 1 mmHg.� Max AV gradient measures 12 mmHg, mean is 6
�mmHg.� Trace TR.� PV appears normal.� The LA appendage is not totally occluded
�with a very small orifice with flow seen on color flow Doppler.� The Impella is
�in good position aimed at the LV apex.� The ASD is now closed with no color
�flow seen across the septum.� No change in the aortic scan noted.
Data Reviewed
-
EKG: Tracing Personally Visualized and interpreted
Radiology: Image Personally Visualized and interpreted
Ultrasound: Report Reviewed by me
Medical Tests (Nuc Med, Echo etc): Report Reviewed by me
Labs: Labs Reviewed by me and Discussed with Physician
Old Records: Reviewed
--- NOTE | 2024-02-13 12:23 | W.PN.HOSP.TC ---
Today's Communication/Plan
-
Monitor vital signs and see plan
Hold Entresto
Check TSH
Hold Lasix
Cardiology to see
Monitor renal function, if does not improve then will need nephrology evaluation
Assessment / Plan
Assessment / Plan
General: Well Developed, Well Nourished and No Apparent Distress
HEENT: NormoCephalic, Moist mucous membranes and Atraumatic
Respiratory: Clear
Cardiac: S1/S2 and Regular Rhythm; No Murmur or Rub
GI: Soft, Non Tender, Non Distended and Normal Bowel Sounds
Musculoskeletal: No Edema
Neuro: Nonfocal/grossly intact
Symptomatic bradycardia
-EKG shows sinus rhythm with sinus arrhythmia, first-degree AV block
-Patient intermittently bradycardic down to 30s for few seconds at a time with junctional escape beats
-Hold metoprolol, amiodarone
-Hold Eliquis if pacemaker recommended
-Cardiology following
Coronary artery disease status post CABG
-Continue aspirin
Elevated troponin, likely nonischemic myocardial injury
Continue to monitor
Chronic HFrEF
-Continue dapagliflozin
-Holding Entresto
lasix on hold
Paroxysmal atrial fibrillation status post recent left atrial appendage ligation
-hold eliquis
-hold amiodarone
Renal insufficiency, CKD stage III
-Creatinine 2.1 from baseline of 1.6-1.8
Check UA
Monitor creatinine, if does not improve then will need nephrology evaluation
Aortic stenosis status post bioprosthetic AVR with recent explant and implant of biologic valve
Severe mitral regurgitation status post MitraClips with explant of mitral clips, resuspension of papillary muscle heads
Essential hypertension
Hyperlipidemia
-Continue statin
Hypothyroidism
-Continue levothyroxine
Anemia of chronic disease
-Hemoglobin stable
Anxiety/depression
-Continue paroxetine
DNR/DNI (per patient although family wants full code)
DVT prophylaxis
I spent a total of 52 minutes with the patient or on the floor. More than 50% of this time involved counseling and coordination of care.
Anticipated Discharge: 24 - 48 hours
Subjective/Interval History
-
Date of Service: February 13, 2024
denies pain
Objective Data
-
Labs:
Laboratory Results
02/13/24
04:41
WBC 4.1 L
Hgb 11.3 L
Hct 32.6 L
Plt Count 122 L
Sodium 139
Potassium 4.0
Chloride 108 H
Carbon Dioxide 24
BUN 32 H
Creatinine 2.1 H
Glucose 98
Calcium 8.8
Total Bilirubin 0.5
AST 30
ALT 27
Alkaline Phosphatase 135 H
Vital Signs:
Vital Signs
Temp Pulse Resp BP Pulse Ox
97.4 F 55 16 95/59 95
02/13/24 12:09 02/13/24 09:08 02/13/24 12:09 02/13/24 09:08 02/13/24 12:09
I&O
02/12/24 02/13/24 02/14/24
06:59 06:59 06:59
Intake Total 150 / 150 60 / 60
Output Total 250 / 250 300 / 300
Balance -100 / -100 -240 / -240
[2024-02-13 13:13] LABS: Troponin I 0.031 ng/ml
--- NOTE | 2024-02-13 14:04 | CM ---
Chart reviewed. Patient is independent of ADLS, lives with his in a [address], 8 VIRI, 0 DME. Plan is for the patient to return home. CM to follow
[2024-02-13] MEDS: ELIQUIS 2.5 MG PO ×2 (16:09→20:52)
[2024-02-14] VITALS (9 sets, daily range): BP systolic 96–125; BP diastolic 55–64; PULSE 48; BMI 21.8
[2024-02-14 02:00] LABS: Urine Albumin Negative (Neg - Trace); Urine Bilirubin Negative (Negative); Urine Character Clear (Clear); Urine Color Yellow; Urine Glucose 3+ (Negative); Urine Ketone Negative (Negative); Urine Leukocyte Negative (Negative); Urine Nitrite Negative (Negative); Urine Occult Blood Negative (Negative); Urine Urobilinogen Negative (Neg - 1+)
[2024-02-14] MEDS: SYNTHROID 50 MCG PO (04:55)
--- NOTE | 2024-02-14 05:02 | PTCARENOTE ---
Assumed care of patient at change of shift. VSS, Sinus ely with first degree on monitor. Patient denies chest pain and SOB. UA collected and sent to lab. Instructed to ring for assistance as needed for ambulation and patient verbalizes
understanding. Can make needs known. Call zapien within reach.
[2024-02-14 05:08] LABS: % Basophils 0.9 % (0-2); % Eosinophils 5.5 % (0-6); % Immature Granulocytes 0.5 % (0-0.5); % Monocytes 11.2 % (1.7-9.3); % Neutrophils 57.9 % (42.2-75.2); Absolute Eosinophils 0.2 10^3/uL (0-0.7); Absolute Lymphocytes 1.1 10^3/uL (1.2-3.4); Absolute Monocytes 0.5 10^3/uL (0.1-0.6); Absolute Neutrophils 2.5 10^3/uL (1.4-6.5); Hematocrit 32.9 % (39.0-52.0); Hemoglobin 11.4 g/dL (13.0-18.0); Mean Corp Hgb Conc. 34.7 g/dL (33.0-37.0); Mean Corpuscular Hgb 31.1 pg (27.0-31.0); Mean Corpuscular Volume 89.6 fL (80.0-94.0); Mean Platelet Volume 10.7 fL (7.4-10.4); Nucleated Red Blood Cells % 0 % (-); Platelet Count 138 10^3/uL (130-400); Red Blood Cell Count 3.67 10^6/uL (4.70-6.10); Red Cell Dist. Width 13.5 % (11.5-14.5); White Blood Cell Count 4.4 10^3/uL (4.8-10.8)
[2024-02-14 05:27] LABS: ALT (SGPT) 26 U/L (0-50); AST (SGOT) 34 U/L (17-59); Albumin 3.7 g/dl (3.5-5.0); Alkaline Phosphatase 141 U/L (38-126); Blood Urea Nitrogen 29 mg/dl (9-20); Carbon Dioxide 23 mmol/L (22-30); Chloride 109 mmol/L (98-107); Estimated Creatinine Clearance 33 ml/min; Glucose 81 mg/dl (70-99); Potassium 4.5 mmol/L (3.5-5.1); Sodium 138 mmol/L (135-145); Total Bilirubin 0.5 mg/dl (0.2-1.3); Total Protein 6.2 g/dl (6.3-8.2); eGFR 40.25
[2024-02-14] MEDS: PAXIL 10 MG PO (08:12)
[2024-02-14] MEDS: CRESTOR 40 MG PO (08:12)
[2024-02-14] MEDS: LOW STRENGTH ASPIRIN 81 MG PO (08:12)
[2024-02-14] MEDS: ELIQUIS 2.5 MG PO ×2 (08:12→20:08)
[2024-02-14] MEDS: FARXIGA 10 MG PO (08:12)
--- NOTE | 2024-02-14 08:20 | PTCARENOTE ---
Rec'd pt this shift awake and alert. NSR on monitor, RA. Pt denies pain, denies sob. AM meds given. See worklist for VS/I and O and assessments.
--- NOTE | 2024-02-14 08:52 | W.PN.CD ---
Today's Communication / Plan
-
-Patient remains in sinus rhythm (sinus bradycardia at 50s).
-Continue holding metoprolol succinate for now; may need to discontinue altogether.
-Continue satellite project site monitor.
-Stable valvular function on echocardiogram yesterday.
-Continue renal dose of Eliquis at 2.5 mg twice daily and discontinue heparin.
-LVEF slightly improved at 40-45% on echocardiogram yesterday.
-Continue to hold Entresto and Lasix due to hypotension.
Impression / Plan
-
Background-
78-year-old male known to cardiology service in the past for CAD s/p multivessel CABG, chronic HFrEF, paroxysmal A-fib, AAS s/p bioprosthetic aortic valve placement, severe MR s/p mitral clip x 3, HTN, HLD, hypothyroidism, CKD stage IIIb, anemia of
chronic disease, hyponatremia presents to the hospital with fatigue and dyspnea on exertion x 1 month. In September he underwent a procedure for prior bioprosthetic aortic valve explant and implant of biological valve, chordal sparing MVR with explant
of 3 mitral clips, resuspension of papillary muscle heads, left atrial maze, left atrial appendage ligation, ASD closure.
Impression -
Symptomatic bradycardia-
-EKG upon admission shows sinus rhythm with first-degree AV block.
-Patient remains in sinus rhythm (sinus bradycardia at 50s).
-Would not resume amiodarone.
-Continue holding metoprolol succinate for now; may need to discontinue altogether.
-Continue satellite project site monitor.
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
-S/P AVR (#21 Alan Inspiris, SN [id number]), MVR (#31 Alan Mitris, SN [id number]).
-Stable valvular function on echocardiogram yesterday.
Paroxysmal atrial fibrillation
-Currently amiodarone and metoprolol on hold due to sinus bradycardia.
-CHADS2-Vasc = 5 (CHF, HTN, Age x2, Vascular Disease).
-Continue renal dose of Eliquis at 2.5 mg twice daily and discontinue heparin.
Chronic HFmEF (EF 40-45%)
-LVEF slightly improved at 40-45% on echocardiogram yesterday.
-Continue to hold Entresto and Lasix due to hypotension.
Troponin elevation
-Likely secondary to acute nonischemic myocardial injury in the setting of acute renal failure and CHF.
CAD
-History of PCI and CABG, stable on recent catheterization.
-Continue secondary prevention with high-dose statin and aspirin.
HTN
-Currently low blood pressure ranges.
-Medications being held as above.
CKD3b
-Chronic.
-BUN/Cr 32 /2.1( baseline 1.4-1.5).
-Medication being held as above; continue to monitor.
Dyslipidemia on high intensity statin
Hypothyroidism on levothyroxine
Anxiety on paroxetine.
Subjective -
No major events overnight. Feeling better this a.m.
Data reviewed -
Telemetry-02/13/2024-sinus bradycardia, Wenckebach phenomenon.
EKG-02/12/2024-sinus bradycardia, first-degree AV block, PACs.
Chest x-ray-02/12/2024-no acute cardiopulmonary process.
Echocardiogram-12/26/2023-
LVEF of 35 to 40%, Global hypokinesis.
s/p #31mm Alan Mitris bioprosthetic mitral valve. Peak and mean 7/4 mmHg respectively. No mitral regurgitation.
s/p #21mm Alan bioprosthetic aortic valve. Peak and mean gradients 16/10 mm Hg respectively. No aortic regurgitation.
Postop findings -10/08/2023.
�The patient underwent a redo sternotomy, AVR with a size 21 bioprosthetic
�valve, MVR with a size 31 bioprosthetic valve,� LA appendage internal ligation,
�MAZE, closure of an ASD, and placement of an Impella device.� Mild RV
�dysfunction noted.� Overall LVEF is now 20% with moderate global hypokinesis.
�The MVR and AVR are well seated with normal leaflet motion.� No AI or
�perivalvular leaks noted.� No MR or perivalvular leaks.� Max MV gradient
�measures 3 mmHg, mean is 1 mmHg.� Max AV gradient measures 12 mmHg, mean is 6
�mmHg.� Trace TR.� PV appears normal.� The LA appendage is not totally occluded
�with a very small orifice with flow seen on color flow Doppler.� The Impella is
�in good position aimed at the LV apex.� The ASD is now closed with no color
�flow seen across the septum.� No change in the aortic scan noted.
Physical Exam
Vital Signs/Labs
Vital Signs
Temp Pulse Resp BP Pulse Ox
97.5 F 51 16 101/56 97
02/14/24 07:06 02/14/24 07:05 02/14/24 07:06 02/14/24 07:05 02/14/24 08:17
02/13/24 02/14/24 02/15/24
06:59 06:59 06:59
Actual Weight 67.5 kg 66.8 kg
02/14/24 04:46
02/14/24 04:46
PT 14.8 Sec (11.4-14.6) H 02/12/24 17:58
INR 1.18 02/12/24 17:58
02/12/24
17:58
Sgb-A-Mwyhvxdcdha Pept 2680
LAB Results
02/12/24 02/13/24
19:17 12:41
Troponin I 0.037 H* 0.031
Physical Exam
Constitutional: No acute distress and Comfortable
EENT: Anicteric
Cardiovascular: Rhythm & rate is regular, Pedal edema is absent, Systolic murmur present (2/6) and S1S2 is normal
Respiratory: Respiratory effort normal and Lungs clear to auscul.
GI: Soft
Neuro/Psych: AO x 3
Other: Skin (Warm, dry, intact)
Data Reviewed
-
Date of Service: February 14, 2024
EKG: Tracing Personally Visualized and interpreted (Telemetry: Sinus rhythm)
Echo: Report Reviewed by me (EF 40-45%)
Medical Tests (PFT, Pathology etc): Discussed with Patient
Labs: Labs Reviewed by me
[2024-02-14 10:22] LABS: COVID-19 Antigen Negative (Negative)
--- NOTE | 2024-02-14 14:10 | W.PN.HOSP.TC ---
Today's Communication/Plan
-
Monitor vital signs see plan
Continue to hold metoprolol, Amio
Continue to hold Lasix, Entresto
Monitor renal function
Monitor heart rate
Assessment / Plan
Assessment / Plan
General: Well Developed, Well Nourished and No Apparent Distress
HEENT: NormoCephalic, Moist mucous membranes and Atraumatic
Respiratory: Clear
Cardiac: S1/S2 and Regular Rhythm; No Murmur or Rub
GI: Soft, Non Tender, Non Distended and Normal Bowel Sounds
Musculoskeletal: No Edema
Neuro: Nonfocal/grossly intact
Symptomatic bradycardia
-EKG shows sinus rhythm with sinus arrhythmia, first-degree AV block
-Patient intermittently bradycardic down to 30s for few seconds at a time with junctional escape beats
-Hold metoprolol, amiodarone
-Cardiology following
Coronary artery disease status post CABG
-Continue aspirin
Elevated troponin, likely nonischemic myocardial injury
Continue to monitor
Chronic HFrEF
-Continue dapagliflozin
-Holding Entresto
lasix on hold
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
Per infection prevention COVID antigen today negative, repeat test day 3 and 5
Paroxysmal atrial fibrillation status post recent left atrial appendage ligation
- eliquis
-hold amiodarone
Renal insufficiency, CKD stage III
-Creatinine 2.1 from baseline of 1.6-1.8; now cr 1.7
Check UA
Monitor creatinine, if does not improve then will need nephrology evaluation
Aortic stenosis status post bioprosthetic AVR with recent explant and implant of biologic valve
Severe mitral regurgitation status post MitraClips with explant of mitral clips, resuspension of papillary muscle heads
Essential hypertension
Hyperlipidemia
-Continue statin
Hypothyroidism
-Continue levothyroxine
Anemia of chronic disease
-Hemoglobin stable
Anxiety/depression
-Continue paroxetine
DNR/DNI (per patient although family wants full code)
DVT prophylaxis
Anticipated Discharge: 24 - 48 hours
Subjective/Interval History
-
Date of Service: February 14, 2024
denies pain
Objective Data
-
Labs:
Laboratory Results
02/14/24
04:46
WBC 4.4 L
Hgb 11.4 L
Hct 32.9 L
Plt Count 138
Sodium 138
Potassium 4.5
Chloride 109 H
Carbon Dioxide 23
BUN 29 H
Creatinine 1.7 H
Glucose 81
Calcium 9.0
Total Bilirubin 0.5
AST 34
ALT 26
Alkaline Phosphatase 141 H
Vital Signs:
Vital Signs
Temp Pulse Resp BP Pulse Ox
97.3 F 67 18 123/63 98
02/14/24 11:48 02/14/24 10:00 02/14/24 11:48 02/14/24 09:21 02/14/24 11:48
I&O
02/13/24 02/14/24 02/15/24
06:59 06:59 06:59
Intake Total 150 / 150 60 / 60 500 / 500
Output Total 250 / 250 625 / 625 200 / 200
Balance -100 / -100 -565 / -565 300 / 300
--- NOTE | 2024-02-14 15:09 | PTCARENOTE ---
Pt sleeping most of day stating he is tired today. Up in chair for meals.
--- NOTE | 2024-02-15 00:49 | PTCARENOTE ---
Received pt at handoff. AOX3. Tele- SB w/ 1st deg HB. Assessment noted as documented. Pt has no c/o at this time. Currently in bed; call rupali w/in reach.
[2024-02-15 05:16] VITALS: BP 113/59
[2024-02-15] MEDS: SYNTHROID 50 MCG PO (05:17)
[2024-02-15 06:18] LABS: % Eosinophils 4.1 % (0-6); % Immature Granulocytes 0.5 % (0-0.5); % Lymphocytes 24.6 % (20.5-51.1); % Monocytes 11.4 % (1.7-9.3); % Neutrophils 58.4 % (42.2-75.2); Absolute Eosinophils 0.2 10^3/uL (0-0.7); Absolute Monocytes 0.5 10^3/uL (0.1-0.6); Absolute Neutrophils 2.4 10^3/uL (1.4-6.5); Hematocrit 34.1 % (39.0-52.0); Hemoglobin 11.7 g/dL (13.0-18.0); Mean Corp Hgb Conc. 34.3 g/dL (33.0-37.0); Mean Corpuscular Hgb 31.3 pg (27.0-31.0); Mean Corpuscular Volume 91.2 fL (80.0-94.0); Mean Platelet Volume 10.4 fL (7.4-10.4); Nucleated Red Blood Cells % 0 % (-); Platelet Count 130 10^3/uL (130-400); Red Blood Cell Count 3.74 10^6/uL (4.70-6.10); Red Cell Dist. Width 13.6 % (11.5-14.5); White Blood Cell Count 4.1 10^3/uL (4.8-10.8)
[2024-02-15 06:32] LABS: ALT (SGPT) 24 U/L (0-50); AST (SGOT) 29 U/L (17-59); Albumin 3.7 g/dl (3.5-5.0); Alkaline Phosphatase 144 U/L (38-126); Blood Urea Nitrogen 26 mg/dl (9-20); Calcium 9.2 mg/dl (8.4-10.2); Carbon Dioxide 22 mmol/L (22-30); Chloride 109 mmol/L (98-107); Estimated Creatinine Clearance 33 ml/min; Glucose 76 mg/dl (70-99); Potassium 4.6 mmol/L (3.5-5.1); Sodium 138 mmol/L (135-145); Total Bilirubin 0.6 mg/dl (0.2-1.3); Total Protein 6.2 g/dl (6.3-8.2); eGFR 40.25
[2024-02-15 06:53] VITALS: BP 110/60
[2024-02-15 06:56] VITALS: BMI 21.7
--- NOTE | 2024-02-15 07:44 | W.PN.CD ---
Today's Communication / Plan
-
Holding Metoprolol and Entresto, restart likely Entresto as outpt if HRs are acceptable
Stop lasix
Cont Farxiga
Overall, feels like he has some more energy
We will sign off and plan for f/u in 1-2 weeks as outpt.
Impression / Plan
-
Background-
78-year-old male known to cardiology service in the past for CAD s/p multivessel CABG, chronic HFrEF, paroxysmal A-fib, AAS s/p bioprosthetic aortic valve placement, severe MR s/p mitral clip x 3, HTN, HLD, hypothyroidism, CKD stage IIIb, anemia of
chronic disease, hyponatremia presents to the hospital with fatigue and dyspnea on exertion x 1 month. In September he underwent a procedure for prior bioprosthetic aortic valve explant and implant of biological valve, chordal sparing MVR with explant
of 3 mitral clips, resuspension of papillary muscle heads, left atrial maze, left atrial appendage ligation, ASD closure.
Impression -
Symptomatic bradycardia-
-EKG upon admission shows sinus rhythm with first-degree AV block.
-Patient remains in sinus rhythm (sinus bradycardia at 50s).
-Stopping amiodarone adn holding metoprolol
-Continue pvc monitor.
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
-S/P AVR (#21 Alan Inspiris, SN [id number]), MVR (#31 Alan Mitris, SN [id number]).
-Stable valvular function on echocardiogram yesterday.
Paroxysmal atrial fibrillation
-Currently amiodarone and metoprolol on hold due to sinus bradycardia.
-CHADS2-Vasc = 5 (CHF, HTN, Age x2, Vascular Disease).
-Continue renal dose of Eliquis at 2.5 mg twice daily and discontinue heparin.
Chronic HFmEF (EF 40-45%)
-LVEF slightly improved at 40-45% on echocardiogram yesterday.
-Holding Entresto possible restart as outpatient
- stop Lasix for now
Troponin elevation
-Likely secondary to acute nonischemic myocardial injury in the setting of acute renal failure and CHF.
CAD
-History of PCI and CABG, stable on recent catheterization.
-Continue secondary prevention with high-dose statin and aspirin.
HTN
-Currently low blood pressure ranges.
-Medications being held as above.
CKD3b
-Chronic.
-BUN/Cr 32 /2.1( baseline 1.4-1.5).
-Medication being held as above; continue to monitor.
Dyslipidemia on high intensity statin
Hypothyroidism on levothyroxine
Anxiety on paroxetine.
Subjective -
Continues to feel tired, likley d/c home tomorrow
Data reviewed -
Telemetry-02/13/2024-sinus bradycardia, Wenckebach phenomenon.
EKG-02/12/2024-sinus bradycardia, first-degree AV block, PACs.
Chest x-ray-02/12/2024-no acute cardiopulmonary process.
Echocardiogram-12/26/2023-
LVEF of 35 to 40%, Global hypokinesis.
s/p #31mm Alan Mitris bioprosthetic mitral valve. Peak and mean 7/4 mmHg respectively. No mitral regurgitation.
s/p #21mm Alan bioprosthetic aortic valve. Peak and mean gradients 16/10 mm Hg respectively. No aortic regurgitation.
Postop findings -10/08/2023.
�The patient underwent a redo sternotomy, AVR with a size 21 bioprosthetic
�valve, MVR with a size 31 bioprosthetic valve,� LA appendage internal ligation,
�MAZE, closure of an ASD, and placement of an Impella device.� Mild RV
�dysfunction noted.� Overall LVEF is now 20% with moderate global hypokinesis.
�The MVR and AVR are well seated with normal leaflet motion.� No AI or
�perivalvular leaks noted.� No MR or perivalvular leaks.� Max MV gradient
�measures 3 mmHg, mean is 1 mmHg.� Max AV gradient measures 12 mmHg, mean is 6
�mmHg.� Trace TR.� PV appears normal.� The LA appendage is not totally occluded
�with a very small orifice with flow seen on color flow Doppler.� The Impella is
�in good position aimed at the LV apex.� The ASD is now closed with no color
�flow seen across the septum.� No change in the aortic scan noted.
Physical Exam
Vital Signs/Labs
Vital Signs
Temp Pulse Resp BP Pulse Ox
98.1 F 51 18 113/59 96
02/15/24 06:52 02/15/24 05:16 02/15/24 06:52 02/15/24 05:16 02/15/24 06:52
02/14/24 02/15/24 02/16/24
06:59 06:59 06:59
Actual Weight 147 lb 4.301 oz 146 lb 9.718 oz
02/15/24 05:23
02/15/24 05:23
PT 14.8 Sec (11.4-14.6) H 02/12/24 17:58
INR 1.18 02/12/24 17:58
02/12/24
17:58
Xkg-P-Skmykurpndr Pept 2680
LAB Results
02/12/24 02/13/24
19:17 12:41
Troponin I 0.037 H* 0.031
Physical Exam
Constitutional: No acute distress
EENT: Anicteric
Cardiovascular: Rhythm & rate is regular and Pedal edema is absent
Respiratory: Respiratory effort normal and Lungs clear to auscul.
GI: Soft
Neuro/Psych: AO x 3
Data Reviewed
-
Date of Service: February 15, 2024
EKG: Tracing Personally Visualized and interpreted (sr)
Echo: Report Reviewed by me
Labs: Labs Reviewed by me
--- NOTE | 2024-02-15 08:00 | PTCARENOTE ---
Assumed care of patient. Walking rounds completed with previous RN. Pt assessed while he was lying in bed. Pt alert and oriented x4. Flat affect. KUMAR with equal strength in all extremities. SB with 1st degree AVB on tele with rates in the 40s-60s.
BP110/60. Bilateral radial and DP pulses palpable. No edema noted. POX 96% on RA. Lungs clear throughout. No cough noted. Abdomen soft, nontender. +BS. Last BM yesterday. Pt reports poor appetite. Pt voiding independently in the bathroom, reports no
issues. Skin intact. Left wrist PIV intact. See MAR for medication administration. See worklist for complete nursing assessment. Plan of care reviewed and patient in agreement.
[2024-02-15] MEDS: CRESTOR 40 MG PO (08:04)
[2024-02-15] MEDS: PAXIL 10 MG PO (08:04)
[2024-02-15] MEDS: LOW STRENGTH ASPIRIN 81 MG PO (08:04)
[2024-02-15] MEDS: FLUSH (NSS) 1 FLUSH IV (08:04)
[2024-02-15] MEDS: FARXIGA 10 MG PO (08:04)
[2024-02-15] MEDS: ELIQUIS 2.5 MG PO ×2 (08:04→19:49)
--- NOTE | 2024-02-15 11:28 | W.PN.HOSP.TC ---
Today's Communication/Plan
-
monitor vitals
see plan
continue to hold entresto,lasix,amio,BB
hopeful dc tomorrow
Assessment / Plan
Assessment / Plan
General: Well Developed, Well Nourished and No Apparent Distress
HEENT: NormoCephalic, Moist mucous membranes and Atraumatic
Respiratory: Clear
Cardiac: S1/S2 and Regular Rhythm; No Murmur or Rub
GI: Soft, Non Tender, Non Distended and Normal Bowel Sounds
Musculoskeletal: No Edema
Neuro: Nonfocal/grossly intact
Symptomatic bradycardia
-EKG shows sinus rhythm with sinus arrhythmia, first-degree AV block
-Patient intermittently bradycardic down to 30s for few seconds at a time with junctional escape beats
-Hold metoprolol, amiodarone
-Cardiology following; now HR apepars to be improving. no plan for any intervention per cardiology. they want to monitor patient today and possible dc tomorrow
Coronary artery disease status post CABG
-Continue aspirin
Elevated troponin, likely nonischemic myocardial injury
Continue to monitor
Chronic HFrEF
-Continue dapagliflozin
-Holding Entresto; possible restart outpatient per cardiology
lasix on hold
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
Per infection prevention COVID antigen today negative, repeat test day 3 and 5
Paroxysmal atrial fibrillation status post recent left atrial appendage ligation
- eliquis
-hold amiodarone
Renal insufficiency; CKD stage III
-Creatinine 2.1 from baseline of 1.6-1.8; now cr 1.7
UA neg
Monitor creatinine, if does not improve then will need nephrology evaluation
Aortic stenosis status post bioprosthetic AVR with recent explant and implant of biologic valve
Severe mitral regurgitation status post MitraClips with explant of mitral clips, resuspension of papillary muscle heads
Essential hypertension
Hyperlipidemia
-Continue statin
Hypothyroidism
-Continue levothyroxine
Anemia of chronic disease
-Hemoglobin stable
Anxiety/depression
-Continue paroxetine
DNR/DNI (per patient although family wants full code)
DVT prophylaxis
PT/OT
Anticipated Discharge: Within 24 hours
Subjective/Interval History
-
Date of Service: February 15, 2024
denies pain
Objective Data
-
Labs:
Laboratory Results
02/15/24
05:23
WBC 4.1 L
Hgb 11.7 L
Hct 34.1 L
Plt Count 130
Sodium 138
Potassium 4.6
Chloride 109 H
Carbon Dioxide 22
BUN 26 H
Creatinine 1.7 H
Glucose 76
Calcium 9.2
Total Bilirubin 0.6
AST 29
ALT 24
Alkaline Phosphatase 144 H
Vital Signs:
Vital Signs
Temp Pulse Resp BP Pulse Ox
98.1 F 65 18 110/60 96
02/15/24 06:52 02/15/24 08:00 02/15/24 06:52 02/15/24 06:53 02/15/24 08:00
I&O
02/14/24 02/15/24 02/16/24
06:59 06:59 06:59
Intake Total 60 / 60 700 / 700
Output Total 625 / 625 200 / 200
Balance -565 / -565 500 / 500
[2024-02-15 12:09] VITALS: BP 112/61
[2024-02-15 15:35] VITALS: BP 124/66
[2024-02-15 19:52] VITALS: BP 116/58
[2024-02-15 22:50] VITALS: BP 131/74
--- NOTE | 2024-02-15 22:53 | PTCARENOTE ---
Received pt at handoff. AOx3. Assessment completed as documented. VSS. Tele- SB w/ 1st deg HB. HR 50-60s. Pt has no c/o at this time. Currently in bed; call zapien w/in reach.
[2024-02-16 04:49] VITALS: BP 109/65
[2024-02-16 05:14] LABS: COVID-19 Antigen Negative (Negative)
[2024-02-16 05:24] LABS: % Eosinophils 4.7 % (0-6); % Immature Granulocytes 0.2 % (0-0.5); % Monocytes 11.1 % (1.7-9.3); Absolute Eosinophils 0.2 10^3/uL (0-0.7); Absolute Lymphocytes 0.9 10^3/uL (1.2-3.4); Absolute Monocytes 0.5 10^3/uL (0.1-0.6); Absolute Neutrophils 2.5 10^3/uL (1.4-6.5); Hematocrit 32.1 % (39.0-52.0); Mean Corp Hgb Conc. 34.3 g/dL (33.0-37.0); Mean Corpuscular Hgb 31.3 pg (27.0-31.0); Mean Corpuscular Volume 91.5 fL (80.0-94.0); Mean Platelet Volume 10.6 fL (7.4-10.4); Nucleated Red Blood Cells % 0 % (-); Platelet Count 127 10^3/uL (130-400); Red Blood Cell Count 3.51 10^6/uL (4.70-6.10); Red Cell Dist. Width 13.3 % (11.5-14.5)
[2024-02-16 05:52] LABS: ALT (SGPT) 32 U/L (0-50); AST (SGOT) 41 U/L (17-59); Albumin 3.6 g/dl (3.5-5.0); Alkaline Phosphatase 137 U/L (38-126); Blood Urea Nitrogen 28 mg/dl (9-20); Calcium 9.1 mg/dl (8.4-10.2); Carbon Dioxide 25 mmol/L (22-30); Chloride 108 mmol/L (98-107); Estimated Creatinine Clearance 33 ml/min; Glucose 75 mg/dl (70-99); Potassium 4.5 mmol/L (3.5-5.1); Sodium 138 mmol/L (135-145); Total Bilirubin 0.5 mg/dl (0.2-1.3); eGFR 40.25
[2024-02-16] MEDS: SYNTHROID 50 MCG PO (06:28)
[2024-02-16 07:48] VITALS: BP 112/68
[2024-02-16] MEDS: CRESTOR 40 MG PO (07:55)
[2024-02-16] MEDS: LOW STRENGTH ASPIRIN 81 MG PO (07:55)
[2024-02-16] MEDS: FLUSH (NSS) 1 FLUSH IV (07:55)
[2024-02-16] MEDS: PAXIL 10 MG PO (07:55)
[2024-02-16] MEDS: ELIQUIS 2.5 MG PO (07:55)
[2024-02-16] MEDS: FARXIGA 10 MG PO (07:55)
--- NOTE | 2024-02-16 08:00 | PTCARENOTE ---
Resumed care of patient. Pt assessed while he was lying in bed. Pt alert and oriented x4. Denies pain, shortness of breath, and nausea. SB-SR with 1st degree AVB with rates 50s-60s. BP stable 112/68. Bilateral radial and DP pulses palpable. No edema
noted. POX 98% on RA. Lungs clear throughout. no cough. Abdomen soft, nontender. +BS. Pt independent in the room and with voiding, no issues reported. No skin issues noted. Left forearm PIV intact. See MAR for medication administration. See worklist
for complete nursing assessment. Plan of care reviewed and pt in agreement.
--- NOTE | 2024-02-16 11:07 | W.PN.HOSP.TC ---
Today's Communication/Plan
-
Monitor vital signs and see plan
Continue to hold Lasix, Entresto, amiodarone, metoprolol
Discharge today
Patient will follow with cardiology outpatient
Time of discharge 38 minutes
Assessment / Plan
Assessment / Plan
General: Well Developed, Well Nourished and No Apparent Distress
HEENT: NormoCephalic, Moist mucous membranes and Atraumatic
Respiratory: Clear
Cardiac: S1/S2 and Regular Rhythm; No Murmur or Rub
GI: Soft, Non Tender, Non Distended and Normal Bowel Sounds
Musculoskeletal: No Edema
Neuro: Nonfocal/grossly intact
Symptomatic bradycardia
-EKG shows sinus rhythm with sinus arrhythmia, first-degree AV block
-Patient intermittently bradycardic down to 30s for few seconds at a time with junctional escape beats on admission; now HR in 50s-60s. Denies any symptoms. Cardiology instructed patient to follow-up with them outpatient
-Hold metoprolol, amiodarone
-Cardiology following; now HR appears to be improving. no plan for any intervention per cardiology.
Coronary artery disease status post CABG
-Continue aspirin
Elevated troponin, likely nonischemic myocardial injury
Continue to monitor
Chronic HFrEF
-Continue dapagliflozin
-Holding Entresto; possible restart outpatient per cardiology
lasix on hold
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
Per infection prevention COVID antigen today negative, repeat test day 3 neg and day 5 not done yet
Paroxysmal atrial fibrillation status post recent left atrial appendage ligation
- eliquis
-hold amiodarone
Renal insufficiency; CKD stage III
-Creatinine 2.1 from baseline of 1.6-1.8; now cr 1.7
UA neg
Monitor creatinine, if does not improve then will need nephrology evaluation
Aortic stenosis status post bioprosthetic AVR with recent explant and implant of biologic valve
Severe mitral regurgitation status post MitraClips with explant of mitral clips, resuspension of papillary muscle heads
Essential hypertension
Hyperlipidemia
-Continue statin
Hypothyroidism
-Continue levothyroxine
Anemia of chronic disease
-Hemoglobin stable
Anxiety/depression
-Continue paroxetine
DNR/DNI (per patient although family wants full code)
DVT prophylaxis
PT/OT
Anticipated Discharge: Today
Subjective/Interval History
-
Date of Service: February 16, 2024
denies pain
Objective Data
-
Labs:
Laboratory Results
02/16/24 02/16/24
04:57 04:58
WBC 4.0 L
Hgb 11.0 L
Hct 32.1 L
Plt Count 127 L
Sodium 138
Potassium 4.5
Chloride 108 H
Carbon Dioxide 25
BUN 28 H
Creatinine 1.7 H
Glucose 75
Calcium 9.1
Total Bilirubin 0.5
AST 41
ALT 32
Alkaline Phosphatase 137 H
Vital Signs:
Vital Signs
Temp Pulse Resp BP Pulse Ox
98.4 F 66 16 112/68 98
02/16/24 07:50 02/16/24 08:00 02/16/24 07:50 02/16/24 07:48 02/16/24 08:00
I&O
02/15/24 02/16/24 02/17/24
06:59 06:59 06:59
Intake Total 700 / 700 180 / 180 240 / 240
Output Total 200 / 200
Balance 500 / 500 180 / 180 240 / 240
--- NOTE | 2024-02-16 11:12 | W.DCSUMMARY ---
Discharge Summary
Discharge Data
Date of Admission: 02/12/24
Date of Discharge: 02/16/24
-
Pending Results: No
Hospital Course
78-year-old male with past medical history of CKD, aortic stenosis status post bioprosthetic AVR, essential hypertension, hyperlipidemia, hypothyroidism, anemia, anxiety/depression, CHF came to the hospital with symptomatic bradycardia. Patient
seen by cardiology through hospitalization. Given his bradycardia, his metoprolol and amiodarone was discontinued. He also had renal insufficiency for which his Lasix and Entresto was held. Patient did not require any surgical intervention for
his bradycardia. His heart rate continue to improve. Once his symptoms were improving, he was then discharged home with instructions to follow-up closely with PCP and cardiology outpatient.
Discharge Plan
-
Patient Disposition: Home (Routine Discharge)
Discharge Diagnosis/Procedures: Symptomatic bradycardia
Paroxysmal atrial fibrillation
Mixed valvular heart disease-severe and MR
non ischemic myocardial injury
Diet: As tolerated
Activity: As tolerated
Driving Restrictions: As prior to admission
Bathing Restrictions: None
Referrals:
Cullen Garland MD [Family Provider] - in less than 1 week
Wicho Sierra MD [Active] - in less than 1 week
Prescriptions:
Continued
aspirin [Children's Aspirin] 81 mg Tablet,Chewable
81 mg PO DAILY Qty: 0 0RF
paroxetine HCl 10 mg tablet
10 mg PO DAILY
levothyroxine 50 mcg tablet
50 mcg PO DAILY
rosuvastatin 40 mg Tablet
40 mg PO DAILY
apixaban 5 mg tablet
2.5 mg PO BID
dapagliflozin propanediol [Farxiga] 10 mg Tablet
10 mg PO DAILY 30 Days Qty: 30 0RF
Held
Entresto 24-26 mg tablet
1 tab PO BID
Hold Instructions: Until instructed to take by cardiology
furosemide 40 mg Tablet
40 mg PO DAILY 30 Days Qty: 30 0RF
Hold Instructions: Until instructed to take by cardiology
Discontinued
amiodarone [Pacerone] 200 mg tablet
200 mg PO DAILY
metoprolol succinate 25 mg Tablet Extended Release 24 Hr
12.5 mg PO DAILY 30 Days Qty: 15 0RF
Discharge Orders:
Discharge Patient (As Directed); Ordered 02/16/24
Ordered By: Santosh Gómez
Care Plan Goals
Care Plan Goals:
Problem: Readiness for enhanced knowledge related to diagnosis and treatment plan
Goal: Understand your diagnosis and treatment plan needs, including medications if applicable.
Instructions: Know your diagnosis, underlying causes and treatment plan options, including medications if applicable. Consult with your health care team to learn about your diagnosis and treatment plan, including medications if applicable.
Discharge Date and Time
Discharge Date/Time: 02/16/24 13:33
Print Language: MARSHALLESE
[2024-02-16 12:03] VITALS: BP 107/67
--- NOTE | 2024-02-16 13:32 | PTCARENOTE ---
Discharge order received. Pt stable prior to discharge, vitals obtained. Pt's at bedside. Discharge instructions/medications reviewed. All questions answered. IV and tele pack removed. Pt taken to car via wheelchair with belongings.
== END 2024-02-16 13:33 | disposition home or self-care (01) | DRG 309 ==
LOC: IVU 21:08
PROVIDERS: Physician Assistant; ADMITTING PHYSICIAN Hospitalist; ATTENDING PHYSICIAN Internal Medicine; EMERGENCY PHYSICIAN Emergency Medicine; FAMILY PHYSICIAN Family Medicine; OTHER PHYSICIAN Internal Medicine
DX: I48.0 Paroxysmal atrial fibrillation (principal); I13.0 Hypertensive heart and chronic kidney disease with heart failure and stage 1 through stage 4 chronic kidney disease, or unspecified chronic kidney disease; I38 Endocarditis, valve unspecified; I5A Non-ischemic myocardial injury (non-traumatic); I50.22 Chronic systolic (congestive) heart failure; N17.9 Acute kidney failure, unspecified; R00.1 Bradycardia, unspecified; N18.32 Chronic kidney disease, stage 3b; Z11.52 Encounter for screening for COVID-19
CPT/HCPCS: 71045; 80053; 81003; 83880; 84443; 84484; 85025; 85610; 87811; 93005; 93306; 97162; 97166; 99285; Q9950

== ENCOUNTER 2024-03-21 15:00 | Outpatient (RCR) | payer OTHER, SELFPAY | END 2024-03-21 23:59 | disposition home or self-care (01) | LOC: CRHB 15:00 | PROVIDERS: ATTENDING PHYSICIAN Internal Medicine Cardiovascular Disease | DX: Z95.4 Presence of other heart-valve replacement (principal) | CPT/HCPCS: G0422; G0423 ==

== ENCOUNTER 2024-04-02 13:42 | Outpatient (RCR) | payer OTHER, SELFPAY | END 2024-04-02 23:59 | disposition home or self-care (01) | LOC: CRHB 13:42 | PROVIDERS: ATTENDING PHYSICIAN Internal Medicine Cardiovascular Disease; FAMILY PHYSICIAN Family Medicine | DX: Z95.4 Presence of other heart-valve replacement (principal) | CPT/HCPCS: G0422 ==

== ENCOUNTER 2024-04-09 13:43 | Emergency (ER) | payer OTHER, SELFPAY ==
[2024-04-09] VITALS (8 sets, daily range): BP systolic 119–137; BP diastolic 70–91; PULSE 72–73
--- NOTE | 2024-04-09 14:25 | ED.GENMED ---
History of Present Illness
General
Chief Complaint: Breathing Problem
Source: patient
Exam Limitations: none
Time Seen by Provider: 04/09/24 14:22
Nursing documentation reviewed up to this point in time: agreed with
History of Present Illness
History of Present Illness:
78 -year-old male with a past medical history of aortic stenosis status, aortic valve replacement chronic kidney disease hypertension hyperlipidemia hypothyroidism anxiety depression CHF presents to the ER for evaluation. Patient reports he has
been short of breath weak down no energy no appetite for months. at bedside reports that she brought patient here to the ER today specifically because when she called and went home he did not feel well he was complaining about feeling dizzy
and he actually requested to go to the ER which is not like him.
He is followed by his family for this. He is on antidepressant medication and his family doctor recently has been increasing his dose.
He denies any recent illness fever chills.
Patient was admitted in January for bradycardia and his metoprolol and amiodarone were discontinued at that time.
Past History
Past History
ED Past Medical History: Arrthythmia (Atrial fib/flutter), CAD, CHF, HTN, Hypercholesterolemia, [place], Valvular disease ( s/p AVR, MR), Hyperthyroidism (Possibly), Other (Recent mitral clip, anemia) and Other (Artery disease status post [place], status
post stenting of diagonal and LAD, hypercholesterolemia, hypertension,AVR with tissue valve)
ED Past Surgical History: None, Cardiac (CABG x 3, valve replacement, stents) and Orthopedic (right knee replacement)
Social History
Tobacco: Non-smoker
Alcohol: None
Drug: None
Personal:
Living: with family
Employment: Employed
Family History
Family History: CAD
Review of Systems
Review of Systems
Allergies reviewed?: Yes
Other source history: family
All Other Systems: ROS reviewed and negative except as documented in HPI and ROS
Constitutional: Reports fatigue; Denies fever
EENT: Reports no symptoms
Respiratory: Reports trouble breathing
Cardiac: Reports no symptoms; Denies chest pain, diaphoresis, palpitations or syncope
ABD/GI: Reports no symptoms
: Reports no symptoms
Musculoskeletal: Reports no symptoms
Skin: Reports no symptoms
Neurological: Reports no symptoms
Hematologic/Lymphatic: Reports no symptoms
Psychiatric: Reports no symptoms
Phy Exam
General Physical Exam
General Presentation: no apparent distress
General age: appears stated age
General Skin: warm and dry
General Habitus: elderly
General Mental: alert
General Hydration: appears well hydrated
Cardiovascular Exam
Cardiovascular Exam: regular rate/rhythm, no murmur and normal peripheral pulses
Pulmonary Exam
Pulmonary Exam: lungs clear and no respiratory distress
Neurological Exam
Neurological Exam: alert and oriented x3
Musculoskeletal Exam
Musculoskeletal Exam: full ROM and other (No lower extremity swelling b/l )
Skin Exam
Skin Exam: normal color and warm/dry
Psychiatric Exam
Psychiatric Exam: normal mood/affect
Scores
Heart Failure Risk
Heart Failure Risk Score: Not Applicable
Course
Orders/Labs/Results
Orders:
Orders
04/09/24 14:29
ECG [Electrocardiogram (*1)] Urgent
Reason for Study: Shortness of Breath
EKG- Treatment ONCE
04/09/24 15:07
Complete Blood Count/With Diff Urgent
Comprehensive Metabolic Panel Urgent
Troponin I Urgent
04/09/24 15:48
Chest [CR Chest - 2 Views ] Urgent
Comment:
Reason For Exam: sob
04/09/24 17:37
Orthostatic VS- Treatment ONCE
04/09/24 17:42
UA Reflex to Culture [Urinalysis Reflex To Culture] Urgent
Date Specimen was Collected: 04/09/24
Time Specimen was Collected: 17:38
Abnormal Lab Results
04/09/24 04/09/24
15:07 17:42
RBC 3.77 L 10^6/uL
(4.70-6.10)
Hgb 11.5 L g/dL
(13.0-18.0)
Hct 34.0 L %
(39.0-52.0)
Absolute Lymphs (auto) 0.9 L 10^3/uL
(1.2-3.4)
Lymphocytes % 18.2 L %
(20.5-51.1)
Monocytes % 11.9 H %
(1.7-9.3)
BUN 30 H mg/dl
(9-20)
Creatinine 1.4 H mg/dL
(0.7-1.3)
Glucose 139 H mg/dl
(70-99)
Alkaline Phosphatase 136 H U/L
(38-126)
Urine Glucose 3+ A
(Negative)
04/09/24 15:07
04/09/24 15:07
Vital Signs
Initial and Last Documented VS:
Initial Vital Signs
Temp Pulse Resp BP Pulse Ox
97.6 F 74 16 119/70 97
04/09/24 13:45 04/09/24 13:45 04/09/24 13:45 04/09/24 13:45 04/09/24 13:45
Last Documented Vital Signs
Temp Pulse Resp BP Pulse Ox
97.6 F 76 25 121/72 97
04/09/24 13:45 04/09/24 17:48 04/09/24 17:48 04/09/24 17:48 04/09/24 17:48
Housing Assistant Property Manager consulted with Physician
Housing Assistant Property Manager consulted with physician?: Yes
Name of Physician Consulted: Annamarie
MDM/Problems Addressed
Differential Diagnosis Includes:
Not limited to depression, anemia, less likely CHF
MDM/Problems Addressed:
Patient is an 78-year-old male with significant history as documented presents to the ER for evaluation. Patient complains of feeling weak no energy no appetite for months. He felt dizzy today and wanted to come to the ER as per . Patient
presents awake alert no acute distress he does admit to feeling depressed and his family doctor has been increasing his antidepressant medications.
He denies any recent fever chills or illness. His white count is normal his hemoglobin is baseline his kidney function is baseline
Patient's urinalysis is negative chest x-ray reviewed shows small right pleural effusion no acute findings and EKG. Lungs clear no history of CHF not hypoxic nontachycardic in no acute distress nontachypneic. Patient is well-appearing however does
have a flat affect.
Case reviewed with cardiology. Case also reviewed with ED physician there are no concerning findings here in the ER for patient's cause of symptoms. Patient again has been this way since having surgery in September. Patient is being treated for
depression by family doctor and is recently in the process of having his medication increased. This is likely possibility however with no other concerning findings admission not warranted. Will DC with outpatient followed by family doctor as well
as cardiology. All instructions with patient and family. Patient feels well enough to go home
*Radiology
Radiology exam reviewed: radiology read reviewed
*Pulse Oximetry
Patient hypoxic: no
*EKG
Interpreted by ED Provider?: Yes
Heart Rate: 75
Rate: normal
Rhythm: sinus
Ischemia: non-specific ST changes
*Critical Care Note
Total Time (30-74mins, 75-104mins- exclusive of procedures): Not Applicable
Data Reviewed
Review of Other/Old Records Reveals: Other (Echo from January reviewed)
ED Attending Note
-
Portions of this chart may have been created with voice recognition software.� Occasional wrong word or��sound alike� substitutions may have occurred due to the inherent limitations of voice recognition software.
Discharge Plan
Departure
Patient Disposition: Home (Routine Discharge)
Date of Disposition: 04/09/24
Time of Disposition: 19:04
Patient with high blood pressure during this ER visit?: No
Condition: Fair
Covid-19: Not Applicable
Discharge Problem:
Weakness
Instructions: Weakness ED
Prescriptions:
No Action
aspirin [Children's Aspirin] 81 mg Tablet,Chewable
81 mg PO DAILY Qty: 0 0RF
levothyroxine 50 mcg tablet
50 mcg PO DAILY
rosuvastatin 40 mg Tablet
40 mg PO DAILY
apixaban 5 mg tablet
2.5 mg PO BID
paroxetine HCl 40 mg tablet
40 mg PO DAILY
Romanian Sabine [Sennosides 8.5mg] 8.5 mg
1 tab PO HS
dapagliflozin propanediol [Farxiga] 10 mg Tablet
10 mg PO DAILY 30 Days Qty: 30 0RF
Referrals:
Cullen Garland MD [Family Provider] -
Wicho Sierra MD [Active] -
Activity Restrictions/Additional Instructions:
As discussed there were no concerning abnormalities found here in the emergency department evaluation
Follow-up with family doctor as well as cardiology in the next several days
please call them tomorrow to make an appointment
return if any worsening of symptoms
Interventions
Interventions:
*Risk Screen - Suicide Last Done: 04/09/24 15:00
*General Assessment Last Done: 04/09/24 15:00
*Neglect/Abuse Screening Last Done: 04/09/24 15:00
ED- Cardiac Assessment Last Done: 04/09/24 18:05
ED- Pulmonary Assessment Last Done: 04/09/24 15:00
Discharge Date and Time
Print Language: TAJIK
[2024-04-09 15:12] LABS: % Basophils 0.6 % (0-2); % Eosinophils 3.1 % (0-6); % Immature Granulocytes 0.2 % (0-0.5); % Lymphocytes 18.2 % (20.5-51.1); % Monocytes 11.9 % (1.7-9.3); Absolute Eosinophils 0.2 10^3/uL (0-0.7); Absolute Lymphocytes 0.9 10^3/uL (1.2-3.4); Absolute Monocytes 0.6 10^3/uL (0.1-0.6); Absolute Neutrophils 3.2 10^3/uL (1.4-6.5); Hemoglobin 11.5 g/dL (13.0-18.0); Mean Corp Hgb Conc. 33.8 g/dL (33.0-37.0); Mean Corpuscular Hgb 30.5 pg (27.0-31.0); Mean Corpuscular Volume 90.2 fL (80.0-94.0); Mean Platelet Volume 10.3 fL (7.4-10.4); Nucleated Red Blood Cells % 0 % (-); Platelet Count 147 10^3/uL (130-400); Red Blood Cell Count 3.77 10^6/uL (4.70-6.10); Red Cell Dist. Width 14.5 % (11.5-14.5); White Blood Cell Count 4.8 10^3/uL (4.8-10.8)
[2024-04-09 15:25] LABS: ALT (SGPT) 38 U/L (0-50); AST (SGOT) 38 U/L (17-59); Albumin 4.2 g/dl (3.5-5.0); Alkaline Phosphatase 136 U/L (38-126); Blood Urea Nitrogen 30 mg/dl (9-20); Calcium 9.4 mg/dl (8.4-10.2); Carbon Dioxide 23 mmol/L (22-30); Chloride 106 mmol/L (98-107); Glucose 139 mg/dl (70-99); Potassium 4.6 mmol/L (3.5-5.1); Sodium 141 mmol/L (135-145); Total Bilirubin 0.6 mg/dl (0.2-1.3); Total Protein 6.7 g/dl (6.3-8.2); eGFR 50.81
[2024-04-09 15:37] LABS: Troponin I 0.018 ng/ml
[2024-04-09 17:50] LABS: Urine Albumin Trace (Neg - Trace); Urine Bilirubin Negative (Negative); Urine Character Slightly Cloudy (Clear); Urine Color Yellow; Urine Glucose 3+ (Negative); Urine Ketone Negative (Negative); Urine Leukocyte Negative (Negative); Urine Nitrite Negative (Negative); Urine Occult Blood Negative (Negative); Urine Urobilinogen Negative (Neg - 1+)
== END 2024-04-09 19:49 | disposition home or self-care (01) ==
LOC: EMR 13:43
PROVIDERS: Emergency Medicine; Nurse Practitioner; EMERGENCY PHYSICIAN Emergency Medicine; FAMILY PHYSICIAN Family Medicine
DX: R53.1 Weakness (principal); I13.0 Hypertensive heart and chronic kidney disease with heart failure and stage 1 through stage 4 chronic kidney disease, or unspecified chronic kidney disease; N18.9 Chronic kidney disease, unspecified; I35.0 Nonrheumatic aortic (valve) stenosis; E78.00 Pure hypercholesterolemia, unspecified; E03.9 Hypothyroidism, unspecified; I48.91 Unspecified atrial fibrillation; I25.10 Atherosclerotic heart disease of native coronary artery without angina pectoris; F32.A Depression, unspecified; Z82.49 Family history of ischemic heart disease and other diseases of the circulatory system; Z95.1 Presence of aortocoronary bypass graft; Z95.2 Presence of prosthetic heart valve; Z95.5 Presence of coronary angioplasty implant and graft; Z96.651 Presence of right artificial knee joint
CPT/HCPCS: 99283; 71046; 80053; 81003; 84484; 85025; 93005

== ENCOUNTER → 2024-04-28 09:21 | Outpatient (REF) | payer OTHER, SELFPAY | LOC: RCS 09:21 | PROVIDERS: ATTENDING PHYSICIAN Thoracic Surgery (Cardiothoracic Vascular Surgery); FAMILY PHYSICIAN Family Medicine | DX: Z95.2 Presence of prosthetic heart valve (principal); Z98.890 Other specified postprocedural states | CPT/HCPCS: 93306 ==

== ENCOUNTER 2024-04-28 10:30 | Emergency (ER) | payer OTHER, SELFPAY ==
[2024-04-28 10:51] VITALS: BP 150/88
--- NOTE | 2024-04-28 11:11 | ED.GENMED ---
History of Present Illness
General
Chief Complaint: Fall
Source: patient, records and family
Exam Limitations: none
Time Seen by Provider: 04/28/24 11:03
Nursing documentation reviewed up to this point in time: agreed with
History of Present Illness
History of Present Illness:
Patient is an 78-year-old male who presents to the emergency department after tripping on the ground and falling without striking his head. Patient had an echocardiogram and when was done turned the wrong way. Patient went to turn around and
cannot his sneakers on the ground and fell forward. Patient denies any pain except for mild left lateral lower chest. Patient denies shortness of breath. Patient denies syncope, diaphoresis, GI or symptoms. Patient has been having issues with
weakness and has had cardiac surgery in the past year. Patient denies any fever or chills. Patient denies any numbness or paresthesias. Patient denies any visual or speech difficulties. Patient denies striking his head. Patient denies any neck
pain.
Past History
Past History
ED Past Medical History: Arrthythmia (Atrial fib/flutter), CAD, CHF, HTN, Hypercholesterolemia, [place], Valvular disease ( s/p AVR, MR), Hyperthyroidism (Possibly), Other (Recent mitral clip, anemia) and Other (Artery disease status post [place], status
post stenting of diagonal and LAD, hypercholesterolemia, hypertension,AVR with tissue valve)
ED Past Surgical History: None, Cardiac (CABG x 3, valve replacement, stents) and Orthopedic (right knee replacement)
Social History
Tobacco: Non-smoker
Alcohol: None
Drug: None
Personal:
Living: with family
Employment: Employed
Family History
Family History: CAD
Review of Systems
Review of Systems
All Other Systems: Not applicable
Phy Exam
Physical Exam
Physical Exam:
Physical Exam
General: No apparent distress, alert and appropriate, well nourished, well hydrated
HENT: Normocephalic and atraumatic as well as nontender, supple with no tracheal deviation or contusion
Eyes: Clear sclera, conjuctiva without injection
Heart: Regular rhythm and rate. No S3, S4. No murmur.
Lungs: No respiratory distress, no stridor, lung sounds clear and equal bilaterally, chest wall symmetrical and nontender and without deformity, crepitus or subcutaneous emphysema
Abdomen: Soft, nontender, no organomegaly, BS good
Neuro: Alert and oriented x 3, CN II - XII intact, no motor focality, no cerebellar dysfunction
Skin: no wounds
Psychiatric: well kept. interactive and cooperative
Extremities: No edema, cyanosis, tenderness
Musculoskeletal: No cervical, thoracic or lumbar spine tenderness. No hip or pelvic tenderness. Patient able to ambulate without difficulty
Course
Vital Signs
Initial and Last Documented VS:
Initial Vital Signs
Temp Pulse Resp BP Pulse Ox
98.0 F 79 16 150/88 98
04/28/24 10:51 04/28/24 10:51 04/28/24 10:51 04/28/24 10:51 04/28/24 10:51
Last Documented Vital Signs
Temp Pulse Resp BP Pulse Ox
98.0 F 79 16 150/88 98
04/28/24 10:51 04/28/24 10:51 04/28/24 10:51 04/28/24 10:51 04/28/24 10:51
*Radiology
Radiology exam reviewed: other (No x-rays are required at this time)
*Pulse Oximetry
Patient hypoxic: no
*EKG
Interpreted by ED Provider?: NA
*Pigment Furnace Tender Interpretation
Rate: Pigment Furnace Tender- N/A
*Critical Care Note
Total Time (30-74mins, 75-104mins- exclusive of procedures): Not Applicable
ED Attending Note
-
Portions of this chart may have been created with voice recognition software.� Occasional wrong word or��sound alike� substitutions may have occurred due to the inherent limitations of voice recognition software.
Discharge Plan
Departure
Patient Disposition: Home (Routine Discharge)
Date of Disposition: 04/28/24
Time of Disposition: 11:12
Patient with high blood pressure during this ER visit?: Yes
Condition: Good
Covid-19: Not Applicable
Discharge Problem:
Contusion of chest wall
Instructions: Contusion (DC), Preventing falls in adults
Prescriptions:
No Action
aspirin [Children's Aspirin] 81 mg Tablet,Chewable
81 mg PO DAILY Qty: 0 0RF
levothyroxine 50 mcg tablet
50 mcg PO DAILY
rosuvastatin 40 mg Tablet
40 mg PO DAILY
apixaban 5 mg tablet
2.5 mg PO BID
paroxetine HCl 40 mg tablet
40 mg PO DAILY
Gabonese Sabine [Sennosides 8.5mg] 8.5 mg
1 tab PO HS
dapagliflozin propanediol [Farxiga] 10 mg Tablet
10 mg PO DAILY 30 Days Qty: 30 0RF
Activity Restrictions/Additional Instructions:
Continue present meds and therapy
Interventions
Interventions:
*Risk Screen - Suicide Last Done: 04/28/24 10:53
*Neglect/Abuse Screening Last Done: 04/28/24 10:51
*Nursing Disposition Last Done: 04/28/24 11:24
ED-Musculoskeletal Assessment Last Done: 04/28/24 11:22
ED- Neurological Assessment Last Done: 04/28/24 11:22
ED-Skin Assessment Last Done: 04/28/24 11:22
Discharge Date and Time
Discharge Date/Time: 04/28/24 11:25
Print Language: URUGUAYAN
== END 2024-04-28 11:25 | disposition home or self-care (01) ==
LOC: EMR 10:30
PROVIDERS: EMERGENCY PHYSICIAN Emergency Medicine; FAMILY PHYSICIAN Family Medicine
DX: S20.219A Contusion of unspecified front wall of thorax, initial encounter (principal); W01.0XXA Fall on same level from slipping, tripping and stumbling without subsequent striking against object, initial encounter; I11.0 Hypertensive heart disease with heart failure; Z82.49 Family history of ischemic heart disease and other diseases of the circulatory system; Z95.1 Presence of aortocoronary bypass graft; Z95.2 Presence of prosthetic heart valve; Z95.5 Presence of coronary angioplasty implant and graft; Z96.651 Presence of right artificial knee joint; I48.91 Unspecified atrial fibrillation; I25.10 Atherosclerotic heart disease of native coronary artery without angina pectoris; E78.00 Pure hypercholesterolemia, unspecified; I38 Endocarditis, valve unspecified; E05.90 Thyrotoxicosis, unspecified without thyrotoxic crisis or storm; D64.9 Anemia, unspecified
CPT/HCPCS: 99282

== ENCOUNTER 2024-09-03 16:12 | Emergency (ER) | payer OTHER, SELFPAY ==
[2024-09-03 16:22] VITALS: BP 122/75
[2024-09-03 16:53] LABS: % Basophils 0.5 % (0-2); % Eosinophils 2.6 % (0-6); % Immature Granulocytes 0.3 % (0-0.5); % Lymphocytes 13.4 % (20.5-51.1); % Monocytes 10.5 % (1.7-9.3); % Neutrophils 72.7 % (42.2-75.2); Absolute Eosinophils 0.2 10^3/uL (0-0.7); Absolute Lymphocytes 0.9 10^3/uL (1.2-3.4); Absolute Monocytes 0.7 10^3/uL (0.1-0.6); Absolute Neutrophils 4.8 10^3/uL (1.4-6.5); Hematocrit 37.2 % (39.0-52.0); Hemoglobin 12.5 g/dL (13.0-18.0); Mean Corp Hgb Conc. 33.6 g/dL (33.0-37.0); Mean Corpuscular Hgb 30.3 pg (27.0-31.0); Mean Corpuscular Volume 90.3 fL (80.0-94.0); Mean Platelet Volume 10.2 fL (7.4-10.4); Nucleated Red Blood Cells % 0 % (-); Platelet Count 175 10^3/uL (130-400); Red Blood Cell Count 4.12 10^6/uL (4.70-6.10); Red Cell Dist. Width 14.2 % (11.5-14.5); White Blood Cell Count 6.6 10^3/uL (4.8-10.8)
[2024-09-03 17:09] LABS: ALT (SGPT) 21 U/L (0-50); AST (SGOT) 28 U/L (17-59); Albumin 4.2 g/dl (3.5-5.0); Alkaline Phosphatase 141 U/L (38-126); Blood Urea Nitrogen 26 mg/dl (9-20); Calcium 9.4 mg/dl (8.4-10.2); Carbon Dioxide 25 mmol/L (22-30); Chloride 102 mmol/L (98-107); Glucose 168 mg/dl (70-99); Potassium 4.5 mmol/L (3.5-5.1); Sodium 138 mmol/L (135-145); Total Bilirubin 0.6 mg/dl (0.2-1.3); Total Protein 6.6 g/dl (6.3-8.2); eGFR 43.29
[2024-09-03 17:21] LABS: NT-proBNP 3530 pg/ml; Troponin I < 0.012 ng/ml
[2024-09-03 19:00] VITALS: BP 134/75
[2024-09-03 19:28] VITALS: BMI 24.4
--- NOTE | 2024-09-03 19:50 | ED.GENMED ---
History of Present Illness
General
Chief Complaint: Weakness
Time Seen by Provider: 09/03/24 18:58
History of Present Illness
History of Present Illness:
Patient is a 78-year-old male with history of CHF, A-fib on Eliquis, hypertension, hyperlipidemia, multiple bypasses and stents presenting to the emergency room with weakness and shortness of breath. Patient states that has been feeling weak and
short of breath for quite some time now. He seen his primary care doctor and benzene still utility operator with no clear diagnoses. However for the past week have worsened. He is also had multiple sick contacts. No nausea or vomiting. No diarrhea. No abdominal
pain. No chest pain. He does state that he is not on a water pill for his CHF. He does feel as if there is some fluid retention but not a significant amount. He does see cardiology and plans to see them in a few months. He has been compliant
with his Eliquis. Has not missed a single dose. His primary care doctor just discontinued one of his antidepressants to see if that would help. Unfortunately no significant changes were noticed.
Past History
Past History
ED Past Medical History: Arrthythmia (Atrial fib/flutter), CAD, CHF, HTN, Hypercholesterolemia, [place], Valvular disease ( s/p AVR, MR), Hyperthyroidism (Possibly), Other (Recent mitral clip, anemia) and Other (Artery disease status post [place], status
post stenting of diagonal and LAD, hypercholesterolemia, hypertension,AVR with tissue valve)
ED Past Surgical History: None, Cardiac (CABG x 3, valve replacement, stents) and Orthopedic (right knee replacement)
Social History
Tobacco: Non-smoker
Alcohol: None
Drug: None
Personal:
Living: with family
Employment: Employed
Family History
Family History: CAD
Phy Exam
Physical Exam
Physical Exam:
GENERAL: in no acute distress
HEENT: normocephalic, extraocular movements intact, moist oral mucosa
NECK: normal inspection
RESPIRATORY: no respiratory distress, fine crackles at bilateral bases
CARDIOVASCULAR: regular rate and rhythm
ABDOMEN/: soft, non-distended, non-tender to palpation, no rebound or guarding
EXTREMITIES: non-tender, mild edema in lower extremities
NEUROLOGIC: awake and alert, moves all extremities
SKIN: warm
Course
Orders/Labs/Results
Orders:
Orders
09/03/24 16:28
Electrocardiogram (*1) Urgent
Reason for Study: Shortness of Breath
09/03/24 16:29
EKG- Treatment ONCE
09/03/24 16:38
CMP [Comprehensive Metabolic Panel] Urgent
Complete Blood Count/With Diff Urgent
NT-proBNP Urgent
Troponin I Urgent
09/03/24 18:58
CR Chest - 2 Views Urgent
Comment:
Reason For Exam: sob
09/03/24 19:28
COVID-19 Antigen Urgent
Source: Nasal Swab
Influenza A+B Rapid Molecular Urgent
YOUNG Source: Nasal Swab
Specimen Description:
09/03/24 20:52
Urinalysis Reflex To Culture Urgent
Date Specimen was Collected: 09/03/24
Time Specimen was Collected: 20:50
09/03/24 22:12
Furosemide [Lasix] 20 mg PO NOW STA
Abnormal Lab Results
09/03/24 09/03/24
16:38 20:52
RBC 4.12 L 10^6/uL
(4.70-6.10)
Hgb 12.5 L g/dL
(13.0-18.0)
Hct 37.2 L %
(39.0-52.0)
Absolute Lymphs (auto) 0.9 L 10^3/uL
(1.2-3.4)
Absolute Monos (auto) 0.7 H 10^3/uL
(0.1-0.6)
Lymphocytes % 13.4 L %
(20.5-51.1)
Monocytes % 10.5 H %
(1.7-9.3)
BUN 26 H mg/dl
(9-20)
Creatinine 1.6 H mg/dL
(0.7-1.3)
Glucose 168 H mg/dl
(70-99)
Alkaline Phosphatase 141 H U/L
(38-126)
Urine Glucose 4+ A
(Negative)
09/03/24 16:38
09/03/24 16:38
Vital Signs
Initial and Last Documented VS:
Initial Vital Signs
Temp Pulse Resp BP Pulse Ox
98.4 F 61 16 122/75 58
09/03/24 16:22 09/03/24 16:22 09/03/24 16:22 09/03/24 16:22 09/03/24 16:22
Last Documented Vital Signs
Temp Pulse Resp BP Pulse Ox
98.4 F 79 20 133/75 96
09/03/24 16:22 09/03/24 21:00 09/03/24 20:52 09/03/24 21:00 09/03/24 20:00
MDM/Problems Addressed
Differential Diagnosis Includes:
Patient is a 78-year-old male with history of A-fib on Eliquis, CHF, hypertension, hyperlipidemia, significant CAD presenting to the emergency department shortness of breath and weakness that has been ongoing for many months but worsened in the past
few weeks. Vitals are unremarkable and exam does show fine crackles at the bases as well as mild lower extremity edema. Differential consist of CHF exacerbation versus viral URI versus pneumonia versus electrolyte derangement. Blood work obtained
prior to my evaluation does show an elevated BNP more elevated than patient's baseline. Will obtain chest x-ray as well as COVID flu swab. Also check urine sample. Patient will likely need to be restarted on his furosemide that he has been taken
off of.
*Critical Care Note
Total Time (30-74mins, 75-104mins- exclusive of procedures): Not Applicable
Update Note
Update Note:
Chest x-ray per my interpretation bilateral pleural effusions. COVID flu negative. Will discharge with 3-day course of Lasix. Will give day 1 here. Strict return precautions given. Will give rapid CHF clinic follow-up.
ED Attending Note
-
Portions of this chart may have been created with voice recognition software.� Occasional wrong word or��sound alike� substitutions may have occurred due to the inherent limitations of voice recognition software.
Discharge Plan
Departure
Patient Disposition: Home (Routine Discharge)
Date of Disposition: 09/03/24
Time of Disposition: 22:09
Patient with high blood pressure during this ER visit?: No
Discharge Problem:
Pulmonary edema
Instructions: *CBC Heart Failure Instructions
Prescriptions:
New
furosemide [Lasix] 20 mg tablet
20 mg PO DAILY Qty: 2 0RF
Rx Instructions:
take starting /
No Action
aspirin [Children's Aspirin] 81 mg Tablet,Chewable
81 mg PO DAILY Qty: 0 0RF
levothyroxine 50 mcg tablet
50 mcg PO DAILY
rosuvastatin 40 mg Tablet
40 mg PO DAILY
apixaban 5 mg tablet
2.5 mg PO BID
paroxetine HCl 40 mg tablet
40 mg PO DAILY
H[place] Konger Sabine [Sennosides 8.5mg] 8.5 mg
1 tab PO HS
dapagliflozin propanediol [Farxiga] 10 mg Tablet
10 mg PO DAILY 30 Days Qty: 30 0RF
Referrals:
Cullen Garland MD [Family Provider] -
Activity Restrictions/Additional Instructions:
Please take medication as prescribed. I did give you your dose for today here. Your benzene still utility operator will call you to schedule an appointment.
Interventions
Interventions:
*Risk Screen - Suicide Last Done: 09/03/24 16:22
*General Assessment Last Done: 09/03/24 19:28
*Neglect/Abuse Screening Last Done: 09/03/24 16:22
ED- Fall Risk Assessment Last Done: 09/03/24 20:14
ED- Cardiac Assessment Last Done: 09/03/24 20:14
ED- Neurological Assessment Last Done: 09/03/24 20:14
ED- Pulmonary Assessment Last Done: 09/03/24 20:14
Discharge Date and Time
Print Language: GREEK
[2024-09-03 19:56] LABS: COVID-19 Antigen Negative (Negative)
[2024-09-03 20:00] VITALS: BP 131/66
[2024-09-03 21:00] VITALS: BP 133/75
[2024-09-03 21:07] LABS: Urine Albumin Negative (Neg - Trace); Urine Bilirubin Negative (Negative); Urine Character Clear (Clear); Urine Color Yellow; Urine Glucose 4+ (Negative); Urine Ketone Negative (Negative); Urine Leukocyte Negative (Negative); Urine Nitrite Negative (Negative); Urine Occult Blood Negative (Negative); Urine Urobilinogen Negative (Neg - 1+)
[2024-09-03 22:00] VITALS: BP 132/78
[2024-09-03] MEDS: LASIX 20 MG PO (22:22)
== END 2024-09-03 22:27 | disposition home or self-care (01) ==
LOC: EMR 16:12
PROVIDERS: Emergency Medicine; EMERGENCY PHYSICIAN Student in an Organized Health Care Education/Training Program; FAMILY PHYSICIAN Family Medicine
DX: J81.1 Chronic pulmonary edema (principal); I11.0 Hypertensive heart disease with heart failure; I50.9 Heart failure, unspecified; I48.91 Unspecified atrial fibrillation; I10 Essential (primary) hypertension; E78.00 Pure hypercholesterolemia, unspecified; Z79.01 Long term (current) use of anticoagulants; Z82.49 Family history of ischemic heart disease and other diseases of the circulatory system; Z95.1 Presence of aortocoronary bypass graft; Z95.2 Presence of prosthetic heart valve; Z95.5 Presence of coronary angioplasty implant and graft; Z96.651 Presence of right artificial knee joint
CPT/HCPCS: 99283; 71046; 80053; 81003; 83880; 84484; 85025; 87502; 87811; 93005

== ENCOUNTER → 2024-09-20 07:59 | Outpatient (REF) | payer OTHER, SELFPAY | LOC: RCS 07:59 | PROVIDERS: ATTENDING PHYSICIAN Family Medicine | DX: I25.810 Atherosclerosis of coronary artery bypass graft(s) without angina pectoris (principal); Z95.2 Presence of prosthetic heart valve; Z98.890 Other specified postprocedural states | CPT/HCPCS: 93306 ==

== ENCOUNTER → 2025-02-03 09:22 | Outpatient (REF) | payer OTHER, SELFPAY | LOC: RCS 09:22 | PROVIDERS: ATTENDING PHYSICIAN Internal Medicine Cardiovascular Disease; FAMILY PHYSICIAN Family Medicine | DX: I50.20 Unspecified systolic (congestive) heart failure (principal) | CPT/HCPCS: 93308; 93321; 93325; Q9950 ==

== ENCOUNTER 2025-02-27 18:07 | Emergency (ER) | payer OTHER, SELFPAY ==
[2025-02-27 18:14] VITALS: BP 116/83
[2025-02-27 18:32] LABS: Hematocrit 45.4 % (39.0-52.0); Hemoglobin 14.9 g/dL (13.0-18.0); Mean Corp Hgb Conc. 32.8 g/dL (33.0-37.0); Mean Corpuscular Volume 94.0 fL (80.0-94.0); Nucleated Red Blood Cells % 0 % (-); Platelet Count 151 10^3/uL (130-400); Red Cell Dist. Width 14.5 % (11.5-14.5)
[2025-02-27 18:56] LABS: ALT (SGPT) 14 U/L (0-50); AST (SGOT) 27 U/L (17-59); Albumin 4.5 g/dl (3.5-5.0); Alkaline Phosphatase 76 U/L (38-126); Blood Urea Nitrogen 27 mg/dl (9-20); Calcium 8.9 mg/dl (8.4-10.2); Carbon Dioxide 24 mmol/L (22-30); Chloride 105 mmol/L (98-107); Glucose 97 mg/dl (70-99); Potassium 5.1 mmol/L (3.5-5.1); Sodium 137 mmol/L (135-145); Total Protein 7.2 g/dl (6.3-8.2); eGFR 31.04
[2025-02-27 19:06] LABS: Troponin I 0.016 ng/ml
[2025-02-27 21:34] VITALS: BP 113/94
[2025-02-27 21:35] VITALS: BMI 25.4
[2025-02-27 21:37] VITALS: BP 134/110
[2025-02-27 21:40] VITALS: BP 113/94
[2025-02-27 22:00] VITALS: BP 111/89
--- NOTE | 2025-02-27 22:55 | ED.GENMED ---
History of Present Illness
General
Chief Complaint: Breathing Problem
Time Seen by Provider: 02/27/25 22:07
History of Present Illness
History of Present Illness:
79-year-old male with history of hypertension, A-fib on Eliquis, CAD and valvular disease status post CABG, depression presenting with family for multiple concerns. They report for the past 2 years, essentially since patient has had his heart
surgery, has struggled with dyspnea. He has followed with pulmonology and cardiology with unclear source to his symptoms. Notes shortness of breath with exertion. Denies cough or fever. Denies any significant swelling to his lower extremities.
Additionally, family has concerns of increasing depression. He was started on a medication, however does not seem to be helping. Patient continues to state that he 'wants to 'and he feels like a burden. Patient himself denies any suicidal
thoughts. He denies any present chest pain. Family also notes that he has been increasingly aggressive. No additional history obtained at this time.
Past History
Past History
ED Past Medical History: Arrthythmia (Atrial fib/flutter), CAD, CHF, HTN, Hypercholesterolemia, NE, Valvular disease ( s/p AVR, MR), Hyperthyroidism (Possibly), Other (Recent mitral clip, anemia) and Other (Artery disease status post NE, status
post stenting of diagonal and LAD, hypercholesterolemia, hypertension,AVR with tissue valve)
ED Past Surgical History: None, Cardiac (CABG x 3, valve replacement, stents) and Orthopedic (right knee replacement)
Social History
Tobacco: Non-smoker
Alcohol: None
Drug: None
Personal:
Living: with family
Employment: Employed
Family History
Family History: CAD
Phy Exam
Physical Exam
Physical Exam:
General: Well-appearing, no clinical signs of dehydration, nontoxic and in no acute distress
HEENT: protecting airway
Neck: appears supple
CV: Normal heart rate, regular rhythm
Resp: No accessory muscle use, no increased work of breathing, lungs clear to auscultation bilaterally
Abd: No distention
Extremities: No deformities, no swelling, no erythema
Neuro: alert, no focal neurologic deficit
: deferred
Rectal: deferred
Psych: Normal affect
Skin: Intact
Scores
Heart Failure Risk
Heart Failure Risk Score: Not Applicable
Course
Orders/Labs/Results
Orders:
Orders
02/27/25 18:19
EKG [Electrocardiogram (*1)] Urgent
Reason for Study: Shortness of Breath
02/27/25 18:20
EKG- Treatment ONCE
02/27/25 18:25
Complete Blood Count/With Diff Urgent
Comprehensive Metabolic Panel Urgent
NT-proBNP Urgent
Troponin I Urgent
02/27/25 22:37
Crisis Consult Urgent
Reason for Consult: depression
02/27/25 22:39
CR Chest - 2 Views Urgent
Comment:
Reason For Exam: SOB
Abnormal Lab Results
02/27/25
18:25
MCHC 32.8 L g/dL
(33.0-37.0)
MPV 10.7 H fL
(7.4-10.4)
Absolute Monos (auto) 0.7 H 10^3/uL
(0.1-0.6)
Lymphocytes % 19.3 L %
(20.5-51.1)
BUN 27 H mg/dl
(9-20)
Creatinine 2.1 H mg/dL
(0.7-1.3)
02/27/25 18:25
02/27/25 18:25
Vital Signs
Initial and Last Documented VS:
Initial Vital Signs
Temp Pulse Resp BP Pulse Ox
97.3 F 108 22 116/83 99
02/27/25 18:14 02/27/25 18:14 02/27/25 18:14 02/27/25 18:14 02/27/25 18:14
Last Documented Vital Signs
Temp Pulse Resp BP Pulse Ox
97.5 F 105 21 125/93 92
02/27/25 21:40 02/27/25 23:30 02/27/25 23:30 02/27/25 23:00 02/27/25 22:57
MDM/Problems Addressed
MDM/Problems Addressed:
79-year-old male with history of hypertension, A-fib on Eliquis, CAD and valvular disease status post CABG, depression presenting to the emergency department for report of shortness of breath and depression. Vital signs on arrival are significant
for mild tachycardia.
On exam patient is resting comfortably, no acute distress. No respiratory distress with unremarkable cardiac and pulmonary exam. On review of EMR, patient was seen in the emergency department in August for similar symptoms. Family also reports
that he has been following regularly with his sample sawyer and phlebotomist associate with unclear source of his dyspnea. Currently no hypoxia or sign of respiratory compromise. Family notes that patient has suffered a decline since having all of his
cardiac issues, now with known CHF and ejection fraction of about 35%. Suspect part of the dyspnea could be from underlying cardiac issues, chronic. No present sign of volume overload or concern for CHF exacerbation. Patient afebrile, nontoxic
without concern for pneumonia, no cough. Without present concern for PE, on Eliquis, noted compliance. Screening laboratory analysis sent, BNP appears to be at baseline. Troponin within normal limits. Mild MARTHA, however appears to be chronic.
Will repeat chest x-ray imaging. From depression standpoint, does not presently appear to be a threat to himself or others. Suspect the patient is depressed regarding his medical issues. Will consult with crisis
00:20 -crisis to bedside, notes outpatient resources provided. No present indication for 302 or inpatient therapy. Chest x-ray without acute cardiopulmonary disease. Will obtain ambulatory pulse ox. However at this time without concern for acute
pulmonary process. Feel stable for discharge with continued outpatient supportive therapy and follow-up. Return precautions discussed
*Pulse Oximetry
SaO2: 92
Oxygen Mode of Delivery: Room air
Patient hypoxic: no
*EKG
Interpreted by ED Provider?: Yes
EKG Intrepretation Date: 02/27/25
EKG Intrepretation Time: 22:59
Interpretation: normal
Comparison EKG: no changes (09/03/24)
Heart Rate: 109
Rate: tachycardiac
Rhythm: sinus
[place]: normal axis
Interval: normal interval
Ischemia: non-specific ST changes
*Critical Care Note
Total Time (30-74mins, 75-104mins- exclusive of procedures): Not Applicable
ED Attending Note
-
Portions of this chart may have been created with voice recognition software.� Occasional wrong word or��sound alike� substitutions may have occurred due to the inherent limitations of voice recognition software.
Discharge Plan
Departure
Patient Disposition: Home (Routine Discharge)
Date of Disposition: 02/28/25
Time of Disposition: 01:03
Patient with high blood pressure during this ER visit?: No
Condition: Good
Discharge Problem:
Breath shortness, Depression
Instructions: Shortness of Breath (Dyspnea) (DC), Depression in adults - ED discharge instructions
Prescriptions:
No Action
aspirin [Children's Aspirin] 81 mg Tablet,Chewable
81 mg PO DAILY Qty: 0 0RF
levothyroxine 50 mcg tablet
50 mcg PO DAILY
rosuvastatin 40 mg Tablet
40 mg PO DAILY
apixaban 5 mg tablet
2.5 mg PO BID
paroxetine HCl 40 mg tablet
40 mg PO DAILY
[place] [Sennosides 8.5mg] 8.5 mg
1 tab PO HS
furosemide [Lasix] 20 mg tablet
20 mg PO DAILY Qty: 2 0RF
Rx Instructions:
take starting 09/04
dapagliflozin propanediol [Farxiga] 10 mg Tablet
10 mg PO DAILY 30 Days Qty: 30 0RF
Referrals:
Cullen Garland MD [Family Provider, [facility]]
Activity Restrictions/Additional Instructions:
You were seen in the emergency department for shortness of breath
You were found to have reassuring laboratory analysis and vital signs. You had a chest x-ray which did not show any sign of acute pulmonary disease. We recommend follow-up with your phlebotomist associate and your sample sawyer. While in the emergency
department, you also had feelings of depression. We recommend that you use outpatient resources that were provided to you by the crisis team.
Please follow-up closely with your primary care physician.
Return to the emergency department for any worsening of your symptoms, or any development of chest pain, difficulty breathing, abdominal pain with persistent vomiting and inability to tolerate food or liquid by mouth (concern for dehydration),
weakness, headache or confusion, fever greater than 100.4, or any additional symptoms that are concerning to you.
Thank you for choosing [facility].
Interventions
Interventions:
*Risk Screen - Suicide Last Done: 02/27/25 18:14
*General Assessment Last Done: 02/27/25 18:14
*Neglect/Abuse Screening Last Done: 02/27/25 21:41
*ED- Fall Risk Assessment Last Done: 02/27/25 21:41
*ED COVID-19 Vaccine History Last Done: 02/27/25 18:14
*Nursing Disposition Last Done: 02/28/25 01:06
ED- Cardiac Assessment Last Done: 02/27/25 21:41
ED- Pulmonary Assessment Last Done: 02/27/25 21:41
Discharge Date and Time
Discharge Date/Time: 02/28/25 01:06
Print Language: MAURITANIAN
[2025-02-27 23:00] VITALS: BP 125/93
== END 2025-02-28 01:06 | disposition home or self-care (01) ==
LOC: EMR 18:07
PROVIDERS: Emergency Medicine; EMERGENCY PHYSICIAN Student in an Organized Health Care Education/Training Program; FAMILY PHYSICIAN Family Medicine
DX: R06.02 Shortness of breath (principal); F32.A Depression, unspecified; I11.0 Hypertensive heart disease with heart failure; I50.9 Heart failure, unspecified; N17.9 Acute kidney failure, unspecified; I25.10 Atherosclerotic heart disease of native coronary artery without angina pectoris; I48.91 Unspecified atrial fibrillation; D64.9 Anemia, unspecified; E78.00 Pure hypercholesterolemia, unspecified; Z79.01 Long term (current) use of anticoagulants; Z95.1 Presence of aortocoronary bypass graft; Z95.2 Presence of prosthetic heart valve; Z95.5 Presence of coronary angioplasty implant and graft; Z96.651 Presence of right artificial knee joint
CPT/HCPCS: 99284; 71046; 80053; 83880; 84484; 85025; 93005